=== PATIENT | female | born 1945 | race Caucasian/White ===

== ENCOUNTER 2023-10-02 22:43 | Inpatient (IN) | payer OTHER, SELFPAY ==
[2023-10-02] VITALS (9 sets, daily range): BP systolic 124–184; BP diastolic 43–75; BMI 44.4; BMI 45.3
[2023-10-02 20:17] LABS: % Basophils 0.2 % (0-2); % Eosinophils 1.7 % (0-6); % Lymphocytes 5.5 % (20.5-51.1); % Monocytes 7.3 % (1.7-9.3); % Neutrophils 83.3 % (42.2-75.2); Absolute Eosinophils 0.2 10^3/uL (0-0.7); Absolute Immature Granulocytes 0.3 10^3/uL (0-0.05); Absolute Lymphocytes 0.7 10^3/uL (1.2-3.4); Absolute Neutrophils 10.9 10^3/uL (1.4-6.5); Mean Corp Hgb Conc. 27.3 g/dL (33.0-37.0); Mean Corpuscular Hgb 17.5 pg (27.0-31.0); Mean Corpuscular Volume 64.2 fL (81.0-99.0); Mean Platelet Volume 8.9 fL (7.4-10.4); Nucleated Red Blood Cells % 0.4 %; Platelet Count 312 10^3/uL (130-400); Red Blood Cell Count 2.74 10^6/uL (4.20-5.40); Red Cell Dist. Width 19.7 % (11.5-14.5); White Blood Cell Count 13.1 10^3/uL (4.8-10.8)
[2023-10-02 20:23] LABS: Hematocrit 17.6 % (37.0-47.0); Hemoglobin 4.8 g/dL (12.0-16.0)
[2023-10-02 20:28] LABS: APTT 39.7 Sec (23.4-35.0)
[2023-10-02 20:33] LABS: ALT (SGPT) 12 U/L (0-35); AST (SGOT) 17 U/L (14-36); Albumin 3.6 g/dl (3.5-5.0); Alkaline Phosphatase 75 U/L (38-126); Blood Urea Nitrogen 41 mg/dl (7-17); Calcium 8.6 mg/dl (8.4-10.2); Carbon Dioxide 25 mmol/L (22-30); Chloride 97 mmol/L (98-107); Glucose 175 mg/dl (70-99); Potassium 3.9 mmol/L (3.5-5.1); Sodium 136 mmol/L (135-145); Total Bilirubin 0.6 mg/dl (0.2-1.3); Total Protein 6.4 g/dl (6.3-8.2); eGFR 35.23
[2023-10-02 20:45] LABS: NT-proBNP 3810 pg/ml; Troponin I < 0.012 ng/ml
[2023-10-02 20:50] LABS: Anisocytosis 2+; Microcytosis 2+; Normal RBC Morphology No
[2023-10-02 20:51] LABS: Hypochromasia 3+; Ovalocytes 1+; Stomatocytes 1+; Target Cells Occasional; Tear Drop Red Blood Cells 1+
--- NOTE | 2023-10-02 21:04 | ED.GENMED ---
History of Present Illness
General
Chief Complaint: Breathing Problem
Source: patient
Exam Limitations: none
Time Seen by Provider: 10/02/23 20:46
Travel History
Have you had any contact with someone who has COVID-19?: No
Do you have any symptoms of coronavirus? Fever > 100 degrees, chills, cough, shortness of breath, sore throat, loss of taste or smell, muscle aches, or headache?: No
History of Present Illness
History of Present Illness:
This is a 78 year old female that comes in with c/o SOB and dizziness. State that she is very dizzy and can't walk across the room. States that she is SOB and that she has to hold onto things. States that this started slowly and this is about the
second week. States that occasionally she has black stool, headache, dizziness. Denies any fever, chills, chest pain, abd pain, nausea, vomiting, diarrhea, urinary burning.
Past History
Past History
ED Past Medical History: Arrthythmia (Atrial fib), CHF, HTN, Hypercholesterolemia and NIDDM
ED Past Surgical History: Gynecological (Hysterectomy) and Other (Thyroid surgery)
Social History
Tobacco: Non-smoker
Alcohol: None
Personal:
Living: with family
Review of Systems
Review of Systems
All Other Systems: ROS reviewed and negative except as documented in HPI and ROS
Constitutional: Reports no symptoms; Denies fever or chills
EENT: Reports no symptoms
Respiratory: Reports trouble breathing; Denies cough
Cardiac: Reports no symptoms; Denies chest pain
ABD/GI: Reports black stools; Denies abdominal pain, nausea, vomiting or diarrhea
: Reports no symptoms; Denies dysuria, frequency or urgency
Musculoskeletal: Reports no symptoms
Skin: Reports no symptoms
Neurological: Reports dizzy and headache
Psychiatric: Reports no symptoms
Phy Exam
General Physical Exam
General Presentation: no apparent distress
General age: appears stated age
General Skin: warm, dry and pale
General Habitus: elderly
General Mental: alert
General Hydration: appears well hydrated
ENT Exam
ENT Exam: TM's normal, pharynx normal and neck supple
Eye Exam
Eye Exam: EOMI
Cardiovascular Exam
Cardiovascular Exam: regular rate/rhythm and normal peripheral pulses
Pulmonary Exam
Pulmonary Exam: lungs clear, no respiratory distress, no rales, chest non tender, no crackles, no rhonchi, no wheezing and no cough
Gastrointestinal Exam
Gastrointestinal Exam: normal bowel sounds, non tender, soft, no organomegaly, no pulsatile mass, non distended and other (Obese, Stool brown slightly hem positive)
Musculoskeletal Exam
Musculoskeletal Exam: edema (+2 pitting edema of the feet and lower legs to the knees)
Skin Exam
Skin Exam: warm/dry, pallor and other (Fungle rash in the bilateral groin area)
Psychiatric Exam
Psychiatric Exam: normal mood/affect
Scores
Heart Failure Risk
Heart Failure Risk Score: Yes
History of Stroke or TIA: No
History of intubation for respiratory distress: No
Heart rate on ED arrival >/= 110: No
SaO2 <90% on arrival on room air: No
HR >/=110 during 3min walk test (or too ill to perform test): No
ECG has acute ischemic changes: No
Urea >/=12mmol/L (BUN 33.6mg/dL): Yes
Serum CO2>/=35mmol/L: No
Troponin I or T elevated to IN Level (0.4mg/dL): No
NT-proBNP >/=5,000ng/L (5,000pg/ml): No
HF Risk Score: 1
Admission Status: MEDIUM RISK 5.1% Consider observation or discharge to home with homecare & f/u visit to PCP/Shredding Machine Operator, or SNF for treatment
Course
Orders/Labs/Results
Orders:
Orders
10/02/23 Dinner
Clear Liquid
At Your Request: Limited Participation
Does patient need a safe tray?: No
10/02/23 19:57
Electrocardiogram (*1) Urgent
Reason for Study: Shortness of Breath
CR Chest - 2 Views Urgent
Comment:
Reason For Exam: SOB
10/02/23 19:58
EKG- Treatment ONCE
10/02/23 20:05
Type+Screen Urgent
Complete Blood Count/With Diff Urgent
Comprehensive Metabolic Panel Urgent
Ferritin Urgent
Comment: ADD ON
Folate Urgent
Comment: ADD ON
Iron Urgent
NT-proBNP Urgent
PTT Urgent
Total Iron Binding Urgent
Troponin I Urgent
Vitamin B12 Urgent
Comment: ADD ON
10/02/23 21:03
* Blood Bank Products Urgent
Blood Bank Products: *Packed RBC Leuko(PRBC's)
Quantity: 2
Transfuse Today: Yes
Reason: Anemia
10/02/23 21:04
IV Insert/Care/Rem.- Treatment PRN
10/02/23 21:07
Pantoprazole [Protonix IV] 80 mg IV NOW STA
10/02/23 21:21
Add On- LAB Routine
Tests Added?: iron, ferritin, tibc, folate, vit b12
10/02/23 21:52
Admit/Transfer Patient As Directed
Co-Sign Provider:
Level of Care: Inpatient admission
Assign to:: Telemetry
Physician / Group: Alejandro
Diagnosis: Anemia, GI Bleed
Reason for Telemetry: Arrhythmia
Date to Stop Telemetry: 10/05/23
Time to Stop Telemetry: 11:00
Reason for Hospitalization: blood transfusion, IV lasix
Expected length of stay greater than two midnights?: Yes
ELOS- Estimated Length of Stay in days: 3
I certify the patient meets the requirements for IP care: Yes
10/02/23 21:54
Code Status As Directed
Resuscitation Status: Full Code
10/02/23 21:58
Furosemide [Lasix] 60 mg IV NOW STA
10/02/23 22:45
Dextrose 50%-Water [Dextrose 50% Syringe] 12.5 grams IV [id number] PRN
Glucagon [GlucaGen] 1 mg IM PRN PRN
10/02/23 22:45
Echo 2D MMode Color/Doppler Routine
Reason for Study: heart failure
CARDIOLOGY CONSULT Routine
Consulting Provider: Crystal Dueñas
Was physician already notified: No
Reason for consult: Heart Failure
Consult Notification Routine
Specialty to Notify: Cardiology
Consult Notification Routine
Specialty to Notify: Gastroenterology
GASTROINTESTINAL CONSULT Routine
Consulting Provider: Darling Davis
Was physician already notified: No
Reason for consult: Anemia, Heme-Positive Stool
HF DIETARY CONSULT Routine
HF EDUCATOR CONSULT Routine
Comment:
Activity As Directed
Activity Level: Out of Bed- Chair
With Assistance
Bedside Glucose Monitoring As Directed
Frequency: AC&HS
Comment: Change to q6h if pt on TPN, tube feeding or not eating
Intake/ Output As Directed
Frequency: Per unit guidelines
Patient Education As Directed
Type: CHF folder
Comment: give on admission. Document in Interdisciplinary Education record
Pneumatic Compression Sleeves As Directed
Type: Knee high
Sleep Apnea Assessment by RN As Directed
Comment:
Physician Instructions:
Vital Signs As Directed
Frequency: Other
Additional Instructions:: Q12 or per unit guidelines if more frequent.
Weight As Directed
Frequency: Daily
Type of Scale: Standing Scale
Comment: Daily morning weight. If unable to stand, use balanced bed scale.
Weight As Directed
Frequency: Once
Type of Scale: Standing Scale
Comment: Upon Admission. If unable to stand, use balanced bed scale.
O2 Therapy [RESP] Routine
Titrate/Wean O2 to maintain O2 sat greater than (%): 90
Pulse Ox/cont/shift [RESP] Routine
Quantity: 1
Special Instructions: Daily pulse oximetry at rest. If greater than 92% at rest also obtain pulse oximetry
while ambulating as tolerated.
Ot Eval And Treat Routine
Pt Eval And Treat Routine
Activity Level: Out of Bed-Early Mobility
DX Deep Vein Thrombosis Video Routine
10/03/23 Breakfast
NPO
Allow oral meds: Yes
Allow clear liquids: 4hrs prior to procedure
NPO with Ice Chips: Yes
Comment: may have unrestricted clear liquid up to 4 hrs prior to scheduled procedure
Basic Metabolic Panel IN AM
Cardiovascular Evaluation IN AM
Complete Blood Count/No Diff IN AM
Magnesium IN AM
TSH Reflex To Free T4 IN AM
10/03/23 07:30
Insulin Aspart Corrective Low [Novolog Flexpen-Low Resistance] See Protocol SC AC
10/03/23 08:00
Furosemide [Lasix] 60 mg IV BID AT 0800,1600
10/04/23 06:00
Basic Metabolic Panel IN AM
10/05/23 06:00
Basic Metabolic Panel IN AM
10/05/23 11:00
DC Protocol for Telemetry ONCE
Abnormal Lab Results
10/02/23
20:05
WBC 13.1 H 10^3/uL
(4.8-10.8)
RBC 2.74 L 10^6/uL
(4.20-5.40)
Hgb 4.8 L* g/dL
(12.0-16.0)
Hct 17.6 L* %
(37.0-47.0)
MCV 64.2 L fL
(81.0-99.0)
MCH 17.5 L pg
(27.0-31.0)
MCHC 27.3 L g/dL
(33.0-37.0)
RDW 19.7 H %
(11.5-14.5)
Abs Immat Gran (auto) 0.3 H 10^3/uL
(0-0.05)
Absolute Neuts (auto) 10.9 H 10^3/uL
(1.4-6.5)
Absolute Lymphs (auto) 0.7 L 10^3/uL
(1.2-3.4)
Absolute Monos (auto) 1.0 H 10^3/uL
(0.1-0.6)
Immature Gran % 2.0 H %
(0-0.5)
Neutrophils % 83.3 H %
(42.2-75.2)
Lymphocytes % 5.5 L %
(20.5-51.1)
APTT 39.7 H Sec
(23.4-35.0)
Chloride 97 L mmol/L
(98-107)
BUN 41 H mg/dl
(7-17)
Creatinine 1.5 H mg/dL
(0.6-1.0)
Glucose 175 H mg/dl
(70-99)
Iron 31 L ug/dl
(37-170)
% Saturation 7 L %
(20-50)
Vitamin B12 > 1000 H pg/ml
(239-931)
Crossmatch IS Only See Detail
10/02/23 20:05
10/02/23 20:05
Leukocytosis, H/H extremely low. Anemia, PTT 39.7, Troponin <0.012, Pro-BNP 3810, Chronic renal insuffifiency, Glucose nonfasting.
Vital Signs
Initial and Last Documented VS:
Initial Vital Signs
Temp Pulse Resp BP Pulse Ox
98.0 F 65 20 137/61 94
10/02/23 19:53 10/02/23 19:53 10/02/23 19:53 10/02/23 19:53 10/02/23 19:53
Last Documented Vital Signs
Temp Pulse Resp BP Pulse Ox
98.6 F 60 18 147/63 97
10/03/23 02:05 10/03/23 02:05 10/03/23 02:05 10/03/23 02:05 10/03/23 02:05
MDM/Problems Addressed
Differential Diagnosis Includes:
Anemia, GI bleeding,
MDM/Problems Addressed:
This is a 78 year old female that comes in with c/o SOB and dizziness. States that she can't even walk across the room. States that this has been coming on slowly for the past 2 weeks.
Will get labs
Explained to patient that she will be admitted as her Hgb is very low. Patient is in agreement for PRBC's and the blood consent is signed. Explained that there is a little blood in her stool but there is also anemia. Will admit. Hospitalist
notified.
Chronic conditions affecting care: Other (CHF)
Acute Exacerbation and/or Progression of Chronic Illness:
NA
*Radiology
Radiology exam reviewed: radiology read reviewed (Chest- Cardiomegaly. Vasculature appears cephalized, suggesting elevated pulmonary venous pressure Slight indistinctness of the central pulmonary vasculature, suggesting the possibility of mild
interstitial edema. NO significant pleural effusions. )
*Pulse Oximetry
Patient hypoxic: no
*EKG
Interpreted by ED Provider?: Yes
Heart Rate: 66
Rate: normal
Rhythm: sinus and PVC's
[place]: normal axis
Interval: normal interval
QRS Pattern: normal QRS
Ischemia: no ischemia
*Physical Security Specialist Interpretation
Rate: normal
Heart Rate: 64
Rhythm: sinus
*Critical Care Note
Total Time (30-74mins, 75-104mins- exclusive of procedures): Not Applicable
ED Attending Note
-
Portions of this chart may have been created with voice recognition software.� Occasional wrong word or��sound alike� substitutions may have occurred due to the inherent limitations of voice recognition software.
Discharge Plan
Departure
Patient Disposition: Admit
Admit to: Telemetry
Presentation/result/management discussed w/ accepting MD/DO: Hospitalist
Patient with high blood pressure during this ER visit?: Yes
Condition: Good
Covid-19: Not Applicable
Discharge Problem:
Severe anemia, GI bleeding
Interventions
Interventions:
*Risk Screen - Suicide Last Done: 10/02/23 19:53
*General Assessment Last Done: 10/02/23 19:53
*Neglect/Abuse Screening Last Done: 10/02/23 19:53
ED- Fall Risk Assessment Last Done: 10/02/23 20:35
*ED COVID-19 Vaccine History Last Done: 10/02/23 20:35
*Nursing Disposition Last Done: 10/02/23 22:53
ED- Cardiac Assessment Last Done: 10/02/23 20:35
ED- Pulmonary Assessment Last Done: 10/02/23 20:35
Discharge Date and Time
Discharge Date/Time: 10/02/23 22:54
[2023-10-02] MEDS: PROTONIX IV 80 MG IV (21:34)
--- NOTE | 2023-10-02 22:00 | HPS.HSE ---
Addendum entered and electronically signed by Yandel Allen MD 10/02/23 22:32:
Patient seen and examined independently with PA. 78-year-old female past medical history of diastolic heart failure, paroxysmal atrial fibrillation on Xarelto, hypertension, diabetes, hypothyroidism presenting with progressive dizziness and
shortness of breath and increased lower extreme edema. No changes in stool as per patient. Labs showed hemoglobin of 4.8, DELILAH with creatinine 1.5. Cardiac BNP 3800. Rectal exam showed brown stool slightly heme positive.
Patient likely has blood loss anemia secondary to chronic GI bleeding. DELILAH likely cardiorenal in etiology. Hold Xarelto. 2 units of blood, IV Protonix, n.p.o., GI consulted. Patient also appears to be in uncontrolled heart failure exacerbation.
60 IV Lasix twice daily. Check echocardiogram. Monitor renal function with diuresis.
Original Note:
Family Physician
-
Family Physician:
Chief Complaint
-
Dizziness
History of Present Illness
Pt is a 78yo F w/ a PMH of HTN, HLD, CHF, AFib, DM-II, and Hypothyroidism who is presenting to the ED c/o shortness of breath and dizziness x 2 weeks. She states she has been experiencing these symptoms for two weeks but they have become
progressively worse. She states she is not able to walk short distances without needing to sit down and catch her breath. She is currently on 2L O2 but states she does not use oxygen at home. Work-up in the ED revealed Hgb 4.8. She admits to dark
stools and occasional constipation but states this has been going on for several years. She states she has had a colonoscopy in the past which revealed 'a few benign polyps' but cannot recall when this was done. She reports decreased appetite, but
denies abdominal pain, nausea, vomiting or diarrhea. Patient denies any prior history of anemia.
Medical History
Past Medical History
Past Medical History: Reports Other
Additional Past Medical History:
HFpEF
Atrial fibrillation, paroxysmal
Essential Hypertension
Hyperlipidemia
Diabetes Mellitus, Type II
Diabetic Neuropathy
Hypothyroidism
Morbid Obesity due to Excess Calories
Past Surgical History: Reports Other
Additional Past Surgical History:
Hysterectomy
Thyroid Surgery
Social History
Tobacco: Former Smoker (Quit 30 years ago)
Alcohol: None
Family History
Family History: Not pertinent
Allergies / Home Medications
Allergies reflects when Allergies were last updated in [facility].
Home Medications with original date entered in [facility]
Allergy/Medication List:
Allergies
Allergy/AdvReac Type Severity Reaction Status Date / Time
No Known Allergies Allergy Verified 10/02/23 19:53
Home Medications
amiodarone 200 mg tablet (Pacerone) 200 mg PO DAILY Arrhythmia 08/23/21
atorvastatin 40 mg tablet 40 mg PO QPM High cholesterol 08/23/21
cholecalciferol (vitamin D3) 25 mcg (1,000 unit) tablet 1,000 units PO DAILY Supplement 08/23/21
gabapentin 300 mg capsule 300 mg PO HS Neurological Condition 08/23/21
levothyroxine 137 mcg capsule 137 mcg PO DAILY AT 0700 Thyroid 08/23/21
magnesium oxide 500 mg PO HS Electrolyte Repletion 08/23/21
metformin 500 mg tablet 500 mg PO BID@0800,1700 Diabetes 08/23/21
rivaroxaban 20 mg tablet (Xarelto) 20 mg PO QPM Blood clot prevention/tx 08/23/21
metoprolol succinate 50 mg tablet,extended release 24 hr 50 mg PO DAILY Heart disease/condition ##0 08/30/21
cyanocobalamin (vitamin B-12) 1,000 mcg tablet (Vitamin B-12) 1,000 mcg PO DAILY 10/02/23
empagliflozin 10 mg tablet (Jardiance) 10 mg PO DAILY 10/02/23
omega-3 fatty acids-fish oil 684 mg-1,200 mg capsule,delayed release 1 cap PO DAILY 10/02/23
sacubitril 49 mg-valsartan 51 mg tablet (Entresto) 1 tab PO BID 10/02/23
torsemide 20 mg tablet 20 mg PO BID 10/02/23
Review of Systems
-
A 12 point ROS was completed and negative except as noted: Yes
Constitutional: Denies Fever or Chills
Respiratory: Reports Trouble Breathing; Denies Cough
Cardiac: Denies Chest Pain or Palpitations
Abdomen/GI: Denies Abdominal Pain, Nausea, Vomiting or Diarrhea
Neurological: Reports Dizzy
Physical Exam
Vital Signs
Vital Signs
Temp Pulse Resp BP Pulse Ox
98.0 F 65 20 137/61 98
10/02/23 19:53 10/02/23 19:53 10/02/23 19:53 10/02/23 19:53 10/02/23 20:35
Physical Exam
General: Comfortable and Conversant
HEENT: Anicteric, Moist mucous membranes and Oxygen (Nasal Cannula)
Respiratory: Clear and Non Labored Respirations
Cardiac: S1/S2 and Regular Rhythm
GI: Soft and Non Tender
Rectal: Hem Positive (Per ED Provider)
Musculoskeletal: No Clubbing, No Cyanosis and Other (+4 pitting edema bilateral lower ext)
Skin: Warm and Dry
Neuro: Awake, Alert, Oriented and Nonfocal/grossly intact
Psych: Calm
Laboratory Results
-
10/02/23 20:05
10/02/23 20:05
Laboratory Results
APTT 39.7 Sec (23.4-35.0) H 10/02/23 20:05
Total Bilirubin 0.6 mg/dl (0.2-1.3) 10/02/23 20:05
AST 17 U/L (14-36) 10/02/23 20:05
ALT 12 U/L (0-35) 10/02/23 20:05
Alkaline Phosphatase 75 U/L (38-126) 10/02/23 20:05
Troponin I < 0.012 ng/ml 10/02/23 20:05
Data Reviewed
-
Lab Data: Labs Reviewed by me
Impression/Plan
-
Symptomatic Microcytic Anemia, suspect related to slow GI bleed
-Reviewed [facility] with daughter - Most recent Hgb 11.7 in summer
-Check iron studies
-Transfuse 2 units PRBCs
-Consult GI
-Continue Protonix IV BID
-NPO after midnight
Acute on Chronic Heart Failure, unknown type
-Consult Cardiology
-Start Lasix 60mg IV BID
-Monitor Is&Os and Daily Weights
-Check Echo
-Continue Entresto
Atrial Fibrillation, paroxysmal
-Hold Xarelto due to severe anemia and heme-positive stool
-Continue amiodarone and metoprolol
Essential Hypertension
-Continue metoprolol with hold parameters
Hyperlipidemia
-Continue atorvastatin
Diabetes Mellitus, Type II
-Hold Jardiance and Metformin while NPO
-Monitor sugars and continue coverage insulin
Diabetic Neuropathy
-Continue gabapentin
Hypothyroidism
-Continue levothyroxine
Morbid Obesity due to Excess Calories
-Affects all aspects of care
DVT proph: SCDs until able to resume Xarelto
Code Status: Full Code
[2023-10-02 22:10] LABS: Iron 31 ug/dl (37-170)
[2023-10-02 22:19] LABS: Percent Saturation 7 % (20-50); Total Iron Binding Capacity 431 ug/dl (265-497)
[2023-10-02] MEDS: LASIX 60 MG IV (22:20)
[2023-10-02 22:44] LABS: Ferritin 11.6 ng/ml (11.1-264.0)
[2023-10-02 23:02] LABS: Glucose - Point of Care 127 mg/dl (70-99)
[2023-10-02 23:16] LABS: Folate 9.7 ng/ml (2.76-20); Vitamin B12 > 1000 pg/ml (239-931)
[2023-10-03] VITALS (13 sets, daily range): BP systolic 128–148; BP diastolic 57–70; BMI 45.3
--- NOTE | 2023-10-03 00:52 | PTCARENOTE ---
Addendum entered by Celia Curtis RN 10/03/23 07:29:
Pt completed 2 units of blood with no complaints. AM labs ordered for pt.Pt asymptomatic otherwise.Call bo in reach.
Original Note:
Pt received from ER AAOX3 able to make her needs known, denies pain. Pt on oxygen at 2lit. Pt received with 1st unit of blood running from ER.Pt oriented to room & call bo in reach. Plan of care continued at this time.
[2023-10-03 06:57] LABS: Glucose - Point of Care 133 mg/dl (70-99)
[2023-10-03] MEDS: NOVOLOG FLEXPEN-LOW RESISTANCE SC ×3 (07:30→18:35)
--- NOTE | 2023-10-03 08:30 | W.PN.HOSP.TC ---
Today's Communication/Plan
-
see bold
Assessment / Plan
Assessment / Plan
Gen: NAD, AAOx3.
Eyes: EOMI, PERRLA, no scleral icterus.
Neck: supple.
CV: RRR, +S1/S2, no m/r/g.
Resp: Faint rales in the bases, no wheezes or rhonchi.
Abd: +BS, soft, NT, ND
Skin: No rashes. 2+ B/L LE edema
Neuro: CN 2-12 intact, non-focal.
Psych: Normal mood and affect.
CXR: Cardiomegaly. Vasculature appears cephalized, suggesting elevated pulmonary venous pressure. Slight indistinctness of the central pulmonary vasculature, suggesting the possibility of mild interstitial edema. No significant pleural effusions.
Anemia, likely due to chronic blood loss from chronic GIB:
-Xarelto contributed to GIB, currently on hold
-GI to see
-Hb 4.8 on admission
-s/p 2U pRBCs, trend Hb
-NPO
-cont PPI BID
Acute on chronic CHF:
-likely acute on chronic HFrEF as pt was on Entresto (currently on hold with DELILAH)
-CXR above
-proBNP 3810
-check echo
-with DELILAH due to CRS
-cont IV Lasix
-c/s cards
-holding BB with HR 50s-low 60s
Atrial Fibrillation, paroxysmal
-Hold Xarelto due to severe anemia and heme-positive stool
-Continue amiodarone
-holding BB with HR 50s-low 60s
Essential Hypertension
-holding BB with HR 50s-low 60s
Hyperlipidemia
-Continue atorvastatin
Diabetes Mellitus, Type II
-Hold Jardiance and Metformin while NPO
-SSI/accuchecks
Diabetic Neuropathy
-Continue gabapentin
Hypothyroidism
-Continue levothyroxine
Morbid Obesity due to Excess Calories
-Affects all aspects of care
-encourage wt loss
FULL/SCDs (while AC on hold for Hb 4.8)
Anticipated Discharge: > 48 hours
Subjective/Interval History
-
Date of Service: October 03, 2023
Denies shortness of breath. Reports inferior retrosternal chest pain that she noticed after she had her echocardiogram today.
Objective Data
-
Labs:
Laboratory Results
10/02/23 10/03/23
20:05 06:00
WBC Pending
Hgb Pending
Hct Pending
Plt Count Pending
APTT 39.7 H
Sodium 136 Pending
Potassium 3.9 Pending
Chloride 97 L Pending
Carbon Dioxide 25 Pending
BUN 41 H Pending
Creatinine 1.5 H Pending
Glucose 175 H Pending
Calcium 8.6 Pending
Total Bilirubin 0.6
AST 17
ALT 12
Alkaline Phosphatase 75
Vital Signs:
Vital Signs
Temp Pulse Resp BP Pulse Ox
98.6 F 61 18 141/65 96
10/03/23 05:16 10/03/23 05:16 10/03/23 05:16 10/03/23 05:16 10/03/23 05:16
I&O
10/02/23 10/03/23 10/04/23
06:59 06:59 06:59
Intake Total 920 / 920
Output Total 1900 / 1900
Balance -980 / -980
[2023-10-03] MEDS: VITAMIN D3 (cholecalciferol) 25 MCG PO (09:48)
[2023-10-03] MEDS: VITAMIN B-12 1000 MCG PO (09:48)
[2023-10-03] MEDS: SYNTHROID 137 MCG PO (09:48)
[2023-10-03] MEDS: NSS (PRESERVATIVE FREE) 10 ML IV ×2 (09:49→20:00)
[2023-10-03] MEDS: DESENEX/MITRAZOL/ZEASORB 1 APPLIC TOPICAL ×2 (09:49→20:08)
[2023-10-03] MEDS: PROTONIX IV 40 MG IV ×2 (09:49→20:00)
[2023-10-03 10:25] LABS: Mean Corp Hgb Conc. 29.8 g/dL (33.0-37.0); Mean Corpuscular Hgb 20.1 pg (27.0-31.0); Mean Corpuscular Volume 67.5 fL (81.0-99.0); Mean Platelet Volume 8.8 fL (7.4-10.4); Platelet Count 254 10^3/uL (130-400); Red Blood Cell Count 3.08 10^6/uL (4.20-5.40); Red Cell Dist. Width 20.9 % (11.5-14.5); White Blood Cell Count 12.2 10^3/uL (4.8-10.8)
[2023-10-03 10:28] LABS: Hematocrit 20.8 % (37.0-47.0); Hemoglobin 6.2 g/dL (12.0-16.0)
[2023-10-03] MEDS: LASIX 60 MG IV ×2 (10:53→17:24)
[2023-10-03 10:56] LABS: Blood Urea Nitrogen 33 mg/dl (7-17); Calcium 8.4 mg/dl (8.4-10.2); Carbon Dioxide 32 mmol/L (22-30); Chloride 97 mmol/L (98-107); Estimated Creatinine Clearance 43 ml/min; Glucose 135 mg/dl (70-99); HDL Cholesterol 47 mg/dl; LDL Cholesterol, Calculated 25 mg/dl; Magnesium 2.1 mg/dl (1.6-2.3); Potassium 3.1 mmol/L (3.5-5.1); Sodium 138 mmol/L (135-145); Total Cholesterol 83 mg/dl (50-199); Triglyceride 58 mg/dl (10-149); Very Low Density Lipoprotein 11 mg/dl (0-30); eGFR 38.27
--- NOTE | 2023-10-03 11:23 | CON.GI ---
Addendum entered and electronically signed by Darling Barnes Do, MD 10/03/23 15:18:
I saw and examined the patient.
The PARCEL POST WEIGHER's note was reviewed and I agree with the note.
Comment: Fernanda is a 78yo W with h/o obesity, CHF, and afib who was admitted for SOB and found to have significant anemia Hbg 4.8 with iron deficiency. She is on anticoagulant last use Xarelto 10/01. She denies abd pain, nausea/vomiting. Exam VSS
obese NTTP non distended. Labs reviewed Hbg 4.8 on admission with severe iron def. Normal vit B12 and folate. EGD/colon >10yrs ago
Impression
- Severe iron def anemia with brown heme + stool
ddx includes occult malignancy, PUD or ectasia
- CHF
- Afib
- Obesity BMI 45
- HL
- DM
- Hypothyroidism
Recommendation
- serial H/H
- transfuse to keep hbg >8
- continue to hold xarelto last 10/01
- Ok to c/w heparin gtt
- Appreciate cardiology recs
- PPI IV BID
- Monitor stool output
- FLD for now
- IV iron
Will follow with you
Original Note:
Consultation
-
Date/Time Consultation Requested: 10/02/23 2825
Date/Time Consultation Performed: 10/03/23 1110
Requesting Provider: MONTRELL Ledezma
Performing Provider: Dr. Davis/JONO Corea
Reason for Consultation: symptomatic anemia, OB positive stool on chronic AC
Medical History
Chief Complaint / HPI
Chief Complaint: SOB, dizziness
History of Present Illness:
78-year-old female with past medical history of CHF, atrial fibrillation on Xarelto last dose on 10/01/22, diabetes, hyperlipidemia, hypothyroidism and obesity presents to the emergency room with shortness of breath and dizziness. The patient was
found to have a hemoglobin of 4.8. Her stool was tested and she was also occult blood positive. We are asked to evaluate for the same. The patient also has microcytic indices as well. The patient states that she has had progressive shortness of
breath and dizziness at least over the past month. She has not noticed a change in her stool color but has had some lower abdominal cramping recently. She denies any fevers, chills, nausea, vomiting, melena, hematochezia, dysphagia or odynophagia.
She denies any early satiety or unintentional weight loss. She has a prior history of polyps removed at the [facility] approximately 10 to 15 years ago. She is unsure if she had an upper endoscopy at the same time. She denies any
NSAID usage. She states she has no upper GI complaints or reflux. She denies any history of gastrointestinal malignancy or inflammatory bowel disease. Her prior hemoglobin test in August 2021 was 8.4. Since patient's arrival she was given 2
units of packed red blood cells and repeat hemoglobin is currently 6.2. The patient did experience some chest discomfort after echo this am. Currently without any CP.
Past Medical History
Past Medical History: Arrhythmias (Afib), CHF, HTN, Hypercholesterolemia, Hypothyroidism and NIDDM
Past Surgical History: Gynecological (hysterectomy) and Other (thyroid surgery)
Social History
Tobacco: Former Smoker
Alcohol: None
Drug: None
Personal:
Living: Assisted Living
Family History
Family History: Other (No fam hx GI malignancy or IBD)
Allergies / Home Medications
Allergy/AdvReac Type Severity Reaction Status Date / Time
No Known Allergies Allergy Verified 10/02/23 19:53
Medication Instructions Recorded
amiodarone 200 mg tablet (Pacerone) 200 mg PO DAILY Arrhythmia 08/23/21
atorvastatin 40 mg tablet 40 mg PO QPM High cholesterol 08/23/21
cholecalciferol (vitamin D3) 25 1,000 units PO DAILY Supplement 08/23/21
mcg (1,000 unit) tablet
gabapentin 300 mg capsule 300 mg PO HS Neurological Condition 08/23/21
levothyroxine 137 mcg capsule 137 mcg PO DAILY AT 0700 Thyroid 08/23/21
magnesium oxide 500 mg PO HS Electrolyte Repletion 08/23/21
metformin 500 mg tablet 500 mg PO BID@0800,1700 Diabetes 08/23/21
rivaroxaban 20 mg tablet (Xarelto) 20 mg PO QPM Blood clot 08/23/21
prevention/tx
metoprolol succinate 50 mg 50 mg PO DAILY Heart 08/30/21
tablet,extended release 24 hr disease/condition ##0
cyanocobalamin (vitamin B-12) 1,000 mcg PO DAILY 10/02/23
1,000 mcg tablet (Vitamin B-12)
empagliflozin 10 mg tablet 10 mg PO DAILY 10/02/23
(Jardiance)
omega-3 fatty acids-fish oil 684 1 cap PO DAILY 10/02/23
mg-1,200 mg capsule,delayed release
sacubitril 49 mg-valsartan 51 mg 1 tab PO BID 10/02/23
tablet (Entresto)
torsemide 20 mg tablet 20 mg PO BID 10/02/23
Review of Systems
-
All other systems: A 12 pt ROS was Negative except as stated above in HPI
Vital Signs
Temp Pulse Resp BP Pulse Ox
99.1 F 60 20 139/58 94
10/03/23 09:45 10/03/23 09:45 10/03/23 09:45 10/03/23 09:45 10/03/23 09:45
Physical Exam
Exam
General: No Apparent Distress
HEENT: Anicteric
Respiratory: Rales (bases B/L )
Cardiac: Regular Rhythm
GI: Soft, Non Tender, Non Distended and Normal Bowel Sounds
Rectal: Hem Positive (brown OB + stool per ER)
Musculoskeletal: Edema (B/L +2)
Skin: Warm and Dry
Neuro: AO x 3
Psych: Calm
Results
WBC 12.2 10^3/uL (4.8-10.8) H 10/03/23 10:02
Hgb 6.2 g/dL (12.0-16.0) L* D 10/03/23 10:02
Hct 20.8 % (37.0-47.0) L* 10/03/23 10:02
MCV 67.5 fL (81.0-99.0) L 10/03/23 10:02
Plt Count 254 10^3/uL (130-400) 10/03/23 10:02
Absolute Neuts (auto) 10.9 10^3/uL (1.4-6.5) H 10/02/23 20:05
APTT 39.7 Sec (23.4-35.0) H 10/02/23 20:05
Sodium 138 mmol/L (135-145) 10/03/23 10:02
Potassium 3.1 mmol/L (3.5-5.1) L 10/03/23 10:02
Chloride 97 mmol/L (98-107) L 10/03/23 10:02
Carbon Dioxide 32 mmol/L (22-30) H 10/03/23 10:02
BUN 33 mg/dl (7-17) H 10/03/23 10:02
Creatinine 1.4 mg/dL (0.6-1.0) H 10/03/23 10:02
Calcium 8.4 mg/dl (8.4-10.2) 10/03/23 10:02
Total Bilirubin 0.6 mg/dl (0.2-1.3) 10/02/23 20:05
AST 17 U/L (14-36) 10/02/23 20:05
ALT 12 U/L (0-35) 10/02/23 20:05
Alkaline Phosphatase 75 U/L (38-126) 10/02/23 20:05
Diagnostic Image Results:
10/02/23 CXR:
IMPRESSION:
Cardiomegaly. Vasculature appears cephalized, suggesting elevated pulmonary venous pressure.
Slight indistinctness of the central pulmonary vasculature, suggesting the possibility of mild interstitial edema. No significant pleural effusions.
Electronically signed by Adelso Rincon MD 10/02/2023 11:19 PM
Prior GI Procedures:
EGD: Unsure if she had this? IF so maybe 15 years ago.
Colonoscopy: '[facility] at least 10-15 years ago, polyps'.
Assessment / Plan
-
78-year-old female with past medical history of CHF, atrial fibrillation on Xarelto last dose on 10/01/22, diabetes, hyperlipidemia, hypothyroidism and obesity presents to the emergency room with shortness of breath and dizziness. The patient was
found to have a hemoglobin of 4.8. Her stool was tested and she was also occult blood positive. Patient status post 2 units packed red blood cell with hemoglobin up to 6.2. She does have some fine crackles in the bases of her lungs bilaterally.
She also did have some mild chest discomfort after her echocardiogram this morning. She still needs to be transfused further at this point to get her Hgb at least greater than 7 if not closer to 8. She is not having active bleeding at this time.
She may also need some diuresis as well. Awaiting cardiology consultation and results of echo. Would prefer doing both EGD and colonoscopy together if able to sedate one time.
Impression:
Symptomatic anemia
GI Bleed
A Fib on Chronic AC
CHF
DM
Plan:
-Transfuse to Hgb at least over 7
-Continue Pantoprazole 40 mg IV BID
-Ok for clear liquid diet, would defer to IM/Cardiology if fluid restriction needed and ISS.
-Await Cardiology consultation and Echo
-Will need EGD/Colonoscopy this admission, timing to be determined.
-Trend labs
Data Reviewed
-
Radiology: Report Reviewed by me
-
-
Thank you for consultation and allowing me to participate in the patient's care. Please call the protective signal operations supervisor GI physician during the after hours with any questions or concerns.
--- NOTE | 2023-10-03 11:42 | CON.CAR ---
Addendum entered and electronically signed by Josefina Mario PA-C 10/04/23 11:09:
Primary ore mixer: Dr. Wojciech Jefferson of [place]. attempting to request records for review
Addendum entered and electronically signed by Artie Griffith DO 10/03/23 16:26:
I saw and examined the patient.
The Arborist Climber's note was reviewed and I agree with the note.
Comment:
Plan:
Cont IV diuresis
Check echo
Entresto and Toprol held with possible DELILAH and hypotension in setting of severe anemia. Resume when improved.
Obtain records from her prior ore mixer.
Cont work up and tx of GI bleed
Transfuse as needed for severe anemia
Anticoagulation is on hold
Original Note:
Consultation
Consultation Request
Date/Time Consultation Performed: 10/03/23
Requesting Provider: Dr. Allen
Performing Provider: Josefina Mario PA-C for Dr. Griffith
Reason for Consultation: gi bleeding, afib, CHF
Medical History
-
Chief Complaint: SOB
History of Present Illness:
Patient is a 78-year-old female with past medical history of paroxysmal atrial fibrillation on chronic amiodarone and Xarelto, diabetes, hypertension, hyperlipidemia. She is followed by an outside ore mixer, however cannot remember their name.
She believes she has history of ablation. She denies history of cardiomyopathy, however upon looking at her medication list, would suspect EF is not normal. She presented to [facility] emergency room due to significant shortness of breath
and dizziness. She states she has been on a water pill over the last several weeks due to lower extremity edema. She states she stopped taking her weight, however thinks it runs around 260 pounds. Upon arrival to the emergency room her hemoglobin
was 4.4. She was noted to be heme positive. Also noted to be in congestive heart failure, requiring supplemental oxygen with proBNP of 3810. Troponin negative. She denies history of bleeding events. Cardiology consulted for CHF, as well as GI
bleeding in the setting of chronic anticoagulation.
PMH:
Paroxysmal atrial fibrillation
Chronic amiodarone therapy
Chronic Xarelto therapy
Diabetes
Hypertension
Hyperlipidemia
Hypothyroidism
Past Medical History
Past Medical History: Other (in HPI)
Social History
Living: Alone
Employment: Retired
Family History
Family History: Cancer
Allergies / Home Medications
Allergy/AdvReac Type Severity Reaction Status Date / Time
No Known Allergies Allergy Verified 10/02/23 19:53
Medication Instructions Recorded Confirmed Type
amiodarone 200 mg tablet (Pacerone) 200 mg PO DAILY Arrhythmia 08/23/21 10/02/23 History
atorvastatin 40 mg tablet 40 mg PO QPM High cholesterol 08/23/21 10/02/23 History
cholecalciferol (vitamin D3) 25 1,000 units PO DAILY Supplement 08/23/21 10/02/23 History
mcg (1,000 unit) tablet
gabapentin 300 mg capsule 300 mg PO HS Neurological Condition 08/23/21 10/02/23 History
levothyroxine 137 mcg capsule 137 mcg PO DAILY AT 0700 Thyroid 08/23/21 10/02/23 History
magnesium oxide 500 mg PO HS Electrolyte Repletion 08/23/21 10/02/23 History
metformin 500 mg tablet 500 mg PO BID@0800,1700 Diabetes 08/23/21 10/02/23 History
rivaroxaban 20 mg tablet (Xarelto) 20 mg PO QPM Blood clot 08/23/21 10/02/23 History
prevention/tx
metoprolol succinate 50 mg 50 mg PO DAILY Heart 08/30/21 10/02/23 Rx
tablet,extended release 24 hr disease/condition ##0
cyanocobalamin (vitamin B-12) 1,000 mcg PO DAILY 10/02/23 10/02/23 History
1,000 mcg tablet (Vitamin B-12)
empagliflozin 10 mg tablet 10 mg PO DAILY 10/02/23 10/02/23 History
(Jardiance)
omega-3 fatty acids-fish oil 684 1 cap PO DAILY 10/02/23 10/02/23 History
mg-1,200 mg capsule,delayed release
sacubitril 49 mg-valsartan 51 mg 1 tab PO BID 10/02/23 10/02/23 History
tablet (Entresto)
torsemide 20 mg tablet 20 mg PO BID 10/02/23 10/02/23 History
Review of Systems
-
History Source: Patient
All other systems: Negative unless noted
Physical Exam
Vital Signs
Temp Pulse Resp BP Pulse Ox
98.4 F 64 20 129/66 96
10/03/23 11:29 10/03/23 11:29 10/03/23 11:29 10/03/23 11:29 10/03/23 11:29
Lab Results
10/03/23 10:02
10/03/23 10:02
Troponin I < 0.012 ng/ml 10/02/23 20:05
Psu-O-Xavhwieeagh Pept 3810 pg/ml 10/02/23 20:05
Physical Exam
General: Well Nourished, No Apparent Distress and Other (on supp o2)
HEENT: Normocephalic, Anicteric and Moist Mucous Membranes
Respiratory: Crackles and Non Labored Respirations
Cardiac: S1/S2 and Regular Rhythm
GI: Soft, Non Tender, Non Distended and Normal Bowel Sounds
Musculoskeletal: No Clubbing, No Cyanosis and Edema (1+ of b/L LE)
Skin: Warm and Dry
Neuro: AO x 3
Impression / Plan
-
Primary Consumer Analyst: unknown, patient to find out and provide name
Assessment:
Presentation with SOB, dizziness
Acute anemia
Suspected GI bleed
Acute hypoxic respiratory failure
Acute on chronic heart failure, presumed systolic
Paroxysmal atrial fibrillation
Chronic amiodarone therapy
Chronic Xarelto therapy
Diabetes
Hypertension
Hyperlipidemia
Hypothyroidism
ECHO 10/03/23: pending
Plan:
-Patient presented to ER with SOB and dizziness. found to have hgb of 4.4. concern for slow gi bleed. GI following. OP xarelto on hold. transfusions as per primary service. follow hgb
-in SR. continue amiodarone
-also appears to be in acute CHF. proBNP 3810. continue IV lasix 60mg BID. on torsemide 20mg BID as OP. Cr 1.4, follow with diuresis, unclear baseline
-CHF education
-wean supp O2 as able
-check echo
-patient to have daughter give her ore mixer name, and will then obtain records
-OP toprol and entresto on hold at present given possible DELILAH and hypotension in setting of marked anemia. resume as able
Data Reviewed
-
EKG: Tracing Personally Visualized and interpreted
Radiology: Report Reviewed by me
Labs: Labs Reviewed by me
Old Records: Reviewed
[2023-10-03 12:08] LABS: Glucose - Point of Care 137 mg/dl (70-99)
[2023-10-03] MEDS: KCL 40 MEQ PO (12:35)
--- NOTE | 2023-10-03 14:30 | PTCARENOTE ---
Pt c/o 02/18 chest pain, mid sternum, Pt unsure when pain started said maybe yesterday maybe today,Pt says pain increases when she palpates, and is also across her shoulder blades, EKG completed VSS, MD made aware, feels as though this is
musculoskeletal, pt was c/o discomfort after echo. Pt given tylenol with relief. Call bo within reach, plan of care ongoing
[2023-10-03] MEDS: TYLENOL 650 MG PO (15:06)
--- NOTE | 2023-10-03 15:28 | CM ---
Patient seen bedside, initial assessment completed. Patient reports she lives alone in a one story home. Patient reports she has family nearby who are always at her home. Patient reports she has a walker for when she goes out in the community,
otherwise denies DME. Patient currently on oxygen, does not use home O2. Patient denies VN, reports [facility] in past. Patient confirms PCP Vanesa Rosa, pharmacy [facility]. CM will continue to follow for discharge planning needs.
Plan; home no needs vs VN, watch O2.
--- NOTE | 2023-10-03 16:00 | PTCARENOTE ---
1 unit of PPRBCs infused, after 15 minutes no apparent sign of a transfusion reaction VSS, Plan of care ongoing, will continue to monitor.
[2023-10-03] MEDS: LIPITOR 40 MG PO (17:25)
[2023-10-03 18:19] LABS: Glucose - Point of Care 126 mg/dl (70-99)
[2023-10-03 21:07] LABS: Glucose - Point of Care 133 mg/dl (70-99)
[2023-10-03] MEDS: MAGNESIUM OXIDE 500 MG PO (21:12)
[2023-10-03] MEDS: NEURONTIN 300 MG PO (21:12)
[2023-10-04] VITALS (9 sets, daily range): BP systolic 117–163; BP diastolic 52–81; PULSE 62–64; O2SAT 96–97; BMI 44.1
[2023-10-04] MEDS: SYNTHROID 137 MCG PO (05:47)
[2023-10-04 07:23] LABS: Glucose - Point of Care 136 mg/dl (70-99)
[2023-10-04] MEDS: NOVOLOG FLEXPEN-LOW RESISTANCE SC ×2 (08:17→17:48)
[2023-10-04 08:54] LABS: Blood Urea Nitrogen 24 mg/dl (7-17); Calcium 8.2 mg/dl (8.4-10.2); Carbon Dioxide 31 mmol/L (22-30); Chloride 98 mmol/L (98-107); Estimated Creatinine Clearance 46 ml/min; Glucose 111 mg/dl (70-99); Potassium 3.2 mmol/L (3.5-5.1); Sodium 137 mmol/L (135-145); eGFR 41.83
[2023-10-04] MEDS: DESENEX/MITRAZOL/ZEASORB 1 APPLIC TOPICAL ×2 (09:26→20:27)
[2023-10-04] MEDS: LASIX 60 MG IV ×2 (09:27→15:44)
[2023-10-04] MEDS: PACERONE 200 MG PO (09:27)
[2023-10-04] MEDS: VITAMIN D3 (cholecalciferol) 25 MCG PO (09:28)
[2023-10-04] MEDS: NSS (PRESERVATIVE FREE) 10 ML IV ×2 (09:28→20:37)
[2023-10-04] MEDS: VITAMIN B-12 1000 MCG PO (09:28)
[2023-10-04] MEDS: PROTONIX IV 40 MG IV ×2 (09:28→20:37)
--- NOTE | 2023-10-04 10:24 | W.PN.HOSP.TC ---
Today's Communication/Plan
-
see bold
Assessment / Plan
Assessment / Plan
Gen: NAD, AAOx3.
Eyes: EOMI, PERRLA, no scleral icterus.
Neck: supple.
CV: RRR, +S1/S2, no m/r/g.
Resp: Faint rales in the bases, no wheezes or rhonchi.
Abd: +BS, soft, NT, ND
Skin: No rashes. 2+ B/L LE edema
Neuro: CN 2-12 intact, non-focal.
Psych: Normal mood and affect.
CXR: Cardiomegaly. Vasculature appears cephalized, suggesting elevated pulmonary venous pressure. Slight indistinctness of the central pulmonary vasculature, suggesting the possibility of mild interstitial edema. No significant pleural effusions.
Echo: Left ventricle is mildly dilated. Normal left ventricular wall thickness.
Normal left ventricular systolic function. Left ventricular ejection fraction
is 60-65%. Normal regional wall motion.
Biatrial enlargement
Normal right ventricular function. Mildly enlarged right ventricular size.
Mild aortic stenosis. Peak/mean gradients across the aortic valve are 27/13
mmHg.
Mild to moderate tricuspid regurgitation. Severe pulm hypertension estimated
pulmonary artery pressure of 63 mmHg.
No prior echo for comparison.
Anemia, likely due to chronic blood loss from chronic GIB:
-Xarelto contributed to GIB, currently on hold
-Hb 4.8 on admission
-s/p 2U pRBCs, trend Hb
-clears
-cont PPI BID
-GI Following
Acute on chronic HFpEF:
-Echo above and notable for EF 60-65%, mild , mid-mod TR, severe pulm HTN
-May have had reduced ejection fraction in the past as pt was on Entresto (currently on hold with DELILAH)
-CXR above
-proBNP 3810
-with DELILAH due to CRS, Cr improving
-cont IV Lasix
-c/s cards
-holding BB with HR 50s-low 60s
Hypokalemia:
-80meq PO K today
Atrial Fibrillation, paroxysmal
-Holding Xarelto due to severe anemia and heme-positive stool
-Continue amiodarone
-holding BB with HR 50s-low 60s
Essential Hypertension
-holding BB with HR 50s-low 60s
Hyperlipidemia
-Continue atorvastatin
Diabetes Mellitus, Type II
-Hold Jardiance and Metformin while NPO
-SSI/accuchecks
Diabetic Neuropathy
-Continue gabapentin
Hypothyroidism
-Continue levothyroxine
Morbid Obesity due to Excess Calories
-Affects all aspects of care
-encourage wt loss
FULL/SCDs (while AC on hold for Hb 4.8 on admission, ongoing GI work up)
Anticipated Discharge: > 48 hours
Subjective/Interval History
-
Date of Service: October 04, 2023
Patient denies chest pain, shortness of breath, abdominal pain.
Objective Data
-
Labs:
Laboratory Results
10/04/23
07:35
Sodium 137
Potassium 3.2 L
Chloride 98
Carbon Dioxide 31 H
BUN 24 H
Creatinine 1.3 H
Glucose 111 H
Calcium 8.2 L
Vital Signs:
Vital Signs
Temp Pulse Resp BP Pulse Ox
98.3 F 60 20 117/57 94
10/04/23 07:57 10/04/23 09:27 10/04/23 07:57 10/04/23 09:27 10/04/23 07:57
I&O
10/03/23 10/04/23 10/05/23
06:59 06:59 06:59
Intake Total 920 / 920 2700 / 2700
Output Total 1900 / 1900 800 / 800
Balance -980 / -980 1899
[2023-10-04 10:50] LABS: Hematocrit 25.2 % (37.0-47.0); Mean Corp Hgb Conc. 29.8 g/dL (33.0-37.0); Mean Corpuscular Hgb 20.4 pg (27.0-31.0); Mean Corpuscular Volume 68.7 fL (81.0-99.0); Mean Platelet Volume 8.6 fL (7.4-10.4); Platelet Count 273 10^3/uL (130-400); Red Blood Cell Count 3.67 10^6/uL (4.20-5.40); Red Cell Dist. Width 21.8 % (11.5-14.5); White Blood Cell Count 10.1 10^3/uL (4.8-10.8)
[2023-10-04 11:00] LABS: Hemoglobin 7.5 g/dL (12.0-16.0)
[2023-10-04] MEDS: KCL 40 MEQ PO ×2 (11:04→14:29)
--- NOTE | 2023-10-04 11:06 | W.PN.GI.CBS2 ---
Addendum entered and electronically signed by Etta Ugalde DO 10/04/23 17:08:
Patient seen and examined independently of JONO. I agree with her note with my additions below
Fernanda is a 78-year-old female with history of CHF, atrial fibrillation on Xarelto with last dose on 10/01/2022, diabetes and obesity and significant constipation who was admitted to the emergency room with symptomatic iron deficiency anemia with a
hemoglobin of 4.8 who is now 3 units packed red blood cells with appropriate response to 7.5 with brown heme positive stool. She has a microcytic indices. Her platelet count is normal at 273. her ferritin is 11.6 with a percent saturation of 7.
Overall, patient is being optimized from a cardiac standpoint prior to undergoing endoscopy and colonoscopy on Saturday. She will need some prep over the weekend because she moves her bowels generally once a week.
I started twice daily MiraLAX today, likely do magnesium citrate tomorrow followed by GoLytely 4 L on Saturday.
Patient's mother had colon cancer and her last colonoscopy was well over 10 years ago at [facility].
Original Note:
Today's Communication / Plan
-
Even EGD/[place]
Continue Clears (patient preference)
Add Miralax
Medically optimize for procedures
Would like Hgb at 8
Assessment / Plan
-
78-year-old female with past medical history of CHF, atrial fibrillation on Xarelto last dose on 10/01/22, diabetes, hyperlipidemia, hypothyroidism and obesity presents to the emergency room with shortness of breath and dizziness. The patient was
found to have a hemoglobin of 4.8. Her stool was tested and she was also occult blood positive. Patient status post 2 units packed red blood cell with hemoglobin up to 6.2. She does have some fine crackles in the bases of her lungs bilaterally.
She also did have some mild chest discomfort after her echocardiogram this morning. She still needs to be transfused further at this point to get her Hgb at least greater than 7 if not closer to 8. She is not having active bleeding at this time.
She may also need some diuresis as well. Awaiting cardiology consultation and results of echo. Would prefer doing both EGD and colonoscopy together if able to sedate one time.
Impression:
Symptomatic anemia
GI Bleed
A Fib on Chronic AC, last dose Xarelto 10/01/23
CHF
DM
Plan:
-Try to keep Hgb around 8 given Cardiac Hx. Currently 7.5
-Continue Pantoprazole 40 mg IV BID
-Continue clear liquid diet, would defer to IM/Cardiology if fluid restriction needed and ISS. Patient would prefer to stay on clears to ensure adequate prep.
-Cardiology following.
-EGD/Colonoscopy this admission likely Saturday if medically optimized. Patient in Acute on Chronic CHF with supplemental O2 requirements and IV diuresis.
-Ok for heparin gtt if needed
-Patient on IV iron for 5 days total
-Trend labs
-Add daily Miralax
Subjective
Subjective
Date of Service: October 04, 2023
Patient states her SOB and dizziness that brought her to the hospital has resolved. She is s/p transfusion 3 units RBC. Repeat Hgb is 7.5. The patient has not had a BM since arrival and is requesting Miralax. She is tolerating a clear liquid diet
and would actually prefer to stay on this to make sure she is completely clear for procedures planned. We again discussed family hx and she states that her Mother had colon cancer and at age 67. She states that she was sick for 1 year
prior as she forgot to tell us that yesterday. The patient still thinks that her last colonoscopy was about 10-15 years ago at [facility] where she had polyps.
Objective
Data Reviewed
Laboratory Data:
Laboratory Results
10/04/23 10:30
10/04/23 07:35
Laboratory Results
APTT 39.7 Sec (23.4-35.0) H 10/02/23 20:05
Magnesium 2.1 mg/dl (1.6-2.3) 10/03/23 10:02
Total Bilirubin 0.6 mg/dl (0.2-1.3) 10/02/23 20:05
AST 17 U/L (14-36) 10/02/23 20:05
ALT 12 U/L (0-35) 10/02/23 20:05
Alkaline Phosphatase 75 U/L (38-126) 10/02/23 20:05
Vital Signs and I&O:
Vital Signs
Temp Pulse Resp BP Pulse Ox
98.3 F 60 20 117/57 94
10/04/23 07:57 10/04/23 09:27 10/04/23 07:57 10/04/23 09:27 10/04/23 07:57
I&O
10/03/23 10/04/23 10/05/23
06:59 06:59 06:59
Intake Total 920 / 920 2700 / 2700
Output Total 1900 / 1900 800 / 800
Balance -980 / -980 1900 / 1900
Physical Exam
Physical Exam
HEENT: Anicteric
Cardiology: Normal Sinus Rhythm
Pulmonary: Other (+ crackles in right base)
GI: Soft, Non Distended, Non Tender and Normal Bowel Sounds
Extremities: Edema (+ 1) and Other (SCD's in place)
Neuro: Non Focal
--- NOTE | 2023-10-04 11:17 | CM ---
Patient seen bedside, reports no new concerns. Patient remains on O2. CM will watch for PT/OT evaluations and recommendations. CM will continue to follow for discharge planning needs.
Plan; home no needs vs VN, watch for PT/OT evals, watch for home O2 needs.
[2023-10-04 12:11] LABS: Glucose - Point of Care 202 mg/dl (70-99)
[2023-10-04] MEDS: MIRALAX 17 GRAMS PO ×2 (13:05→20:37)
[2023-10-04] MEDS: NOVOLOG FLEXPEN-LOW RESISTANCE 2 UNITS SC (13:09)
[2023-10-04] MEDS: FERRLECIT 110 MG IV (14:28)
--- NOTE | 2023-10-04 15:40 | W.PN.CARDCBS ---
Addendum entered and electronically signed by Rashid Alcala MD 10/04/23 18:15:
She feels better, has received3 units of packed cells, Xarelto is on hold, has received IV diuretics. 2 grandsons at bedside.
Allergies: None
Outpatient medications: Amiodarone 200 mg a day, atorvastatin 40 mg daily, dapagliflozin 10 mg a day, gabapentin, levothyroxine, metformin, metoprolol ER 50 mg daily, Entresto 1 twice daily, torsemide 20 twice daily, Xarelto
Current medications: Furosemide 60 mg IV twice daily, amiodarone 200 mg a day, atorvastatin 40 mg a day, gabapentin, Synthroid, metoprolol ER 25 mg a day, torsemide, Xarelto, Entresto on hold, metformin on hold, currently Jardiance on hold
PMH/PSH/FH/SH: Reviewed
Review of systems: Negative except as above
139/89, pulse 61, resp rate 18 Weight is 28.2 kg, down 3 points 2 kg
No acute distress, head neck exam unremarkable, lungs are clear, regular rate and rhythm without obvious murmur, JVD okay, abdomen obese, some lower extremity edema, neuro nonfocal, musculoskeletal intact
Hemoglobin 7.5, potassium 3.2, BUN/creatinine 24.3, ECG sinus rhythm none specific ST changes, proBNP was 3810, troponin undetectable
Assessment:
Subacute blood loss anemia with suspected GI bleed, initial hemoglobin 4.4
Acute on chronic heart failure, presumed systolic
Severe pulmonary hypertension on echo 10/03/2023
Paroxysmal atrial fibrillation
Chronic amiodarone therapy
Chronic Xarelto therapy
Diabetes
Hypertension
Hyperlipidemia
Hypothyroidism
ECHO 10/03/23:�EF 60-65%, mildly dilated LV. biatrial enlargement. Mild w/ peak/mean gradient 27/13 mmHg, severe pulm HTN PAP 63 mmHg
Plan:
Acute on chronic HFpEF: She is still volume overloaded but very comfortable and much improved compared to presentation. Continue IV furosemide, transition to torsemide in 24 to 48 hours, eventual resumption of Jardiance and Entresto.
Blood loss: Hemoglobin now 7.9. After GI evaluation, restart Xarelto eventually
Paroxysmal atrial fibrillation: Currently in normal sinus rhythm
CKD: Acceptable at present, follow creatinine
IV Lasix
Okay to proceed with colonoscopy and EGD from cardiac standpoint
Original Note:
Today's Communication / Plan
-
Improving, Continue IV diuresis
Replete K+
Restart Toprol 25 mg daily
Outpt records requested again
Anticipated colonoscopy and EGD on 10/07/23
Impression / Plan
-
Primary State Superintendent Of [employer]: Dr. Wojciech Jefferson of [place]
Assessment:
Presentation 10/02/2023 with SOB, dizziness
Acute anemia
Suspected GI bleed
Acute hypoxic respiratory failure
Acute on chronic heart failure, presumed systolic
Severe pulmonary hypertension on echo 10/03/2023
Paroxysmal atrial fibrillation
Chronic amiodarone therapy
Chronic Xarelto therapy
Diabetes
Hypertension
Hyperlipidemia
Hypothyroidism
ECHO 10/03/23: EF 60-65%, mildly dilated LV. biatrial enlargement. Mild w/ peak/mean gradient 27/13 mmHg, severe pulm HTN PAP 63 mmHg
Plan:
-Patient presented 10/04/2023 to ER with SOB and dizziness.
-Acute GIB w/ hgb of 4.4 on admission. Transfused 3 unit pRBC, Hgb 7.5 10/04/23
-Xarelto on hold
-GI following and plan is for eventual EGD and colonoscopy. Continue Pantoprazole 40 mg IV BID
-History of Paroxysmal atrial fibrillation currently in SR. Xarelto on hold but continues on amiodarone
-Appears to be in acute heart failure with preserved ejection fraction. proBNP 3810. Down 7 lbs overnight if scale correct. Continue IV lasix 60mg BID. {on torsemide 20mg BID as OP}.
-Cr 1.3, follow with diuresis, unclear baseline
-K+ 3.2, Replete, got 80 meq today
-CHF education
-wean supp O2 as able; currently on 2 lpm
-Echo as noted above preserved EF with mild and severe pulm HTN. Unclear if Pulm HTN is new. We have requested records but have not received yet
-Outpt cardiology records requested
-OP Jardiance, Toprol and Entresto on hold at present given possible DELILAH and hypotension in setting of marked anemia. Would resume Toprol 25 mg daily 10/04/2023
Discussed w/ pt and family at bedside
Progress Note - State [employer]
Subjective
Date of Service: October 04, 2023
Patient seen and examined. Patient's family at bedside. Patient reports she is feeling significantly better. More energy, less short of breath and improving lower extremity edema
Objective
Labs:
10/04/23 10:30
10/04/23 07:35
Labs
Hgb 7.5 g/dL (12.0-16.0) L D 10/04/23 10:30
Hct 25.2 % (37.0-47.0) L 10/04/23 10:30
Plt Count 273 10^3/uL (130-400) 10/04/23 10:30
APTT 39.7 Sec (23.4-35.0) H 10/02/23 20:05
Sodium 137 mmol/L (135-145) 10/04/23 07:35
Potassium 3.2 mmol/L (3.5-5.1) L 10/04/23 07:35
BUN 24 mg/dl (7-17) H 10/04/23 07:35
Creatinine 1.3 mg/dL (0.6-1.0) H 10/04/23 07:35
Glucose 111 mg/dl (70-99) H 10/04/23 07:35
Troponins
10/02/23
20:05
Troponin I < 0.012
Vital Signs and I&O:
Vital Signs
Temp Pulse Resp BP Pulse Ox
97.8 F 64 20 123/52 96
10/04/23 11:49 10/04/23 11:49 10/04/23 11:49 10/04/23 11:49 10/04/23 11:49
Vital Signs
Temp Pulse Resp BP Pulse Ox
97.8 F 64 20 123/52 96
10/04/23 11:49 10/04/23 11:49 10/04/23 11:49 10/04/23 11:49 10/04/23 11:49
Intake & Output
10/02/23 10/03/23 10/04/23 10/05/23
06:59 06:59 06:59 06:59
Intake Total 920 / 920 2700 / 2700
Output Total 1900 / 1900 800 / 800
Balance -980 / -980 1900 / 1900
Physical Exam
Physical Exam
GEN: No distress, awake, Ox3
HEENT: supple, anicteric, mmm
LUNGS: Few scattered crackles at bases otherwise CTA, no wheezes/rales
CV: Reg, S1/S2, 1/6 syst murmur, no rub or gallop
ABD: soft, BS+, NT/ND
EXT: +1 bilateral lower extremity edema, no clubbing or cyanosis
NEURO: Gross non-focal
SKIN: No rash, warm, dry, pink
[2023-10-04] MEDS: LIPITOR 40 MG PO (17:34)
[2023-10-04] MEDS: TOPROL XL 25 MG PO (17:34)
[2023-10-04 17:41] LABS: Glucose - Point of Care 91 mg/dl (70-99)
[2023-10-04] MEDS: NEURONTIN 300 MG PO (20:43)
[2023-10-04] MEDS: MAGNESIUM OXIDE 500 MG PO (20:43)
[2023-10-04 21:32] LABS: Glucose - Point of Care 125 mg/dl (70-99)
[2023-10-05 03:05] VITALS: BP 128/64
[2023-10-05] MEDS: SYNTHROID 137 MCG PO (05:24)
[2023-10-05 05:38] VITALS: BMI 44.5
[2023-10-05 07:15] VITALS: BP 130/76
[2023-10-05 07:27] LABS: Hematocrit 24.9 % (37.0-47.0); Hemoglobin 7.3 g/dL (12.0-16.0); Mean Corp Hgb Conc. 29.3 g/dL (33.0-37.0); Mean Corpuscular Hgb 20.8 pg (27.0-31.0); Mean Corpuscular Volume 70.9 fL (81.0-99.0); Mean Platelet Volume 8.7 fL (7.4-10.4); Platelet Count 271 10^3/uL (130-400); Red Blood Cell Count 3.51 10^6/uL (4.20-5.40); Red Cell Dist. Width 22.6 % (11.5-14.5); White Blood Cell Count 10.9 10^3/uL (4.8-10.8)
[2023-10-05 07:59] LABS: Blood Urea Nitrogen 23 mg/dl (7-17); Calcium 8.4 mg/dl (8.4-10.2); Carbon Dioxide 33 mmol/L (22-30); Chloride 96 mmol/L (98-107); Estimated Creatinine Clearance 43 ml/min; Glucose 109 mg/dl (70-99); Potassium 3.7 mmol/L (3.5-5.1); Sodium 138 mmol/L (135-145); eGFR 38.27
[2023-10-05 08:00] LABS: Glucose - Point of Care 122 mg/dl (70-99)
[2023-10-05] MEDS: NOVOLOG FLEXPEN-LOW RESISTANCE SC ×3 (08:53→17:41)
[2023-10-05] MEDS: DESENEX/MITRAZOL/ZEASORB 1 APPLIC TOPICAL ×2 (09:13→19:45)
[2023-10-05] MEDS: LASIX 60 MG IV ×2 (09:14→17:33)
[2023-10-05] MEDS: MIRALAX 17 GRAMS PO ×3 (09:14→20:58)
[2023-10-05] MEDS: VITAMIN B-12 1000 MCG PO (09:16)
[2023-10-05] MEDS: PROTONIX IV 40 MG IV ×2 (09:16→19:42)
[2023-10-05] MEDS: TOPROL XL 25 MG PO (09:16)
[2023-10-05] MEDS: VITAMIN D3 (cholecalciferol) 25 MCG PO (09:16)
[2023-10-05] MEDS: PACERONE 200 MG PO (09:16)
[2023-10-05] MEDS: NSS (PRESERVATIVE FREE) 10 ML IV ×2 (09:17→19:43)
--- NOTE | 2023-10-05 09:49 | W.PN.HOSP.TC ---
Today's Communication/Plan
-
see bold
Assessment / Plan
Assessment / Plan
Gen: NAD, AAOx3.
Eyes: EOMI, PERRLA, no scleral icterus.
Neck: supple.
CV: remains RRR, +S1/S2, no m/r/g.
Resp: CTAB anteriorly
Abd: +BS, soft, NT, ND
Skin: No rashes. race B/L LE edema
Neuro: CN 2-12 intact, non-focal.
Psych: Normal mood and affect.
CXR: Cardiomegaly. Vasculature appears cephalized, suggesting elevated pulmonary venous pressure. Slight indistinctness of the central pulmonary vasculature, suggesting the possibility of mild interstitial edema. No significant pleural effusions.
Echo: Left ventricle is mildly dilated. Normal left ventricular wall thickness.
Normal left ventricular systolic function. Left ventricular ejection fraction
is 60-65%. Normal regional wall motion.
Biatrial enlargement
Normal right ventricular function. Mildly enlarged right ventricular size.
Mild aortic stenosis. Peak/mean gradients across the aortic valve are 27/13
mmHg.
Mild to moderate tricuspid regurgitation. Severe pulm hypertension estimated
pulmonary artery pressure of 63 mmHg.
No prior echo for comparison.
Anemia, likely due to chronic blood loss from chronic GIB:
-Xarelto contributed to GIB, currently on hold
-Hb 4.8 on admission, now 7.3 after 2U pRBCs
-clears
-cont PPI BID
-GI following, for EGD/colon on 10/07/23
Acute on chronic HFpEF:
-Echo above and notable for EF 60-65%, mild , mid-mod TR, severe pulm HTN
-May have had reduced ejection fraction in the past as pt was on Entresto (currently on hold with DELILAH)
-CXR above
-proBNP 3810
-with DELILAH due to CRS, Cr stable, likely new baseline
-cont IV Lasix
-cards following
-HR improved, BB started
Hypokalemia, resolved
Atrial Fibrillation, paroxysmal
-Holding Xarelto due to severe anemia and heme-positive stool
-I would not start heparin gtt at this time (prior to scopes on 10/07/23) as risk outweighs benefit at this moment (discussed with Dr. Ugalde)
-Continue amiodarone/BB
Essential Hypertension
-cont BB
Hyperlipidemia
-Continue atorvastatin
Diabetes Mellitus, Type II
-Hold Jardiance and Metformin while NPO
-SSI/accuchecks
Diabetic Neuropathy
-Continue gabapentin
Hypothyroidism
-Continue levothyroxine
Morbid Obesity due to Excess Calories
-Affects all aspects of care
-encourage wt loss
FULL/SCDs (while AC on hold for Hb 4.8 on admission, ongoing GI work up)
Anticipated Discharge: > 48 hours
Subjective/Interval History
-
Date of Service: October 05, 2023
Denies CP/SOB/abd pain
Objective Data
-
Labs:
Laboratory Results
10/05/23
06:35
WBC 10.9 H
Hgb 7.3 L
Hct 24.9 L
Plt Count 271
Sodium 138
Potassium 3.7
Chloride 96 L
Carbon Dioxide 33 H
BUN 23 H
Creatinine 1.4 H
Glucose 109 H
Calcium 8.4
Vital Signs:
Vital Signs
Temp Pulse Resp BP Pulse Ox
98.2 F 75 18 130/76 95
10/05/23 07:15 10/05/23 09:14 10/05/23 07:15 10/05/23 09:14 10/05/23 07:15
I&O
10/04/23 10/05/23 10/06/23
06:59 06:59 06:59
Intake Total 2700 / 2700 1220 / 1220
Output Total 800 / 800 2450 / 2450
Balance 1900 / 1900 -1230 / -1230
--- NOTE | 2023-10-05 10:57 | W.PN.GI.CBS2 ---
Today's Communication / Plan
-
+amitiza, increase miralax
Assessment / Plan
-
78-year-old female with past medical history of CHF, atrial fibrillation on Xarelto last dose on 10/01/22, diabetes, hyperlipidemia, hypothyroidism and obesity presents to the emergency room with shortness of breath and dizziness. The patient was
found to have a hemoglobin of 4.8. Her stool was tested and she was also occult blood positive. Patient status post 2 units packed red blood cell with hemoglobin up to 6.2. She does have some fine crackles in the bases of her lungs bilaterally.
She also did have some mild chest discomfort after her echocardiogram this morning. She still needs to be transfused further at this point to get her Hgb at least greater than 7 if not closer to 8. She is not having active bleeding at this time.
She may also need some diuresis as well. Awaiting cardiology consultation and results of echo. Would prefer doing both EGD and colonoscopy together if able to sedate one time.
Impression:
Symptomatic anemia
GI Bleed
A Fib on Chronic AC, last dose Xarelto 10/01/23
CHF
DM
Plan:
-Try to keep Hgb around 8 given Cardiac Hx. Currently 7.5
-Continue Pantoprazole 40 mg IV BID
-Continue clear liquid diet, would defer to IM/Cardiology if fluid restriction needed and ISS. Patient would prefer to stay on clears to ensure adequate prep.
-Cardiology following.
-EGD/Colonoscopy this admission likely Saturday if medically optimized. Patient in Acute on Chronic CHF with supplemental O2 requirements and IV diuresis.
-Ok for heparin gtt if needed - not ordered.
-Patient on IV iron for 5 days total
-Trend labs
-increased to TID Miralax, added Amitiza and 4L prep start early tomorrow
Total Time Spent with Patient (in minutes): 20
Subjective
Subjective
Date of Service: October 05, 2023
no BM
Objective
Data Reviewed
Laboratory Data:
Laboratory Results
10/05/23 06:35
10/05/23 06:35
Laboratory Results
APTT 39.7 Sec (23.4-35.0) H 10/02/23 20:05
Magnesium 2.1 mg/dl (1.6-2.3) 10/03/23 10:02
Total Bilirubin 0.6 mg/dl (0.2-1.3) 10/02/23 20:05
AST 17 U/L (14-36) 10/02/23 20:05
ALT 12 U/L (0-35) 10/02/23 20:05
Alkaline Phosphatase 75 U/L (38-126) 10/02/23 20:05
Vital Signs and I&O:
Vital Signs
Temp Pulse Resp BP Pulse Ox
98.2 F 75 18 130/76 95
10/05/23 07:15 10/05/23 09:14 10/05/23 07:15 10/05/23 09:14 10/05/23 07:15
I&O
10/04/23 10/05/23 10/06/23
06:59 06:59 06:59
Intake Total 2700 / 2700 1220 / 1220
Output Total 800 / 800 2450 / 2450
Balance 1900 / 1900 -1230 / -1230
Physical Exam
Physical Exam
HEENT: Anicteric
GI: Soft
Neuro: Non Focal
--- NOTE | 2023-10-05 11:22 | W.PN.CARDCBS ---
Today's Communication / Plan
-
Continue to diurese with IV Lasix. Follow creatinine
Creatinine 1.4 today
Continue Toprol and amiodarone.
Continue to hold Xarelto and await EGD/colon on Saturday
Impression / Plan
-
Primary Launching Pad Mechanic: Dr. Wojciech Jefferson of [place]
Assessment:
Presentation 10/02/2023 with SOB, dizziness
Acute anemia
Suspected GI bleed
Acute hypoxic respiratory failure
Acute on chronic heart failure, presumed systolic
Severe pulmonary hypertension on echo 10/03/2023
Paroxysmal atrial fibrillation
Chronic amiodarone therapy
Chronic Xarelto therapy
Diabetes
Hypertension
Hyperlipidemia
Hypothyroidism
ECHO 10/03/23: EF 60-65%, mildly dilated LV. biatrial enlargement. Mild w/ peak/mean gradient 27/13 mmHg, severe pulm HTN PAP 63 mmHg
Plan:
-Patient presented 10/04/2023 to ER with SOB and dizziness.
-Acute GIB w/ hgb of 4.4 on admission. Transfused 3 unit pRBC, Hgb 7.5 10/04/23
-Xarelto on hold
-GI following and plan is for eventual EGD and colonoscopy on Saturday. Continue Pantoprazole 40 mg IV BID
-History of Paroxysmal atrial fibrillation currently in SR. Xarelto on hold but continues on amiodarone
-Appears to be in acute heart failure with preserved ejection fraction. proBNP 3810. Unclear if weight is accurate. Will continue with IV Lasix 60 mg IV twice daily
-Cr 1.4, follow with diuresis, unclear baseline
-K+ 3.2, Replete, got 80 meq today
-CHF education
-wean supp O2 as able; currently on 2 lpm
-Echo as noted above preserved EF with mild and severe pulm HTN. Unclear if Pulm HTN is new. We have requested records but have not received yet
-Outpt cardiology records requested
-OP Jardiance, Toprol and Entresto on hold at present given possible DELILAH and hypotension in setting of marked anemia. Cont Amio/Toprol
Discussed w/ pt and family at bedside
Progress Note - Launching Pad Mechanic
Subjective
Date of Service: October 05, 2023
Breathing is stable. She is unaware of any bleeding.
Objective
Labs:
10/05/23 06:35
10/05/23 06:35
Labs
Hgb 7.3 g/dL (12.0-16.0) L 10/05/23 06:35
Hct 24.9 % (37.0-47.0) L 10/05/23 06:35
Plt Count 271 10^3/uL (130-400) 10/05/23 06:35
APTT 39.7 Sec (23.4-35.0) H 10/02/23 20:05
Sodium 138 mmol/L (135-145) 10/05/23 06:35
Potassium 3.7 mmol/L (3.5-5.1) 10/05/23 06:35
BUN 23 mg/dl (7-17) H 10/05/23 06:35
Creatinine 1.4 mg/dL (0.6-1.0) H 10/05/23 06:35
Glucose 109 mg/dl (70-99) H 10/05/23 06:35
Troponins
10/02/23
20:05
Troponin I < 0.012
Vital Signs and I&O:
Vital Signs
Temp Pulse Resp BP Pulse Ox
98.2 F 75 18 130/76 95
10/05/23 07:15 10/05/23 09:14 10/05/23 07:15 10/05/23 09:14 10/05/23 09:30
Vital Signs
Temp Pulse Resp BP Pulse Ox
98.2 F 75 18 130/76 95
10/05/23 07:15 10/05/23 09:14 10/05/23 07:15 10/05/23 09:14 10/05/23 09:30
Intake & Output
10/03/23 10/04/23 10/05/23 10/06/23
06:59 06:59 06:59 06:59
Intake Total 920 / 920 2700 / 2700 1220 / 1220
Output Total 1900 / 1900 800 / 800 2450 / 2450
Balance -980 / -980 1900 / 1900 -1230 / -1230
Physical Exam
Physical Exam
GEN: No distress, awake, Ox3
HEENT: supple, anicteric, mmm
LUNGS: CTA, no wheezes/rales
CV: Reg, S1/S2, 1/6 syst LSB, no murmur
ABD: soft, BS+, NT/ND
EXT: No edema
NEURO: Gross non-focal
SKIN: No rash
[2023-10-05 11:25] VITALS: BP 141/71
[2023-10-05] MEDS: AMITIZA 24 MCG PO ×2 (11:46→21:39)
[2023-10-05 11:54] LABS: Glucose - Point of Care 112 mg/dl (70-99)
[2023-10-05] MEDS: FERRLECIT 110 MG IV (14:12)
[2023-10-05 15:32] VITALS: BP 122/55
[2023-10-05] MEDS: LIPITOR 40 MG PO (17:34)
[2023-10-05 17:41] LABS: Glucose - Point of Care 120 mg/dl (70-99)
[2023-10-05 19:39] VITALS: BP 136/64
[2023-10-05] MEDS: NEURONTIN 300 MG PO (20:57)
[2023-10-05] MEDS: MAGNESIUM OXIDE 500 MG PO (20:57)
[2023-10-05 21:32] LABS: Glucose - Point of Care 104 mg/dl (70-99)
[2023-10-05 23:54] VITALS: BP 133/66
[2023-10-06 03:30] VITALS: BP 130/62
[2023-10-06] MEDS: SYNTHROID 137 MCG PO (05:20)
[2023-10-06 05:22] VITALS: BMI 43.4
[2023-10-06 07:17] VITALS: BP 134/57
[2023-10-06 07:33] LABS: Hematocrit 27.3 % (37.0-47.0); Hemoglobin 7.9 g/dL (12.0-16.0); Mean Corp Hgb Conc. 28.9 g/dL (33.0-37.0); Mean Corpuscular Volume 72.4 fL (81.0-99.0); Mean Platelet Volume 8.8 fL (7.4-10.4); Platelet Count 305 10^3/uL (130-400); Red Blood Cell Count 3.77 10^6/uL (4.20-5.40); Red Cell Dist. Width 23.9 % (11.5-14.5); White Blood Cell Count 14.8 10^3/uL (4.8-10.8)
[2023-10-06 07:47] LABS: Glucose - Point of Care 127 mg/dl (70-99)
[2023-10-06] MEDS: TOPROL XL 25 MG PO (08:06)
[2023-10-06] MEDS: VITAMIN D3 (cholecalciferol) 25 MCG PO (08:06)
[2023-10-06] MEDS: AMITIZA 24 MCG PO ×2 (08:06→19:59)
[2023-10-06 08:07] LABS: Blood Urea Nitrogen 19 mg/dl (7-17); Calcium 8.6 mg/dl (8.4-10.2); Carbon Dioxide 34 mmol/L (22-30); Chloride 93 mmol/L (98-107); Estimated Creatinine Clearance 39 ml/min; Glucose 111 mg/dl (70-99); Sodium 134 mmol/L (135-145); eGFR 35.23
[2023-10-06] MEDS: PACERONE 200 MG PO (08:09)
[2023-10-06] MEDS: VITAMIN B-12 1000 MCG PO (08:09)
[2023-10-06] MEDS: PROTONIX IV 40 MG IV ×2 (08:10→19:59)
[2023-10-06] MEDS: NSS (PRESERVATIVE FREE) 10 ML IV ×2 (08:12→20:00)
[2023-10-06] MEDS: LASIX 60 MG IV ×2 (08:12→16:38)
[2023-10-06] MEDS: NOVOLOG FLEXPEN-LOW RESISTANCE SC (08:16)
[2023-10-06 08:29] LABS: Potassium 3.5 mmol/L (3.5-5.1)
[2023-10-06] MEDS: DESENEX/MITRAZOL/ZEASORB 1 APPLIC TOPICAL ×2 (08:54→20:00)
[2023-10-06] MEDS: MIRALAX 17 GRAMS PO ×2 (09:37→21:32)
--- NOTE | 2023-10-06 10:49 | W.PN.HOSP.TC ---
Today's Communication/Plan
-
See bold
Assessment / Plan
Assessment / Plan
Gen: NAD, AAOx3.
Eyes: EOMI, PERRLA, no scleral icterus.
Neck: supple.
CV: Continues to remain RRR, +S1/S2, no m/r/g.
Resp: Remains CTAB anteriorly
Abd: +BS, soft, NT, ND
Skin: No rashes. No LE edema
Neuro: CN 2-12 intact, non-focal.
Psych: Normal mood and affect.
CXR: Cardiomegaly. Vasculature appears cephalized, suggesting elevated pulmonary venous pressure. Slight indistinctness of the central pulmonary vasculature, suggesting the possibility of mild interstitial edema. No significant pleural effusions.
Echo: Left ventricle is mildly dilated. Normal left ventricular wall thickness.
Normal left ventricular systolic function. Left ventricular ejection fraction
is 60-65%. Normal regional wall motion.
Biatrial enlargement
Normal right ventricular function. Mildly enlarged right ventricular size.
Mild aortic stenosis. Peak/mean gradients across the aortic valve are 27/13
mmHg.
Mild to moderate tricuspid regurgitation. Severe pulm hypertension estimated
pulmonary artery pressure of 63 mmHg.
No prior echo for comparison.
Anemia, likely due to chronic blood loss from chronic GIB:
-Xarelto contributed to GIB, currently on hold
-Hb 4.8 on admission, now 7.9 after 2U pRBCs
-clears
-cont PPI BID
-cont IV Fe
-GI following, for EGD/colon on 10/07/23
Acute on chronic HFpEF:
-Echo above and notable for EF 60-65%, mild , mid-mod TR, severe pulm HTN
-May have had reduced ejection fraction in the past as pt was on Entresto (currently on hold with DELILAH)
-CXR above
-proBNP 3810
-with DELILAH due to CRS, Cr stable, likely new baseline
-cont IV Lasix
-cards following
-HR improved, BB started
Hypokalemia, resolved
Atrial Fibrillation, paroxysmal
-Holding Xarelto due to severe anemia and heme-positive stool
-I would not start heparin gtt at this time (prior to scopes on 10/07/23) as risk outweighs benefit at this moment (discussed with Dr. Ugalde)
-Continue amiodarone/BB
Essential Hypertension
-cont BB
Hyperlipidemia
-Continue atorvastatin
Diabetes Mellitus, Type II
-Hold Jardiance and Metformin while NPO
-SSI/accuchecks
Diabetic Neuropathy
-Continue gabapentin
Hypothyroidism
-Continue levothyroxine
Morbid Obesity due to Excess Calories
-Affects all aspects of care
-encourage wt loss
FULL/SCDs (while AC on hold for Hb 4.8 on admission, ongoing GI work up)
Anticipated Discharge: 24 - 48 hours
Subjective/Interval History
-
Date of Service: October 06, 2023
Denies chest pain or shortness of breath.
Objective Data
-
Labs:
Laboratory Results
10/06/23
07:07
WBC 14.8 H
Hgb 7.9 L
Hct 27.3 L
Plt Count 305
Sodium 134 L
Potassium 3.5
Chloride 93 L
Carbon Dioxide 34 H
BUN 19 H
Creatinine 1.5 H
Glucose 111 H
Calcium 8.6
Vital Signs:
Vital Signs
Temp Pulse Resp BP Pulse Ox
97.8 F 60 18 134/57 96
10/06/23 07:17 10/06/23 08:12 10/06/23 07:17 10/06/23 08:12 10/06/23 07:17
I&O
10/05/23 10/06/23 10/07/23
06:59 06:59 06:59
Intake Total 1220 / 1220 710 / 710
Output Total 2450 / 2450 2525 / 2525
Balance -1230 / -1230 -5 / -5
[2023-10-06 11:23] VITALS: BP 119/60
[2023-10-06 11:35] LABS: Glucose - Point of Care 154 mg/dl (70-99)
[2023-10-06] MEDS: NOVOLOG FLEXPEN-LOW RESISTANCE 1 UNITS SC ×2 (12:03→17:40)
[2023-10-06] MEDS: NULYTELY SOLUTION 4 LITERS PO (12:57)
[2023-10-06] MEDS: FERRLECIT 110 MG IV (13:09)
[2023-10-06 15:41] VITALS: BP 120/57
--- NOTE | 2023-10-06 16:16 | W.PN.GI.CBS2 ---
Today's Communication / Plan
-
Continue preparation for endoscopy and colonoscopy tomorrow
Added Citroma for more prep
Assessment / Plan
-
Fernanda is a 78-year-old female with history of CHF, atrial fibrillation on Xarelto with last dose on 10/01/2022, diabetes and obesity and significant constipation who was admitted to the emergency room with symptomatic iron deficiency anemia with a
hemoglobin of 4.8 who is now 3 units packed red blood cells with appropriate response to 7.5 with brown heme positive stool.� She has a microcytic indices.� Her platelet count is normal at 273.� her ferritin is 11.6 with a percent saturation of 7.
Patient's mother had colon cancer and her last colonoscopy was well over 10 years ago at [facility].
Impression:
Symptomatic anemia
GI Bleed
A Fib on Chronic AC, last dose Xarelto 10/01/23
CHF ECHO 10/03/23:�EF 60-65%, mildly dilated LV. biatrial enlargement. Mild w/ peak/mean gradient 27/13 mmHg, severe pulm HTN PAP 63 mmHg
DM
-Try to keep Hgb around 8 given Cardiac Hx.
-Continue Pantoprazole 40 mg IV BID
-Continue clear liquid diet
-Cardiology following.
-EGD/Colonoscopy this admission likely Saturday if medically optimized. Patient in Acute on Chronic CHF with supplemental O2 requirements and IV diuresis.
-Ok for heparin gtt if needed - not ordered.
-Patient on IV iron for 5 days total
-Trend labs
# Iron deficiency anemia -on for EGD/colon.
Last colonoscopy was over 10 years ago Tomorrow
--Mother had colon cancer
Stools are dark
Continue IV iron
#constipation -started Amitiza 24 mcg twice daily
Will likely need to go home on this prescription as she has chronic issues
We have been slow prepping throughout the weekend and will likely not be fully prepped. Added Rolandoma bassam, nurse aware
Continue IV iron
Subjective
Subjective
Date of Service: October 06, 2023
Patient finally started moving her bowels it is dark and formed
Objective
Data Reviewed
Laboratory Data:
Laboratory Results
10/06/23 07:07
10/06/23 07:07
Laboratory Results
APTT 39.7 Sec (23.4-35.0) H 10/02/23 20:05
Magnesium 2.1 mg/dl (1.6-2.3) 10/03/23 10:02
Total Bilirubin 0.6 mg/dl (0.2-1.3) 10/02/23 20:05
AST 17 U/L (14-36) 10/02/23 20:05
ALT 12 U/L (0-35) 10/02/23 20:05
Alkaline Phosphatase 75 U/L (38-126) 10/02/23 20:05
Vital Signs and I&O:
Vital Signs
Temp Pulse Resp BP Pulse Ox
97.6 F 55 18 120/57 99
10/06/23 15:41 10/06/23 15:41 10/06/23 15:41 10/06/23 15:41 10/06/23 15:41
I&O
10/05/23 10/06/23 10/07/23
06:59 06:59 06:59
Intake Total 1220 / 1220 710 / 710
Output Total 2450 / 2450 2525 / 2525
Balance -1230 / -1230 -1815 / -1815
Physical Exam
Physical Exam
HEENT: Anicteric
Pulmonary: Clear
GI: Soft, Non Distended and Non Tender
Neuro: Non Focal
[2023-10-06] MEDS: MIRALAX PO (16:34)
[2023-10-06] MEDS: CITROMA 300 ML PO (16:38)
[2023-10-06 17:40] LABS: Glucose - Point of Care 192 mg/dl (70-99)
[2023-10-06] MEDS: LIPITOR 40 MG PO (17:40)
[2023-10-06 19:22] VITALS: BP 114/53
[2023-10-06] MEDS: MAGNESIUM OXIDE 500 MG PO (19:58)
[2023-10-06] MEDS: NEURONTIN 300 MG PO (19:59)
[2023-10-06 21:13] LABS: Glucose - Point of Care 114 mg/dl (70-99)
--- NOTE | 2023-10-06 21:50 | PTCARENOTE ---
After drinking her miralax, patient vomited a moderate amount. Patient reports feeling better after, no additional complaints of nausea. Plan of care ongoing.
[2023-10-06 23:27] VITALS: BP 143/57
[2023-10-07 03:30] VITALS: BP 132/57
[2023-10-07] MEDS: SYNTHROID 137 MCG PO (05:35)
[2023-10-07 05:39] VITALS: BMI 42.8
[2023-10-07 07:32] LABS: Hematocrit 26.8 % (37.0-47.0); Hemoglobin 7.6 g/dL (12.0-16.0); Mean Corp Hgb Conc. 28.4 g/dL (33.0-37.0); Mean Corpuscular Hgb 20.9 pg (27.0-31.0); Mean Corpuscular Volume 73.6 fL (81.0-99.0); Mean Platelet Volume 9.1 fL (7.4-10.4); Platelet Count 262 10^3/uL (130-400); Red Blood Cell Count 3.64 10^6/uL (4.20-5.40); Red Cell Dist. Width 24.3 % (11.5-14.5); White Blood Cell Count 11.8 10^3/uL (4.8-10.8)
[2023-10-07 07:44] LABS: Glucose - Point of Care 124 mg/dl (70-99)
[2023-10-07 07:48] LABS: Blood Urea Nitrogen 16 mg/dl (7-17); Calcium 8.2 mg/dl (8.4-10.2); Carbon Dioxide 36 mmol/L (22-30); Chloride 95 mmol/L (98-107); Estimated Creatinine Clearance 42 ml/min; Glucose 106 mg/dl (70-99); Potassium 2.8 mmol/L (3.5-5.1); Sodium 136 mmol/L (135-145); eGFR 38.27
[2023-10-07] MEDS: NOVOLOG FLEXPEN-LOW RESISTANCE SC ×2 (07:48→17:37)
[2023-10-07 07:55] VITALS: BP 164/61
[2023-10-07] MEDS: KCL 40 MEQ PO (08:42)
[2023-10-07] MEDS: KCL 270 MEQ IV (08:42)
[2023-10-07] MEDS: VITAMIN B-12 1000 MCG PO (08:43)
[2023-10-07] MEDS: PACERONE 200 MG PO (08:44)
[2023-10-07] MEDS: AMITIZA 24 MCG PO ×2 (08:44→21:09)
[2023-10-07] MEDS: VITAMIN D3 (cholecalciferol) 25 MCG PO (08:44)
[2023-10-07] MEDS: LASIX 60 MG IV (08:45)
[2023-10-07] MEDS: PROTONIX IV 40 MG IV ×2 (08:45→21:09)
[2023-10-07] MEDS: NSS (PRESERVATIVE FREE) 10 ML IV ×2 (08:45→21:09)
[2023-10-07] MEDS: DESENEX/MITRAZOL/ZEASORB 1 APPLIC TOPICAL ×2 (08:45→21:08)
[2023-10-07] MEDS: TOPROL XL 25 MG PO (08:47)
--- NOTE | 2023-10-07 09:30 | W.PN.CARDCBS ---
Today's Communication / Plan
-
Stable cardiac status
Colonoscopy in a.m.
Switch furosemide IV to torsemide p.o.
Iron infusion?
Eventual restart of Jardiance, Entresto
When GI status stable, would restart Eliquis instead of Xarelto
Impression / Plan
-
Primary Spring Salvage Worker: Dr. Wojciech Jefferson of [place]
Assessment:
Profound subacute presumed GI bleed, hemoglobin 4.4 on presentation
Acute hypoxic respiratory failure
Acute on chronic HFpEF
Severe pulmonary hypertension on echo 10/03/2023
Paroxysmal atrial fibrillation
Chronic amiodarone therapy
Chronic Xarelto therapy
Diabetes
Hypertension
Hyperlipidemia
Hypothyroidism
ECHO 10/03/23: EF 60-65%, mildly dilated LV. biatrial enlargement. Mild w/ peak/mean gradient 27/13 mmHg, severe pulm HTN PAP 63 mmHg
Plan:
She appears stable from a cardiac standpoint.
Colonoscopy postponed until tomorrow.
Her heart failure seems compensated. Will switch to oral torsemide 20 mg twice daily. Will need to restart Entresto when stabilized. Would restart dapagliflozin as well once stable.
No atrial fibrillation at present. Continue metoprolol and amiodarone. Continue to hold Xarelto. Eliquis has a lower GI bleeding risk, would favor reinstitution of that over Xarelto when cleared by GI.
Suspect pulmonary hypertension was largely related to anemia and heart failure, would repeat echo suspect pulmonary pressure will improve.
Has she received iron? Does she need to? Defer to hospitalist.
Progress Note - Spring Salvage Worker
Subjective
Date of Service: October 07, 2023:
Allergies: None
Outpatient medications: Amiodarone 200 mg a day, atorvastatin 40 mg a day, vitamin D, vitamin B, Jardiance 10 mg a day, Neurontin 300 mg at bedtime, levothyroxine 137 mcg daily, mag oxide 500 daily, metformin 500 mg twice daily, metoprolol ER 50
daily, fish oil, Entresto twice daily, torsemide 20 twice daily, Xarelto 20 mg a day
Current meds: Furosemide 60 IV twice daily, pantoprazole, amiodarone 200 mg a day, atorvastatin 40 mg a day, Neurontin 300 mg at bedtime, magnesium 500 daily, Synthroid 137 mcg daily, B12, D3, metoprolol ER 25 mg a day, Amitiza, potassium. No
Jardiance, no torsemide, no metformin, no Xarelto
PMH/PSH/SH/FH: Reviewed
Review of systems negative except as above
Hemoglobin 7.6, BMP creatinine 1.4, potassium 2.8
Objective
Labs:
10/07/23 07:03
Labs
Hgb 7.6 g/dL (12.0-16.0) L 10/07/23 07:03
Hct 26.8 % (37.0-47.0) L 10/07/23 07:03
Plt Count 262 10^3/uL (130-400) 10/07/23 07:03
APTT 39.7 Sec (23.4-35.0) H 10/02/23 20:05
Sodium 136 mmol/L (135-145) 10/07/23 07:03
Potassium 2.8 mmol/L (3.5-5.1) L 10/07/23 07:03
BUN 16 mg/dl (7-17) 10/07/23 07:03
Creatinine 1.4 mg/dL (0.6-1.0) H 10/07/23 07:03
Glucose 106 mg/dl (70-99) H 10/07/23 07:03
Vital Signs and I&O:
Vital Signs
Temp Pulse Resp BP Pulse Ox
36.3 C 58 20 164/61 97
10/07/23 07:55 10/07/23 07:55 10/07/23 07:55 10/07/23 07:55 10/07/23 07:55
Vital Signs
Temp Pulse Resp BP Pulse Ox
36.3 C 58 20 164/61 97
10/07/23 07:55 10/07/23 07:55 10/07/23 07:55 10/07/23 07:55 10/07/23 07:55
Intake & Output
10/05/23 10/06/23 10/07/23 10/08/23
07:59 07:59 07:59 07:59
Intake Total 1220 / 1220 710 / 710 1080 / 1080
Output Total 2450 / 2450 2525 / 2525 1350 / 1350
Balance -1230 / -1230 -1815 / -1815 -270 / -270
Physical Exam
Physical Exam
164/61,132/57, 119/60, pulse 58, afebrile, weight is 116.6 kg, down 1.68 kg, admission weight was 123 kg
No distress, head neck exam unremarkable, lungs are clear, systolic murmur, JVD okay, trace to 1+ edema
[2023-10-07] MEDS: MIRALAX 17 GRAMS PO ×2 (10:20→23:08)
--- NOTE | 2023-10-07 10:28 | W.PN.GI.CBS2 ---
Addendum entered and electronically signed by Etta Ugalde DO 10/07/23 17:06:
Patient seen and examined independently of SEX CRIMES DETECTIVE. I agree with her note with my additions below
Unfortunately the patient was not well-prepped and we put her back on for tomorrow for endoscopy colonoscopy.
She was given another 4 L of prep. I have been prepping her all weekend. She has significant constipation. She would like to go home on the Amitiza 24 mcg twice daily
dx: Symptomatic iron deficiency anemia with loss of appetite and weight loss with hemoglobin of 4.8 with last colonoscopy over 10 years ago his mother had colon cancer
-- Continue the IV iron
Original Note:
Today's Communication / Plan
-
EGD/[place] tomorrow not prepped
CBC, BMP in am
Assessment / Plan
-
Fernanda is a 78-year-old female with history of CHF, atrial fibrillation on Xarelto with last dose on 10/01/2022, diabetes and obesity and significant constipation who was admitted to the emergency room with symptomatic iron deficiency anemia with a
hemoglobin of 4.8 who is now 3 units packed red blood cells with appropriate response to 7.5 with brown heme positive stool.� She has a microcytic indices.� Her platelet count is normal at 273.� her ferritin is 11.6 with a percent saturation of 7.
Patient's mother had colon cancer and her last colonoscopy was well over 10 years ago at [facility].
Impression:
Symptomatic anemia
GI Bleed
A Fib on Chronic AC, last dose Xarelto 10/01/23
CHF ECHO 10/03/23:�EF 60-65%, mildly dilated LV. biatrial enlargement. Mild w/ peak/mean gradient 27/13 mmHg, severe pulm HTN PAP 63 mmHg
DM
-Try to keep Hgb around 8 given Cardiac Hx.
-Continue Pantoprazole 40 mg IV BID
-Continue clear liquid diet
-Cardiology following.
-EGD/Colonoscopy 10/08/23 as patient still not clear and with hypokalemia. Patient in Acute on Chronic CHF with supplemental O2 requirements and IV diuresis.
-Ok for heparin gtt if needed - not ordered.
-Patient on IV iron for 5 days total (last day 10/08/23)
-Trend labs
# Iron deficiency anemia -on for EGD/colon.
Last colonoscopy was over 10 years ago Tomorrow
--Mother had colon cancer
Stools are dark
Continue IV iron
#constipation -started Amitiza 24 mcg twice daily
Will likely need to go home on this prescription as she has chronic issues
We have been slow prepping throughout the weekend, still not clear. Will give Colyte and will stop when clear this evening.
Continue IV iron
#Hypokalemia
--Per IM. They are replacing 40 meq po, and 40 meq IV. Repeat labs at noon. Discussed with RN.
Subjective
Subjective
Date of Service: October 07, 2023
Patient not clear for colonoscopy at this time. Also with significant hypokalemia. Will post pone EGD/COLO until tomorrow to ensure that patient is adequately prepped and electrolytes stable. Patient aware and agreeable. Also discussed with RN and
Medicine Attending.
Objective
Data Reviewed
Laboratory Data:
Laboratory Results
10/07/23 07:03
Laboratory Results
APTT 39.7 Sec (23.4-35.0) H 10/02/23 20:05
Magnesium 2.1 mg/dl (1.6-2.3) 10/03/23 10:02
Total Bilirubin 0.6 mg/dl (0.2-1.3) 10/02/23 20:05
AST 17 U/L (14-36) 10/02/23 20:05
ALT 12 U/L (0-35) 10/02/23 20:05
Alkaline Phosphatase 75 U/L (38-126) 10/02/23 20:05
Vital Signs and I&O:
Vital Signs
Temp Pulse Resp BP Pulse Ox
97.4 F 58 20 164/61 97
10/07/23 07:55 10/07/23 07:55 10/07/23 07:55 10/07/23 07:55 10/07/23 07:55
I&O
10/06/23 10/07/23 10/08/23
06:59 06:59 06:59
Intake Total 710 / 710 1080 / 1080
Output Total 2525 / 2525 1350 / 1350
Balance -1815 / -1815 -270 / -270
Physical Exam
Physical Exam
HEENT: Anicteric
Cardiology: Normal Sinus Rhythm
Pulmonary: Clear
GI: Soft, Non Distended, Non Tender and Normal Bowel Sounds
Neuro: Non Focal
--- NOTE | 2023-10-07 10:59 | CM ---
Patient seen bedside. CM discussed PT/OT recommendation of home health. Patient declining at this time. Per notes, patient for EGD/colonoscopy tomorrow. CM will continue to follow for discharge planning needs.
Plan; home no needs, declining home health, watch for home O2 needs.
[2023-10-07 11:30] VITALS: BP 128/54
[2023-10-07 11:43] LABS: Glucose - Point of Care 235 mg/dl (70-99)
[2023-10-07] MEDS: NOVOLOG FLEXPEN-LOW RESISTANCE 2 UNITS SC (11:53)
--- NOTE | 2023-10-07 11:59 | W.PN.HOSP.TC ---
Today's Communication/Plan
-
po diuretics
replete kcl
egd/colon in am
trend cbc
Assessment / Plan
Assessment / Plan
Gen: NAD, AAOx3.
Eyes: EOMI, PERRLA, no scleral icterus.
Neck: supple.
CV: Continues to remain RRR, +S1/S2, no m/r/g.
Resp: Remains CTAB anteriorly
Abd: +BS, soft, NT, ND
Skin: No rashes. No LE edema
Neuro: CN 2-12 intact, non-focal.
Psych: Normal mood and affect.
CXR: Cardiomegaly. Vasculature appears cephalized, suggesting elevated pulmonary venous pressure. Slight indistinctness of the central pulmonary vasculature, suggesting the possibility of mild interstitial edema. No significant pleural effusions.
Echo: Left ventricle is mildly dilated. Normal left ventricular wall thickness.
Normal left ventricular systolic function. Left ventricular ejection fraction
is 60-65%. Normal regional wall motion.
Biatrial enlargement
Normal right ventricular function. Mildly enlarged right ventricular size.
Mild aortic stenosis. Peak/mean gradients across the aortic valve are 27/13
mmHg.
Mild to moderate tricuspid regurgitation. Severe pulm hypertension estimated
pulmonary artery pressure of 63 mmHg.
No prior echo for comparison.
Anemia, likely due to chronic blood loss from chronic GIB:
-Xarelto contributed to GIB, currently on hold
-Hb 4.8 on admission, now 7.9 after 2U pRBCs
-clears
-cont PPI BID
-cont IV Fe
-GI following, for EGD/colon on 10/08/23
Acute on chronic HFpEF:
-Echo above and notable for EF 60-65%, mild , mid-mod TR, severe pulm HTN
-May have had reduced ejection fraction in the past as pt was on Entresto (currently on hold with DELILAH)
-CXR above
-proBNP 3810
-with DELILAH due to CRS, Cr stable, likely new baseline
-s/p IV Lasix and now started on Demadex 20mg BID
-cards following
-HR improved, BB started
Hypokalemia
-replete/monitor
-may need to start standing
-K 2.8. Recheck later
Atrial Fibrillation, paroxysmal
-Holding Xarelto due to severe anemia and heme-positive stool
-not start heparin gtt at this time (prior to scopes on 10/07/23) as risk outweighs benefit at this moment -was discussed with GI.
-Continue amiodarone/BB
Essential Hypertension
-cont BB
Hyperlipidemia
-Continue atorvastatin
Diabetes Mellitus, Type II
-Hold Jardiance and Metformin while NPO
-SSI/accuchecks
Diabetic Neuropathy
-Continue gabapentin
Hypothyroidism
-Continue levothyroxine
Morbid Obesity due to Excess Calories
-Affects all aspects of care
-encourage wt loss
FULL/SCDs (while AC on hold for Hb 4.8 on admission, ongoing GI work up)
Anticipated Discharge: > 48 hours
Subjective/Interval History
-
Date of Service: October 07, 2023
states of abd discomfort yesterday
no chest pain or sob today
Objective Data
-
Labs:
Laboratory Results
10/07/23 10/07/23
07:03 11:47
WBC 11.8 H
Hgb 7.6 L
Hct 26.8 L
Plt Count 262
Sodium 136 Pending
Potassium 2.8 L Pending
Chloride 95 L Pending
Carbon Dioxide 36 H Pending
BUN 16 Pending
Creatinine 1.4 H Pending
Glucose 106 H Pending
Calcium 8.2 L Pending
Vital Signs:
Vital Signs
Temp Pulse Resp BP Pulse Ox
98.3 F 63 20 128/54 98
10/07/23 11:30 10/07/23 11:30 10/07/23 11:30 10/07/23 11:30 10/07/23 11:30
I&O
10/06/23 10/07/23 10/08/23
06:59 06:59 06:59
Intake Total 710 / 710 1080 / 1080
Output Total 2525 / 2525 1350 / 1350
Balance -1815 / -1815 -270 / -270
Data Reviewed
-
Total Time Spent with Patient (in minutes): 54
[2023-10-07] MEDS: NULYTELY SOLUTION 4 LITERS PO (12:16)
[2023-10-07 13:55] LABS: Blood Urea Nitrogen 16 mg/dl (7-17); Calcium 8.1 mg/dl (8.4-10.2); Carbon Dioxide 30 mmol/L (22-30); Chloride 94 mmol/L (98-107); Estimated Creatinine Clearance 45 ml/min; Glucose 214 mg/dl (70-99); Potassium 3.2 mmol/L (3.5-5.1); Sodium 135 mmol/L (135-145); eGFR 41.83
[2023-10-07] MEDS: KCL 20 MEQ PO (14:45)
[2023-10-07] MEDS: FERRLECIT 110 MG IV (14:45)
[2023-10-07 15:50] VITALS: BP 143/56
[2023-10-07] MEDS: DEMADEX 20 MG PO (16:20)
[2023-10-07 17:21] LABS: Glucose - Point of Care 93 mg/dl (70-99)
[2023-10-07] MEDS: MIRALAX PO (17:37)
[2023-10-07] MEDS: LIPITOR 40 MG PO (18:13)
[2023-10-07 19:17] VITALS: BP 120/52
[2023-10-07] MEDS: NEURONTIN 300 MG PO (21:09)
[2023-10-07] MEDS: MAGNESIUM OXIDE 500 MG PO (21:09)
[2023-10-07 21:19] LABS: Glucose - Point of Care 98 mg/dl (70-99)
[2023-10-07 23:52] VITALS: BP 124/50
[2023-10-08] VITALS (9 sets, daily range): BP systolic 121–190; BP diastolic 57–81; PULSE 64; O2SAT 95; BMI 44.5
[2023-10-08] MEDS: SYNTHROID 137 MCG PO (05:13)
[2023-10-08 07:33] LABS: Glucose - Point of Care 124 mg/dl (70-99)
[2023-10-08 07:51] LABS: Hemoglobin 7.4 g/dL (12.0-16.0); Mean Corp Hgb Conc. 28.5 g/dL (33.0-37.0); Mean Corpuscular Hgb 20.9 pg (27.0-31.0); Mean Corpuscular Volume 73.4 fL (81.0-99.0); Mean Platelet Volume 8.6 fL (7.4-10.4); Platelet Count 248 10^3/uL (130-400); Red Blood Cell Count 3.54 10^6/uL (4.20-5.40); Red Cell Dist. Width 25.4 % (11.5-14.5); White Blood Cell Count 9.5 10^3/uL (4.8-10.8)
[2023-10-08 08:21] LABS: Blood Urea Nitrogen 17 mg/dl (7-17); Calcium 8.2 mg/dl (8.4-10.2); Chloride 96 mmol/L (98-107); Estimated Creatinine Clearance 46 ml/min; Glucose 110 mg/dl (70-99); Potassium 3.4 mmol/L (3.5-5.1); Sodium 137 mmol/L (135-145); eGFR 41.83
[2023-10-08 08:30] LABS: Carbon Dioxide 33 mmol/L (22-30)
[2023-10-08] MEDS: NOVOLOG FLEXPEN-LOW RESISTANCE SC ×2 (08:52→12:04)
[2023-10-08] MEDS: DEMADEX 20 MG PO ×2 (08:53→17:25)
[2023-10-08] MEDS: AMITIZA 24 MCG PO (08:53)
[2023-10-08] MEDS: KCL 270 MEQ IV (08:53)
[2023-10-08] MEDS: MIRALAX 17 GRAMS PO ×2 (08:53→17:24)
[2023-10-08] MEDS: VITAMIN B-12 1000 MCG PO (08:53)
[2023-10-08] MEDS: TOPROL XL 25 MG PO (08:53)
[2023-10-08] MEDS: NSS (PRESERVATIVE FREE) 10 ML IV ×2 (08:54→21:18)
[2023-10-08] MEDS: PACERONE 200 MG PO (08:54)
[2023-10-08] MEDS: PROTONIX IV 40 MG IV ×2 (08:54→21:18)
[2023-10-08] MEDS: VITAMIN D3 (cholecalciferol) 25 MCG PO (09:09)
[2023-10-08] MEDS: DESENEX/MITRAZOL/ZEASORB 1 APPLIC TOPICAL ×2 (09:09→21:06)
--- NOTE | 2023-10-08 11:30 | CM ---
Addendum entered by Marilin Darden 10/08/23 15:17:
CM received consult for cost of Eliquis, 5mg BID, 30 day supply is $146.31.
Original Note:
Patient seen, reports no new concerns at this time. Plan for colonoscopy/EGD today. CM will continue to follow for discharge planning needs.
Plan; home no needs, declining HH at this time, watch home O2 needs.
[2023-10-08 11:47] LABS: Glucose - Point of Care 136 mg/dl (70-99)
--- NOTE | 2023-10-08 11:47 | W.PN.HOSP.TC ---
Today's Communication/Plan
-
await EGD/Colon
po diuretic
replete kcl
Gi recs
holding DOAC
Wean o2
Assessment / Plan
Assessment / Plan
Gen: NAD, AAOx3.
Eyes: EOMI, PERRLA, no scleral icterus.
Neck: supple.
CV: Continues to remain RRR, +S1/S2, no m/r/g.
Resp: Remains CTAB anteriorly
Abd: +BS, soft, NT, ND
Skin: No rashes. No LE edema
Neuro: CN 2-12 intact, non-focal.
Psych: Normal mood and affect.
CXR: Cardiomegaly. Vasculature appears cephalized, suggesting elevated pulmonary venous pressure. Slight indistinctness of the central pulmonary vasculature, suggesting the possibility of mild interstitial edema. No significant pleural effusions.
Echo: Left ventricle is mildly dilated. Normal left ventricular wall thickness.
Normal left ventricular systolic function. Left ventricular ejection fraction
is 60-65%. Normal regional wall motion.
Biatrial enlargement
Normal right ventricular function. Mildly enlarged right ventricular size.
Mild aortic stenosis. Peak/mean gradients across the aortic valve are 27/13
mmHg.
Mild to moderate tricuspid regurgitation. Severe pulm hypertension estimated
pulmonary artery pressure of 63 mmHg.
No prior echo for comparison.
Anemia, likely due to chronic blood loss from chronic GIB:
-Xarelto contributed to GIB, currently on hold
-Hb 4.8 on admission, now 7.4 after 2U pRBCs
-cont PPI BID
-cont IV Fe
-GI following, for EGD/colon on today
Acute on chronic HFpEF:
Acute hypoxic resp insuffiency
-Echo above and notable for EF 60-65%, mild , mid-mod TR, severe pulm HTN
-May have had reduced ejection fraction in the past as pt was on Entresto (currently on hold with DELILAH)
-CXR above
-proBNP 3810
-with DELILAH due to CRS, Cr stable, likely new baseline
-s/p IV Lasix and now started on Demadex 20mg BID
-cards following
-HR improved, BB started
Hypokalemia
-replete/monitor
-may need to start standing
Atrial Fibrillation, paroxysmal
-Holding Xarelto due to severe anemia and heme-positive stool
-not start heparin gtt at this time (prior to scopes on 10/07/23) as risk outweighs benefit at this moment -was discussed with GI.
-Continue amiodarone/BB
Essential Hypertension
-cont BB
Hyperlipidemia
-Continue atorvastatin
Diabetes Mellitus, Type II
-Hold Jardiance and Metformin while NPO
-SSI/accuchecks
Diabetic Neuropathy
-Continue gabapentin
Hypothyroidism
-Continue levothyroxine
Morbid Obesity due to Excess Calories
-Affects all aspects of care
-encourage wt loss
FULL/SCDs (while AC on hold for Hb 4.8 on admission, ongoing GI work up)
Anticipated Discharge: Within 24 hours
Subjective/Interval History
-
Date of Service: October 08, 2023
states of mild abdomen cramps
on oxygen
denies chest pain or sob.
Objective Data
-
Labs:
Laboratory Results
10/08/23
07:25
WBC 9.5
Hgb 7.4 L
Hct 26.0 L
Plt Count 248
Sodium 137
Potassium 3.4 L
Chloride 96 L
Carbon Dioxide 33 H
BUN 17
Creatinine 1.3 H
Glucose 110 H
Calcium 8.2 L
Vital Signs:
Vital Signs
Temp Pulse Resp BP Pulse Ox
98.3 F 62 20 136/57 95
10/08/23 07:45 10/08/23 08:53 10/08/23 07:45 10/08/23 08:53 10/08/23 09:45
I&O
10/07/23 10/08/23 10/09/23
06:59 06:59 06:59
Intake Total 1080 / 1080 900 / 900
Output Total 1350 / 1350 875 / 875
Balance -270 / -270
Data Reviewed
-
Total Time Spent with Patient (in minutes): 54
[2023-10-08] MEDS: FERRLECIT 110 MG IV (14:30)
--- NOTE | 2023-10-08 15:08 | W.PN.CARDCBS ---
Addendum entered and electronically signed by Trevin Grullon MD 10/08/23 16:26:
I saw and examined the patient.
The Transportation Maintenance Operator's note was reviewed and I agree with the note.
Comment: Briefly, 78-year-old woman with past medical history of heart failure with preserved ejection fraction presenting with transfusion dependent anemia in the setting of GI bleed
GI workup ongoing, completed EGD/colon, tentative plan to resume anticoagulation tomorrow. Was previously on Xarelto, will ask case management to tellez Eliquis as an alternative given its marginally better bleeding profile.
Blood pressure has been elevated, plan to resume home Entresto
Continue home torsemide
Patient should follow-up with her primary computer programming supervisor at [facility] after discharge
Original Note:
Today's Communication / Plan
-
BP elevated. resume OP entresto
continue toprol, amio. in SR. CM to assess cost of eliquis
continue po torsemide
OP follow up with [place] computer programming supervisor arranged
Impression / Plan
-
Primary Fire Extinguisher Repairer: Dr. Jay Jay Cuello of [place]
Primary EP: Dr. Wojciech Jefferson of [place]
Assessment:
Profound subacute presumed GI bleed, hemoglobin 4.4 on presentation
Acute hypoxic respiratory failure
Acute on chronic HFpEF
Severe pulmonary hypertension on echo 10/03/2023
Paroxysmal atrial fibrillation
Chronic amiodarone therapy
Chronic Xarelto therapy
Diabetes
Hypertension
Hyperlipidemia
Hypothyroidism
ECHO 10/03/23: EF 60-65%, mildly dilated LV. biatrial enlargement. Mild w/ peak/mean gradient 27/13 mmHg, severe pulm HTN PAP 63 mmHg
Plan:
-s/p EGD/colonoscopy which appears to be without clear etiology for anemia. may need OP EUS and or capsule study per GI. ok to resume OAC in AM.
-hgb 7.4 on 10/08. defer need for iron to primary service
-consider transition from xarelto to eliquis due to GI bleeding. CM to assess cost to patient of eliquis
-remains in SR. continue amiodarone
-weights do not appear to be accurate. continue po torsemide 20mg BID. Cr stable at 1.3.
-EF preserved by echo 10/03. continue toprol, jardiance
-BPs elevated. OP entresto to be resumed 10/08.
-OP follow up arranged with Dr. Cuello of [place], told soonest appointment available was 10/29/23 @1:00PM
Progress Note - Fire Extinguisher Repairer
Subjective
Date of Service: October 08, 2023
s/p EGD/colon today
Objective
Labs:
10/08/23 07:25
10/08/23 07:25
Labs
Hgb 7.4 g/dL (12.0-16.0) L 10/08/23 07:25
Hct 26.0 % (37.0-47.0) L 10/08/23 07:25
Plt Count 248 10^3/uL (130-400) 10/08/23 07:25
APTT 39.7 Sec (23.4-35.0) H 10/02/23 20:05
Sodium 137 mmol/L (135-145) 10/08/23 07:25
Potassium 3.4 mmol/L (3.5-5.1) L 10/08/23 07:25
BUN 17 mg/dl (7-17) 10/08/23 07:25
Creatinine 1.3 mg/dL (0.6-1.0) H 10/08/23 07:25
Glucose 110 mg/dl (70-99) H 10/08/23 07:25
Vital Signs and I&O:
Vital Signs
Temp Pulse Resp BP Pulse Ox
98.4 F 56 20 190/81 99
10/08/23 14:15 10/08/23 14:15 10/08/23 14:15 10/08/23 14:15 10/08/23 14:15
Vital Signs
Temp Pulse Resp BP Pulse Ox
98.4 F 56 20 190/81 99
10/08/23 14:15 10/08/23 14:15 10/08/23 14:15 10/08/23 14:15 10/08/23 14:15
Intake & Output
10/06/23 10/07/23 10/08/23 10/09/23
07:59 07:59 07:59 07:59
Intake Total 710 / 710 1080 / 1080 900 / 900
Output Total 2525 / 2525 1350 / 1350 875 / 875
Balance -1815 / -1815 -270 / -270
[2023-10-08] MEDS: LIPITOR 40 MG PO (17:25)
[2023-10-08 17:35] LABS: Glucose - Point of Care 205 mg/dl (70-99)
[2023-10-08] MEDS: NOVOLOG FLEXPEN-LOW RESISTANCE 2 UNITS SC (17:50)
[2023-10-08] MEDS: AMITIZA PO (21:05)
[2023-10-08] MEDS: MIRALAX PO (21:06)
[2023-10-08 21:07] LABS: Glucose - Point of Care 128 mg/dl (70-99)
[2023-10-08] MEDS: NEURONTIN 300 MG PO (21:16)
[2023-10-08] MEDS: MAGNESIUM OXIDE 500 MG PO (21:21)
[2023-10-08] MEDS: ENTRESTO 49 MG/51 MG 1 TAB PO (22:02)
[2023-10-09 03:55] VITALS: BP 107/46
[2023-10-09] MEDS: SYNTHROID 137 MCG PO (05:33)
[2023-10-09 06:00] VITALS: BMI 43.8
[2023-10-09 07:00] VITALS: BP 141/50
[2023-10-09 07:29] LABS: Hematocrit 26.5 % (37.0-47.0); Hemoglobin 7.5 g/dL (12.0-16.0); Mean Corp Hgb Conc. 28.3 g/dL (33.0-37.0); Mean Corpuscular Hgb 21.1 pg (27.0-31.0); Mean Corpuscular Volume 74.4 fL (81.0-99.0); Platelet Count 250 10^3/uL (130-400); Red Blood Cell Count 3.56 10^6/uL (4.20-5.40); Red Cell Dist. Width 26.1 % (11.5-14.5); White Blood Cell Count 9.3 10^3/uL (4.8-10.8)
[2023-10-09 08:29] LABS: Blood Urea Nitrogen 20 mg/dl (7-17); Calcium 8.3 mg/dl (8.4-10.2); Carbon Dioxide 32 mmol/L (22-30); Chloride 101 mmol/L (98-107); Estimated Creatinine Clearance 35 ml/min; Glucose 124 mg/dl (70-99); Potassium 3.5 mmol/L (3.5-5.1); Sodium 137 mmol/L (135-145); eGFR 30.32
[2023-10-09] MEDS: MIRALAX 17 GRAMS PO ×2 (09:03→16:57)
[2023-10-09] MEDS: TOPROL XL 25 MG PO (09:04)
[2023-10-09] MEDS: VITAMIN B-12 1000 MCG PO (09:04)
[2023-10-09] MEDS: AMITIZA 24 MCG PO ×2 (09:04→20:04)
[2023-10-09] MEDS: VITAMIN D3 (cholecalciferol) 25 MCG PO (09:05)
[2023-10-09] MEDS: NOVOLOG FLEXPEN-LOW RESISTANCE 1 UNITS SC (09:05)
[2023-10-09] MEDS: JARDIANCE 10 MG PO (09:05)
[2023-10-09] MEDS: PACERONE 200 MG PO (09:05)
[2023-10-09] MEDS: DESENEX/MITRAZOL/ZEASORB 1 APPLIC TOPICAL ×2 (09:05→20:05)
[2023-10-09 09:06] LABS: Glucose - Point of Care 154 mg/dl (70-99)
[2023-10-09] MEDS: NSS (PRESERVATIVE FREE) 10 ML IV ×2 (09:07→20:05)
[2023-10-09] MEDS: PROTONIX IV 40 MG IV ×2 (09:07→20:04)
[2023-10-09] MEDS: DEMADEX PO (09:25)
[2023-10-09] MEDS: ENTRESTO 49 MG/51 MG PO (09:25)
[2023-10-09 11:00] VITALS: BP 132/70
--- NOTE | 2023-10-09 11:24 | W.PN.HOSP.TC ---
Today's Communication/Plan
-
Outpatient video capsule and EUS
Holding Entresto
Monitor creatinine
Trend CBC
Cardiology recommending Xarelto
Assessment / Plan
Assessment / Plan
Gen: NAD, AAOx3.
Eyes: EOMI, PERRLA, no scleral icterus.
Neck: supple.
CV: Continues to remain RRR, +S1/S2, no m/r/g.
Resp: Remains CTAB anteriorly
Abd: +BS, soft, NT, ND
Skin: No rashes. No LE edema
Neuro: CN 2-12 intact, non-focal.
Psych: Normal mood and affect.
Anemia, likely due to chronic blood loss from chronic GIB:
-Xarelto contributed to GIB, currently on hold
-Hb 4.8 on admission, now 7.5 after 2U pRBCs
-cont PPI BID
-cont IV Fe
-Status post colonoscopy with medium sized lipoma in the ascending colon. EGD with normal esophagus. Medium sized hiatal hernia. Single submucosal papule found in the stomach biopsied. GI recommending outpatient small bowel video capsule study.
Also recommending EUS for submucosal nodule as outpatient.
-Can be started on DOAC later today. Restarted on Xarelto per cardiology. Xarelto 15 mg daily
Acute on chronic HFpEF:
Acute hypoxic resp insufficiency
-Echo above and notable for EF 60-65%, mild , mid-mod TR, severe pulm HTN
-May have had reduced ejection fraction in the past as pt was on Entresto (currently on hold with DELILAH)
-CXR above
-proBNP 3810
-s/p IV Lasix and now started on Demadex 20mg BID and decreased to 20 mg daily now
-cards following
-HR improved, BB started
Hypokalemia
-replete/monitor
-may need to start standing
DELILAH on CKD stage IIIb
Will hold Entresto. Torsemide decreased to daily.
Trend creatinine
Atrial Fibrillation, paroxysmal
-Xarelto 15 mg per cardiology
-Continue amiodarone/BB
Essential Hypertension
-cont BB
Hyperlipidemia
-Continue atorvastatin
Diabetes Mellitus, Type II
-Hold Jardiance and Metformin while NPO
-SSI/accuchecks
Diabetic Neuropathy
-Continue gabapentin
Hypothyroidism
-Continue levothyroxine
Morbid Obesity due to Excess Calories
-Affects all aspects of care
-encourage wt loss
FULL/SCDs Eliquis
Anticipated Discharge: Within 24 hours
Subjective/Interval History
-
Date of Service: October 09, 2023
Tolerating diet
Denies abdominal pain nausea vomiting
Objective Data
-
Labs:
Laboratory Results
10/09/23
06:42
WBC 9.3
Hgb 7.5 L
Hct 26.5 L
Plt Count 250
Sodium 137
Potassium 3.5
Chloride 101
Carbon Dioxide 32 H
BUN 20 H
Creatinine 1.7 H
Glucose 124 H
Calcium 8.3 L
Vital Signs:
Vital Signs
Temp Pulse Resp BP Pulse Ox
98.1 F 58 20 141/50 96
10/09/23 07:00 10/09/23 09:04 10/09/23 07:00 10/09/23 09:04 10/09/23 07:00
I&O
10/08/23 10/09/23 10/10/23
06:59 06:59 06:59
Intake Total 900 / 900 960 / 960
Output Total 875 / 875
Balance 960 / 960
Data Reviewed
-
Total Time Spent with Patient (in minutes): 54
--- NOTE | 2023-10-09 11:26 | W.PN.CARDCBS ---
Today's Communication / Plan
-
Hemoglobin at 7.5. Will restart Xarelto at 15 mg daily.
Creatinine at 1.7. Continue to follow. Continue torsemide, amiodarone, and metoprolol.
Would repeat creatinine in a.m. and at that point likely restart Entresto.
Impression / Plan
-
Primary Starting Gate Driver: Dr. Jay Jay Cuello of [place]
Primary EP: Dr. Wojciech Jefferson of [place]
Assessment:
Profound subacute presumed GI bleed, hemoglobin 4.4 on presentation
Acute hypoxic respiratory failure
Acute on chronic HFpEF
Severe pulmonary hypertension on echo 10/03/2023
Paroxysmal atrial fibrillation
Chronic amiodarone therapy
Chronic Xarelto therapy
Diabetes
Hypertension
Hyperlipidemia
Hypothyroidism
ECHO 10/03/23: EF 60-65%, mildly dilated LV. biatrial enlargement. Mild w/ peak/mean gradient 27/13 mmHg, severe pulm HTN PAP 63 mmHg
Plan:
-s/p EGD/colonoscopy which appears to be without clear etiology for anemia. may need OP EUS and or capsule study per GI. ok to resume OAC in AM.
-Eliquis is cost prohibitive. We will continue Xarelto but based on her creatinine clearance will lower dose to 15 mg daily. I gave her samples for 1 month. Will resume today.
-remains in SR. continue amiodarone
-weights do not appear to be accurate. continue po torsemide 20mg BID. Cr stable up to 1.7
-EF preserved by echo 10/03. continue toprol, jardiance
-BPs elevated. Will resume Entresto in a.m. pending a.m. creatinine.
Progress Note - Starting Gate Driver
Subjective
Date of Service: October 09, 2023
GI scoping procedures noted. No clear etiology for bleeding. Hemoglobin stable at 7.5. No chest pains or palpitations.
Objective
Labs:
10/09/23 06:42
10/09/23 06:42
Labs
Hgb 7.5 g/dL (12.0-16.0) L 10/09/23 06:42
Hct 26.5 % (37.0-47.0) L 10/09/23 06:42
Plt Count 250 10^3/uL (130-400) 10/09/23 06:42
APTT 39.7 Sec (23.4-35.0) H 10/02/23 20:05
Sodium 137 mmol/L (135-145) 10/09/23 06:42
Potassium 3.5 mmol/L (3.5-5.1) 10/09/23 06:42
BUN 20 mg/dl (7-17) H 10/09/23 06:42
Creatinine 1.7 mg/dL (0.6-1.0) H 10/09/23 06:42
Glucose 124 mg/dl (70-99) H 10/09/23 06:42
Vital Signs and I&O:
Vital Signs
Temp Pulse Resp BP Pulse Ox
98.1 F 58 20 141/50 96
10/09/23 07:00 10/09/23 09:04 10/09/23 07:00 10/09/23 09:04 10/09/23 07:00
Vital Signs
Temp Pulse Resp BP Pulse Ox
98.1 F 58 20 141/50 96
10/09/23 07:00 10/09/23 09:04 10/09/23 07:00 10/09/23 09:04 10/09/23 07:00
Intake & Output
10/07/23 10/08/23 10/09/23 10/10/23
06:59 06:59 06:59 06:59
Intake Total 1080 / 1080 900 / 900 960 / 960
Output Total 1350 / 1350 875 / 875
Balance -270 / -270 960 / 960
Physical Exam
Physical Exam
GEN: No distress, awake, Ox3
HEENT: supple, anicteric, mmm
LUNGS: CTA, no wheezes/rales
CV: Reg, S1/S2, 1/6 syst LSB, no gallop
ABD: soft, BS+, NT/ND
EXT: No edema
NEURO: Gross non-focal
SKIN: No rash
--- NOTE | 2023-10-09 11:50 | CM ---
Patient seen, reports no new concerns at this time. IMM reviewed, signed, placed in patients chart. CM will continue to follow for discharge planning needs.
Plan; home no needs, watch for home O2 needs.
[2023-10-09] MEDS: DEMADEX 20 MG PO (12:14)
[2023-10-09] MEDS: NOVOLOG FLEXPEN-LOW RESISTANCE SC ×3 (12:21→17:06)
[2023-10-09 12:22] LABS: Glucose - Point of Care 99 mg/dl (70-99)
[2023-10-09 14:45] VITALS: O2SAT 96
[2023-10-09 15:22] VITALS: BP 110/49
[2023-10-09 16:59] LABS: Glucose - Point of Care 138 mg/dl (70-99)
[2023-10-09] MEDS: LIPITOR 40 MG PO (17:01)
[2023-10-09] MEDS: XARELTO 15 MG PO (17:01)
[2023-10-09] MEDS: MAGNESIUM OXIDE 500 MG PO (20:04)
[2023-10-09] MEDS: NEURONTIN 300 MG PO (20:04)
[2023-10-09] MEDS: MIRALAX PO (20:09)
[2023-10-09 21:29] LABS: Glucose - Point of Care 139 mg/dl (70-99)
[2023-10-09 23:55] VITALS: BP 113/45
[2023-10-10] MEDS: SYNTHROID 137 MCG PO (04:43)
[2023-10-10 06:00] VITALS: BMI 44.3
[2023-10-10 07:00] VITALS: BP 125/71
[2023-10-10 07:14] LABS: Hemoglobin 7.5 g/dL (12.0-16.0); Mean Corp Hgb Conc. 28.8 g/dL (33.0-37.0); Mean Corpuscular Hgb 21.3 pg (27.0-31.0); Mean Corpuscular Volume 73.9 fL (81.0-99.0); Mean Platelet Volume 8.4 fL (7.4-10.4); Platelet Count 197 10^3/uL (130-400); Red Blood Cell Count 3.52 10^6/uL (4.20-5.40); Red Cell Dist. Width 26.5 % (11.5-14.5); White Blood Cell Count 8.8 10^3/uL (4.8-10.8)
[2023-10-10 08:08] LABS: Glucose - Point of Care 142 mg/dl (70-99)
[2023-10-10 08:24] LABS: Blood Urea Nitrogen 19 mg/dl (7-17); Calcium 8.2 mg/dl (8.4-10.2); Carbon Dioxide 33 mmol/L (22-30); Chloride 100 mmol/L (98-107); Estimated Creatinine Clearance 35 ml/min; Glucose 123 mg/dl (70-99); Potassium 3.4 mmol/L (3.5-5.1); Sodium 137 mmol/L (135-145); eGFR 30.32
[2023-10-10] MEDS: NOVOLOG FLEXPEN-LOW RESISTANCE SC ×2 (08:38→17:00)
[2023-10-10] MEDS: JARDIANCE 10 MG PO (09:15)
[2023-10-10] MEDS: VITAMIN D3 (cholecalciferol) 25 MCG PO (09:15)
[2023-10-10] MEDS: MIRALAX 17 GRAMS PO ×2 (09:15→20:38)
[2023-10-10] MEDS: AMITIZA 24 MCG PO ×2 (09:15→20:39)
[2023-10-10] MEDS: TOPROL XL 25 MG PO (09:15)
[2023-10-10] MEDS: DEMADEX 20 MG PO (09:15)
[2023-10-10] MEDS: VITAMIN B-12 1000 MCG PO (09:16)
[2023-10-10] MEDS: NSS (PRESERVATIVE FREE) 10 ML IV (09:16)
[2023-10-10] MEDS: PROTONIX IV 40 MG IV (09:16)
[2023-10-10] MEDS: PACERONE 200 MG PO (09:16)
[2023-10-10] MEDS: DESENEX/MITRAZOL/ZEASORB 1 APPLIC TOPICAL ×2 (09:23→20:39)
--- NOTE | 2023-10-10 10:17 | CM ---
Patient seen bedside, patient no longer on O2. Patient inquiring about her discharge, CM will follow for discharge planning needs and provide update at appropriate.
Plan; home no needs, declining HH.
[2023-10-10 10:43] VITALS: O2SAT 94
--- NOTE | 2023-10-10 11:14 | W.PN.HOSP.TC ---
Today's Communication/Plan
-
cards recs
home o2 eval
trend cr
Assessment / Plan
Assessment / Plan
Gen: NAD, AAOx3. morbidly obese
Eyes: EOMI, no scleral icterus.
Neck: supple.
CV: RRR, +S1/S2, no m/r/g.
Resp: CTA b/l
Abd: +BS, soft, NT, ND
Skin: No rashes. No LE edema
Neuro: CN 2-12 intact, non-focal.
Psych: Normal mood and affect.
Anemia, likely due to chronic blood loss from chronic GIB:
-Xarelto contributed to GIB, currently on hold
-Hb 4.8 on admission, now 7.5 after 2U pRBCs
-cont PPI BID
-s/p IV iron
-Status post colonoscopy with medium sized lipoma in the ascending colon. EGD with normal esophagus. Medium sized hiatal hernia. Single submucosal papule found in the stomach biopsied. GI recommending outpatient small bowel video capsule study.
Also recommending EUS for submucosal nodule as outpatient.
- Restarted on Xarelto per cardiology. Xarelto 15 mg daily
Acute on chronic HFpEF:
Acute hypoxic resp insufficiency
-Echo above and notable for EF 60-65%, mild , mid-mod TR, severe pulm HTN
-May have had reduced ejection fraction in the past as pt was on Entresto (currently on hold with DELILAH)
-CXR above
-proBNP 3810
-s/p IV Lasix and now started on Demadex 20mg BID and decreased to 20 mg daily now
-cards following
-HR improved, BB started
Hypokalemia
-replete/monitor
DELILAH on CKD stage IIIb likely CRS
Will hold Entresto. Torsemide decreased to daily.
Trend creatinine
Atrial Fibrillation, paroxysmal
-Xarelto 15 mg per cardiology
-Continue amiodarone/BB
Essential Hypertension
-cont BB
Hyperlipidemia
-Continue atorvastatin
Diabetes Mellitus, Type II
-Hold Jardiance and Metformin while NPO
-SSI/accuchecks
Diabetic Neuropathy
-Continue gabapentin
Hypothyroidism
-Continue levothyroxine
Morbid Obesity due to Excess Calories
-Affects all aspects of care
-encourage wt loss
FULL/SCDs Eliquis
Anticipated Discharge: Within 24 hours
Subjective/Interval History
-
Date of Service: October 10, 2023
sitting in chair
no abd pain or discomfort
Objective Data
-
Labs:
Laboratory Results
10/10/23
07:03
WBC 8.8
Hgb 7.5 L
Hct 26.0 L
Plt Count 197 D
Sodium 137
Potassium 3.4 L
Chloride 100
Carbon Dioxide 33 H
BUN 19 H
Creatinine 1.7 H
Glucose 123 H
Calcium 8.2 L
Vital Signs:
Vital Signs
Temp Pulse Resp BP Pulse Ox
98 F 81 18 125/71 96
10/10/23 07:00 10/10/23 09:16 10/10/23 07:00 10/10/23 09:16 10/10/23 07:00
I&O
10/09/23 10/10/23 10/11/23
06:59 06:59 06:59
Intake Total 960 / 960 480 / 480
Balance 960 / 960 480 / 480
[2023-10-10 11:58] LABS: Glucose - Point of Care 172 mg/dl (70-99)
[2023-10-10] MEDS: KCL 40 MEQ PO (12:20)
[2023-10-10] MEDS: NOVOLOG FLEXPEN-LOW RESISTANCE 1 UNITS SC (12:23)
[2023-10-10 15:00] VITALS: BP 128/57
--- NOTE | 2023-10-10 16:00 | PTCARENOTE ---
Pt approved by to shower with her daughter chaperoning.
[2023-10-10 16:56] LABS: Glucose - Point of Care 118 mg/dl (70-99)
[2023-10-10] MEDS: LIPITOR 40 MG PO (17:06)
[2023-10-10] MEDS: XARELTO 15 MG PO (17:06)
[2023-10-10] MEDS: MIRALAX PO (17:06)
--- NOTE | 2023-10-10 18:36 | W.PN.CARDCBS ---
Today's Communication / Plan
-
Monitor hemoglobin on anticoagulation
Discharge planning
Outpatient cardiac follow-up; patient has indicated she would like to transfer to Dr. Saunders
Impression / Plan
-
Primary Med Asst: Dr. Jay Jay Cuello of [place]
Primary EP: Dr. Wojciech Jefferson of [place]
Assessment:
Profound subacute presumed GI bleed, hemoglobin 4.4 on presentation
Acute hypoxic respiratory failure
Acute on chronic HFpEF
Severe pulmonary hypertension on echo 10/03/2023
Paroxysmal atrial fibrillation
Chronic amiodarone therapy
Chronic Xarelto therapy
Diabetes
Hypertension
Hyperlipidemia
Hypothyroidism
ECHO 10/03/23: EF 60-65%, mildly dilated LV. biatrial enlargement. Mild w/ peak/mean gradient 27/13 mmHg, severe pulm HTN PAP 63 mmHg
Plan:
78-year-old woman with past medical history of heart failure with preserved ejection fraction presenting with transfusion dependent anemia in the setting of GI bleed
-Presenting hemoglobin 4.4 g/dL
-s/p EGD/colonoscopy which appears to be without clear etiology for anemia. may need OP EUS and or capsule study per GI.
-Status post IV iron
-PPI
-Anticoagulation resumed.
-Monitor hemoglobin closely
Paroxysmal atrial fibrillation
-remains in SR. continue amiodarone
-Xarelto resumed yesterday
-Could consider eventual outpatient evaluation for Watchman
Heart failure with preserved ejection fraction and severe pulmonary hypertension
-Volume status is improved status post IV Lasix
-Continue po torsemide 20mg daily
-Cr stable up to 1.7
-EF preserved by echo 10/03. continue toprol, jardiance
-Will continue to hold outpatient Entresto given renal insufficiency
Discharge planning per primary
Progress Note - Med Asst
Subjective
Date of Service: October 10, 2023
Seen and examined. Offers no new complaint
Objective
Labs:
10/10/23 07:03
10/10/23 07:03
Labs
Hgb 7.5 g/dL (12.0-16.0) L 10/10/23 07:03
Hct 26.0 % (37.0-47.0) L 10/10/23 07:03
Plt Count 197 10^3/uL (130-400) D 10/10/23 07:03
APTT 39.7 Sec (23.4-35.0) H 10/02/23 20:05
Sodium 137 mmol/L (135-145) 10/10/23 07:03
Potassium 3.4 mmol/L (3.5-5.1) L 10/10/23 07:03
BUN 19 mg/dl (7-17) H 10/10/23 07:03
Creatinine 1.7 mg/dL (0.6-1.0) H 10/10/23 07:03
Glucose 123 mg/dl (70-99) H 10/10/23 07:03
Vital Signs and I&O:
Vital Signs
Temp Pulse Resp BP Pulse Ox
98.5 F 65 18 128/57 93
10/10/23 15:00 10/10/23 15:00 10/10/23 15:00 10/10/23 15:00 10/10/23 15:00
Vital Signs
Temp Pulse Resp BP Pulse Ox
98.5 F 65 18 128/57 93
10/10/23 15:00 10/10/23 15:00 10/10/23 15:00 10/10/23 15:00 10/10/23 15:00
Intake & Output
10/08/23 10/09/23 10/10/23 10/11/23
06:59 06:59 06:59 06:59
Intake Total 900 / 900 960 / 960 480 / 480
Output Total 875 / 875
Balance 960 / 960 480 / 480
Physical Exam
Physical Exam
GEN: No distress, awake, Ox3
HEENT: supple, anicteric, mmm
LUNGS: CTA, no wheezes/rales
CV: Reg, S1/S2, 1/6 syst LSB
ABD: soft, BS+, NT/ND
EXT: Trace edema
[2023-10-10] MEDS: MAGNESIUM OXIDE 500 MG PO (20:39)
[2023-10-10] MEDS: NEURONTIN 300 MG PO (20:39)
[2023-10-10 21:34] LABS: Glucose - Point of Care 162 mg/dl (70-99)
[2023-10-10 23:50] VITALS: BP 129/48
[2023-10-11] MEDS: SYNTHROID 137 MCG PO (03:30)
[2023-10-11 04:24] VITALS: BMI 44.5
[2023-10-11 07:45] LABS: Hematocrit 26.2 % (37.0-47.0); Hemoglobin 7.5 g/dL (12.0-16.0); Mean Corp Hgb Conc. 28.6 g/dL (33.0-37.0); Mean Corpuscular Hgb 21.4 pg (27.0-31.0); Mean Corpuscular Volume 74.6 fL (81.0-99.0); Mean Platelet Volume 8.8 fL (7.4-10.4); Platelet Count 197 10^3/uL (130-400); Red Blood Cell Count 3.51 10^6/uL (4.20-5.40); Red Cell Dist. Width 27.1 % (11.5-14.5); White Blood Cell Count 10.2 10^3/uL (4.8-10.8)
[2023-10-11 07:51] LABS: Glucose - Point of Care 132 mg/dl (70-99)
[2023-10-11 08:00] VITALS: BP 130/55
[2023-10-11 08:24] LABS: Blood Urea Nitrogen 21 mg/dl (7-17); Calcium 8.3 mg/dl (8.4-10.2); Carbon Dioxide 33 mmol/L (22-30); Chloride 100 mmol/L (98-107); Estimated Creatinine Clearance 40 ml/min; Glucose 121 mg/dl (70-99); Potassium 3.7 mmol/L (3.5-5.1); Sodium 136 mmol/L (135-145); eGFR 35.23
[2023-10-11] MEDS: NOVOLOG FLEXPEN-LOW RESISTANCE SC ×2 (08:48→17:26)
[2023-10-11] MEDS: PACERONE 200 MG PO (08:49)
[2023-10-11] MEDS: TOPROL XL 25 MG PO (08:49)
[2023-10-11] MEDS: AMITIZA 24 MCG PO ×2 (08:49→20:26)
[2023-10-11] MEDS: MIRALAX 17 GRAMS PO ×3 (08:49→20:27)
[2023-10-11] MEDS: PROTONIX 40 MG PO (08:49)
[2023-10-11] MEDS: JARDIANCE 10 MG PO (08:50)
[2023-10-11] MEDS: DEMADEX 20 MG PO ×2 (08:50→17:19)
[2023-10-11] MEDS: VITAMIN B-12 1000 MCG PO (08:51)
[2023-10-11] MEDS: VITAMIN D3 (cholecalciferol) 25 MCG PO (08:51)
[2023-10-11] MEDS: DESENEX/MITRAZOL/ZEASORB 1 APPLIC TOPICAL (08:52)
--- NOTE | 2023-10-11 10:04 | W.PN.CARDCBS ---
Addendum entered and electronically signed by Crystal Dueñas DO 10/11/23 12:00:
Discussed with Hospitalist. Labs ordered for am.
Has home O2 arranged
Addendum entered and electronically signed by Crystal Dueñas DO 10/11/23 11:57:
I saw and examined the patient.
The Mails Supervisor's note was reviewed and I agree with the note.
Comment: Seen and examined. OOB to chair with nc O2. c/o leg edema but improved SOB at rest. No CP
GEN: No distress, awake, Ox3
HEENT: mmm
LUNGS: CTA, no wheezes/rales
CV: Reg, S1/S2, 1/6 syst LSB
ABD: soft, BS+, NT/ND
EXT: ++ edema R>L
Plan:
�78-year-old woman with past medical history of heart failure with preserved ejection fraction presenting with transfusion dependent anemia in the setting of GI bleed
-Presenting hemoglobin 4.4 g/dL
-s/p EGD/colonoscopy which appears to be without clear etiology for anemia. may need OP EUS and or capsule study per GI.
-Status post IV iron
-PPI
-Anticoagulation resumed.
-Monitor hemoglobin closely, today remains 7.5g/gL
Paroxysmal atrial fibrillation
-Continue amiodarone
-Xarelto resumed 10/10/23
-Could consider eventual outpatient evaluation for Watchman
Heart failure with preserved ejection fraction and severe pulmonary hypertension
-Volume status improved status post IV Lasix but appears worse today with increased weights and edema after transition to oral torsemide 20mg daily
-Will give IV lasix now
-Will uptitrate torsemide to 20mg BID
-Cr stable up to 1.5- monitor with increased diuretic
-EF preserved by echo 10/03. continue toprol, jardiance
-Will continue to hold outpatient Entresto given renal insufficiency
Would hold discharge today given increased fluid retention
Outpatient cardiac follow-up arranged; patient has indicated she would like to transfer to Dr. Saunders
Discharge planning per primary
Original Note:
Today's Communication / Plan
-
Replete K+
CBC and BMP 1 week after d/c
Discharge planning
Outpatient cardiac follow-up arranged; patient has indicated she would like to transfer to Dr. Saunders
Impression / Plan
-
Primary Foam Fabricator: Dr. Jay Jay Cuello of [place]
Primary EP: Dr. Wojciech Jefferson of [place]
Assessment:
Presented 10/02/2023 with profound subacute presumed GI bleed, hemoglobin 4.4 on presentation
Acute hypoxic respiratory failure
Acute on chronic HFpEF
Severe pulmonary hypertension on echo 10/03/2023
Paroxysmal atrial fibrillation
Chronic amiodarone therapy
Chronic Xarelto therapy
Diabetes
Hypertension
Hyperlipidemia
Hypothyroidism
ECHO 10/03/23: EF 60-65%, mildly dilated LV. biatrial enlargement. Mild w/ peak/mean gradient 27/13 mmHg, severe pulm HTN PAP 63 mmHg
Plan:
78-year-old woman with past medical history of heart failure with preserved ejection fraction presenting with transfusion dependent anemia in the setting of GI bleed
-Presenting hemoglobin 4.4 g/dL
-s/p EGD/colonoscopy 10/08/2023 which appears to be without clear etiology for anemia. may need OP EUS and or capsule study per GI.
-Status post IV iron and 3 U pRBCs, hgb stable at 7.5
-Continue PPI
-Anticoagulation with Xarelto 15 mg resumed 10/09/2023.
-Monitor hemoglobin closely with resumption of OAC
-Consider eventual watchman device as outpt
Paroxysmal atrial fibrillation
-remains in SR. continue amiodarone
-Xarelto resumed 10/09/23
-Could consider eventual outpatient evaluation for Watchman
Heart failure with preserved ejection fraction and severe pulmonary hypertension
-Volume status is improved status post IV Lasix
-Continue po torsemide 20mg daily
-Cr stable improved to 1.5
-K+ 3.7 would replete
-EF preserved by echo 10/03. continue Toprol, Jardiance
-Will continue to hold outpatient Entresto given renal insufficiency; consider resuming low dose Valsartan if creat remains stable
Discharge planning per primary, outpt cardiology follow up arranged
Progress Note - Foam Fabricator
Subjective
Date of Service: October 11, 2023
Objective
Labs:
10/11/23 07:21
10/11/23 07:21
Labs
Hgb 7.5 g/dL (12.0-16.0) L 10/11/23 07:21
Hct 26.2 % (37.0-47.0) L 10/11/23 07:21
Plt Count 197 10^3/uL (130-400) 10/11/23 07:21
APTT 39.7 Sec (23.4-35.0) H 10/02/23 20:05
Sodium 136 mmol/L (135-145) 10/11/23 07:21
Potassium 3.7 mmol/L (3.5-5.1) 10/11/23 07:21
BUN 21 mg/dl (7-17) H 10/11/23 07:21
Creatinine 1.5 mg/dL (0.6-1.0) H 10/11/23 07:21
Glucose 121 mg/dl (70-99) H 10/11/23 07:21
Vital Signs and I&O:
Vital Signs
Temp Pulse Resp BP Pulse Ox
98 F 67 18 130/55 95
10/11/23 08:00 10/11/23 08:49 10/11/23 08:00 10/11/23 08:49 10/11/23 08:35
Vital Signs
Temp Pulse Resp BP Pulse Ox
98 F 67 18 130/55 95
10/11/23 08:00 10/11/23 08:49 10/11/23 08:00 10/11/23 08:49 10/11/23 08:35
Intake & Output
10/09/23 10/10/23 10/11/23 10/12/23
06:59 06:59 06:59 06:59
Intake Total 960 / 960 480 / 480 1680 / 1680
Balance 960 / 960 480 / 480 1680 / 1680
--- NOTE | 2023-10-11 11:01 | W.PN.HOSP.TC ---
Today's Communication/Plan
-
home o2
reduce xarelto
diuretics daily
OP f/u
Assessment / Plan
Assessment / Plan
Gen: NAD, AAOx3. morbidly obese
Eyes: EOMI, no scleral icterus.
Neck: supple.
CV: RRR, +S1/S2, no m/r/g.
Resp: CTA b/l, on oxygen 2L
Abd: +BS, soft, NT, ND
Skin: No rashes. No LE edema
Neuro: CN 2-12 intact, non-focal.
Psych: Normal mood and affect.
Anemia, likely due to chronic blood loss from chronic GIB:
-Xarelto contributed to GIB, currently on hold
-Hb 4.8 on admission, now 7.5 after 2U pRBCs
-cont PPI BID
-s/p IV iron
-Status post colonoscopy with medium sized lipoma in the ascending colon. EGD with normal esophagus. Medium sized hiatal hernia. Single submucosal papule found in the stomach biopsied. GI recommending outpatient small bowel video capsule study.
Also recommending EUS for submucosal nodule as outpatient.
- Restarted on Xarelto per cardiology. Xarelto 15 mg daily
Acute on chronic HFpEF:
Acute hypoxic resp insufficiency
-Echo above and notable for EF 60-65%, mild , mid-mod TR, severe pulm HTN
-May have had reduced ejection fraction in the past as pt was on Entresto (currently on hold with DELILAH)
-CXR above
-proBNP 3810
-s/p IV Lasix and now started on Demadex 20mg BID and decreased to 20 mg daily now
-cards following
-HR improved, BB started
Patient is in need of oxygen on exertion due to pulse oximetry of 93% on room air at rest; 85% on room air with exertion.
Patient was placed on 2L O2 via nasal cannula with saturation of 92%. Oxygen will help to improve hypoxemia.
Patient is mobile within the home. IV lasix has been discussed and is ineffective in treating hypoxemia-related symptoms.
Oxygen will improve the patient's symptoms.
Hypokalemia
-replete/monitor
DELILAH on CKD stage IIIb likely CRS
Will hold Entresto. Torsemide decreased to daily 20mg.
Trend creatinine-improved.
Atrial Fibrillation, paroxysmal
-Xarelto 15 mg per cardiology
-Continue amiodarone/BB
Essential Hypertension
-cont BB dose reduced to 25mg daily.
Hyperlipidemia
-Continue atorvastatin
Diabetes Mellitus, Type II
-Hold Jardiance and Metformin while NPO
-SSI/accuchecks
Diabetic Neuropathy
-Continue gabapentin
Hypothyroidism
-Continue levothyroxine
Morbid Obesity due to Excess Calories
-Affects all aspects of care
-encourage wt loss
FULL/SCDs Eliquis
More than 30 minutes spent in discharge including
Final examination of the patient
Summarizing hospital stay
Instructions for continuing care to all relevant caregivers
Preparation of discharge records, prescriptions, and referral forms
Total time spent (in minutes): 40
Anticipated Discharge: Today
Subjective/Interval History
-
Date of Service: October 11, 2023
no blood in stools
feeling better
on 2L
Objective Data
-
Labs:
Laboratory Results
10/11/23
07:21
WBC 10.2
Hgb 7.5 L
Hct 26.2 L
Plt Count 197
Sodium 136
Potassium 3.7
Chloride 100
Carbon Dioxide 33 H
BUN 21 H
Creatinine 1.5 H
Glucose 121 H
Calcium 8.3 L
Vital Signs:
Vital Signs
Temp Pulse Resp BP Pulse Ox
98 F 67 18 130/55 95
10/11/23 08:00 10/11/23 08:49 10/11/23 08:00 10/11/23 08:49 10/11/23 08:35
I&O
10/10/23 10/11/23 10/12/23
06:59 06:59 06:59
Intake Total 480 / 480 1680 / 1680
Balance 480 / 480 1680 / 1680
--- NOTE | 2023-10-11 11:45 | CM ---
Addendum entered by Rosario Dickens 10/11/23 14:51:
Per Dr Cason - discharge held for today
Confirmed address with pt
Faxed clinicals, face sheet and Rx to Moshe at [address] [facility] [address] [phone]
Pt cont to decline HH
Plan - anticipate home with home O2
Original Note:
Chart reviewed. Spoke with pt
Informed by Dr Cason pt to be d/c'ed today and will need home O2
Pt has no preference to provider
LM with pts daughter to confirm living situation/address with call back #
Obtained clinicals
Discussed IMM with pt
[2023-10-11 11:50] LABS: Glucose - Point of Care 155 mg/dl (70-99)
[2023-10-11] MEDS: KCL 40 MEQ PO (11:50)
[2023-10-11] MEDS: NOVOLOG FLEXPEN-LOW RESISTANCE 1 UNITS SC (11:51)
[2023-10-11] MEDS: LASIX 40 MG IV (13:05)
[2023-10-11 15:13] VITALS: BP 138/63
[2023-10-11 17:17] LABS: Glucose - Point of Care 128 mg/dl (70-99)
[2023-10-11] MEDS: LIPITOR 40 MG PO (17:19)
[2023-10-11] MEDS: XARELTO 15 MG PO (17:19)
[2023-10-11] MEDS: NEURONTIN 300 MG PO (20:26)
[2023-10-11] MEDS: MAGNESIUM OXIDE 500 MG PO (20:26)
[2023-10-11] MEDS: DESENEX/MITRAZOL/ZEASORB TOPICAL (20:27)
[2023-10-11 21:54] LABS: Glucose - Point of Care 139 mg/dl (70-99)
[2023-10-11 23:55] VITALS: BP 128/61
[2023-10-12] MEDS: SYNTHROID 137 MCG PO (05:40)
[2023-10-12 06:00] VITALS: BMI 44.4
[2023-10-12 07:07] LABS: Glucose - Point of Care 144 mg/dl (70-99)
[2023-10-12 08:00] VITALS: BP 130/60
[2023-10-12] MEDS: NOVOLOG FLEXPEN-LOW RESISTANCE SC ×2 (08:44→17:25)
[2023-10-12] MEDS: PACERONE 200 MG PO (08:44)
[2023-10-12] MEDS: TOPROL XL 25 MG PO (08:45)
[2023-10-12] MEDS: VITAMIN B-12 1000 MCG PO (08:45)
[2023-10-12] MEDS: PROTONIX 40 MG PO (08:45)
[2023-10-12] MEDS: VITAMIN D3 (cholecalciferol) 25 MCG PO (08:45)
[2023-10-12] MEDS: JARDIANCE 10 MG PO (08:45)
[2023-10-12] MEDS: DESENEX/MITRAZOL/ZEASORB 1 APPLIC TOPICAL (08:46)
[2023-10-12] MEDS: DEMADEX 20 MG PO ×2 (08:46→16:16)
[2023-10-12] MEDS: MIRALAX 17 GRAMS PO ×2 (08:46→16:16)
[2023-10-12] MEDS: AMITIZA 24 MCG PO (08:46)
[2023-10-12 08:54] LABS: NT-proBNP 664 pg/ml
[2023-10-12 09:28] LABS: Blood Urea Nitrogen 26 mg/dl (7-17); Calcium 8.8 mg/dl (8.4-10.2); Carbon Dioxide 33 mmol/L (22-30); Chloride 96 mmol/L (98-107); Estimated Creatinine Clearance 42 ml/min; Glucose 121 mg/dl (70-99); Magnesium 2.5 mg/dl (1.6-2.3); Potassium 3.3 mmol/L (3.5-5.1); Sodium 140 mmol/L (135-145); eGFR 38.27
[2023-10-12] MEDS: KCL 40 MEQ PO (10:13)
[2023-10-12 11:37] LABS: Glucose - Point of Care 210 mg/dl (70-99)
--- NOTE | 2023-10-12 12:26 | W.PN.HOSP.TC ---
Addendum entered and electronically signed by Yoseph Cason MD 10/12/23 16:08:
Discussed with cardiology. Recommending patient to be restarted on home regimen of diuretics. Cardiology also recommended patient to be started on low-dose of Entresto 24 mg / 26 mg. Relayed to nurse to reprint med list. DC home.
More than 30 minutes spent in discharge including
Final examination of the patient
Summarizing hospital stay
Instructions for continuing care to all relevant caregivers
Preparation of discharge records, prescriptions, and referral forms
Total time spent (in minutes): 50
Original Note:
Today's Communication/Plan
-
Dispo-cards recs. cont demadex.
Assessment / Plan
Assessment / Plan
Gen: NAD, AAOx3. morbidly obese
Eyes: EOMI, no scleral icterus.
Neck: supple.
CV: RRR, +S1/S2, no m/r/g.
Resp: CTA b/l, on oxygen 2L
Abd: +BS, soft, NT, ND
Skin: No rashes. + chronic LE edema
Neuro: CN 2-12 intact, non-focal.
Psych: Normal mood and affect.
Anemia, likely due to chronic blood loss from chronic GIB:
-Xarelto contributed to GIB, currently on hold
-Hb 4.8 on admission, now 7.5 after 2U pRBCs
-cont PPI BID
-s/p IV iron
-Status post colonoscopy with medium sized lipoma in the ascending colon. EGD with normal esophagus. Medium sized hiatal hernia. Single submucosal papule found in the stomach biopsied. GI recommending outpatient small bowel video capsule study.
Also recommending EUS for submucosal nodule as outpatient.
- Restarted on Xarelto per cardiology. Xarelto 15 mg daily
Acute on chronic HFpEF:
Acute hypoxic resp insufficiency
-Echo above and notable for EF 60-65%, mild , mid-mod TR, severe pulm HTN
-May have had reduced ejection fraction in the past as pt was on Entresto (currently on hold with DELILAH)
-CXR above
-proBNP 3810
-s/p IV Lasix and now started on Demadex 20mg BID
-cards following
-HR improved, BB started
Patient is in need of oxygen on exertion due to pulse oximetry of 93% on room air at rest; 85% on room air with exertion.
Patient was placed on 2L O2 via nasal cannula with saturation of 92%. Oxygen will help to improve hypoxemia.
Patient is mobile within the home. IV lasix has been discussed and is ineffective in treating hypoxemia-related symptoms.
Oxygen will improve the patient's symptoms.
Hypokalemia
-replete/monitor
DELILAH on CKD stage IIIb likely CRS
Will hold Entresto.
Trend creatinine-improved.
Atrial Fibrillation, paroxysmal
-Xarelto 15 mg per cardiology
-Continue amiodarone/BB
Essential Hypertension
-cont BB dose reduced to 25mg daily.
Hyperlipidemia
-Continue atorvastatin
Diabetes Mellitus, Type II
-Hold Jardiance and Metformin while NPO
-SSI/accuchecks
Diabetic Neuropathy
-Continue gabapentin
Hypothyroidism
-Continue levothyroxine
Morbid Obesity due to Excess Calories
-Affects all aspects of care
-encourage wt loss
FULL/SCDs Eliquis
Dispo-cards recs. cont demadex.
Anticipated Discharge: Today
Subjective/Interval History
-
Date of Service: October 12, 2023
sitting in chair
tolerating diet
on 2LNC
agreed for garland wraps
Objective Data
-
Labs:
Laboratory Results
10/12/23
07:40
Sodium 140
Potassium 3.3 L
Chloride 96 L
Carbon Dioxide 33 H
BUN 26 H
Creatinine 1.4 H
Glucose 121 H
Calcium 8.8
Vital Signs:
Vital Signs
Temp Pulse Resp BP Pulse Ox
97.9 F 58 18 130/60 95
10/12/23 08:00 10/12/23 08:44 10/12/23 08:00 10/12/23 08:44 10/12/23 08:40
I&O
10/11/23 10/12/23 10/13/23
06:59 06:59 06:59
Intake Total 1680 / 1680 240 / 240
Output Total 200 / 200
Balance 1680 / 1680 40 / 40
[2023-10-12] MEDS: NOVOLOG FLEXPEN-LOW RESISTANCE 2 UNITS SC (12:49)
--- NOTE | 2023-10-12 14:56 | W.DCSUMMARY ---
Discharge Summary
Discharge Data
Date of Admission: 10/02/23
Date of Discharge: 10/12/23
-
Pending Results: No
Hospital Course
78-year-old female past medical history of CKD, A-fib, coagulopathy on Xarelto, hypertension, hyperlipidemia, diabetes mellitus, diabetic neuropathy, hypothyroidism, morbid obesity due to excess calories, was presented with shortness of breath and
dizziness. Patient was found to be anemic and received 2 units of PRBC. Gastroenterology was consulted and patient underwent endoscopy and colonoscopy. -Status post colonoscopy with medium sized lipoma in the ascending colon.� EGD with normal
esophagus.� Medium sized hiatal hernia.� Single submucosal papule found in the stomach biopsied.� GI recommending outpatient small bowel video capsule study.� Also recommending EUS for submucosal nodule as outpatient. Patient went to follow-up
outpatient with gastroenterology for video capsule endoscopy. Patient received IV iron during hospitalization. Patient was also found to be acute hypoxic respiratory insufficiency. Patient was found to be in acute on chronic heart failure
exacerbation was started on IV Lasix. Patient had bump in creatinine so Xarelto dose was adjusted per cardiology. Entresto dose was decreased. Metoprolol dose was decreased. Patient with improvement in lower extremity edema and shortness of
breath. Dizziness resolved. Patient also with constipation and was started on aggressive bowel regimen. Patient will be discharged home with recommendation for outpatient blood work. Patient has follow-up with cardiology. Patient qualified for
2 L of home oxygen 24 hours.
Discharge Plan
-
Patient Disposition: Home (Routine Discharge)
Discharge Diagnosis/Procedures: Anemia likely due chronic blood loss from chronic GIB
Acute on chronic HFpEF
Acute hypoxic respiratory insufficiency
Hypokalemia
DELILAH on CKD stage IIIb likely CRS
Condition: Fair
Diet: 2 Gram Sodium and Restrict fluids to 48 oz
Activity: With assistance and As tolerated
Blood Work: cbc and bmp in 1 week via primary doctor.
Specialty Instructions: Weigh Daily- Call MD for wt gain/loss 3 lbs overnight/5 lbs in 1 week
Activity Restrictions/Additional Instructions:
Toprol dose decreased to 25mg daily
Entresto dose was decreased too.
Referrals:
Vanesa Rosa MD [Family Provider] - in less than 1 week
Yamila Chong MD [Active] - (call to arrange small bowel capsule endoscopy then followup with Larry Varghese 12/08 as scheduled)
Jay Jay Cuello MD [Non-Admitting Privileges] - 10/29/23 1:00 pm (You have an appointment at the [facility] office with Dr. Dallas's ESCALATOR OPERATOR, Nunu. Please call with questions. Please call to cancel if you are instead planning to follow up
with cardiology here. )
Betzaida Gallardo PA-C [Specified Professional Personl] - 10/17/23 1:40 pm (You have a cardiology follow-up appointment at the [place] office. Please call with questions)
Prescriptions:
New
lubiprostone 24 mcg Capsule
24 mcg PO BID 30 Days Qty: 60 0RF
polyethylene glycol 3350 [HealthyLax] 17 gram Powder In Packet
17 g PO BID Qty: 60 0RF
pantoprazole 40 mg Tablet,Delayed Release (Dr/Ec)
40 mg PO DAILY 30 Days Qty: 30 0RF
metoprolol succinate 25 mg Tablet Extended Release 24 Hr
25 mg PO DAILY 30 Days Qty: 30 0RF
Xarelto 15 mg Tablet
15 mg PO QPM Qty: 30 0RF
potassium chloride 20 mEq Tablet,Er Particles/Crystals
20 meq PO DAILY 30 Days Qty: 30 0RF
Entresto 24-26 mg tablet
1 tab PO BID Qty: 60 0RF
Continued
atorvastatin 40 MG tablet
40 mg PO QPM
metformin 500 MG tablet
500 mg PO BID@0800,1700
amiodarone [Pacerone] 200 MG tablet
200 mg PO DAILY
magnesium oxide 500 MG tablet
500 mg PO HS
gabapentin 300 MG capsule
300 mg PO HS
cholecalciferol (vitamin D3) 1,000 UNITS tablet
1,000 units PO DAILY
levothyroxine 137 MCG capsule
137 mcg PO DAILY AT 0700
cyanocobalamin (vitamin B-12) [Vitamin B-12] 1,000 mcg Tablet
1,000 mcg PO DAILY
omega-3 fatty acids-fish oil 684-1,200 mg Capsule,Delayed Release(Dr/Ec)
1 cap PO DAILY
Jardiance 10 mg tablet
10 mg PO DAILY
Changed
torsemide 20 mg tablet
20 mg PO 0800,1600 30 Days Qty: 60 0RF
Discontinued
Xarelto 20 MG tablet
20 mg PO QPM
metoprolol succinate 50 MG tablet extended release 24 hr
50 mg PO DAILY Qty: 0 0RF
Rx Instructions:
HOLD FOR HR<60
Entresto 49-51 mg tablet
1 tab PO BID
Discharge Orders:
Discharge Patient (As Directed); Ordered 10/12/23
Ordered By: Yoseph Cason
--- NOTE | 2023-10-12 15:14 | CM ---
database marketing manager reviewed patient's chart and met with patient and patient is for discharge to home today, patient has been set up with home oxygen from [facility], concentrator to be delivered after patient leaves today. [place] has declined
visiting nurses at discharge, patient's daughter to pick patient up between 5-6pm.
Plan; Home today with new home oxygen, patient has declined visiting nurses.
[2023-10-12 15:35] VITALS: BP 120/63
[2023-10-12 16:53] LABS: Glucose - Point of Care 148 mg/dl (70-99)
--- NOTE | 2023-10-12 17:11 | W.PN.CARDCBS ---
Today's Communication / Plan
-
Reviewed discharge plan with hospitalist
Outpatient cardiac follow-up arranged
Impression / Plan
-
Primary Flow Nurse: Dr. Ja yJay Cuello of [place]
Primary EP: Dr. Wojciech Jefferson of [place]
Assessment:
Presented 10/02/2023 with profound subacute presumed GI bleed, hemoglobin 4.4 on presentation
Acute hypoxic respiratory failure
Acute on chronic HFpEF
Severe pulmonary hypertension on echo 10/03/2023
Paroxysmal atrial fibrillation
Chronic amiodarone therapy
Chronic Xarelto therapy
Diabetes
Hypertension
Hyperlipidemia
Hypothyroidism
ECHO 10/03/23: EF 60-65%, mildly dilated LV. biatrial enlargement. Mild w/ peak/mean gradient 27/13 mmHg, severe pulm HTN PAP 63 mmHg
Plan:
78-year-old woman with past medical history of heart failure with preserved ejection fraction presenting with transfusion dependent anemia in the setting of GI bleed
-Presenting hemoglobin 4.4 g/dL
-s/p EGD/colonoscopy 10/08/2023 which appears to be without clear etiology for anemia. may need OP EUS and or capsule study per GI.
-Status post IV iron and 3 U pRBCs, hgb stable at 7.5
-Continue PPI
-Anticoagulation with Xarelto 15 mg resumed 10/09/2023.
-Monitor hemoglobin closely with resumption of OAC
-Consider eventual watchman device as outpt
Paroxysmal atrial fibrillation
-remains in SR. continue amiodarone
-Xarelto resumed 10/09/23
-Could consider eventual outpatient evaluation for Watchman
Heart failure with preserved ejection fraction and severe pulmonary hypertension
-Volume status is improved status post IV Lasix
-Continue po torsemide 20mg twice daily
-Cr stable improved to 1.4
-Keep K greater than 4, mag greater than 2
-EF preserved by echo 2/22. continue Toprol, Jardiance
-Was previously on Entresto held this admission due to renal insufficiency. Will resume Entresto at lower dose 24-26 mg twice daily
-Repeat basic metabolic profile and CBC next week
Discharge planning per primary, outpt cardiology follow up arranged
Progress Note - Flow Nurse
Subjective
Date of Service: October 12, 2023
Seen and examined. Continues to have lower extremity edema and shortness of breath but improved
Objective
Labs:
10/11/23 07:21
10/12/23 07:40
Labs
Hgb 7.5 g/dL (12.0-16.0) L 10/11/23 07:21
Hct 26.2 % (37.0-47.0) L 10/11/23 07:21
Plt Count 197 10^3/uL (130-400) 10/11/23 07:21
APTT 39.7 Sec (23.4-35.0) H 10/02/23 20:05
Sodium 140 mmol/L (135-145) 10/12/23 07:40
Potassium 3.3 mmol/L (3.5-5.1) L 10/12/23 07:40
BUN 26 mg/dl (7-17) H 10/12/23 07:40
Creatinine 1.4 mg/dL (0.6-1.0) H 10/12/23 07:40
Glucose 121 mg/dl (70-99) H 10/12/23 07:40
Vital Signs and I&O:
Vital Signs
Temp Pulse Resp BP Pulse Ox
97.6 F 58 18 120/63 98
10/12/23 15:35 10/12/23 15:35 10/12/23 15:35 10/12/23 15:35 10/12/23 15:35
Vital Signs
Temp Pulse Resp BP Pulse Ox
97.6 F 58 18 120/63 98
10/12/23 15:35 10/12/23 15:35 10/12/23 15:35 10/12/23 15:35 10/12/23 15:35
Intake & Output
10/10/23 10/11/23 10/12/23 10/13/23
06:59 06:59 06:59 06:59
Intake Total 480 / 480 1680 / 1680 240 / 240
Output Total 200 / 200
Balance 480 / 480 1680 / 1680 40 / 40
Physical Exam
Physical Exam
GEN: No distress, awake, Ox3
HEENT: supple, anicteric, mmm
LUNGS: CTA, no wheezes/rales
CV: Reg, S1/S2, 1/6 syst LSB
ABD: soft, BS+, NT/ND
EXT: + edema
== END 2023-10-12 18:36 | disposition home health service (06) | DRG 813 ==
LOC: 4 EAST ACU 22:43
PROVIDERS: Emergency Medicine; Internal Medicine; Internal Medicine Cardiovascular Disease; Internal Medicine Gastroenterology; Physician Assistant Medical; ADMITTING PHYSICIAN Hospitalist; ATTENDING PHYSICIAN Hospitalist; CONSULT PHYSICIAN Internal Medicine Gastroenterology; EMERGENCY PHYSICIAN Emergency Medicine; FAMILY PHYSICIAN Internal Medicine; OTHER PHYSICIAN Nuclear Medicine Nuclear Cardiology
PROC: 0DJD8ZZ Inspection of Lower Intestinal Tract, Via Natural or Artificial Opening Endoscopic (ICD-10-PCS; 2023-10-08)
PROC: 0DB68ZX Excision of Stomach, Via Natural or Artificial Opening Endoscopic, Diagnostic (ICD-10-PCS; 2023-10-08)
DX: D68.32 Hemorrhagic disorder due to extrinsic circulating anticoagulants (principal); I50.33 Acute on chronic diastolic (congestive) heart failure; I13.0 Hypertensive heart and chronic kidney disease with heart failure and stage 1 through stage 4 chronic kidney disease, or unspecified chronic kidney disease; N17.9 Acute kidney failure, unspecified; Z68.41 Body mass index [BMI] 40.0-44.9, adult; K92.2 Gastrointestinal hemorrhage, unspecified; Z68.42 Body mass index [BMI] 45.0-49.9, adult; I48.0 Paroxysmal atrial fibrillation; Z79.01 Long term (current) use of anticoagulants; Z87.891 Personal history of nicotine dependence; D50.0 Iron deficiency anemia secondary to blood loss (chronic); N18.32 Chronic kidney disease, stage 3b; E11.40 Type 2 diabetes mellitus with diabetic neuropathy, unspecified; E03.9 Hypothyroidism, unspecified; E66.01 Morbid (severe) obesity due to excess calories; D17.5 Benign lipomatous neoplasm of intra-abdominal organs; K44.9 Diaphragmatic hernia without obstruction or gangrene; K31.89 Other diseases of stomach and duodenum; E87.6 Hypokalemia; R06.89 Other abnormalities of breathing; R09.02 Hypoxemia
CPT/HCPCS: 88305; 36430; 71046; 80048; 80053; 80061; 82607; 82728; 82746; 82962; 83540; 83550; 83735; 83880; 84443; 84484; 85025; 85027; 85730; 86850; 86900; 86901; 86920; 93005; 93306; 96374; 97116; 97163; 97166; 97530; 97535; 99285; J2916; P9016

== ENCOUNTER 2025-01-07 21:10 | Inpatient (IN) | payer OTHER, SELFPAY ==
[2025-01-07 19:40] VITALS: BP 119/52; BMI 52.2
[2025-01-07 19:41] VITALS: BP 119/52
--- NOTE | 2025-01-07 19:47 | ED.GENMED ---
History of Present Illness
General
Chief Complaint: Weakness
Source: patient and family (daughter)
Time Seen by Provider: 01/07/25 19:34
History of Present Illness
History of Present Illness:
79-year-old female presents to the emergency room with daughter for evaluation of generalized weakness, cough, shortness of breath as well as a wound on the right lower extremity which developed over the past 24 hours and now has significant
erythema around it. Patient has a history of heart failure which causes her to have peripheral edema. Her swelling has increased over time as well as her work of breathing. Patient does not use oxygen at home. Daughter has wanted to bring the
patient to the emergency room for the past several days however the patient has refused. Today she seemed confused. Patient denies any chest pain. She does not believe that she has had a fever. Patient states she does monitor her weight and it
has been relatively stable.
Past History
Past History
ED Past Medical History: Arrthythmia (Atrial fib), CHF, HTN, Hypercholesterolemia and NIDDM
ED Past Surgical History: Gynecological (Hysterectomy) and Other (Thyroid surgery)
Social History
Tobacco: Non-smoker
Alcohol: None
Personal:
Living: with family
Phy Exam
Physical Exam
Physical Exam:
General: Awake, Alert, Oriented X3. Increased work of breathing, cyanotic appearing, high BMI, appears acutely ill
Vitals: Hypoxic in the 50s on arrival
Head: Atraumatic
Eyes: Pupils equal, EOMI
Throat: Airway intact, no exudates, dry mucosa
Neck: Trachea midline
Lungs: Rales bilaterally, some rhonchi diffusely
Heart: Regular rate, no murmurs
Abd: Soft, Nontender, No pulsatile mass
Neuro: Cranial nerves intact, muscle strength equal bilaterally, cerebellar exam normal
Skin: Warm, dry, no rash
Extremities: pulses equal b/l, 4+ edema/nickel sized wound noted anterior right lower extremity with some serous to purulent type drainage.
Course
Orders/Labs/Results
Orders:
Orders
01/07/25 19:44
Electrocardiogram (*1) Stat
Reason for Study: Other
Other Reason for Exam: chest pain
CR Chest Portable - 1 View Urgent
Comment:
Reason For Exam: hypoxia
Reason Study Needs to be Portable: Patient Unstable
01/07/25 19:46
Furosemide [Lasix] 40 mg IV NOW STA
01/07/25 19:48
Type+Screen Urgent
COVID-19 Antigen Urgent
Source: Nasal Swab
Complete Blood Count/With Diff Urgent
Comprehensive Metabolic Panel Urgent
Magnesium Urgent
NT-proBNP Urgent
Troponin I Urgent
01/07/25 19:53
Venous Blood Gas Urgent
%Oxygen/Room Air: 6L
01/07/25 19:54
Wound Culture [Wound/Abscess/Other Culture] Urgent
VIJAYA Source: Leg
Specimen Description: Right
Date Specimen was Collected: 01/07/25
Time Specimen was Collected: 19:49
Comment: r lower leg wound
01/07/25 20:23
CeFAZolin 1 GRAM [Ancef] 1 gram in 5 ml IV NOW
01/07/25 20:44
Admit/Transfer Patient As Directed
Co-Sign Provider:
Level of Care: Inpatient admission
Assign to:: IMU- Intermediate Care
Physician / Group: bernardino
Diagnosis: chf exacerbation
Reason for Hospitalization: chf exacerbation
Expected length of stay greater than two midnights?: Yes
ELOS- Estimated Length of Stay in days: 2
I certify the patient meets the requirements for IP care: Yes
Code Status As Directed
Resuscitation Status: Full Code
PRN Pain Medication Management As Directed
May give lesser potent ordered pain med per pt: Yes
preference::
Protocol:: Medication orders for pain may be administered in a
manner that supports deferring to patient preference
when the pt is:
- Requesting an ordered lesser potent pain medication.
Least to most potent pain medications are defined
as: acetaminophen < NSAID < tramadol < opioids
(morphine, oxycodone, hydromorphone).
- Requesting a lesser dose of the same medication IF
ORDERED.
- Requesting a less intrusive route of administration
if both routes are prescribed by the provider (PO <
IV).
01/07/25 21:53
Dextrose 50%-Water [Dextrose 50% Syringe] 12.5 grams IV [id number] PRN
Glucagon [GlucaGen] 1 mg IM PRN PRN
01/07/25 21:53
VTE Contraindication Routine
VTE Mechanical Device Contraindication: Medical Contraindication
Pharmocologic Contraindication: Medical Contraindication
Activity As Directed
Activity Level: As Tolerated
Bedside Glucose Monitoring As Directed
Frequency: AC&HS
Additional Instructions:: Change to q6h if pt on TPN, tube feeding or not eating
I/O [Intake/ Output] As Directed
Frequency: q12h
Vital Signs As Directed
Frequency: Per unit guidelines
Weight As Directed
Frequency: Daily
01/08/25 04:00
CeFAZolin 1 GRAM [Ancef] 1 gram in 5 ml IV Q8H
01/08/25 06:00
Complete Blood Count/With Diff IN AM
Comprehensive Metabolic Panel IN AM
Glycohemoglobin (HgbA1c) IN AM
01/08/25 07:30
Insulin Aspart Corrective Low [Novolog Flexpen-Low Resistance] See Protocol SC AC
01/08/25 08:00
Furosemide [Lasix] 60 mg IV BID AT 0800,1600
Abnormal Lab Results
01/07/25 01/07/25
19:48 19:53
WBC 25.5 H 10^3/uL
(4.8-10.8)
RBC 4.12 L 10^6/uL
(4.20-5.40)
Hgb 8.5 L g/dL
(12.0-16.0)
Hct 29.3 L %
(37.0-47.0)
MCV 71.1 L fL
(81.0-99.0)
MCH 20.6 L pg
(27.0-31.0)
MCHC 29.0 L g/dL
(33.0-37.0)
RDW 20.1 H %
(11.5-14.5)
Abs Immat Gran (auto) 0.4 H 10^3/uL
(0-0.05)
Absolute Neuts (auto) 23.5 H 10^3/uL
(1.4-6.5)
Absolute Lymphs (auto) 0.4 L 10^3/uL
(1.2-3.4)
Absolute Monos (auto) 1.2 H 10^3/uL
(0.1-0.6)
Immature Gran % 1.6 H %
(0-0.5)
Neutrophils % 92.1 H %
(42.2-75.2)
Lymphocytes % 1.4 L %
(20.5-51.1)
VBG pO2 56 H mmHg
(30-50)
BUN 38 H mg/dl
(7-17)
Creatinine 1.5 H mg/dL
(0.6-1.0)
Glucose 214 H mg/dl
(70-99)
Calcium 8.2 L mg/dl
(8.4-10.2)
Alkaline Phosphatase 139 H U/L
(38-126)
01/07/25 19:48
01/07/25 19:48
Vital Signs
Initial and Last Documented VS:
Initial Vital Signs
Pulse Ox
54
01/07/25 19:30
Last Documented Vital Signs
Temp Pulse Resp BP Pulse Ox
99.2 F 78 26 113/52 95
01/07/25 22:08 01/08/25 01:00 01/08/25 01:00 01/08/25 00:00 01/08/25 01:20
MDM/Problems Addressed
Differential Diagnosis Includes:
Heart failure, symptomatic anemia, UTI, sepsis
MDM/Problems Addressed:
Patient presents profoundly weak and unable to even stand once they try to get out of the car. She found to be profoundly hypoxic with a oxygen saturation in the 50s. She quickly improved with nasal cannula oxygen. We titrated oxygen up to 12 L
via mid flow catheter. Her pulse ox remained 88-90 but she was quite comfortable. I suspect her pulse ox will rapidly improve as she diuresis. Patient given 40 mg of Lasix IV. Blood pressure is not particularly elevated and therefore nitro not
necessary. Patient also has a wound on her right lower extremity which is concerning for early cellulitis. Ancef given for this.
Acute Exacerbation and/or Progression of Chronic Illness: HTN and Other (Heart failure with preserved ejection fraction)
*Radiology
Radiology exam reviewed: preliminary read by ED provider (Significant pulmonary edema on my review)
*Pulse Oximetry
Patient hypoxic: yes
*Financial Service Representative Interpretation
Rate: normal
Interpretation: normal
Rhythm: sinus
*Critical Care Note
Total Time (30-74mins, 75-104mins- exclusive of procedures): 35 min
comment:
Critical care statement: A total of 35 minutes of critical care time was provided for this patient. This includes management of unstable vital signs, evaluation of the patient at bedside, reviewing the patient's pertinent medical records, discussion
with consultants, review of old EKGs and review of pertinent medical records. This time with separate from time utilized to perform the aforementioned documented procedures
Patient Management
Social determinants of health affecting care: Living situation
Discussion with other providers: Hospitalist
ED Attending Note
-
Portions of this chart may have been created with voice recognition software.� Occasional wrong word or��sound alike� substitutions may have occurred due to the inherent limitations of voice recognition software.
Discharge Plan
Departure
Patient Disposition: Admit
Date of Disposition: 01/07/25
Time of Disposition: 20:34
Admit to: IMU
Presentation/result/management discussed w/ accepting MD/DO: Hospitalist
Condition: Serious
Discharge Problem:
CHF (congestive heart failure), Respiratory failure with hypoxia, Cellulitis of right leg
Interventions
Interventions:
*Risk Screen - Suicide Last Done: 01/07/25 19:40
*General Assessment Last Done: 01/07/25 19:40
*Neglect/Abuse Screening Last Done: 01/07/25 19:40
*ED- Fall Risk Assessment Last Done: 01/07/25 19:40
*ED COVID-19 Vaccine History Last Done: 01/07/25 22:19
*Nursing Disposition Last Done: 01/07/25 22:08
ED- Cardiac Assessment Last Done: 01/07/25 20:36
ED- Neurological Assessment Last Done: 01/07/25 20:36
ED- Pulmonary Assessment Last Done: 01/07/25 20:36
Discharge Date and Time
Discharge Date/Time: 01/07/25 22:09
[2025-01-07 20:00] LABS: Venous Blood Gas B.E. -1.7 mmol/L (-4 to +4); Venous Blood Gas HCO3 23.7 mmol/L (22-27); Venous Blood Gas pCO2 42 mmHg (35-48); Venous Blood Gas pH 7.36 (7.32-7.43); Venous Blood Gas pO2 56 mmHg (30-50)
[2025-01-07 20:02] LABS: Hematocrit 29.3 % (37.0-47.0); Hemoglobin 8.5 g/dL (12.0-16.0); Mean Corpuscular Hgb 20.6 pg (27.0-31.0); Mean Corpuscular Volume 71.1 fL (81.0-99.0); Mean Platelet Volume 8.9 fL (7.4-10.4); Platelet Count 280 10^3/uL (130-400); Red Blood Cell Count 4.12 10^6/uL (4.20-5.40); Red Cell Dist. Width 20.1 % (11.5-14.5); White Blood Cell Count 25.5 10^3/uL (4.8-10.8)
[2025-01-07] MEDS: LASIX 40 MG IV (20:09)
[2025-01-07 20:14] LABS: AST (SGOT) 28 U/L (14-36); Alkaline Phosphatase 139 U/L (38-126); Blood Urea Nitrogen 38 mg/dl (7-17); COVID-19 Antigen Negative (Negative); Calcium 8.2 mg/dl (8.4-10.2); Carbon Dioxide 24 mmol/L (22-30); Chloride 103 mmol/L (98-107); Estimated Creatinine Clearance 36 ml/min; Glucose 214 mg/dl (70-99); Magnesium 1.9 mg/dl (1.6-2.3); Potassium 4.8 mmol/L (3.5-5.1); Sodium 140 mmol/L (135-145); Total Bilirubin 0.9 mg/dl (0.2-1.3); Total Protein 7.1 g/dl (6.3-8.2); eGFR 35.01
[2025-01-07 20:19] LABS: NT-proBNP 8020 pg/ml; Troponin I 0.025 ng/ml
[2025-01-07 20:28] LABS: % Basophils 0.2 % (0-2); % Eosinophils 0.2 % (0-6); % Immature Granulocytes 1.6 % (0-0.5); % Lymphocytes 1.4 % (20.5-51.1); % Monocytes 4.5 % (1.7-9.3); % Neutrophils 92.1 % (42.2-75.2); Absolute Basophils 0.1 10^3/uL (0-0.2); Absolute Eosinophils 0.1 10^3/uL (0-0.7); Absolute Immature Granulocytes 0.4 10^3/uL (0-0.05); Absolute Lymphocytes 0.4 10^3/uL (1.2-3.4); Absolute Monocytes 1.2 10^3/uL (0.1-0.6); Absolute Neutrophils 23.5 10^3/uL (1.4-6.5); Nucleated Red Blood Cells % 0.3 %
--- NOTE | 2025-01-07 20:48 | HPS.HSE ---
Family Physician
-
Family Physician: Vanesa Rosa MD
Chief Complaint
-
Allergies
Allergy/AdvReac Type Severity Reaction Status Date / Time
No Known Allergies Allergy Verified 10/02/23 19:53
Home Medications
amiodarone 200 mg tablet (Pacerone) 200 mg PO DAILY Arrhythmia 08/23/21
atorvastatin 40 mg tablet 40 mg PO QPM High cholesterol 08/23/21
cholecalciferol (vitamin D3) 25 mcg (1,000 unit) tablet 1,000 units PO DAILY Supplement 08/23/21
gabapentin 300 mg capsule 300 mg PO HS Neurological Condition 08/23/21
levothyroxine 137 mcg capsule 137 mcg PO DAILY AT 0700 Thyroid 08/23/21
magnesium oxide 500 mg PO HS Electrolyte Repletion 08/23/21
metformin 500 mg tablet 500 mg PO BID@0800,1700 Diabetes 08/23/21
cyanocobalamin (vitamin B-12) 1,000 mcg tablet (Vitamin B-12) 1,000 mcg PO DAILY Supplement 10/02/23
empagliflozin 10 mg tablet (Jardiance) 10 mg PO DAILY Heart Failure/Diabetes 10/02/23
omega-3 fatty acids-fish oil 684 mg-1,200 mg capsule,delayed release 1 cap PO DAILY Supplement 10/02/23
lubiprostone 24 mcg capsule 24 mcg PO BID 30 days #60 caps 10/11/23
metoprolol succinate 25 mg tablet,extended release 24 hr 25 mg PO DAILY 30 days #30 tabs 10/11/23
pantoprazole 40 mg tablet,delayed release 40 mg PO DAILY 30 days #30 tabs 10/11/23
polyethylene glycol 3350 17 gram oral powder packet (HealthyLax) 17 g PO BID #60 ea 10/11/23
rivaroxaban 15 mg tablet (Xarelto) 15 mg PO QPM #30 tabs 10/11/23
potassium chloride 20 mEq tablet,extended release(part/cryst) 20 meq PO DAILY Electrolyte Repletion 30 days #30 tabs 10/12/23
sacubitril 24 mg-valsartan 26 mg tablet (Entresto) 1 tab PO BID #60 tabs 10/12/23
torsemide 20 mg tablet 20 mg PO 0800,1600 Fluid Retention/Swelling 30 days #60 tabs 10/12/23
History of Present Illness
79-year-old female past medical history of chronic GI bleeding, anemia, chronic HFpEF, CKD 3B, paroxysmal atrial fibrillation, hypertension, hyperlipidemia, type 2 diabetes, diabetic neuropathy, hypothyroidism, obesity, presenting with generalized
weakness, cough, shortness of breath and wound in the right lower extremity which developed over the past day with surrounding erythema.
Patient has a history of heart failure resulting in peripheral edema. She has had increased lower extremity swelling and increased work of breathing ongoing for several weeks. Patient does not use oxygen at home. Patient refused to come to the
emergency room over the past few days. Today she seemed confused. No fever. Weight has been stable. She occasionally has chest pressure but denies any pressure currently.
She normally takes torsemide 20 mg twice a day but this was increased to 3 times a day over the past week.
She does not smoke or drink alcohol.
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
Medical History
Past Medical History
Past Medical History: Reports Other (chronic GI bleeding, anemia, chronic HFpEF, CKD 3B, paroxysmal atrial fibrillation, hypertension, hyperlipidemia, type 2 diabetes, diabetic neuropathy, hypothyroidism, obesity,)
Past Surgical History: Reports Other (Gynecological (Hysterectomy) and Other (Thyroid surgery))
Social History
Tobacco: Non-smoker
Alcohol: None
Drug: None
Family History
Family History: Not pertinent
Allergies / Home Medications
Allergies reflects when Allergies were last updated in [facility].
Home Medications with original date entered in [facility]
Allergy/Medication List:
Allergies
Allergy/AdvReac Type Severity Reaction Status Date / Time
No Known Allergies Allergy Verified 10/02/23 19:53
Home Medications
amiodarone 200 mg tablet (Pacerone) 200 mg PO DAILY Arrhythmia 08/23/21
atorvastatin 40 mg tablet 40 mg PO QPM High cholesterol 08/23/21
cholecalciferol (vitamin D3) 25 mcg (1,000 unit) tablet 1,000 units PO DAILY Supplement 08/23/21
gabapentin 300 mg capsule 300 mg PO HS Neurological Condition 08/23/21
levothyroxine 137 mcg capsule 137 mcg PO DAILY AT 0700 Thyroid 08/23/21
magnesium oxide 500 mg PO HS Electrolyte Repletion 08/23/21
metformin 500 mg tablet 500 mg PO BID@0800,1700 Diabetes 08/23/21
cyanocobalamin (vitamin B-12) 1,000 mcg tablet (Vitamin B-12) 1,000 mcg PO DAILY Supplement 10/02/23
empagliflozin 10 mg tablet (Jardiance) 10 mg PO DAILY Heart Failure/Diabetes 10/02/23
omega-3 fatty acids-fish oil 684 mg-1,200 mg capsule,delayed release 1 cap PO DAILY Supplement 10/02/23
lubiprostone 24 mcg capsule 24 mcg PO BID 30 days #60 caps 10/11/23
metoprolol succinate 25 mg tablet,extended release 24 hr 25 mg PO DAILY 30 days #30 tabs 10/11/23
pantoprazole 40 mg tablet,delayed release 40 mg PO DAILY 30 days #30 tabs 10/11/23
polyethylene glycol 3350 17 gram oral powder packet (HealthyLax) 17 g PO BID #60 ea 10/11/23
rivaroxaban 15 mg tablet (Xarelto) 15 mg PO QPM #30 tabs 10/11/23
potassium chloride 20 mEq tablet,extended release(part/cryst) 20 meq PO DAILY Electrolyte Repletion 30 days #30 tabs 10/12/23
sacubitril 24 mg-valsartan 26 mg tablet (Entresto) 1 tab PO BID #60 tabs 10/12/23
torsemide 20 mg tablet 20 mg PO 0800,1600 Fluid Retention/Swelling 30 days #60 tabs 10/12/23
Review of Systems
-
History Source: Patient
A 12 point ROS was completed and negative except as noted: Yes
Constitutional: Reports No Symptoms
EENT: Reports No Symptoms
Respiratory: Reports See HPI
Cardiac: Reports See HPI
Abdomen/GI: Reports No Symptoms
: Reports No Symptoms
Musculoskeletal: Reports No Symptoms
Skin: Reports No Symptoms
Neurological: Reports No Symptoms
Endocrine: Reports No Symptoms
Hematologic/Lymphatic: Reports No Symptoms
Psych: Reports No Symptoms
Physical Exam
Vital Signs
Vital Signs
Temp Pulse Resp BP Pulse Ox
98.2 F 92 22 119/52 90
01/07/25 19:40 01/07/25 19:40 01/07/25 19:40 01/07/25 19:40 01/07/25 20:36
Physical Exam
General: Well Developed, Well Nourished and No Apparent Distress
HEENT: NormoCephalic, Moist mucous membranes and Atraumatic
Respiratory: Clear
Cardiac: S1/S2 and Regular Rhythm; No Murmur or Rub
GI: Soft, Non Tender, Non Distended and Normal Bowel Sounds; No Organomegaly
Rectal: Deferred by Provider
Musculoskeletal: No Clubbing, No Cyanosis and No Edema
Skin: Other (right leg erythema ); No Rash
Neuro: Nonfocal/grossly intact
Laboratory Results
-
01/07/25 19:48
01/07/25 19:48
Laboratory Results
Total Bilirubin 0.9 mg/dl (0.2-1.3) 01/07/25 19:48
AST 28 U/L (14-36) 01/07/25 19:48
Alkaline Phosphatase 139 U/L (38-126) H 01/07/25 19:48
Troponin I 0.025 ng/ml 01/07/25 19:48
Data Reviewed
-
Lab Data: Labs Reviewed by me
Old Records: Reviewed
Impression/Plan
-
IMPRESSION:
PLAN:
# Acute hypoxemic respiratory failure secondary to acute on chronic HFpEF exacerbation
- Patient on 12 L oxygen
- Cardiac BNP of 8000
- ABG shows PO2 of 56, normal pH
- Chest x-ray shows pulmonary edema
- Check I's and O's, daily weights
- 60 IV Lasix twice daily
- Check echocardiogram
-Continue Entresto
-Continue Jardiance
- Cardiology consulted
# Right lower extremity wound with surrounding cellulitis
-Leukocytosis 25
- Continue Ancef
Paroxysmal atrial fibrillation
- Continue Xarelto
- Continue metoprolol
- Continue amiodarone
CKD 3B
- Renal function at baseline
Chronic anemia
- Hemoglobin stable at 8.5
Essential hypertension
Hyperlipidemia
- Continue statin
Type 2 diabetes
- Hold metformin
- Insulin sliding scale
Diabetic neuropathy
- Continue gabapentin
Hypothyroidism
- Continue levothyroxine
Obesity
GERD
- Continue Protonix
Full code
DVT prophylaxis Xarelto
Cardiac diet
[2025-01-07 21:00] VITALS: BP 138/59
[2025-01-07 21:00] LABS: ALT (SGPT) < 30 U/L (0-35)
--- NOTE | 2025-01-07 22:00 | PTCARENOTE ---
Pt arrived to floor on stretcher from ED. Pt slid over to bed with assistance. Pt on 15L O2 via MFNC with SpO2 ~ 96%; Tachypneic; NSR on monitor; +3 b/l LE and pedal edema; R ant ankle wound with erythema - area cleaned and dressing applied. Pt
reports pain to R leg; Fungal rash noted to lower left abdominal folds. Pt AAO x 2; Pt had trouble following simple instructions. Confused at times; Oriented to room, call bo within reach. Will continue to monitor and assess.
[2025-01-07 22:06] VITALS: BMI 44.4
[2025-01-07 22:26] LABS: Glucose - Point of Care 174 mg/dl (70-99)
[2025-01-07] MEDS: TYLENOL 650 MG PO (23:14)
[2025-01-07] MEDS: ANCEF 5 IV (23:15)
[2025-01-08] VITALS (12 sets, daily range): BP systolic 97–133; BP diastolic 46–98; BMI 44.4
[2025-01-08] MEDS: ANCEF 5 IV ×3 (03:23→20:42)
[2025-01-08 03:51] LABS: Hematocrit 26.1 % (37.0-47.0); Hemoglobin 7.6 g/dL (12.0-16.0); Mean Corp Hgb Conc. 29.1 g/dL (33.0-37.0); Mean Corpuscular Hgb 20.6 pg (27.0-31.0); Mean Corpuscular Volume 70.7 fL (81.0-99.0); Mean Platelet Volume 8.8 fL (7.4-10.4); Platelet Count 205 10^3/uL (130-400); Red Blood Cell Count 3.69 10^6/uL (4.20-5.40); Red Cell Dist. Width 19.6 % (11.5-14.5); White Blood Cell Count 23.5 10^3/uL (4.8-10.8)
[2025-01-08 04:05] LABS: ALT (SGPT) 10 U/L (0-35); AST (SGOT) 15 U/L (14-36); Albumin 3.4 g/dl (3.5-5.0); Alkaline Phosphatase 142 U/L (38-126); Blood Urea Nitrogen 37 mg/dl (7-17); Carbon Dioxide 27 mmol/L (22-30); Chloride 105 mmol/L (98-107); Estimated Creatinine Clearance 37 ml/min; Glucose 147 mg/dl (70-99); Potassium 3.7 mmol/L (3.5-5.1); Sodium 140 mmol/L (135-145); Total Bilirubin 0.6 mg/dl (0.2-1.3); Total Protein 6.1 g/dl (6.3-8.2)
[2025-01-08 05:33] LABS: Anisocytosis 2+; Band Neutrophils 1 % (0-3); Lymphocytes 4 % (20-51); Microcytosis 3+; Monocytes 1 % (2-9); Myelocytes 1 % (-); Normal RBC Morphology No; Ovalocytes 2+; Platelets Checked Yes; Segmented Neutrophils 93 % (42-75)
[2025-01-08 05:34] LABS: Total Cells Counted 100
[2025-01-08] MEDS: SYNTHROID 137 MCG PO (06:16)
[2025-01-08] MEDS: LINZESS 145 MCG PO (06:16)
[2025-01-08] MEDS: TOPROL XL 50 MG PO (08:27)
[2025-01-08] MEDS: PROTONIX 40 MG PO (08:27)
[2025-01-08] MEDS: FARXIGA 10 MG PO (08:27)
[2025-01-08] MEDS: PACERONE 200 MG PO (08:28)
[2025-01-08] MEDS: LASIX 60 MG IV (08:28)
[2025-01-08] MEDS: FEOSOL 325 MG PO (08:28)
[2025-01-08] MEDS: VITAMIN D3 (cholecalciferol) 25 MCG PO (08:28)
[2025-01-08] MEDS: FLUSH (NSS) 1 FLUSH IV ×3 (08:29→16:25)
[2025-01-08] MEDS: VITAMIN B-12 1000 MCG PO (08:29)
--- NOTE | 2025-01-08 08:33 | PTCARENOTE ---
Assumed care of patient this AM. Patient awake, AAOX3. Currently weaned to 10L midflow oxygen. Spo2 95% while eating breakfast in bed. Lungs with bilateral crackles at bases. Occasional wet cough noted. Denies SOB at rest. SR on monitor with
HR 80's. Call bo in reach. Bed alarm on. Will monitor.
[2025-01-08 08:38] LABS: Glucose - Point of Care 150 mg/dl (70-99)
--- NOTE | 2025-01-08 08:48 | W.PN.HOSP.TC ---
Today's Communication/Plan
-
see a/p
Assessment / Plan
Assessment / Plan
Physical Exam
General: Well Developed, Well Nourished and No Apparent Distress
HEENT: NormoCephalic, Moist mucous membranes and Atraumatic
Respiratory: Clear
Cardiac: S1/S2 and Regular Rhythm; No Murmur or Rub
GI: Soft, Non Tender, Non Distended and Normal Bowel Sounds; No Organomegaly
Musculoskeletal: No Clubbing, No Cyanosis and No Edema
Skin: right leg erythema tenderness charles area
Neuro: AOx3 conversant coherent
79F Chronic GIB Aneamia HFpEF CKD3 pAfib HTN HLD DM neuropathy Hypothyroid Obesity here for acute on chronic HFpEF with associate respiratory failure and RLE cellulitis.
# Acute hypoxemic respiratory failure secondary to acute on chronic HFpEF exacerbation
- midflow, wean as tolerated
- Cardiac BNP of 8000
- Chest x-ray noted pulmonary edema
- I/O's daily weights
- 80 mg IV Lasix twice daily as per Cardio
- ECHO appreciated EF 60-65%
- Cardiology consult appreciated
# Right lower extremity wound with surrounding cellulitis
- Continue Ancef
-wound care
-venous duplex appreciated no dvt
#b/l Knee pain, reported fall prior to admission
pain control
b/l knee X-rays appreciated severe arthritis
PT/OT
Paroxysmal atrial fibrillation
- Continue Xarelto renal dosing
- Continue metoprolol
- Continue amiodarone
CKD 3B
- Renal function at baseline
Chronic anemia
Severe Iron deficiency Anemia
- Monitor H&H, appears stable at baseline
-IV iron infusion
-transfer if Hgb<7, consider additional Lasix when transfusing
Essential hypertension
Hyperlipidemia
- Continue statin
Type 2 diabetes
- Hold metformin
- Insulin sliding scale
Diabetic neuropathy
- Continue gabapentin
Hypothyroidism
- Continue levothyroxine
Obesity
GERD
- Continue Protonix
Full code
DVT prophylaxis Xarelto
Cardiac diet
Discussed with patient and patient's daughter Ana
I spent a total of 50 minutes with the patient or on the floor. More than 50% of this time involved counseling and coordination of care.
Anticipated Discharge: > 48 hours
Subjective/Interval History
-
Date of Service: January 08, 2025
No acute distress, resting comfortable in bed, on oxygen supplementation mid flow. Reports general malaise. Denies Chest pain palpitations. Right lower ext erythema tender to touch.
Objective Data
-
Labs:
Laboratory Results
01/07/25 01/08/25
19:48 03:32
WBC 23.5 H
Hgb 7.6 L
Hct 26.1 L
Plt Count 205 D
Sodium 140
Potassium 3.7
Chloride 105
Carbon Dioxide 27
BUN 37 H
Creatinine 1.6 H
Glucose 147 H
Calcium 8.0 L
Total Bilirubin 0.6
AST 15
ALT < 30 10
Alkaline Phosphatase 142 H
Vital Signs:
Vital Signs
Temp Pulse Resp BP Pulse Ox
100.2 F 72 21 133/98 95
01/08/25 08:14 01/08/25 08:00 01/08/25 08:00 01/08/25 08:00 01/08/25 08:47
I&O
01/07/25 01/08/25 01/09/25
06:59 06:59 06:59
Intake Total 480 / 480
Output Total 200 / 200
Balance -200 / -200 480 / 480
--- NOTE | 2025-01-08 09:33 | CON.CAR ---
Addendum entered and electronically signed by Kami Foote MD 01/08/25 11:23:
I saw and examined the patient.
The Translator/Interpreter's note was reviewed and I agree with the note.
Comment: Saw patient with nursing and also the patient's daughter at the bedside. She denies chest pain and palpitations but feels short of breath and volume overloaded with increased lower extremity edema. She is also noted to have temperature of
100.2 currently. She presented with heart failure with previously preserved ejection fraction. Volume overload of significance noted. Cellulitis also noted with wound being treated by primary service. White blood count elevation noted. She has
paroxysmal atrial fibrillation for which she is on chronic amiodarone and Xarelto therapy. She has prior history of GI bleed. No obvious active bleeding but currently anemic.
I have reviewed EKGs, telemetry, labs and x-rays. I have discussed with daughter at the bedside. We have requested records from usual log chain feeder Dr. Cuello [facility].
Plan at this time:
- Increase Lasix to 80 mg IV twice daily. Continue SGLT2 inhibitor.
-Follow input/output/daily weights. Heart failure team consult.
- Iron studies and replete as needed for anemia. Defer workup of anemia with prior history of GI bleeding on Xarelto to primary service.
- Creatinine clearance was 36. Reduce Xarelto to 15 mg daily.
- Echocardiogram ordered
- Treatment of cellulitis per primary service.
Patient is in a high risk situation given advanced age, recurrent heart failure, current febrile illness with cellulitis.
Original Note:
Consultation
Consultation Request
Date/Time Consultation Performed: 01/08/25
Requesting Provider: Dr. Allen
Performing Provider: Josefina Mario PA-C for Dr. Kami Foote
Reason for Consultation: CHF
Medical History
-
Chief Complaint: SOB, cough
History of Present Illness:
Patient is an 79 yo F with PMH of paroxysmal atrial fibrillation on chronic amiodarone and xarelto therapy, chronic HFpEF, HTN, HLD, hypothyroidism, history of GI bleed with negative EGD/colon in 2023, CKD who presents to with complaints of SOB
and cough over the last several weeks. She also reports associated LE edema and RLE wound. Reports occasional feelings of palpitations, however nothing sustained. Denies fevers or chills. She reports has been compliant with her torsemide 20 mg
twice daily. Is not on supplemental O2 at baseline. She is followed by Dr. Cuello at [facility]. proBNP 8020 and chest x-ray with pulmonary edema.
PMH:
Chronic heart failure with preserved EF
Paroxysmal atrial fibrillation
Chronic amiodarone therapy
Chronic Xarelto therapy
CKD3B
HTN
HLD
DM2 with neuropathy
Hypothyroidism
History of GI bleed with negative EGD/colon 09/2023
Past Medical History
Past Medical History: Other (in HPI)
Social History
Tobacco: Former Smoker
Alcohol: None
Living: Alone
Employment: Retired
Family History
Family History: Reviewed & Not Pertinent
Allergies / Home Medications
Allergy/AdvReac Type Severity Reaction Status Date / Time
No Known Allergies Allergy Verified 10/02/23 19:53
�Medication �Instructions �Recorded �Confirmed �Type
amiodarone 200 mg tablet (Pacerone) 200 mg PO DAILY Arrhythmia 08/23/21 01/07/25 History
atorvastatin 40 mg tablet 40 mg PO QPM High cholesterol 08/23/21 01/07/25 History
cholecalciferol (vitamin D3) 25 1,000 units PO DAILY Supplement 08/23/21 01/07/25 History
mcg (1,000 unit) tablet
gabapentin 300 mg capsule 300 mg PO HS Neurological Condition 08/23/21 01/07/25 History
magnesium oxide 500 mg PO HS Electrolyte Repletion 08/23/21 01/07/25 History
metformin 500 mg tablet 500 mg PO BID@0800,1700 Diabetes 08/23/21 01/07/25 History
cyanocobalamin (vitamin B-12) 1,000 mcg PO DAILY Supplement 10/02/23 01/07/25 History
1,000 mcg tablet (Vitamin B-12)
empagliflozin 10 mg tablet 10 mg PO DAILY Heart 10/02/23 01/07/25 History
(Jardiance) Failure/Diabetes
omega-3 fatty acids-fish oil 684 1 cap PO DAILY Supplement 10/02/23 01/07/25 History
mg-1,200 mg capsule,delayed release
pantoprazole 40 mg tablet,delayed 40 mg PO DAILY 30 days #30 tabs 10/11/23 01/07/25 Rx
release
sacubitril 24 mg-valsartan 26 mg 1 tab PO BID #60 tabs 10/12/23 Rx
tablet (Entresto)
ferrous sulfate 325 mg (65 mg 325 mg PO DAILY Supplement 01/07/25 01/07/25 History
iron) tablet
levothyroxine 137 mcg tablet 137 mcg PO DAILY Thyroid 01/07/25 01/07/25 History
(Synthroid)
linaclotide 145 mcg capsule 145 mcg PO DAILY 01/07/25 01/07/25 History
(Linzess)
losartan 25 mg tablet 25 mg PO DAILY 01/07/25 History
metoprolol succinate 25 mg 50 mg PO DAILY Heart 01/07/25 01/07/25 History
tablet,extended release 24 hr Disease/Condition
polyethylene glycol 3350 17 gram 17 g PO DAILYPRN PRN constipation 01/07/25 01/07/25 History
oral powder packet (HealthyLax)
rivaroxaban 20 mg tablet (Xarelto) 20 mg PO QPM Blood Clot 01/07/25 01/07/25 History
Prevention/Tx
torsemide 20 mg tablet 20 mg PO BID Fluid 01/07/25 01/07/25 History
Retention/Swelling
Review of Systems
-
History Source: Patient
All other systems: Negative unless noted
Physical Exam
Vital Signs
Temp Pulse Resp BP Pulse Ox
100.2 F 72 21 133/98 95
01/08/25 08:14 01/08/25 08:00 01/08/25 08:00 01/08/25 08:00 01/08/25 08:47
Lab Results
01/08/25 03:32
Troponin I 0.025 ng/ml 01/07/25 19:48
Ozq-S-Hsrveervlmm Pept 8020 pg/ml 01/07/25 19:48
Physical Exam
General: No Apparent Distress and Other (obese. on supp O2)
HEENT: Normocephalic, Anicteric and Moist Mucous Membranes
Respiratory: Crackles and Non Labored Respirations
Cardiac: S1/S2, Regular Rhythm and Murmur
GI: Soft, Non Tender, Non Distended and Normal Bowel Sounds
Musculoskeletal: No Clubbing, No Cyanosis and Edema (3+ of B/L LE)
Skin: Warm, Dry and Other (dressing of RLE with surrounding erythema)
Neuro: AO x 3
Impression / Plan
-
Primary Psychotherapist Counselor: Dr. Cuello of [facility]
Assessment:
Presentation with SOB, cough, LE edema
Acute hypoxemic respiratory failure
Acute on chronic HFpEF
Leukocytosis
RLE cellulitis
Acute on chronic anemia
Paroxysmal atrial fibrillation
Chronic amiodarone therapy
Chronic Xarelto therapy
Severe pulm HTN by echo 2023
CKD3B
HTN
HLD
DM2 with neuropathy
Hypothyroidism
History of GI bleed with negative EGD/colon 09/2023
ECHO 09/2023: EF 60 to 65%, biatrial enlargement, mildly enlarged RV size, mild with peak/mean gradients 27/13 mmHg, mild to moderate TR, severe pulmonary hypertension with PAP 63 mmHg
ECHO 01/08/25: pending
Plan:
- Patient presents with several weeks of worsening shortness of breath, cough, lower extremity edema
- Found to be hypoxic on arrival, improved on supplemental oxygen. Wean as able
- proBNP 8020 and chest x-ray with pulmonary edema. Continue diuresis with IV Lasix, dose increased to 80 mg BID as patient on torsemide 20 mg p.o. twice daily as outpatient
- Creatinine stable at 1.6
- Currently in sinus rhythm on review of telemetry. No EKG on admission, ordered by me 01/08. Follow while admitted. Continue outpatient amiodarone, toprol.
- Also with acute on chronic anemia, hemoglobin of 7.6 on 01/08. She does have history of GI bleeding. Heme test stools. Check iron studies on supplemental iron as outpatient. May need, IV infusion here
- Given baseline renal insufficiency, decrease Xarelto dosing to 15 mg every afternoon. If with recurrent GI bleeding, could consider transitioning to Eliquis 2.5 mg twice daily. Would also consider for outpatient watchman evaluation
- Last echo from 09/2023 reviewed, as above. Will repeat this admission
- CHF education
- Continue outpatient Jardiance, Entresto
- Treatment of right lower extremity wound/cellulitis per primary service
- Will attempt to obtain records from primary log chain feeder for review
Data Reviewed
-
Radiology: Report Reviewed by me
Medical Tests (Nuc Med, Echo etc): Report Reviewed by me
Labs: Labs Reviewed by me
Old Records: Reviewed
[2025-01-08 10:06] LABS: Glycohemoglobin (HgbA1c) 6.6 % (4.0-5.6)
[2025-01-08] MEDS: ULTRAM 25 MG PO ×2 (11:07→17:38)
[2025-01-08] MEDS: NOVOLOG FLEXPEN-LOW RESISTANCE SC ×3 (11:09→17:37)
[2025-01-08 11:51] LABS: Glucose - Point of Care 121 mg/dl (70-99)
[2025-01-08 11:55] LABS: Iron < 20 ug/dl (37-170)
[2025-01-08 12:59] LABS: Hemoglobin 7.4 g/dL (12.0-16.0)
[2025-01-08] MEDS: TYLENOL 650 MG PO (13:15)
--- NOTE | 2025-01-08 13:18 | PTCARENOTE ---
Patient has bilateral LE'S and pedal edema. + 3-4 pitting edema. Right leg cellulitis with erna ulcer wound. Right leg warm and red. Patient fell out of her daughters car when arriving to the ED. Unfortunately she fell on her knees. Both of
her knees with significant swelling, no bruising noted yet. Applied ice packs to both knees and medicated with pain medicine as ordered. VS stable. Patient's daughter in room at bedside. SR, HR in the 60's. Will monitor.
[2025-01-08 13:36] LABS: Ferritin 32.4 ng/ml (11.1-264.0)
[2025-01-08 13:50] LABS: Percent Saturation 5.64971 % (20-50); Total Iron Binding Capacity 354 ug/dl (265-497)
--- NOTE | 2025-01-08 14:09 | W.PN.UPDATE ---
Update Note
Progress Note Update
By review of last cardiology note dated 12/01/2024, patient was previously on Entresto and Jardiance, however could not afford both medications, and therefore they had transitioned Entresto to losartan and continue Jardiance. Weight in office on
12/01 was 278 pounds
--- NOTE | 2025-01-08 15:10 | CM ---
Patient with Dx HF, fall yesterday. O2 13L. Knee xrays today. Receiving IV Lasix, IV Abx. Per nurse; drowsy, forgetful.
Spoke with patient's daughter Tod;
patient resides alone in a 1 story house with 4 outside steps.
The patient was independent in ADLs and ambulation using her RW inside/when out.
Patient has only had the one fall yesterday.
DME - RW
No prior VN
Prior [facility]
PCP - Vanesa Rosa
Pharmacy - [facility] [place]
Patient will benefit from PT Eval when medically olimpia.
Plan follow patient's O2 needs and mobility.
[2025-01-08] MEDS: LASIX 80 MG IV (16:24)
[2025-01-08] MEDS: LIPITOR 40 MG PO (17:37)
[2025-01-08] MEDS: MIRALAX 17 GRAMS PO (17:37)
[2025-01-08] MEDS: XARELTO 15 MG PO (17:37)
[2025-01-08 17:44] LABS: Glucose - Point of Care 130 mg/dl (70-99)
[2025-01-08 19:57] LABS: Folate 13.5 ng/ml (2.76-20); Vitamin B12 838 pg/ml (239-931)
[2025-01-08] MEDS: MAGNESIUM OXIDE 500 MG PO (20:42)
[2025-01-08] MEDS: NEURONTIN 300 MG PO (20:42)
[2025-01-08 21:36] LABS: Glucose - Point of Care 127 mg/dl (70-99)
[2025-01-09] VITALS (14 sets, daily range): BP systolic 102–131; BP diastolic 33–99; PULSE 70; O2SAT 97; BMI 44.5; BMI 44.6
--- NOTE | 2025-01-09 00:36 | PTCARENOTE ---
Patient aao x3 at start of shift. Denies pain. Edema remains to b/l LE, R>L. Weak pedal pulse to right foot, normal pulses to left foot. Patient 97% on 8L o2 n/c. Purewick remains in place. Wound dressings remain c/d/i. Desenex powder applied to b/l
groin and abd folds. Call bo within reach, will continue to monitor.
[2025-01-09] MEDS: ANCEF 5 IV ×3 (03:13→20:48)
[2025-01-09] MEDS: DESENEX/MITRAZOL/ZEASORB 1 APPLIC TOPICAL (03:14)
[2025-01-09 04:00] LABS: Hematocrit 25.2 % (37.0-47.0); Hemoglobin 7.2 g/dL (12.0-16.0); Mean Corp Hgb Conc. 28.6 g/dL (33.0-37.0); Mean Corpuscular Hgb 20.6 pg (27.0-31.0); Mean Corpuscular Volume 72.2 fL (81.0-99.0); Mean Platelet Volume 8.9 fL (7.4-10.4); Platelet Count 184 10^3/uL (130-400); Red Blood Cell Count 3.49 10^6/uL (4.20-5.40); Red Cell Dist. Width 19.5 % (11.5-14.5); White Blood Cell Count 15.7 10^3/uL (4.8-10.8)
[2025-01-09 04:12] LABS: Blood Urea Nitrogen 38 mg/dl (7-17); Calcium 7.5 mg/dl (8.4-10.2); Carbon Dioxide 33 mmol/L (22-30); Chloride 100 mmol/L (98-107); Estimated Creatinine Clearance 39 ml/min; Glucose 116 mg/dl (70-99); Phosphorus 3.9 mg/dl (2.5-4.5); Potassium 3.2 mmol/L (3.5-5.1); Sodium 140 mmol/L (135-145); eGFR 35.01
[2025-01-09] MEDS: LINZESS 145 MCG PO (05:19)
[2025-01-09] MEDS: SYNTHROID 137 MCG PO (05:19)
[2025-01-09] MEDS: KCL 40 MEQ PO (05:19)
--- NOTE | 2025-01-09 07:16 | W.PN.HOSP.TC ---
Today's Communication/Plan
-
wean O2 supplementation as tolerated
IV iron infusion
monitor H&H, transfuse prn Hgb<7
cont abx
pain control
GRAHAM wraps lower ext's b/l
Assessment / Plan
Assessment / Plan
Physical Exam
General: Well Developed, Well Nourished and No Apparent Distress
HEENT: NormoCephalic, Moist mucous membranes and Atraumatic
Respiratory: Clear
Cardiac: S1/S2 and Regular Rhythm; No Murmur or Rub
GI: Soft, Non Tender, Non Distended and Normal Bowel Sounds; No Organomegaly
Musculoskeletal: No Clubbing, No Cyanosis and No Edema
Skin: right leg erythema tenderness charles area
Neuro: AOx3 conversant coherent
79F Chronic GIB Aneamia HFpEF CKD3 pAfib HTN HLD DM neuropathy Hypothyroid Obesity here for acute on chronic HFpEF with associate respiratory failure and RLE cellulitis.
# Acute hypoxemic respiratory failure secondary to acute on chronic HFpEF exacerbation
- midflow, wean as tolerated
- Cardiac BNP of 8000
- Chest x-ray noted pulmonary edema
- I/O's daily weights
- 80 mg IV Lasix twice daily as per Cardio
- ECHO appreciated EF 60-65%
- Cardiology consult appreciated
#Hypokalemia
monitor and replete as necessary
especially while on aggressive IV diuresis
scheduled 20 mEQ K BID w/ holding parameters K>5
# Right lower extremity wound with surrounding cellulitis
- Continue Ancef
-follow wound culture
-wound care
-venous duplex appreciated no dvt
#b/l Knee pain, reported fall prior to admission
pain control
b/l knee X-rays appreciated severe arthritis, no acute fx
likely sprained knees, possible ligament injury
Ice prn, knee braces
PT/OT appreciated SNF rehab.
Paroxysmal atrial fibrillation
- Continue Xarelto renal dosing
- Continue metoprolol
- Continue amiodarone
CKD 3B
- Renal function at baseline
Chronic anemia
Severe Iron deficiency Anemia
- Monitor H&H, appears stable at baseline
-IV iron infusion
-transfer if Hgb<7, consider additional Lasix when transfusing
Essential hypertension
Hyperlipidemia
- Continue statin
Type 2 diabetes
- Hold metformin
- cont Farxiga
- Insulin sliding scale
Diabetic neuropathy
- Continue gabapentin
Hypothyroidism
- Continue levothyroxine
Obesity
GERD
- Continue Protonix
Full code
DVT prophylaxis Xarelto
Cardiac diet
Discussed with patient and patient's daughter Ana
I spent a total of 45 minutes with the patient or on the floor. More than 50% of this time involved counseling and coordination of care.
Anticipated Discharge: 24 - 48 hours
Subjective/Interval History
-
Date of Service: January 09, 2025
General malaise persist. Weight appears unchanged. Patient nonetheless notes some improvement in symptoms including breathing. Weaning down on oxygen supplementation though oxygen requirement remains elevated 8L
Objective Data
-
Labs:
Laboratory Results
01/09/25
03:27
WBC 15.7 H
Hgb 7.2 L
Hct 25.2 L
Plt Count 184
Sodium 140
Potassium 3.2 L
Chloride 100
Carbon Dioxide 33 H
BUN 38 H
Creatinine 1.5 H
Glucose 116 H
Calcium 7.5 L
Vital Signs:
Vital Signs
Temp Pulse Resp BP Pulse Ox
98.2 F 63 15 105/51 96
01/09/25 07:05 01/09/25 05:00 01/09/25 05:00 01/09/25 04:00 01/09/25 05:00
I&O
01/08/25 01/09/25 01/10/25
06:59 06:59 06:59
Intake Total 1440 / 1440
Output Total 200 / 200 2640 / 2640
Balance -200 / -200 -1200 / -1200
[2025-01-09 07:48] LABS: Glucose - Point of Care 128 mg/dl (70-99)
[2025-01-09] MEDS: ULTRAM 25 MG PO ×2 (10:11→17:54)
[2025-01-09] MEDS: NOVOLOG FLEXPEN-LOW RESISTANCE SC ×2 (10:11→17:53)
[2025-01-09] MEDS: PROTONIX 40 MG PO (10:18)
[2025-01-09] MEDS: VITAMIN B-12 1000 MCG PO (10:18)
[2025-01-09] MEDS: TOPROL XL 50 MG PO (10:18)
[2025-01-09] MEDS: LASIX 80 MG IV ×2 (10:18→16:33)
[2025-01-09] MEDS: FEOSOL 325 MG PO (10:18)
[2025-01-09] MEDS: FARXIGA 10 MG PO (10:19)
[2025-01-09] MEDS: VITAMIN D3 (cholecalciferol) 25 MCG PO (10:19)
[2025-01-09] MEDS: PACERONE 200 MG PO (10:19)
[2025-01-09] MEDS: FLUSH (NSS) 1 FLUSH IV ×3 (10:20→16:36)
[2025-01-09 10:24] LABS: Glucose - Point of Care 145 mg/dl (70-99)
--- NOTE | 2025-01-09 12:03 | W.PN.CARDCBS ---
Today's Communication / Plan
-
Continue diuresis
Replete electrolytes and continue to follow chemistry
Check EKG
Follow telemetry
Treatment of cellulitis per primary service
Anticoagulation for paroxysmal A-fib currently in sinus rhythm
Evaluation of anemia per primary service
Impression / Plan
-
Primary Industrial Relations Officer: Dr. Cuello of [facility]
Assessment:
Presentation with SOB, cough, LE edema
Acute hypoxemic respiratory failure
Acute on chronic HFpEF
Leukocytosis
RLE cellulitis
Acute on chronic anemia
Paroxysmal atrial fibrillation
Chronic amiodarone therapy
Chronic Xarelto therapy
Pulm HTN by echo
CKD3B
HTN
HLD
DM2 with neuropathy
Hypothyroidism
History of GI bleed with negative EGD/colon 09/2023
ECHO 09/2023: EF 60 to 65%, biatrial enlargement, mildly enlarged RV size, mild with peak/mean gradients 27/13 mmHg, mild to moderate TR, severe pulmonary hypertension with PAP 63 mmHg
ECHO 01/08/25: Left ventricle is mildly dilated. Normal left ventricular wall thickness. LVEF 60-65%. Normal regional wall motion. Normal right ventricular function. Mildly enlarged right ventricular size.
Mild aortic stenosis. Peak/mean gradients across the aortic valve are 27/13 mmHg. Mild to moderate tricuspid regurgitation. Estimated pulmonary artery pressure of 63 mmHg.
Plan:
Patient presents with several weeks of worsening shortness of breath, cough, lower extremity edema. She has heart failure with preserved ejection fraction. proBNP was 8020 and chest x-ray with pulmonary edema. In addition she is being treated for
cellulitis. Initially she was found to be hypoxic on arrival, improved on supplemental oxygen. In addition she does have anemia with history of GI bleed and anemia is more pronounced this hospital stay.
Given heart failure with preserved ejection fraction and echocardiogram as noted above is stable.
-Continue diuresis
-Replete electrolytes as needed
-Follow creatinine in the setting of renal insufficiency which remains stable, 1.5 on 01/09/2025.
-Appears there was no EKG on admission. Not performed yesterday either. I have ordered for today.
-Telemetry monitoring independently reviewed by me is stable.
-Continue outpatient Jardiance, (Entresto was not affordable)
-Heart failure educator and heart failure dietary consult
- Unfortunately cannot stand for weights and bed scale may not be very accurate.
- Secondary pulmonary hypertension noted likely secondary to volume and multifactorial
Paroxysmal atrial fibrillation
-Continue Xarelto which is now dosed appropriately
-Telemetry with sinus rhythm check EKG
-Continue amiodarone
- Check thyroid function testing
Anemia with history of GI bleed in the past
- Defer anemia evaluation to primary service.
Renal insufficiency
- Stable
Hypokalemia
- Being repleted
Cellulitis
- Treatment of right lower extremity wound/cellulitis per primary service
Will attempt to obtain records from primary gas reverser for review
Progress Note - Industrial Relations Officer
Subjective
Date of Service: January 09, 2025
She is slowly feeling better overall. She denies chest pain and palpitations.
Objective
Labs:
01/09/25 03:27
01/09/25 03:27
Labs
Hgb 7.2 g/dL (12.0-16.0) L 01/09/25 03:27
Hct 25.2 % (37.0-47.0) L 01/09/25 03:27
Plt Count 184 10^3/uL (130-400) 01/09/25 03:27
Sodium 140 mmol/L (135-145) 01/09/25 03:27
Potassium 3.2 mmol/L (3.5-5.1) L 01/09/25 03:27
BUN 38 mg/dl (7-17) H 01/09/25 03:27
Creatinine 1.5 mg/dL (0.6-1.0) H 01/09/25 03:27
Glucose 116 mg/dl (70-99) H 01/09/25 03:27
Troponins
01/07/25
19:48
Troponin I 0.025
Vital Signs and I&O:
Vital Signs
Temp Pulse Resp BP Pulse Ox
98.0 F 71 18 114/99 93
01/09/25 11:23 01/09/25 10:00 01/09/25 10:00 01/09/25 10:00 01/09/25 10:26
Vital Signs
Temp Pulse Resp BP Pulse Ox
98.0 F 71 18 114/99 93
01/09/25 11:23 01/09/25 10:00 01/09/25 10:00 01/09/25 10:00 01/09/25 10:26
Intake & Output
01/07/25 01/08/25 01/09/25 01/10/25
06:59 06:59 06:59 06:59
Intake Total 1440 / 1440 580 / 580
Output Total 200 / 200 2640 / 2640
Balance -200 / -200 -1200 / -1200 580 / 580
Physical Exam
Physical Exam
General: Well developed, well nourished in NAD.
Neck: JVD 8 cm positive HJR
Heart: regular rate and rhythm distant heart sounds
Lungs: Decreased breath sounds with crackles at bases
Extremities: No clubbing, cyanosis at least +1 edema bilaterally. Legs with erythema
Neuro: Grossly nonfocal, awake, alert
[2025-01-09 12:08] LABS: Glucose - Point of Care 200 mg/dl (70-99)
[2025-01-09] MEDS: NOVOLOG FLEXPEN-LOW RESISTANCE 2 UNITS SC (13:44)
[2025-01-09] MEDS: FERRLECIT 110 MG IV (15:35)
[2025-01-09 16:31] LABS: TSH Reflex To Free T4 1.75 uIU/ml (0.47-4.68)
--- NOTE | 2025-01-09 17:37 | PTCARENOTE ---
Patient worked with PT today. Out of bed to chair with assistance x2. Patient reports pain at bilateral knees 6-02/18. Medicating with pain medications as ordered. Oxygen at 8L midflow. Patient feels like her breathing is a little better.
Received IV lasix x2 today as ordered. VS stable. SR on monitor. Call bo in reach. Will monitor.
[2025-01-09 17:38] LABS: Glucose - Point of Care 119 mg/dl (70-99)
[2025-01-09] MEDS: XARELTO 15 MG PO (17:53)
[2025-01-09] MEDS: LIDOCAINE 4% PATCH 2 PATCH TOPICAL (17:53)
[2025-01-09] MEDS: LIPITOR 40 MG PO (17:54)
[2025-01-09] MEDS: NEURONTIN 300 MG PO (20:47)
[2025-01-09] MEDS: KCL 20 MEQ PO (20:48)
[2025-01-09] MEDS: MAGNESIUM OXIDE 500 MG PO (20:48)
[2025-01-09 21:31] LABS: Glucose - Point of Care 149 mg/dl (70-99)
[2025-01-10] VITALS (23 sets, daily range): BP systolic 94–139; BP diastolic 50–92; BMI 44.4
[2025-01-10] MEDS: ANCEF 5 IV (04:12)
[2025-01-10 04:41] LABS: Hematocrit 25.4 % (37.0-47.0); Hemoglobin 7.1 g/dL (12.0-16.0); Mean Corpuscular Hgb 20.1 pg (27.0-31.0); Mean Corpuscular Volume 71.8 fL (81.0-99.0); Platelet Count 194 10^3/uL (130-400); Red Blood Cell Count 3.54 10^6/uL (4.20-5.40); Red Cell Dist. Width 19.4 % (11.5-14.5)
[2025-01-10 04:51] LABS: Blood Urea Nitrogen 38 mg/dl (7-17); Calcium 7.5 mg/dl (8.4-10.2); Carbon Dioxide 35 mmol/L (22-30); Chloride 101 mmol/L (98-107); Estimated Creatinine Clearance 39 ml/min; Glucose 120 mg/dl (70-99); Magnesium 2.2 mg/dl (1.6-2.3); Phosphorus 3.3 mg/dl (2.5-4.5); Potassium 3.8 mmol/L (3.5-5.1); Sodium 139 mmol/L (135-145); eGFR 35.01
[2025-01-10 05:22] LABS: TSH Reflex To Free T4 2.04 uIU/ml (0.47-4.68)
[2025-01-10] MEDS: SYNTHROID 137 MCG PO (05:56)
[2025-01-10] MEDS: LINZESS 145 MCG PO (05:56)
--- NOTE | 2025-01-10 06:04 | PTCARENOTE ---
No acute events overnight. Remains on 8 liters NC. EKG completed this am as ordered. Unable to obtain standing scale daily weight- patient is a heavy 2 person assist with PT and asleep.
--- NOTE | 2025-01-10 07:01 | W.PN.HOSP.TC ---
Today's Communication/Plan
-
wean O2 supplementation as tolerated
cont abx as per ID
follow up post-transfusion CBC with AM labs
Diuresis as per Cardio
PT/OT
Assessment / Plan
Assessment / Plan
Physical Exam
General: Well Developed, Well Nourished and No Apparent Distress
HEENT: NormoCephalic, Moist mucous membranes and Atraumatic
Respiratory: Clear
Cardiac: S1/S2 and Regular Rhythm; No Murmur or Rub
GI: Soft, Non Tender, Non Distended and Normal Bowel Sounds; No Organomegaly
Musculoskeletal: No Clubbing, No Cyanosis and No Edema
Skin: right leg erythema tenderness charles area
Neuro: AOx3 conversant coherent
79F Chronic GIB Aneamia HFpEF CKD3 pAfib HTN HLD DM neuropathy Hypothyroid Obesity here for acute on chronic HFpEF with associate respiratory failure and RLE cellulitis.
# Acute hypoxemic respiratory failure secondary to acute on chronic HFpEF exacerbation
- initally requiring 14L since improved
-wean O2 supplementation as tolerated
- Cardiac BNP of 8000
- Chest x-ray noted pulmonary edema
- I/O's daily weights
- 80 mg IV Lasix twice daily as per Cardio
- ECHO appreciated EF 60-65%
- Cardiology consult appreciated
#Hypokalemia
monitor and replete as necessary
especially while on aggressive IV diuresis
scheduled 20 mEQ K BID w/ holding parameters K>5
# Right lower extremity wound with surrounding cellulitis
-follow wound culture
-wound care
-venous duplex appreciated no dvt
-initially treated with ancef, briefly escalated to zosyn d/t concern worsening erythema RLE though white count remains significantly improved
-ID eval appreciated zosyn de-escalated to ceftriaxone
-cont abx as per ID
#b/l Knee pain, reported fall prior to admission
pain control
b/l knee X-rays appreciated severe arthritis, no acute fx
likely sprained knees, possible ligament injury
Ice prn, knee braces
PT/OT appreciated SNF rehab.
Paroxysmal atrial fibrillation
- Continue Xarelto renal dosing
- Continue metoprolol
- Continue amiodarone
CKD 3B
- Renal function at baseline
Chronic anemia
Severe Iron deficiency Anemia
- Monitor H&H, appears stable at baseline
-IV iron infusion
-Hgb trickled down to 7.1 one PRBC transfusion 01/10 follow up post-transfusion response with AM labs
Essential hypertension
Hyperlipidemia
- Continue statin
Type 2 diabetes
- Hold metformin
- cont Farxiga
- Insulin sliding scale
Diabetic neuropathy
- Continue gabapentin
Hypothyroidism
- Continue levothyroxine
Obesity
GERD
- Continue Protonix
Full code
DVT prophylaxis Xarelto
Cardiac diet
Discussed with patient and patient's daughter Ana
I spent a total of 45 minutes with the patient or on the floor. More than 50% of this time involved counseling and coordination of care.
Anticipated Discharge: > 48 hours
Subjective/Interval History
-
Date of Service: January 10, 2025
No acute distress, resting comfortably in bed. Overall reports feeling well. Oxygen requirement cont to improve. Not much improvement noted in weight despite diuresis.
Objective Data
-
Labs:
Laboratory Results
01/10/25
04:06
WBC 13.0 H
Hgb 7.1 L
Hct 25.4 L
Plt Count 194
Sodium 139
Potassium 3.8
Chloride 101
Carbon Dioxide 35 H
BUN 38 H
Creatinine 1.5 H
Glucose 120 H
Calcium 7.5 L
Vital Signs:
Vital Signs
Temp Pulse Resp BP Pulse Ox
97.9 F 64 19 126/62 92
01/10/25 06:26 01/10/25 06:00 01/10/25 06:00 01/10/25 06:00 01/10/25 06:00
I&O
01/09/25 01/10/25 01/11/25
06:59 06:59 06:59
Intake Total 1440 / 1440 1390 / 1390
Output Total 2640 / 2640 1500 / 1500
Balance -1200 / -1200 -110 / -110
[2025-01-10] MEDS: KCL 20 MEQ PO ×2 (09:03→21:06)
[2025-01-10] MEDS: TOPROL XL 50 MG PO (09:03)
[2025-01-10] MEDS: VITAMIN B-12 1000 MCG PO (09:04)
[2025-01-10] MEDS: PACERONE 200 MG PO (09:04)
[2025-01-10] MEDS: VITAMIN D3 (cholecalciferol) 25 MCG PO (09:04)
[2025-01-10] MEDS: FARXIGA 10 MG PO (09:04)
[2025-01-10] MEDS: LIDOCAINE 4% PATCH 2 PATCH TOPICAL (09:04)
[2025-01-10] MEDS: FEOSOL 325 MG PO (09:04)
[2025-01-10] MEDS: PROTONIX 40 MG PO (09:04)
[2025-01-10] MEDS: LASIX 80 MG IV ×2 (09:05→15:19)
[2025-01-10] MEDS: NOVOLOG FLEXPEN-LOW RESISTANCE SC ×2 (09:06→17:19)
[2025-01-10 09:11] LABS: Glucose - Point of Care 144 mg/dl (70-99)
[2025-01-10] MEDS: LASIX 40 MG IV (09:12)
[2025-01-10 11:38] LABS: Troponin I 0.034 ng/ml
[2025-01-10 12:43] LABS: Glucose - Point of Care 180 mg/dl (70-99)
--- NOTE | 2025-01-10 13:01 | W.PN.CARDCBS ---
Today's Communication / Plan
-
Continue diuresis. Have given 1 extra dose of 40 mg of Lasix
If no improvement consider chest x-ray in a.m.
Follow labs
Anemia per primary service
Cellulitis per primary service
Impression / Plan
-
Primary Director Of Neurology: Dr. Cuello of [facility]
Assessment:
Presentation with SOB, cough, LE edema
Acute hypoxemic respiratory failure
Acute on chronic HFpEF
Abnormal EKG
Leukocytosis
RLE cellulitis
Acute on chronic anemia
Paroxysmal atrial fibrillation
Chronic amiodarone therapy
Chronic Xarelto therapy
Pulm HTN by echo
CKD3B
HTN
HLD
DM2 with neuropathy
Hypothyroidism
History of GI bleed with negative EGD/colon 09/2023
ECHO 09/2023: EF 60 to 65%, biatrial enlargement, mildly enlarged RV size, mild with peak/mean gradients 27/13 mmHg, mild to moderate TR, severe pulmonary hypertension with PAP 63 mmHg
ECHO 01/08/25: Left ventricle is mildly dilated. Normal left ventricular wall thickness. LVEF 60-65%. Normal regional wall motion. Normal right ventricular function. Mildly enlarged right ventricular size.
Mild aortic stenosis. Peak/mean gradients across the aortic valve are 27/13 mmHg. Mild to moderate tricuspid regurgitation. Estimated pulmonary artery pressure of 63 mmHg.
Plan:
Patient presented with several weeks of worsening shortness of breath, cough, lower extremity edema with cellulitis. She has heart failure with preserved ejection fraction. proBNP was 8020 and chest x-ray with pulmonary edema. In addition she is
being treated for cellulitis. Initially she was found to be hypoxic on arrival, improved on supplemental oxygen. In addition she does have anemia with history of GI bleed and anemia is more pronounced this hospital stay.
Given heart failure with preserved ejection fraction and echocardiogram as noted above is stable.
-Continue diuresis IV Lasix 80 mg twice daily (on torsemide as an outpatient). I have given extra 40 mg of IV Lasix today. She still appears somewhat volume overloaded. Consider if no improvement reassessment of chest x-ray in a.m.
-Replete electrolytes as needed
-Follow creatinine in the setting of renal insufficiency which remains stable, 1.5. Stable
-Appears there was no EKG on admission. EKGs with T wave inversion and abnormal but no chest pain clinically. Troponins x 2 are negative. Consider outpatient ischemic assessment unless new symptoms develop.
-Telemetry monitoring independently reviewed by me is stable.
-Continue outpatient Jardiance, (Entresto was not affordable)
-Heart failure educator and heart failure dietary consult
- Unfortunately cannot stand for weights and bed scale may not be very accurate.
- Secondary pulmonary hypertension noted likely secondary to volume and multifactorial
Paroxysmal atrial fibrillation
-Continue Xarelto which is now dosed appropriately
-Telemetry with sinus rhythm
-Continue amiodarone
- TSH normal
Anemia with history of GI bleed in the past
- Defer anemia evaluation to primary service.
- No active obvious bleeding
Renal insufficiency
- Stable
Hypokalemia
- Being repleted
Cellulitis
- Treatment of right lower extremity wound/cellulitis per primary service
Will attempt to obtain records from primary special services coordinator for review
Progress Note - Director Of Neurology
Subjective
Date of Service: January 10, 2025
She feels her breathing is slowly getting better. She denies chest pain. She was out to the chair yesterday.
Objective
Labs:
01/10/25 10:06
01/10/25 04:06
Labs
Hgb Cancelled 01/10/25 10:06
Hct Cancelled 01/10/25 10:06
Plt Count 194 10^3/uL (130-400) 01/10/25 04:06
Sodium 139 mmol/L (135-145) 01/10/25 04:06
Potassium 3.8 mmol/L (3.5-5.1) 01/10/25 04:06
BUN 38 mg/dl (7-17) H 01/10/25 04:06
Creatinine 1.5 mg/dL (0.6-1.0) H 01/10/25 04:06
Glucose 120 mg/dl (70-99) H 01/10/25 04:06
Troponins
01/07/25 01/10/25
19:48 11:07
Troponin I 0.025 0.034
Vital Signs and I&O:
Vital Signs
Temp Pulse Resp BP Pulse Ox
98.1 F 63 16 94/81 97
01/10/25 11:24 01/10/25 12:00 01/10/25 12:00 01/10/25 10:00 01/10/25 12:00
Vital Signs
Temp Pulse Resp BP Pulse Ox
98.1 F 63 16 94/81 97
01/10/25 11:24 01/10/25 12:00 01/10/25 12:00 01/10/25 10:00 01/10/25 12:00
Intake & Output
01/08/25 01/09/25 01/10/25 01/11/25
06:59 06:59 06:59 06:59
Intake Total 1440 / 1440 1390 / 1390
Output Total 200 / 200 2640 / 2640 1500 / 1500
Balance -200 / -200 -1200 / -1200 -110 / -110
Physical Exam
Physical Exam
General: Elderly woman with oxygen in place
Heart: Distant heart sounds no murmurs, No S3, S4, no rubs.
Lungs: Coarse breath sounds with crackles at the bases
Extremities: No clubbing, cyanosis +1 edema bilaterally. Erythema right leg. Wound covered
Neuro: Grossly nonfocal, awake, alert
[2025-01-10] MEDS: ZOSYN 50 IV (13:09)
[2025-01-10] MEDS: NOVOLOG FLEXPEN-LOW RESISTANCE 1 UNITS SC (13:15)
--- NOTE | 2025-01-10 13:50 | CON.ID ---
Consultation
-
Date/Time Consultation Requested: January 10, 2025 1025
Date/Time Consultation Performed: January 10, 2025 1350
Requesting Provider: Dr. Ольга Adorno
Performing Provider: Dr. Toshia Barreto
Reason for Consultation: Right lower extremity wound cellulitis
Chief Complaint / Past History
Chief Complaint
Both leg swelling and right leg wound
History of Present Illness
79-year-old female with history of diabetes mellitus, neuropathy, heart failure with preserved EF who presented to the hospital on January 07 due to lower extremity edema and right leg redness. She reports that her legs were progressively getting more
swollen. About a week and a half ago she developed a blister on her distal right leg which opened leaving the wound. On , she noted redness around the wound. She also were getting short of breath and therefore came to the ER. White
count 25. Chest x-ray showed pulmonary edema. Patient noted to have cellulitis of the right leg. She was started on IV cefazolin. In the meantime she is being diuresed. She reports the redness is somewhat better. She continues to have pain
right leg. Imaging without DVT.
Past History
Additional Past Medical History:
Diabetes mellitus
Neuropathy
Hypertension
Hypothyroidism
HLD
Paroxysmal atrial fibrillation
HFpEF
CKD 3B
Class III obesity BMI 44
GI bleed
Allergy History:
No Known Allergies Allergy (Verified 10/02/23 19:53)
Medications Reviewed: Yes
Current Antibiotics:
Cefazolin x 3 days
Zosyn day 1
Social History
Tobacco: Former Smoker
Alcohol: None
Drug: None
Family History
Family History: Not Pertinent
Review of Systems
Review of Systems
General: Negative Fever, Chills or Change in Appetite
HEENT: Negative Sinus Problems or Headache
Cardiovascular: Dyspnea and Edema
Gasteroenterology: Negative Nausea, Vomiting or Diarrhea
Genital / Urological: Negative Dysuria or Flank Pain
Endocrine: Weakness
Neurological: Negative Dizziness
All systems: All other systems were reviewed and were negative
Vital Signs
Temp Pulse Resp BP Pulse Ox
98.2 F 66 22 104/58 97
01/10/25 13:38 01/10/25 13:38 01/10/25 13:38 01/10/25 13:38 01/10/25 12:00
Physical Exam
Physical Exam
Constitutional: No Acute Distress and Obese
Eyes: No Conjunctival Hemorrhage and Sclera Anicteric
Cardiovascular: Regular Rate and S1/S2
Pulmonary: Rales (Basis)
Gastrointestinal: Soft, Non Tender, Non Distended and Normal Bowel Sounds
Extremities: Edema (RLE>LLE), Erythema (Distal RLE large area of erythema surrounding a superficial 1.5 cm wound.) and Venous Insufficiency
Neurological: AO x 3
Lab / Diagnostic Study Results
01/10/25 10:06
01/10/25 04:06
Abs Immat Gran (auto) 0.4 10^3/uL (0-0.05) H 01/07/25 19:48
Absolute Neuts (auto) 23.5 10^3/uL (1.4-6.5) H 01/07/25 19:48
Absolute Lymphs (auto) 0.4 10^3/uL (1.2-3.4) L 01/07/25 19:48
Absolute Monos (auto) 1.2 10^3/uL (0.1-0.6) H 01/07/25 19:48
Absolute Basos (auto) 0.1 10^3/uL (0-0.2) 01/07/25 19:48
Total Counted 100 01/08/25 03:32
Immature Gran % 1.6 % (0-0.5) H 01/07/25 19:48
Neutrophils % 92.1 % (42.2-75.2) H 01/07/25 19:48
Lymphocytes % 1.4 % (20.5-51.1) L 01/07/25 19:48
Monocytes % 4.5 % (1.7-9.3) 01/07/25 19:48
Eosinophils % 0.2 % (0-6) 01/07/25 19:48
Basophils % 0.2 % (0-2) 01/07/25 19:48
Abs Neuts (Manual) 22.0 10^3/uL (1.4-6.5) H 01/08/25 03:32
Segmented Neutrophils 93 % (42-75) H 01/08/25 03:32
Band Neutrophils 1 % (0-3) 01/08/25 03:32
Lymphocytes (Manual) 4 % (20-51) L 01/08/25 03:32
Microbiology Results
Micro:
01/07/25 19:54 Wound Culture - Preliminary
Leg - Right Proteus mirabilis
Group G Streptococcus
Gram Stain - Preliminary
01/07/25 CXR: Pulmonary edema.
01/08/25 Left Knee XRAY: 1. SEVERE TRICOMPARTMENTAL OSTEOARTHRITIS in the LEFT KNEE. 1.2 cm lateral subluxation of the tibial plateau. Moderate-sized suprapatellar joint effusion. Severe diffuse soft tissue swelling and subcutaneous edema.
01/08/25 Right knee XRAY: VERY SEVERE ARTHRITIS in the PATELLOFEMORAL COMPARTMENT. Moderate to severe arthritis in the medial and lateral compartments of the right knee. 2.0 cm ossific body posterior to the femoral condyles. Small joint effusion.
Severe diffuse subcutaneous edema.
Assessment / Plan
# Acute RLE cellulitis
# RLE wound from blister due to leg edema
# Acute CHF exacerbation
# Leukocytosis - trending down
- Wound swab Group G Strep, Proteus.
Proteus most likely colonization/contaminant
- Deescalate Zosyn to ceftriaxone.
- When pain tolerable, apply GRAHAM-Wrap compression.
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
Diabetes mellitus
Neuropathy
Hypertension
Hypothyroidism
HLD
Paroxysmal atrial fibrillation
HFpEF
CKD 3B
Class III obesity BMI 44
GI bleed
[2025-01-10] MEDS: FERRLECIT 110 MG IV (15:12)
[2025-01-10] MEDS: MIRALAX 17 GRAMS PO (15:19)
[2025-01-10] MEDS: MUCINEX 600 MG PO ×2 (15:30→21:06)
[2025-01-10 16:37] LABS: Glucose - Point of Care 150 mg/dl (70-99)
[2025-01-10] MEDS: XARELTO 15 MG PO (17:48)
[2025-01-10] MEDS: LIPITOR 40 MG PO (17:48)
--- NOTE | 2025-01-10 18:00 | PTCARENOTE ---
Patient weaned to 4L NC, sats 94%. Had 1 small bloody nose, humidification added to oxygen. Patient c/o dry cough, cough meds ordered and given. Patient c/o constipation, PRN miralax given. NSR on monitor. VSS. Patient received and tolerated 1u
PRBCs today. Will continue to closely monitor.
[2025-01-10] MEDS: NEURONTIN 300 MG PO (21:06)
[2025-01-10] MEDS: MAGNESIUM OXIDE 500 MG PO (21:06)
[2025-01-10] MEDS: STERILE WATER FOR INJECTION 20 ML IV (21:07)
[2025-01-10] MEDS: ROCEPHIN 2000 MG IV (21:07)
[2025-01-10 22:06] LABS: Glucose - Point of Care 164 mg/dl (70-99)
[2025-01-11] VITALS (24 sets, daily range): BP systolic 90–147; BP diastolic 53–97; PULSE 62; O2SAT 91–92; BMI 43.9
[2025-01-11 04:39] LABS: Hematocrit 28.7 % (37.0-47.0); Hemoglobin 8.2 g/dL (12.0-16.0); Mean Corp Hgb Conc. 28.6 g/dL (33.0-37.0); Mean Corpuscular Hgb 20.6 pg (27.0-31.0); Mean Corpuscular Volume 72.1 fL (81.0-99.0); Mean Platelet Volume 8.7 fL (7.4-10.4); Platelet Count 219 10^3/uL (130-400); Red Blood Cell Count 3.98 10^6/uL (4.20-5.40); Red Cell Dist. Width 19.2 % (11.5-14.5); White Blood Cell Count 14.3 10^3/uL (4.8-10.8)
[2025-01-11 04:46] LABS: Blood Urea Nitrogen 35 mg/dl (7-17); Calcium 7.3 mg/dl (8.4-10.2); Carbon Dioxide 34 mmol/L (22-30); Chloride 101 mmol/L (98-107); Estimated Creatinine Clearance 49 ml/min; Glucose 121 mg/dl (70-99); Magnesium 2.2 mg/dl (1.6-2.3); Phosphorus 2.7 mg/dl (2.5-4.5); Potassium 3.5 mmol/L (3.5-5.1); Sodium 140 mmol/L (135-145); eGFR 45.76
[2025-01-11] MEDS: LINZESS 145 MCG PO (05:05)
[2025-01-11] MEDS: SYNTHROID 137 MCG PO (05:05)
--- NOTE | 2025-01-11 06:48 | PTCARENOTE ---
Patient with episode of confusion overnight. Satting well on 4 liters.
[2025-01-11 07:55] LABS: Glucose - Point of Care 157 mg/dl (70-99)
[2025-01-11] MEDS: LASIX 80 MG IV ×2 (08:31→17:46)
[2025-01-11] MEDS: NOVOLOG FLEXPEN-LOW RESISTANCE 1 UNITS SC (08:31)
[2025-01-11] MEDS: LIDOCAINE 4% PATCH 2 PATCH TOPICAL (08:32)
[2025-01-11] MEDS: PACERONE 200 MG PO (08:33)
[2025-01-11] MEDS: VITAMIN D3 (cholecalciferol) 25 MCG PO (08:33)
[2025-01-11] MEDS: MUCINEX 600 MG PO ×2 (08:33→19:46)
[2025-01-11] MEDS: TOPROL XL 50 MG PO (08:33)
[2025-01-11] MEDS: PROTONIX 40 MG PO (08:34)
[2025-01-11] MEDS: VITAMIN B-12 1000 MCG PO (08:34)
[2025-01-11] MEDS: FARXIGA 10 MG PO (08:34)
[2025-01-11] MEDS: KCL 20 MEQ PO ×3 (08:34→19:46)
--- NOTE | 2025-01-11 08:53 | W.PN.CARDCBS ---
Addendum entered and electronically signed by Kami Foote MD 01/11/25 11:06:
I saw and examined the patient.
The Simplex Printer Installer's note was reviewed and I agree with the note.
Comment: Daughter at the bedside. Patient still volume overloaded but continues to improve continues to diurese. Exam with lower extremity edema right greater than left cellulitis. Regular rate and rhythm. Crackles at the bases bilateral.
Oxygenation slowly improving currently on 4 L (was on 8L) of oxygen.
- Continue diuresis with IV Lasix and we will give another extra dose of 40 mg today
- Renal insufficiency. Creatinine improving with diuresis.
- Follow labs and replete as needed
- Anemia noted status post transfusion. On amiodarone and anticoagulation for paroxysmal atrial fibrillation for which she remains in sinus rhythm. I did bring up watchman for future reference however sounds like cardiology in [place] also
brought this up and they declined at the time but would continue to reconsider.
- No chest pain of the cardiac nature. However T wave inversions noted on EKGs during this hospital stay which is new. Discussed with patient and her daughter at the bedside. Does need an ischemic assessment but oxygenation status and volume
overload noted. Could consider as an outpatient but she does not live in the area. Pending how patient continues to do Could consider inpatient pharmacologic nuclear stress test if not would need to preformed outpatient.
- Continue treatment of cellulitis per hospitalist service
Original Note:
Today's Communication / Plan
-
Cont Lasix 80 mg IV BID
Weight is down and oxygenation improving
Impression / Plan
-
PCP: Vansea Rosa
Primary Casing In Line Feeder: Dr. Cuello of [facility]
Assessment:
Presentation with SOB, cough, LE edema 01/07/25
Acute hypoxemic respiratory failure
Acute on chronic HFpEF
Abnormal EKG
Leukocytosis
RLE cellulitis
Acute on chronic anemia
Paroxysmal atrial fibrillation
Chronic amiodarone therapy
Chronic Xarelto therapy
Pulm HTN by echo
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
HTN
HLD
DM2 with neuropathy
Hypothyroidism
History of GI bleed with negative EGD/colon 09/2023
ECHO 09/2023: EF 60 to 65%, biatrial enlargement, mildly enlarged RV size, mild with peak/mean gradients 27/13 mmHg, mild to moderate TR, severe pulmonary hypertension with PAP 63 mmHg
ECHO 01/08/25: Left ventricle is mildly dilated. Normal left ventricular wall thickness. LVEF 60-65%. Normal regional wall motion. Normal right ventricular function. Mildly enlarged right ventricular size.
Mild aortic stenosis. Peak/mean gradients across the aortic valve are 27/13 mmHg. Mild to moderate tricuspid regurgitation. Estimated pulmonary artery pressure of 63 mmHg.
Plan:
-Weight is down 3 lbs overnight and as much as 5 lbs overall this admission with Lasix 80 mg IV BID this admission. Patient was taking torsemide 20 mg BID prior to admission.
-Cre is 1.2 on labs reviewed by me 01/11/25, renal function improving with diuresis
-Low normal potassium of 3.5 on 01/11/2025, will give additional KCl 20 mEq now, ordered by me
-Oxygen requirements improving with diuresis, down to 4 L 01/11/25. Patient was not using supplemental oxygen prior to admission
-EF 60-65% by echo this admission, she has mild .
-Outpatient dose of Toprol XL 50 mg daily has been continued
-Previously attempted to place on Entresto, but this is not affordable
-Outpatient dose of Jardiance 10 mg daily was changed to Farxiga 10 mg daily for formulary reasons, but should go back to Jardiance at time of D/C
-Secondary pulmonary hypertension noted likely secondary to volume and multifactorial
-Patient with abnormal ECG including anterolateral T wave inversion. Troponin undetectable x 2. Echo report noted above showed overall improved EF and no WMA. Will consider outpatient stress test if she remains asymptomatic, but if at any point
she develops symptoms we will proceed to cardiac cath. ECG abnormality reviewed with the patient along with plan for eventual ischemic evaluation, reviewed by me 01/11/25
-Telemetry reviewed by me 01/11/25 and no evidence of arrhythmia
-Patient has known paroxysmal atrial fibrillation, but remains in SR
-Outpatient dose of Xarelto decreased to 15 mg daily this admission for CrCl of 48 adjusted for BMI as calculated by me 01/11/25
-Outpatient dose of amiodarone 200 mg daily continued this admission. QTc 476 ms on ECG. From 01/10/2025 as reviewed by me 01/11/25
HPI: Patient presented with several weeks of worsening shortness of breath, cough, lower extremity edema with cellulitis. She has heart failure with preserved ejection fraction. proBNP was 8020 and chest x-ray with pulmonary edema. In addition
she is being treated for cellulitis. Initially she was found to be hypoxic on arrival, improved on supplemental oxygen. In addition she does have anemia with history of GI bleed and anemia is more pronounced this hospital stay.
Progress Note - Casing In Line Feeder
Subjective
Date of Service: January 11, 2025
She feels like she is doing better, no chest pain
Objective
Labs:
01/11/25 03:53
01/11/25 03:53
Labs
Hgb 8.2 g/dL (12.0-16.0) L 01/11/25 03:53
Hct 28.7 % (37.0-47.0) L 01/11/25 03:53
Plt Count 219 10^3/uL (130-400) 01/11/25 03:53
Sodium 140 mmol/L (135-145) 01/11/25 03:53
Potassium 3.5 mmol/L (3.5-5.1) 01/11/25 03:53
BUN 35 mg/dl (7-17) H 01/11/25 03:53
Creatinine 1.2 mg/dL (0.6-1.0) H 01/11/25 03:53
Glucose 121 mg/dl (70-99) H 01/11/25 03:53
Troponins
01/10/25
11:07
Troponin I 0.034
Vital Signs and I&O:
Vital Signs
Temp Pulse Resp BP Pulse Ox
98.2 F 61 18 124/56 93
01/11/25 03:53 01/11/25 04:00 01/11/25 04:00 01/11/25 04:00 01/11/25 04:00
Vital Signs
Temp Pulse Resp BP Pulse Ox
98.2 F 61 18 124/56 93
01/11/25 03:53 01/11/25 04:00 01/11/25 04:00 01/11/25 04:00 01/11/25 04:00
Intake & Output
01/09/25 01/10/25 01/11/25 01/12/25
06:59 06:59 06:59 06:59
Intake Total 1440 / 1440 1390 / 1390 730 / 730
Output Total 2640 / 2640 1500 / 1500 2100 / 2100
Balance -1200 / -1200 -110 / -110 -1370 / -1370
Physical Exam
Physical Exam
GEN: NAD. AAOx3
HEENT: EOMI
LUNGS: 4 L NC. Poor inspiratory effort. No wheeze or rales B/L
CV: SR on tele. Reg, no murmur
ABD: ND
EXT: +2 B/L LE edema right worse than left. B/L LE erythema right worse than left.
NEURO: Gross non-focal
SKIN: No rash
--- NOTE | 2025-01-11 09:45 | W.PN.HOSP.TC ---
Today's Communication/Plan
-
see bold
Assessment / Plan
Assessment / Plan
79F Chronic GIB Aneamia HFpEF CKD3 pAfib HTN HLD DM neuropathy Hypothyroid Obesity here for acute on chronic HFpEF with associate respiratory failure and RLE cellulitis.
# Acute hypoxemic respiratory failure secondary to acute on chronic HFpEF exacerbation
Echocardiogram with ejection fraction of 60-65%
Improved, initially required 14 L of oxygen, now requiring 4 L
Wean as tolerated, she does not wear oxygen at home
Cardiology following, continue IV Lasix as per cardiology
Trend creatinine, trend daily weights
#Hypokalemia
Magnesium normal
Continue scheduled 20 mEQ K BID w/ holding parameters K>5
# Right lower extremity wound with surrounding cellulitis
Ultrasound negative for DVT
Initially treated with Ancef, then transition to Zosyn
Appreciate ID input, Zosyn changed to Rocephin
Continue high-dose Rocephin as per ID, continue wound care
#Bilateral knee pain, reported fall prior to admission
Bilateral x-rays show severe arthritis, no fracture or dislocation
Suspect sprain, with possible ligament injury
Continue supportive care, pain control, PT/OT recommend short-term rehab
Paroxysmal atrial fibrillation
- Continue Xarelto renal dosing
- Continue metoprolol
- Continue amiodarone
CKD 3B
- Renal function at baseline, monitor creatinine with diuresis
Chronic anemia
Severe Iron deficiency Anemia
-Hemoglobin dipped to 7.1, she received 1 unit packed red blood cells on 01/10/2025
-Hemoglobin improved to 8.2, continue to trend, transfuse as needed
-Status post IV iron this hospital admission
Essential hypertension
Hyperlipidemia
- Continue statin
Type 2 diabetes
- Hold metformin
- cont Farxiga
- Insulin sliding scale
Diabetic neuropathy
- Continue gabapentin
Hypothyroidism
- Continue levothyroxine
Obesity
GERD
- Continue Protonix
DVT prophylaxis�Xarelto
Full code
Updated daughter at bedside 01/11/2025
Total time spent to see the patient on the floor, examine the patient, review data and lab results, discuss treatment plan with patient, nursing staff around 51 minutes.
Physical Exam
General: Morbidly obese, no acute distress
HEENT: Normocephalic, Atraumatic, EOMI, MMM
Respiratory: Bibasilar crackles
Cardiac: Normal S1/S2, Regular Rate and Rhythm
GI: Soft, Nontender, Nondistended, Normal Bowel Sounds
Extremities: No Clubbing, Cyanosis
Severe right lower extremity edema, erythema, and tenderness
Left lower extremity edema improving
Anticipated Discharge: > 48 hours
Subjective/Interval History
-
Date of Service: January 11, 2025
Patient complains of right lower extremity erythema, pain, and edema. She denies shortness of breath. No fever, no chest pain. No vomiting.
Objective Data
-
Labs:
Laboratory Results
01/11/25
03:53
WBC 14.3 H
Hgb 8.2 L
Hct 28.7 L
Plt Count 219
Sodium 140
Potassium 3.5
Chloride 101
Carbon Dioxide 34 H
BUN 35 H
Creatinine 1.2 H
Glucose 121 H
Calcium 7.3 L
Vital Signs:
Vital Signs
Temp Pulse Resp BP Pulse Ox
98.2 F 66 19 144/97 92
01/11/25 03:53 01/11/25 09:00 01/11/25 09:00 01/11/25 08:00 01/11/25 08:37
I&O
01/10/25 01/11/25 01/12/25
06:59 06:59 06:59
Intake Total 1390 / 1390 730 / 730
Output Total 1500 / 1500 2099 / 2099
Balance -110 / -110 -1370 / -1370
--- NOTE | 2025-01-11 11:05 | W.PN.ID1 ---
Date of Service
Date of Service: January 11, 2025
Today's Communication
Continue ceftriaxone.
Assessment / Plan
# Acute RLE cellulitis
# RLE wound from blister due to leg edema
# Acute CHF exacerbation
# Leukocytosis -
- Wound swab Group G Strep, Proteus.
-Continue ceftriaxone.
- GRAHAM-Wrap compression - knee high
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
Diabetes mellitus
Neuropathy
Hypertension
Hypothyroidism
HLD
Paroxysmal atrial fibrillation
HFpEF
CKD 3B
Class III obesity BMI 44
GI bleed
Chief Complaint
-: Cellulitis
Subjective / Review of Systems
No new complaints.
Vital Signs / Physical Exam
Vital Signs
Vital Signs
Temp Pulse Resp BP Pulse Ox
97.9 F 66 19 144/97 92
01/11/25 07:59 01/11/25 09:00 01/11/25 09:00 01/11/25 08:00 01/11/25 08:37
Physical Exam
Cardiovascular: Regular Rate and S1/S2
Pulmonary: Rales
Gastrointestinal: Soft, Non Tender and Non Distended
Extremities: Edema (RLE edema) and Erythema (distal RLE)
Wound: Other (RLE superficial wound stable)
Neurological: AO x 3
Objective Data
Lab Data
Lab Results
01/11/25 03:53
01/11/25 03:53
Estimated Creat Clear 49 ml/min 01/11/25 03:53
Total Bilirubin 0.6 mg/dl (0.2-1.3) 01/08/25 03:32
AST 15 U/L (14-36) 01/08/25 03:32
ALT 10 U/L (0-35) 01/08/25 03:32
Alkaline Phosphatase 142 U/L (38-126) H 01/08/25 03:32
Most recent labs reviewed.
Micro Results:
01/07/25 19:54 Wound Culture - Preliminary
Leg - Right Proteus mirabilis
Group G Streptococcus
Gram Stain - Preliminary
01/07/25 CXR: Pulmonary edema.
01/08/25 Left Knee XRAY: 1. SEVERE TRICOMPARTMENTAL OSTEOARTHRITIS in the LEFT KNEE. 1.2 cm lateral subluxation of the tibial plateau. Moderate-sized suprapatellar joint effusion. Severe diffuse soft tissue swelling and subcutaneous edema.
01/08/25 Right knee XRAY: VERY SEVERE ARTHRITIS in the PATELLOFEMORAL COMPARTMENT. Moderate to severe arthritis in the medial and lateral compartments of the right knee. 2.0 cm ossific body posterior to the femoral condyles. Small joint effusion.
Severe diffuse subcutaneous edema.
[2025-01-11] MEDS: LASIX 40 MG IV (11:24)
[2025-01-11 12:05] LABS: Glucose - Point of Care 128 mg/dl (70-99)
[2025-01-11] MEDS: NOVOLOG FLEXPEN-LOW RESISTANCE SC ×2 (12:49→17:32)
--- NOTE | 2025-01-11 15:38 | PTCARENOTE ---
Pt's assessment as documented. Aox3; forgetful. Sating low 90's on 4L NC. Medications administered as ordered, see MAR. OOB to chair with OT. Bed/chair alarms in place for safety.
[2025-01-11 17:40] LABS: Glucose - Point of Care 147 mg/dl (70-99)
[2025-01-11] MEDS: XARELTO 15 MG PO (17:45)
[2025-01-11] MEDS: LIPITOR 40 MG PO (17:45)
[2025-01-11] MEDS: MAGNESIUM OXIDE 500 MG PO (19:46)
[2025-01-11] MEDS: ROBITUSSIN 200 MG PO (19:46)
[2025-01-11] MEDS: ROCEPHIN 2000 MG IV (19:46)
[2025-01-11] MEDS: STERILE WATER FOR INJECTION 20 ML IV (19:46)
[2025-01-11] MEDS: NEURONTIN 300 MG PO (19:46)
[2025-01-11 21:43] LABS: Glucose - Point of Care 146 mg/dl (70-99)
[2025-01-12] VITALS (18 sets, daily range): BP systolic 115–163; BP diastolic 55–132; BMI 43.5
[2025-01-12 03:43] LABS: Hematocrit 27.8 % (37.0-47.0); Hemoglobin 8.2 g/dL (12.0-16.0); Mean Corp Hgb Conc. 29.5 g/dL (33.0-37.0); Mean Corpuscular Hgb 21.5 pg (27.0-31.0); Mean Platelet Volume 8.8 fL (7.4-10.4); Platelet Count 219 10^3/uL (130-400); Red Blood Cell Count 3.81 10^6/uL (4.20-5.40); White Blood Cell Count 12.8 10^3/uL (4.8-10.8)
[2025-01-12 04:03] LABS: Blood Urea Nitrogen 32 mg/dl (7-17); Calcium 7.5 mg/dl (8.4-10.2); Carbon Dioxide 34 mmol/L (22-30); Chloride 100 mmol/L (98-107); Estimated Creatinine Clearance 45 ml/min; Glucose 127 mg/dl (70-99); Magnesium 2.2 mg/dl (1.6-2.3); Phosphorus 2.5 mg/dl (2.5-4.5); Potassium 3.8 mmol/L (3.5-5.1); Sodium 138 mmol/L (135-145); eGFR 41.57
[2025-01-12] MEDS: LINZESS 145 MCG PO (05:44)
[2025-01-12] MEDS: SYNTHROID 137 MCG PO (05:44)
--- NOTE | 2025-01-12 06:42 | PTCARENOTE ---
No acute events overnight. No episodes of confusion. Remains on 6 liters NC.
[2025-01-12 08:09] LABS: Glucose - Point of Care 160 mg/dl (70-99)
[2025-01-12] MEDS: FARXIGA 10 MG PO (08:19)
[2025-01-12] MEDS: LIDOCAINE 4% PATCH 2 PATCH TOPICAL (08:19)
[2025-01-12] MEDS: PROTONIX 40 MG PO (08:19)
[2025-01-12] MEDS: KCL 20 MEQ PO ×2 (08:19→20:55)
[2025-01-12] MEDS: MUCINEX 600 MG PO ×2 (08:19→20:55)
[2025-01-12] MEDS: VITAMIN D3 (cholecalciferol) 25 MCG PO (08:20)
[2025-01-12] MEDS: VITAMIN B-12 1000 MCG PO (08:20)
[2025-01-12] MEDS: PACERONE 200 MG PO (08:20)
[2025-01-12] MEDS: NOVOLOG FLEXPEN-LOW RESISTANCE 1 UNITS SC ×2 (08:20→13:05)
[2025-01-12] MEDS: TOPROL XL 50 MG PO (08:20)
[2025-01-12] MEDS: LASIX 80 MG IV ×2 (08:20→17:54)
--- NOTE | 2025-01-12 08:50 | W.PN.CARDCBS ---
Today's Communication / Plan
-
Weight is improving. Continue Lasix 80 mg IV twice daily. Creatinine overall stable at 1.3. Would likely transition back to torsemide over next 24 hours.
Continue to wean oxygen.
Continue Toprol. Blood pressure has been labile.
Continue amiodarone and Xarelto. She remains in sinus rhythm.
EKG does have T wave abnormalities. She has no chest pains at this time. If continues to improve would recommend outpatient ischemic evaluation.
Impression / Plan
-
PCP: Vanesa Rosa
Primary Facility Manager: Dr. Cuello of [facility]
Assessment:
Presentation with SOB, cough, LE edema 01/07/25
Acute hypoxemic respiratory failure
Acute on chronic HFpEF
Abnormal EKG
Leukocytosis
RLE cellulitis
Acute on chronic anemia
Paroxysmal atrial fibrillation
Chronic amiodarone therapy
Chronic Xarelto therapy
Pulm HTN by echo
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
HTN
HLD
DM2 with neuropathy
Hypothyroidism
History of GI bleed with negative EGD/colon 09/2023
ECHO 09/2023: EF 60 to 65%, biatrial enlargement, mildly enlarged RV size, mild with peak/mean gradients 27/13 mmHg, mild to moderate TR, severe pulmonary hypertension with PAP 63 mmHg
ECHO 01/08/25: Left ventricle is mildly dilated. Normal left ventricular wall thickness. LVEF 60-65%. Normal regional wall motion. Normal right ventricular function. Mildly enlarged right ventricular size.
Mild aortic stenosis. Peak/mean gradients across the aortic valve are 27/13 mmHg. Mild to moderate tricuspid regurgitation. Estimated pulmonary artery pressure of 63 mmHg.
Plan:
-Weight continues to improve. Continue Lasix 80 mg IV twice daily. Creatinine overall stable at 1.3.
-Oxygen requirements improving with diuresis, down to 4 L 01/11/25. Patient was not using supplemental oxygen prior to admission
-EF 60-65% by echo this admission, she has mild .
-Continue antibiotics of ceftriaxone for cellulitis.
-Outpatient dose of Toprol XL 50 mg daily has been continued
-Previously attempted to place on Entresto, but this is not affordable
-Outpatient dose of Jardiance 10 mg daily was changed to Farxiga 10 mg daily for formulary reasons, but should go back to Jardiance at time of D/C
-Secondary pulmonary hypertension noted likely secondary to volume and multifactorial
-Patient with abnormal ECG including anterolateral T wave inversion. Troponin undetectable x 2. Echo report noted above showed overall improved EF and no WMA. Will consider outpatient stress test if she remains asymptomatic.
-Telemetry reviewed by me 01/11/25 and no evidence of arrhythmia
-Patient has known paroxysmal atrial fibrillation, but remains in SR
-Outpatient dose of Xarelto decreased to 15 mg daily this admission for CrCl of 48 adjusted for BMI as calculated by me 01/11/25
-Outpatient dose of amiodarone 200 mg daily continued this admission. QTc 476 ms on ECG. From 01/10/2025 as reviewed by me 01/11/25
HPI: Patient presented with several weeks of worsening shortness of breath, cough, lower extremity edema with cellulitis. She has heart failure with preserved ejection fraction. proBNP was 8020 and chest x-ray with pulmonary edema. In addition
she is being treated for cellulitis. Initially she was found to be hypoxic on arrival, improved on supplemental oxygen. In addition she does have anemia with history of GI bleed and anemia is more pronounced this hospital stay.
Progress Note - Facility Manager
Subjective
Date of Service: January 12, 2025
Breathing is slowly improving. Edema in the legs getting better. No chest pains.
Objective
Labs:
01/12/25 03:31
01/12/25 03:31
Labs
Hgb 8.2 g/dL (12.0-16.0) L 01/12/25 03:31
Hct 27.8 % (37.0-47.0) L 01/12/25 03:31
Plt Count 219 10^3/uL (130-400) 01/12/25 03:31
Sodium 138 mmol/L (135-145) 01/12/25 03:31
Potassium 3.8 mmol/L (3.5-5.1) 01/12/25 03:31
BUN 32 mg/dl (7-17) H 01/12/25 03:31
Creatinine 1.3 mg/dL (0.6-1.0) H 01/12/25 03:31
Glucose 127 mg/dl (70-99) H 01/12/25 03:31
Troponins
01/10/25
11:07
Troponin I 0.034
Vital Signs and I&O:
Vital Signs
Temp Pulse Resp BP Pulse Ox
98.3 F 65 23 150/71 94
01/12/25 03:00 01/12/25 08:19 01/12/25 08:19 01/12/25 08:19 01/12/25 08:33
Vital Signs
Temp Pulse Resp BP Pulse Ox
98.3 F 65 23 150/71 94
01/12/25 03:00 01/12/25 08:19 01/12/25 08:19 01/12/25 08:19 01/12/25 08:33
Intake & Output
01/10/25 01/11/25 01/12/25 01/13/25
06:59 06:59 06:59 06:59
Intake Total 1390 / 1390 730 / 730 720 / 720 480 / 480
Output Total 1500 / 1500 2100 / 2100 3100 / 3100
Balance -110 / -110 -1370 / -1370 -2380 / -2380 480 / 480
Physical Exam
Physical Exam
GEN: No distress, awake, Ox3
HEENT: supple, anicteric, mmm
LUNGS: scatt rhonchi
CV: Reg, S1/S2, 1/6 syst LSB, S3+
ABD: soft, BS+, NT/ND
EXT: +2 edema
NEURO: Gross non-focal
SKIN: erythema
--- NOTE | 2025-01-12 10:07 | W.PN.HOSP.TC ---
Today's Communication/Plan
-
see bold
Assessment / Plan
Assessment / Plan
79F Chronic GIB Aneamia HFpEF CKD3 pAfib HTN HLD DM neuropathy Hypothyroid Obesity here for acute on chronic HFpEF with associate respiratory failure and RLE cellulitis.
# Acute hypoxemic respiratory failure secondary to acute on chronic HFpEF exacerbation
Echocardiogram with ejection fraction of 60-65%
Improved, initially required 14 L of oxygen, now requiring 5 L
Wean as tolerated, she does not wear oxygen at home
Cardiology following, continue IV Lasix as per cardiology
Trend creatinine, trend daily weights
#Hypokalemia
Magnesium normal
Continue scheduled 20 mEQ K BID w/ holding parameters K>5
# Right lower extremity wound with surrounding cellulitis
Ultrasound negative for DVT
Initially treated with Ancef, then transition to Zosyn
Appreciate ID input, Zosyn changed to Rocephin
Change Rocephin to Ancef as per ID, continue wound care
#Bilateral knee pain, reported fall prior to admission
Bilateral x-rays show severe arthritis, no fracture or dislocation
Suspect sprain, with possible ligament injury
Continue supportive care, pain control, PT/OT recommend short-term rehab
Paroxysmal atrial fibrillation
- Continue Xarelto renal dosing
- Continue metoprolol
- Continue amiodarone
CKD 3B
- Renal function at baseline, monitor creatinine with diuresis
Chronic anemia
Severe Iron deficiency Anemia
-Hemoglobin dipped to 7.1, she received 1 unit packed red blood cells on 01/10/2025
-Hemoglobin improved to 8.2, continue to trend, transfuse as needed
-Status post IV iron this hospital admission
Essential hypertension
Hyperlipidemia
- Continue statin
Type 2 diabetes
- Hold metformin
- cont Farxiga
- Insulin sliding scale
Diabetic neuropathy
- Continue gabapentin
Hypothyroidism
- Continue levothyroxine
Obesity
GERD
- Continue Protonix
DVT prophylaxis�Xarelto
Full code
Updated daughter at bedside 01/11/2025
Total time spent to see the patient on the floor, examine the patient, review data and lab results, discuss treatment plan with patient, nursing staff around 41 minutes.
Physical Exam
General: Morbidly obese, no acute distress
HEENT: Normocephalic, Atraumatic, EOMI, MMM
Respiratory: Bibasilar crackles
Cardiac: Normal S1/S2, Regular Rate and Rhythm
GI: Soft, Nontender, Nondistended, Normal Bowel Sounds
Extremities: No Clubbing, Cyanosis
Severe right lower extremity edema, erythema, and tenderness
Left lower extremity edema improving
Anticipated Discharge: > 48 hours
Subjective/Interval History
-
Date of Service: January 12, 2025
Patient reports her shortness of breath is the same, her right lower extremity pain/swelling/redness is the same. No fever, no vomiting.
Objective Data
-
Labs:
Laboratory Results
01/12/25
03:31
WBC 12.8 H
Hgb 8.2 L
Hct 27.8 L
Plt Count 219
Sodium 138
Potassium 3.8
Chloride 100
Carbon Dioxide 34 H
BUN 32 H
Creatinine 1.3 H
Glucose 127 H
Calcium 7.5 L
Vital Signs:
Vital Signs
Temp Pulse Resp BP Pulse Ox
98.0 F 65 23 150/71 94
01/12/25 07:45 01/12/25 08:19 01/12/25 08:19 01/12/25 08:19 01/12/25 08:33
I&O
01/11/25 01/12/25 01/13/25
06:59 06:59 06:59
Intake Total 730 / 730 720 / 720 720 / 720
Output Total 2099 / 2099 3100 / 3100 800 / 800
Balance -1370 / -1370 -2380 / -2380 -80 / -80
[2025-01-12 12:54] LABS: Glucose - Point of Care 176 mg/dl (70-99)
--- NOTE | 2025-01-12 13:34 | W.PN.ID1 ---
Date of Service
Date of Service: January 12, 2025
Today's Communication
Replace ceftriaxone with cefazolin.
Assessment / Plan
# Acute RLE cellulitis, slowly improving
# RLE wound from blister due to leg edema
# Acute CHF exacerbation
# Leukocytosis -
- Wound swab Group G Strep, Proteus, MSSA
- Replace ceftriaxone with cefazolin.
- GRAHAM-Wrap compression - knee high
-Elevate RLE
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
Diabetes mellitus
Neuropathy
Hypertension
Hypothyroidism
HLD
Paroxysmal atrial fibrillation
HFpEF
CKD 3B
Class III obesity BMI 44
GI bleed
Chief Complaint
-: Cellulitis
Subjective / Review of Systems
Right leg still sore.
Vital Signs / Physical Exam
Vital Signs
Vital Signs
Temp Pulse Resp BP Pulse Ox
98.0 F 65 19 135/71 96
01/12/25 07:45 01/12/25 12:00 01/12/25 12:00 01/12/25 12:00 01/12/25 12:00
Physical Exam
Constitutional: No Acute Distress and Comfortable
Cardiovascular: Regular Rate and S1/S2
Pulmonary: Rales
Gastrointestinal: Soft, Non Tender and Non Distended
Extremities: Edema (RLE>>LLE edema) and Erythema (RLE ankle to up charles erythema. Distal RLE wound stable. )
Neurological: AO x 3
Objective Data
Lab Data
Lab Results
01/12/25 03:31
01/12/25 03:31
Estimated Creat Clear 45 ml/min 01/12/25 03:31
Total Bilirubin 0.6 mg/dl (0.2-1.3) 01/08/25 03:32
AST 15 U/L (14-36) 01/08/25 03:32
ALT 10 U/L (0-35) 01/08/25 03:32
Alkaline Phosphatase 142 U/L (38-126) H 01/08/25 03:32
Most recent labs reviewed.
Micro Results:
01/07/25 19:54 Wound Culture - Final
Leg - Right Proteus mirabilis
S aureus-Methicillin Sensitive
Group G Streptococcus
Gram Stain - Final
01/07/25 CXR: Pulmonary edema.
01/08/25 Left Knee XRAY: 1. SEVERE TRICOMPARTMENTAL OSTEOARTHRITIS in the LEFT KNEE. 1.2 cm lateral subluxation of the tibial plateau. Moderate-sized suprapatellar joint effusion. Severe diffuse soft tissue swelling and subcutaneous edema.
01/08/25 Right knee XRAY: VERY SEVERE ARTHRITIS in the PATELLOFEMORAL COMPARTMENT. Moderate to severe arthritis in the medial and lateral compartments of the right knee. 2.0 cm ossific body posterior to the femoral condyles. Small joint effusion.
Severe diffuse subcutaneous edema.
--- NOTE | 2025-01-12 14:23 | CM ---
IV/AB, IV/Lasix. Therapy recommending SNF. Spoke with patient who prefers not to go to rehab. She gave permission for CM to call daughter. Daughter wants patient to go to rehab and prefers [facility]. Daughter said if patient adamantly refuses she
wants therapy to be aware that family spends the summer at [place] and family will be with her continuously. Will send referral to [facility]. Daughter will speak with patient.
[2025-01-12] MEDS: ANCEF 10 IV ×2 (14:51→20:55)
--- NOTE | 2025-01-12 15:42 | PTCARENOTE ---
Pt's assessment as documented. Aox3; forgetful. Sating low to mid 90's on 6L NC. Pt desats with minimal exertion but recovers shortly after. Medications administered as ordered, see MAR. Needs reminding regarding fluid restriction. Bed alarm in
place for safety.
[2025-01-12] MEDS: XARELTO 15 MG PO (17:55)
[2025-01-12] MEDS: LIPITOR 40 MG PO (17:55)
[2025-01-12] MEDS: NOVOLOG FLEXPEN-LOW RESISTANCE SC (17:58)
[2025-01-12 18:08] LABS: Glucose - Point of Care 125 mg/dl (70-99)
[2025-01-12] MEDS: MAGNESIUM OXIDE 500 MG PO (20:55)
[2025-01-12] MEDS: NEURONTIN 300 MG PO (20:55)
[2025-01-12 22:39] LABS: Glucose - Point of Care 139 mg/dl (70-99)
[2025-01-13] VITALS (26 sets, daily range): BP systolic 92–161; BP diastolic 56–134; PULSE 64–102; O2SAT 95; BMI 44.0
--- NOTE | 2025-01-13 02:16 | PTCARENOTE ---
Received pt from giulia RN. Pt aaox3, able to make needs known. SaO2 93% on 7LMF. Lower extremity wounds cleaned and redressed. RLE +4 edema, LLE +3. VSS. Call bo and belongings within reach. Care ongoing.
[2025-01-13] MEDS: LINZESS 145 MCG PO (05:47)
[2025-01-13] MEDS: ANCEF 10 IV ×3 (05:47→20:27)
[2025-01-13] MEDS: SYNTHROID 137 MCG PO (05:47)
[2025-01-13 06:33] LABS: Hematocrit 28.8 % (37.0-47.0); Hemoglobin 8.7 g/dL (12.0-16.0); Mean Corp Hgb Conc. 30.2 g/dL (33.0-37.0); Mean Corpuscular Hgb 21.5 pg (27.0-31.0); Mean Corpuscular Volume 71.1 fL (81.0-99.0); Mean Platelet Volume 8.9 fL (7.4-10.4); Platelet Count 226 10^3/uL (130-400); Red Blood Cell Count 4.05 10^6/uL (4.20-5.40); Red Cell Dist. Width 21.2 % (11.5-14.5); White Blood Cell Count 12.6 10^3/uL (4.8-10.8)
[2025-01-13 06:43] LABS: Blood Urea Nitrogen 31 mg/dl (7-17); Calcium 7.8 mg/dl (8.4-10.2); Carbon Dioxide 35 mmol/L (22-30); Chloride 97 mmol/L (98-107); Estimated Creatinine Clearance 48 ml/min; Glucose 135 mg/dl (70-99); Potassium 4.1 mmol/L (3.5-5.1); Sodium 138 mmol/L (135-145); eGFR 45.76
--- NOTE | 2025-01-13 09:16 | W.PN.CARDCBS ---
Today's Communication / Plan
-
Continue IV lasix
Wean O2
Standing weights
Check echo
Impression / Plan
-
PCP: Vanesa Rosa
Primary Grading Supervisor: Dr. Cuello of [facility]
Assessment:
Presentation with SOB, cough, LE edema 01/07/25
Acute hypoxemic respiratory failure
Acute on chronic HFpEF
Abnormal EKG
Leukocytosis
RLE cellulitis
Acute on chronic anemia
Paroxysmal atrial fibrillation
Chronic amiodarone therapy
Chronic Xarelto therapy
Pulm HTN by echo
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
HTN
HLD
DM2 with neuropathy
Hypothyroidism
History of GI bleed with negative EGD/colon 09/2023
ECHO 09/2023: EF 60 to 65%, biatrial enlargement, mildly enlarged RV size, mild with peak/mean gradients 27/13 mmHg, mild to moderate TR, severe pulmonary hypertension with PAP 63 mmHg
Plan:
-Difficult volume exam, but suspect she is still volume overloaded and would benefit from further diuresis
-Cr remains stable
-Weight is fluctuating, would ideally have daily standing weights
-Continue Lasix 80 mg IV twice daily. May need to give 1 time dose of metolazone to augment diuresis.
-Wean O2 as able. Patient was not using supplemental oxygen prior to admission.
-Check echo
-Outpatient dose of Toprol XL 50 mg daily has been continued
-Previously attempted to place on Entresto, but this is not affordable
-Outpatient dose of Jardiance 10 mg daily was changed to Farxiga 10 mg daily for formulary reasons, but should go back to Jardiance at time of D/C
-Patient with abnormal ECG including anterolateral T wave inversion. Troponin undetectable x 2. Check echo. Will consider outpatient stress test if she remains asymptomatic.
-Patient has known paroxysmal atrial fibrillation, but remains in SR
-Outpatient dose of Xarelto decreased to 15 mg daily this admission for CrCl of 48
-Outpatient dose of amiodarone 200 mg daily continued this admission.
HPI: Patient presented with several weeks of worsening shortness of breath, cough, lower extremity edema with cellulitis. She has heart failure with preserved ejection fraction. proBNP was 8020 and chest x-ray with pulmonary edema. In addition
she is being treated for cellulitis. Initially she was found to be hypoxic on arrival, improved on supplemental oxygen. In addition she does have anemia with history of GI bleed and anemia is more pronounced this hospital stay.
Progress Note - Grading Supervisor
Subjective
Date of Service: January 13, 2025
NAOE. Resting comfortably in IMU on mid flow O2. Drowsy this AM. No cardiac complaints.
Objective
Labs:
01/13/25 06:01
01/13/25 06:01
Labs
Hgb 8.7 g/dL (12.0-16.0) L 01/13/25 06:01
Hct 28.8 % (37.0-47.0) L 01/13/25 06:01
Plt Count 226 10^3/uL (130-400) 01/13/25 06:01
Sodium 138 mmol/L (135-145) 01/13/25 06:01
Potassium 4.1 mmol/L (3.5-5.1) 01/13/25 06:01
BUN 31 mg/dl (7-17) H 01/13/25 06:01
Creatinine 1.2 mg/dL (0.6-1.0) H 01/13/25 06:01
Glucose 135 mg/dl (70-99) H 01/13/25 06:01
Troponins
01/10/25
11:07
Troponin I 0.034
Vital Signs and I&O:
Vital Signs
Temp Pulse Resp BP Pulse Ox
99.1 F 67 20 119/57 94
01/13/25 02:57 01/13/25 07:00 01/13/25 07:00 01/13/25 07:00 01/13/25 07:00
Vital Signs
Temp Pulse Resp BP Pulse Ox
99.1 F 67 20 119/57 94
01/13/25 02:57 01/13/25 07:00 01/13/25 07:00 01/13/25 07:00 01/13/25 07:00
Intake & Output
01/11/25 01/12/25 01/13/25 01/14/25
06:59 06:59 06:59 06:59
Intake Total 730 / 730 720 / 720 1440 / 1440
Output Total 2100 / 2100 3100 / 3100 1950 / 1950
Balance -1370 / -1370 -2380 / -2380 -510 / -510
Physical Exam
Physical Exam
Gen: NAD, drowsy
HEENT: NC/AT, sclera anicteric
Neck: No JVD
CV: RRR, NL s1/s2
Lungs: CTAB on mid flow O2
Abd: S/ND
Ext: Nonpitting LE edema with overlying venous stasis skin changes
Skin: Warm, dry
Neuro: Non-focal
[2025-01-13 09:49] LABS: Glucose - Point of Care 147 mg/dl (70-99)
--- NOTE | 2025-01-13 09:57 | W.PN.HOSP.TC ---
Today's Communication/Plan
-
see bold
Assessment / Plan
Assessment / Plan
79F Chronic GIB Aneamia HFpEF CKD3 pAfib HTN HLD DM neuropathy Hypothyroid Obesity here for acute on chronic HFpEF with associate respiratory failure and RLE cellulitis.
# Acute hypoxemic respiratory failure secondary to acute on chronic HFpEF exacerbation
Echocardiogram with ejection fraction of 60-65%
Improved, initially required 14 L of oxygen, now requiring 5-6 L
Wean as tolerated, she does not wear oxygen at home
Cardiology following, continue IV Lasix as per cardiology, echocardiogram requested
Trend creatinine, trend daily weights
#Worsening nocturnal hypoxia
Suspicious for obstructive sleep apnea and possible obesity hypoventilation syndrome
Patient may benefit from CPAP or BiPAP, consult pulmonology
#Hypokalemia
Magnesium normal
Continue scheduled 20 mEQ K BID w/ holding parameters K>5
# Right lower extremity wound with surrounding cellulitis
Ultrasound negative for DVT
Initially treated with Ancef, then transition to Zosyn
Appreciate ID input, Zosyn changed to Rocephin, Rocephin now changed to Ancef
Continue Ancef as per ID, continue wound care
#Bilateral knee pain, reported fall prior to admission
Bilateral x-rays show severe arthritis, no fracture or dislocation
Suspect sprain, with possible ligament injury
Continue supportive care, pain control, PT/OT recommend short-term rehab
Paroxysmal atrial fibrillation
- Continue Xarelto renal dosing
- Continue metoprolol
- Continue amiodarone
CKD 3B
- Renal function at baseline, monitor creatinine with diuresis
Chronic anemia
Severe Iron deficiency Anemia
-Hemoglobin dipped to 7.1, she received 1 unit packed red blood cells on 01/10/2025
-Hemoglobin improved to >8, continue to trend, transfuse as needed
-Status post IV iron this hospital admission
Essential hypertension
Hyperlipidemia
- Continue statin
Type 2 diabetes
- Hold metformin
- cont Farxiga
- Insulin sliding scale
Diabetic neuropathy
- Continue gabapentin
Hypothyroidism
- Continue levothyroxine
Obesity
GERD
- Continue Protonix
DVT prophylaxis�Xarelto
Full code
Updated daughter at bedside 01/11/2025
Total time spent to see the patient on the floor, examine the patient, review data and lab results, discuss treatment plan with patient, nursing staff around 50 minutes.
Physical Exam
General: Morbidly obese, no acute distress
HEENT: Normocephalic, Atraumatic, EOMI, MMM
Respiratory: Bibasilar crackles
Cardiac: Normal S1/S2, Regular Rate and Rhythm
GI: Soft, Nontender, Nondistended, Normal Bowel Sounds
Extremities: No Clubbing, Cyanosis
Severe right lower extremity edema, erythema, and tenderness
Left lower extremity edema improving
Anticipated Discharge: > 48 hours
Subjective/Interval History
-
Date of Service: January 13, 2025
Objective Data
-
Labs:
Laboratory Results
01/13/25
06:01
WBC 12.6 H
Hgb 8.7 L
Hct 28.8 L
Plt Count 226
Sodium 138
Potassium 4.1
Chloride 97 L
Carbon Dioxide 35 H
BUN 31 H
Creatinine 1.2 H
Glucose 135 H
Calcium 7.8 L
Vital Signs:
Vital Signs
Temp Pulse Resp BP Pulse Ox
98.7 F 67 20 119/57 94
01/13/25 07:25 01/13/25 07:00 01/13/25 07:00 01/13/25 07:00 01/13/25 07:00
I&O
01/12/25 01/13/25 01/14/25
06:59 06:59 06:59
Intake Total 720 / 720 1440 / 1440
Output Total 3100 / 3100 1950 / 1950 400 / 400
Balance -2380 / -2380 -510 / -510 -400 / -400
[2025-01-13] MEDS: NOVOLOG FLEXPEN-LOW RESISTANCE SC (11:12)
[2025-01-13] MEDS: ULTRAM 25 MG PO ×2 (11:13→20:26)
[2025-01-13] MEDS: PACERONE 200 MG PO (11:15)
[2025-01-13] MEDS: VITAMIN D3 (cholecalciferol) 25 MCG PO (11:15)
[2025-01-13] MEDS: PROTONIX 40 MG PO (11:15)
[2025-01-13] MEDS: VITAMIN B-12 1000 MCG PO (11:15)
[2025-01-13] MEDS: MUCINEX 600 MG PO ×2 (11:15→20:26)
[2025-01-13] MEDS: KCL 20 MEQ PO ×2 (11:15→20:25)
[2025-01-13] MEDS: LIDOCAINE 4% PATCH 2 PATCH TOPICAL (11:16)
[2025-01-13] MEDS: TOPROL XL 50 MG PO (11:16)
[2025-01-13] MEDS: FARXIGA 10 MG PO (11:16)
[2025-01-13] MEDS: LASIX 80 MG IV ×2 (11:17→15:32)
[2025-01-13] MEDS: FLUSH (NSS) 1 FLUSH IV (11:18)
--- NOTE | 2025-01-13 12:02 | W.PN.ID1 ---
Date of Service
Date of Service: January 13, 2025
Today's Communication
Continue cefazolin.
Assessment / Plan
# Acute RLE cellulitis, improving
# RLE wound from blister due to leg edema
# Acute CHF exacerbation
# Leukocytosis -
- Wound swab Group G Strep, Proteus, MSSA
- Continue cefazolin.
- GRAHAM-Wrap compression - knee high
-Elevate RLE
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
Diabetes mellitus
Neuropathy
Hypertension
Hypothyroidism
HLD
Paroxysmal atrial fibrillation
HFpEF
CKD 3B
Class III obesity BMI 44
GI bleed
Chief Complaint
-: Cellulitis
Subjective / Review of Systems
c/o RLE wound pain
Vital Signs / Physical Exam
Vital Signs
Vital Signs
Temp Pulse Resp BP Pulse Ox
98.7 F 66 18 120/76 95
01/13/25 07:25 01/13/25 11:00 01/13/25 11:00 01/13/25 11:00 01/13/25 11:00
Physical Exam
Constitutional: No Acute Distress and Comfortable
Cardiovascular: Regular Rate and S1/S2
Pulmonary: Rales
Gastrointestinal: Soft, Non Tender and Non Distended
Extremities: Edema (RLE edema decreasing) and Erythema (RLE erythema darker)
Neurological: AO x 3
Objective Data
Lab Data
Lab Results
01/13/25 06:01
01/13/25 06:01
Estimated Creat Clear 48 ml/min 01/13/25 06:01
Total Bilirubin 0.6 mg/dl (0.2-1.3) 01/08/25 03:32
AST 15 U/L (14-36) 01/08/25 03:32
ALT 10 U/L (0-35) 01/08/25 03:32
Alkaline Phosphatase 142 U/L (38-126) H 01/08/25 03:32
Most recent labs reviewed.
Micro Results:
01/07/25 19:54 Wound Culture - Final
Leg - Right Proteus mirabilis
S aureus-Methicillin Sensitive
Group G Streptococcus
Gram Stain - Final
01/07/25 CXR: Pulmonary edema.
01/08/25 Left Knee XRAY: 1. SEVERE TRICOMPARTMENTAL OSTEOARTHRITIS in the LEFT KNEE. 1.2 cm lateral subluxation of the tibial plateau. Moderate-sized suprapatellar joint effusion. Severe diffuse soft tissue swelling and subcutaneous edema.
01/08/25 Right knee XRAY: VERY SEVERE ARTHRITIS in the PATELLOFEMORAL COMPARTMENT. Moderate to severe arthritis in the medial and lateral compartments of the right knee. 2.0 cm ossific body posterior to the femoral condyles. Small joint effusion.
Severe diffuse subcutaneous edema.
[2025-01-13 13:02] LABS: Glucose - Point of Care 264 mg/dl (70-99)
[2025-01-13] MEDS: NOVOLOG FLEXPEN-LOW RESISTANCE 3 UNITS SC (13:51)
[2025-01-13] MEDS: FLUSH (NSS) 2 FLUSH IV (15:32)
--- NOTE | 2025-01-13 16:55 | CON.PUL ---
Consultation
Consultation Request
Date/Time Consultation Requested: 01/13/2025
Date/Time Consultation Performed: 01/13/2025
Requesting Provider: Dr. Davis
Performing Provider: Dr. Brent Deltaorre
Reason for Consultation: N hypoxemic respiratory insufficiency octurnal
Medical History
-
History of Present Illness:
79-year-old woman with history of GI bleed, anemia, heart failure with preserved ejection fraction, chronic kidney disease stage III, paroxysmal atrial fibrillation, hypertension, hyperlipidemia, diabetes with neuropathy, hypothyroidism, obesity
admitted with acute on chronic heart failure, hypoxemia and right lower extremity cellulitis. Initially admitted 01/07/2025.
Initially required up to 14 L supplemental oxygen now down to 5 to 6 L.
There is noted that the patient does not wear oxygen supplementation at home.
Patient also develops nocturnal hypoxemia suggestive of obstructive sleep apnea. We were consulted for evaluation of this On 01/13/2025.
Past Medical History
Past Medical History: Other (See assessment and plan)
Past Surgical History: Other (See assessment and plan section)
Social History
Tobacco: Non-smoker
Alcohol: None
Drug: None
Family History
Family History: Reviewed & Not Pertinent
Allergies / Home Medications
Allergies
Allergy/AdvReac Type Severity Reaction Status Date / Time
No Known Allergies Allergy Verified 10/02/23 19:53
Home Medications
�Medication �Instructions �Recorded �Confirmed �Last Taken �Type
amiodarone 200 mg tablet (Pacerone) 200 mg PO DAILY Arrhythmia 08/23/21 01/07/25 01/07/25 History
atorvastatin 40 mg tablet 40 mg PO QPM High cholesterol 08/23/21 01/07/25 01/06/25 History
cholecalciferol (vitamin D3) 25 1,000 units PO DAILY Supplement 08/23/21 01/07/25 01/07/25 History
mcg (1,000 unit) tablet
gabapentin 300 mg capsule 300 mg PO HS Neurological Condition 08/23/21 01/07/25 01/06/25 History
magnesium oxide 500 mg PO HS Electrolyte Repletion 08/23/21 01/07/25 10/01/23 History
metformin 500 mg tablet 500 mg PO BID@0800,1700 Diabetes 08/23/21 01/07/25 10/02/23 History
cyanocobalamin (vitamin B-12) 1,000 mcg PO DAILY Supplement 10/02/23 01/07/25 01/07/25 History
1,000 mcg tablet (Vitamin B-12)
empagliflozin 10 mg tablet 10 mg PO DAILY Heart 10/02/23 01/07/25 01/07/25 History
(Jardiance) Failure/Diabetes
omega-3 fatty acids-fish oil 684 1 cap PO DAILY Supplement 10/02/23 01/07/25 10/02/23 History
mg-1,200 mg capsule,delayed release
pantoprazole 40 mg tablet,delayed 40 mg PO DAILY 30 days #30 tabs 10/11/23 01/07/25 Unknown Rx
release
sacubitril 24 mg-valsartan 26 mg 1 tab PO BID #60 tabs 10/12/23 Unknown Rx
tablet (Entresto)
ferrous sulfate 325 mg (65 mg 325 mg PO DAILY Supplement 01/07/25 01/07/25 01/07/25 History
iron) tablet
levothyroxine 137 mcg tablet 137 mcg PO DAILY Thyroid 01/07/25 01/07/25 01/07/25 History
(Synthroid)
linaclotide 145 mcg capsule 145 mcg PO DAILY Gastrointestinal 01/07/25 01/07/25 01/07/25 History
(Linzess) Issue
losartan 25 mg tablet 25 mg PO DAILY Blood Pressure 01/07/25 Unknown History
metoprolol succinate 25 mg 50 mg PO DAILY Heart 01/07/25 01/07/25 01/07/25 History
tablet,extended release 24 hr Disease/Condition
polyethylene glycol 3350 17 gram 17 g PO DAILYPRN PRN constipation 01/07/25 01/07/25 Unknown History
oral powder packet (HealthyLax)
rivaroxaban 20 mg tablet (Xarelto) 20 mg PO QPM Blood Clot 01/07/25 01/07/25 01/06/25 History
Prevention/Tx
torsemide 20 mg tablet 20 mg PO BID Fluid 01/07/25 01/07/25 01/07/25 History
Retention/Swelling
Review of Systems
-
History Source: Patient
All other systems: Negative unless noted
Vitals / Labs / Diagnostic Testing
Vital Signs
Temp Pulse Resp BP Pulse Ox
98.5 F 65 21 138/68 95
01/13/25 11:13 01/13/25 13:00 01/13/25 13:00 01/13/25 13:00 01/13/25 11:00
Lab Data
01/13/25 06:01
01/13/25 06:01
Microbiology
01/07/25 19:54 Leg - Right Wound Culture - Final
Proteus mirabilis
S aureus-Methicillin Sensitive
Group G Streptococcus
01/07/25 19:54 Leg - Right Gram Stain - Final
Diagnostic Testing:
Physical Exam
-
HEENT: Normocephalic
Cardiovascular: S1/S2
Respiratory: Rales
GI: Distended (Obese)
Neurology: Awake, Alert and No Motor Deficits
Skin: Warm and Other (Right lower extremity cellulitis)
General: Comfortable
Assessment
-
79-year-old woman with past medical history noted, admitted to the hospital on 01/07/2025 with hypoxemia, shortness of breath. Chest x-ray showed pulmonary edema. We were consulted for nocturnal hypoxemia
Acute hypoxemic respiratory failure due to pulmonary edema currently on 5 to 6 L
Chest x-ray consistent with pulmonary edema
proBNP 8000
Acute on chronic heart failure with preserved ejection fraction
Nocturnal hypoxemia-suggest obstructive sleep apnea.
VBG without evidence of hypercapnia this admission.
Right lower extremity cellulitis: On antibiotics
Conditions present prior admission
Atrial fibrillation on anticoagulation/amiodarone
Chronic kidney disease stage IIIb
Chronic anemia
Hypertension
Hyperlipidemia
Type 2 diabetes
Diabetic neuropathy
Hypothyroidism
Obesity
GERD
Assessment and plan:
-
Hypoxemic respiratory failure due to heart failure acute on chronic.
Continue cardiac management
Diuresis
Overall oxygenation improving down to 5 to 6 L
-
Nocturnal hypoxemia: Suspect patient has obstructive sleep apnea--patient reports snoring and symptoms suggestive of obstructive sleep apnea.
Worsening nocturnal hypoxemia is compounded by acute heart failure.
Not unreasonable to start empirical CPAP therapy in the hospital 10 cm of water while she recovers offered to patient and she declined, she states that she has tried-CPAP in the past at home from a family member and she could not tolerate. I will
reevaluate tomorrow as she may reconsider.
Eventually can do sleep study in the outpatient setting once patient is euvolemic.
Will test for nocturnal hypoxemia closer to discharge and once patient is euvolemic, would recommend discharge on nocturnal oxygen.
-
Weight loss recommended
VBG does not suggest hypercapnia- no obesity hypoventilation syndrome.
-
Atrial fibrillation: On chronic anticoagulation
Amiodarone
Will need to document complete resolution of bilateral infiltrates after diuresis.
Recommend outpatient pulmonary follow-up.
-
Will follow-up
[2025-01-13] MEDS: NOVOLOG FLEXPEN-LOW RESISTANCE 1 UNITS SC (18:14)
[2025-01-13] MEDS: LIPITOR 40 MG PO (18:14)
[2025-01-13] MEDS: XARELTO 15 MG PO (18:14)
[2025-01-13 18:28] LABS: Glucose - Point of Care 161 mg/dl (70-99)
[2025-01-13] MEDS: NEURONTIN 300 MG PO (20:26)
[2025-01-13] MEDS: MAGNESIUM OXIDE 500 MG PO (20:26)
[2025-01-13 21:42] LABS: Glucose - Point of Care 131 mg/dl (70-99)
[2025-01-14] VITALS (28 sets, daily range): BP systolic 90–142; BP diastolic 43–81; PULSE 59–68; O2SAT 97; BMI 44.2
[2025-01-14 04:45] LABS: Hematocrit 29.6 % (37.0-47.0); Hemoglobin 8.4 g/dL (12.0-16.0); Mean Corp Hgb Conc. 28.4 g/dL (33.0-37.0); Mean Corpuscular Hgb 20.9 pg (27.0-31.0); Mean Corpuscular Volume 73.6 fL (81.0-99.0); Mean Platelet Volume 8.6 fL (7.4-10.4); Platelet Count 252 10^3/uL (130-400); Red Blood Cell Count 4.02 10^6/uL (4.20-5.40); Red Cell Dist. Width 21.8 % (11.5-14.5)
[2025-01-14 05:06] LABS: Blood Urea Nitrogen 31 mg/dl (7-17); Calcium 8.1 mg/dl (8.4-10.2); Carbon Dioxide 38 mmol/L (22-30); Chloride 95 mmol/L (98-107); Estimated Creatinine Clearance 45 ml/min; Glucose 117 mg/dl (70-99); Potassium 4.4 mmol/L (3.5-5.1); Sodium 138 mmol/L (135-145); eGFR 41.57
[2025-01-14] MEDS: SYNTHROID 137 MCG PO (06:21)
[2025-01-14] MEDS: LINZESS 145 MCG PO (06:21)
[2025-01-14] MEDS: ANCEF 10 IV (06:21)
--- NOTE | 2025-01-14 06:33 | PTCARENOTE ---
Pt aaox3. NSR on monitor. Pt satting 93% on 6L NC. RAGINI medications administered. Assessment and vitals as documented. Pt resting in bed with call bo in reach.
[2025-01-14 08:16] LABS: Glucose - Point of Care 147 mg/dl (70-99)
--- NOTE | 2025-01-14 08:48 | W.PN.CARDCBS ---
Today's Communication / Plan
-
Exam difficult but she remains markedly hypoxic. Will add Zaroxolyn today and continue Lasix 80 mg IV twice daily. Check proBNP.
Creatinine overall stable at 1.3. Continue to follow.
She continues to struggle with severe cellulitis of her right lower extremity. Continue antibiotics.
Continue conservative therapy for abnormal EKG.
Echo was reviewed with severe pulm hypertension. This is likely multifactorial. Appreciate pulmonary input
She remains in sinus rhythm. Continue amiodarone and Xarelto.
Impression / Plan
-
PCP: Vanesa Rosa
Primary Production Welder: Dr. Cuello of [facility]
Assessment:
Presentation with SOB, cough, LE edema 01/07/25
Acute hypoxemic respiratory failure
Acute on chronic HFpEF
Abnormal EKG
Leukocytosis
RLE cellulitis
Acute on chronic anemia
Paroxysmal atrial fibrillation
Chronic amiodarone therapy
Chronic Xarelto therapy
Pulm HTN by echo
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
HTN
HLD
DM2 with neuropathy
Hypothyroidism
History of GI bleed with negative EGD/colon 09/2023
ECHO 09/2023: EF 60 to 65%, biatrial enlargement, mildly enlarged RV size, mild with peak/mean gradients 27/13 mmHg, mild to moderate TR, severe pulmonary hypertension with PAP 63 mmHg
Echo January 13, 2025, EF 66%, mild MR, mild to moderate TR, PA pressure 59.
Plan:
-Difficult volume exam, but suspect she is still volume overloaded and would benefit from further diuresis. Check proBNP today.
-Cr remains stable
-Weight is fluctuating and very variable.
-Continue Lasix 80 mg IV twice daily. Will give dose of Zaroxolyn today.
-Wean O2 as able. Patient was not using supplemental oxygen prior to admission.
- Echo with preserved ejection fraction with mild valve disease. Pulmonary pressures were elevated around 60. I suspect this likely multifactorial with sleep apnea, and chronic heart failure with preserved ejection fraction.
-Outpatient dose of Toprol XL 50 mg daily has been continued
-Previously attempted to place on Entresto, but this is not affordable
-Outpatient dose of Jardiance 10 mg daily was changed to Farxiga 10 mg daily for formulary reasons, but should go back to Jardiance at time of D/C
-Patient with abnormal ECG including anterolateral T wave inversion. Troponin undetectable x 2. Will consider outpatient stress test if she remains asymptomatic.
-Patient has known paroxysmal atrial fibrillation, but remains in SR
-Outpatient dose of Xarelto decreased to 15 mg daily this admission for CrCl of 48
-Outpatient dose of amiodarone 200 mg daily continued this admission.
HPI: Patient presented with several weeks of worsening shortness of breath, cough, lower extremity edema with cellulitis. She has heart failure with preserved ejection fraction. proBNP was 8020 and chest x-ray with pulmonary edema. In addition
she is being treated for cellulitis. Initially she was found to be hypoxic on arrival, improved on supplemental oxygen. In addition she does have anemia with history of GI bleed and anemia is more pronounced this hospital stay.
Progress Note - Production Welder
Subjective
Date of Service: January 14, 2025
Still having pain in her right lower extremity with erythema. She denies subjective dyspnea but remains on 8 L of oxygen.
Objective
Labs:
01/14/25 04:00
01/14/25 04:00
Labs
Hgb 8.4 g/dL (12.0-16.0) L 01/14/25 04:00
Hct 29.6 % (37.0-47.0) L 01/14/25 04:00
Plt Count 252 10^3/uL (130-400) 01/14/25 04:00
Sodium 138 mmol/L (135-145) 01/14/25 04:00
Potassium 4.4 mmol/L (3.5-5.1) 01/14/25 04:00
BUN 31 mg/dl (7-17) H 01/14/25 04:00
Creatinine 1.3 mg/dL (0.6-1.0) H 01/14/25 04:00
Glucose 117 mg/dl (70-99) H 01/14/25 04:00
Vital Signs and I&O:
Vital Signs
Temp Pulse Resp BP Pulse Ox
98.1 F 58 19 121/64 93
01/14/25 07:10 01/14/25 06:00 01/14/25 06:00 01/14/25 06:00 01/14/25 06:13
Vital Signs
Temp Pulse Resp BP Pulse Ox
98.1 F 58 19 121/64 93
01/14/25 07:10 01/14/25 06:00 01/14/25 06:00 01/14/25 06:00 01/14/25 06:13
Intake & Output
01/12/25 01/13/25 01/14/25 01/15/25
06:59 06:59 06:59 06:59
Intake Total 720 / 720 1440 / 1440 1575 / 1575
Output Total 3100 / 3100 1950 / 1950 2840 / 2840
Balance -2380 / -2380 -510 / -510 -1265 / -1265
Physical Exam
Physical Exam
GEN: No distress, awake, Ox3
HEENT: supple, anicteric, mmm
LUNGS: Decreased breath sounds at bases
CV: Reg, S1/S2, 1/6 syst LSB, no murmur
ABD: soft, BS+, NT/ND
EXT: Severe right lower extremity erythema
NEURO: Gross non-focal
SKIN: No rash
--- NOTE | 2025-01-14 10:03 | W.PN.PUL3 ---
Today's Communication / Plan
-
Continue diuresis
Continue oxygen supplementation
Incentive spirometry
Eventual radiographic follow-up
Once close to euvolemic then we will perform nocturnal pulse oximetry. Patient refused CPAP therapy
Assessment
-
79-year-old woman with past medical history noted, admitted to the hospital on 01/07/2025 with hypoxemia, shortness of breath. Chest x-ray showed pulmonary edema. We were consulted for nocturnal hypoxemia
Acute hypoxemic respiratory failure due to pulmonary edema currently on 5 to 6 L
Chest x-ray consistent with pulmonary edema
proBNP 8000
Acute on chronic heart failure with preserved ejection fraction
Nocturnal hypoxemia-suggest obstructive sleep apnea.
VBG without evidence of hypercapnia this admission.
Right lower extremity cellulitis: On antibiotics
Conditions present prior admission
Atrial fibrillation on anticoagulation/amiodarone
Chronic kidney disease stage IIIb
Chronic anemia
Hypertension
Hyperlipidemia
Type 2 diabetes
Diabetic neuropathy
Hypothyroidism
Obesity
GERD
Assessment and plan:
-
Hypoxemic respiratory failure due to heart failure acute on chronic.
Continue cardiac management
Diuresis
Overall oxygenation improving down to 4-6 L via nasal cannula
-
Nocturnal hypoxemia: Suspect patient has obstructive sleep apnea--patient reports snoring and symptoms suggestive of obstructive sleep apnea.
Worsening nocturnal hypoxemia is compounded by acute heart failure.
Recommended empirical CPAP. She states that she would not want to use this machine here or in the outpatient setting. She has tried 1 in the past without success.
She understands ramifications of untreated obstructive sleep apnea including cardiovascular risk, stroke etc.
Eventually can do sleep study in the outpatient setting once patient is euvolemic.
While in the hospital: Will test for nocturnal hypoxemia closer to discharge and once patient is euvolemic, would recommend discharge on nocturnal oxygen.
-
Weight loss recommended
VBG does not suggest hypercapnia- no obesity hypoventilation syndrome.
Incentive spirometry encouraged
Avoid sedatives.
-
Atrial fibrillation: On chronic anticoagulation
Amiodarone
Will need to document complete resolution of bilateral infiltrates after diuresis.
Recommend outpatient pulmonary follow-up.
-
Will continue to follow
Subjective Data
-
Date of Service:
Date of Service: January 14, 2025
Chief Complaint: Pulmonary Follow Up (Hypoxemic respiratory failure/nocturnal hypoxia)
Subjective:
Patient offers no new complaints
Remains on supplemental oxygen via nasal cannula
Overall improved since admission
Objective Data
Data Reviewed
Vital Signs / I&O / Oxygen:
Vital Signs
Temp Pulse Resp BP Pulse Ox
98.1 F 58 19 121/64 93
01/14/25 07:10 01/14/25 06:00 01/14/25 06:00 01/14/25 06:00 01/14/25 08:57
Intake and Output
01/13/25 01/14/25 01/15/25
06:59 06:59 06:59
Intake Total 1440 / 1440 1575 / 1575
Output Total 1950 / 1950 2840 / 2840
Balance -510 / -510 -1265 / -1265
SaO2 93
Nasal Cannula flow liters per 6
minute
Physical Exam
General: Comfortable (At rest)
HEENT: Normocephalic
Cardiovascular: S1-S2
Respiratory: Crackles
GI: Distended (Obese) and Non Tender
Neurology: Awake and Alert
Skin: Warm
Labs/Micro/Reports
Lab Data
01/14/25 04:00
01/14/25 04:00
Microbiology
01/07/25 19:54 Leg - Right Wound Culture - Final
Proteus mirabilis
S aureus-Methicillin Sensitive
Group G Streptococcus
01/07/25 19:54 Leg - Right Gram Stain - Final
--- NOTE | 2025-01-14 10:05 | W.PN.HOSP.TC ---
Today's Communication/Plan
-
see bold
Assessment / Plan
Assessment / Plan
79F Chronic GIB Aneamia HFpEF CKD3 pAfib HTN HLD DM neuropathy Hypothyroid Obesity here for acute on chronic HFpEF with associate respiratory failure and RLE cellulitis.
# Acute hypoxemic respiratory failure secondary to acute on chronic HFpEF exacerbation
Echocardiogram with ejection fraction of 60-65%
Improved, initially required 14 L of oxygen, now requiring 5-6 L
Wean as tolerated, she does not wear oxygen at home
Cardiology following, continue IV Lasix, cardiology added Zaroxolyn today
Trend creatinine, trend daily weights
#Worsening nocturnal hypoxia
#Probable obstructive sleep apnea
Suspicious for obstructive sleep apnea
Appreciate pulmonology input, recommend trial of CPAP
Patient agreeable for CPAP, it has been ordered for tonight
#Hypokalemia
Magnesium normal
Continue scheduled 20 mEQ K BID w/ holding parameters K>5
# Right lower extremity wound with surrounding cellulitis
Ultrasound negative for DVT
Initially treated with Ancef, then transition to Zosyn
Appreciate ID input, Zosyn changed to Rocephin, Rocephin now changed to Ancef
Ancef changed to cephalexin 1 g p.o. every 8 hours through 01/20/2025
ID signed off
#Severe constipation
Start aggressive bowel regiment, give Dulcolax suppository x 1
Continue Linzess
#Bilateral knee pain, reported fall prior to admission
Bilateral x-rays show severe arthritis, no fracture or dislocation
Suspect sprain, with possible ligament injury
Continue supportive care, pain control, PT/OT recommend short-term rehab
Paroxysmal atrial fibrillation
- Continue Xarelto renal dosing
- Continue metoprolol
- Continue amiodarone
CKD 3B
- Renal function at baseline, monitor creatinine with diuresis
Chronic anemia
Severe Iron deficiency Anemia
-Hemoglobin dipped to 7.1, she received 1 unit packed red blood cells on 01/10/2025
-Hemoglobin improved to >8, continue to trend, transfuse as needed
-Status post IV iron this hospital admission
Essential hypertension
Hyperlipidemia
- Continue statin
Type 2 diabetes
- Hold metformin
- cont Farxiga
- Insulin sliding scale
Diabetic neuropathy
- Continue gabapentin
Hypothyroidism
- Continue levothyroxine
Obesity
GERD
- Continue Protonix
DVT prophylaxis�Xarelto
Full code
Updated daughter at bedside 01/14/2025
Total time spent to see the patient on the floor, examine the patient, review data and lab results, discuss treatment plan with patient, nursing staff around 51 minutes.
Physical Exam
General: Morbidly obese, no acute distress
HEENT: Normocephalic, Atraumatic, EOMI, MMM
Respiratory: Bibasilar crackles
Cardiac: Normal S1/S2, Regular Rate and Rhythm
GI: Soft, Nontender, Nondistended, Normal Bowel Sounds
Extremities: No Clubbing, Cyanosis
Severe right lower extremity edema, erythema, and tenderness
Left lower extremity edema improving
Anticipated Discharge: 24 - 48 hours
Subjective/Interval History
-
Date of Service: January 14, 2025
Patient reports breathing is improved. She denies shortness of breath at rest. Continues to complain of right leg pain, and swelling. No fever, no vomiting.
She complains of severe constipation, no bowel movement for 1 week.
Objective Data
-
Labs:
Laboratory Results
01/14/25
04:00
WBC 13.0 H
Hgb 8.4 L
Hct 29.6 L
Plt Count 252
Sodium 138
Potassium 4.4
Chloride 95 L
Carbon Dioxide 38 H
BUN 31 H
Creatinine 1.3 H
Glucose 117 H
Calcium 8.1 L
Vital Signs:
Vital Signs
Temp Pulse Resp BP Pulse Ox
98.1 F 58 19 121/64 93
01/14/25 07:10 01/14/25 06:00 01/14/25 06:00 01/14/25 06:00 01/14/25 08:57
I&O
01/13/25 01/14/25 01/15/25
06:59 06:59 06:59
Intake Total 1440 / 1440 1575 / 1575
Output Total 1950 / 1950 2840 / 2840
Balance -510 / -510 -1265 / -1265
[2025-01-14] MEDS: LASIX 80 MG IV ×2 (10:35→17:10)
[2025-01-14] MEDS: NOVOLOG FLEXPEN-LOW RESISTANCE SC (10:35)
[2025-01-14] MEDS: FARXIGA 10 MG PO (10:52)
[2025-01-14] MEDS: MUCINEX 600 MG PO ×2 (10:53→20:18)
[2025-01-14] MEDS: PACERONE 200 MG PO (10:53)
[2025-01-14] MEDS: MIRALAX 17 GRAMS PO (10:53)
[2025-01-14] MEDS: KCL 20 MEQ PO ×2 (10:53→20:18)
[2025-01-14] MEDS: PROTONIX 40 MG PO (10:53)
[2025-01-14] MEDS: TOPROL XL 50 MG PO (10:53)
[2025-01-14] MEDS: LIDOCAINE 4% PATCH 2 PATCH TOPICAL (10:54)
[2025-01-14] MEDS: VITAMIN D3 (cholecalciferol) 25 MCG PO (10:56)
[2025-01-14] MEDS: VITAMIN B-12 1000 MCG PO (10:56)
[2025-01-14 11:39] LABS: NT-proBNP 2540 pg/ml
--- NOTE | 2025-01-14 12:05 | W.PN.ID1 ---
Date of Service
Date of Service: January 14, 2025
Today's Communication
- Transition cefazolin to cephalexin 1000mg po q8h through 01/20/25
-ID will sign off. Call prn.
Assessment / Plan
# Acute RLE cellulitis, improving
# RLE wounds from blister due to leg edema
# Acute CHF exacerbation
# Leukocytosis stable
#Class III obesity BMI 44
- Wound swab Group G Strep, Proteus, MSSA
-Continue wound care
- GRAHAM-Wrap compression - knee high
-Elevate RLE
- Transition cefazolin to cephalexin 1000mg po q8h through 01/20/25
-ID will sign off.
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
Diabetes mellitus
Neuropathy
Hypertension
Hypothyroidism
HLD
Paroxysmal atrial fibrillation
HFpEF
CKD 3B
Class III obesity BMI 44
GI bleed
Chief Complaint
-: Cellulitis
Subjective / Review of Systems
No new complaints.
Vital Signs / Physical Exam
Vital Signs
Vital Signs
Temp Pulse Resp BP Pulse Ox
98.1 F 62 19 112/58 93
01/14/25 07:10 01/14/25 10:35 01/14/25 06:00 01/14/25 10:35 01/14/25 08:57
Physical Exam
Constitutional: No Acute Distress and Comfortable
Pulmonary: Rales
Gastrointestinal: Soft, Non Tender and Non Distended
Extremities: Edema (RLE edema decreasing) and Erythema (RLE erythema decreasing, darker)
Wound: Other (Blister distal RLE draining serous fluid. RLE charles wound serous drainage. )
Objective Data
Lab Data
Lab Results
01/14/25 04:00
01/14/25 04:00
Estimated Creat Clear 45 ml/min 01/14/25 04:00
Total Bilirubin 0.6 mg/dl (0.2-1.3) 01/08/25 03:32
AST 15 U/L (14-36) 01/08/25 03:32
ALT 10 U/L (0-35) 01/08/25 03:32
Alkaline Phosphatase 142 U/L (38-126) H 01/08/25 03:32
Most recent labs reviewed.
Micro Results:
01/07/25 19:54 Wound Culture - Final
Leg - Right Proteus mirabilis
S aureus-Methicillin Sensitive
Group G Streptococcus
Gram Stain - Final
01/07/25 CXR: Pulmonary edema.
01/08/25 Left Knee XRAY: 1. SEVERE TRICOMPARTMENTAL OSTEOARTHRITIS in the LEFT KNEE. 1.2 cm lateral subluxation of the tibial plateau. Moderate-sized suprapatellar joint effusion. Severe diffuse soft tissue swelling and subcutaneous edema.
01/08/25 Right knee XRAY: VERY SEVERE ARTHRITIS in the PATELLOFEMORAL COMPARTMENT. Moderate to severe arthritis in the medial and lateral compartments of the right knee. 2.0 cm ossific body posterior to the femoral condyles. Small joint effusion.
Severe diffuse subcutaneous edema.
[2025-01-14] MEDS: SENOKOT-S 2 TABLET PO ×2 (12:29→20:18)
[2025-01-14] MEDS: DULCOLAX 10 MG RECTAL (12:30)
[2025-01-14 14:47] LABS: Glucose - Point of Care 153 mg/dl (70-99)
[2025-01-14] MEDS: NOVOLOG FLEXPEN-LOW RESISTANCE 1 UNITS SC ×2 (14:54→17:42)
[2025-01-14] MEDS: ULTRAM 25 MG PO (14:55)
[2025-01-14] MEDS: KEFLEX 1000 MG PO ×2 (14:55→20:18)
--- NOTE | 2025-01-14 17:00 | PTCARENOTE ---
Patient out of bed to chair today. Heavy assist x2 with rolling walker. Patient had very large soft BM on commode today. Patient right leg with cellulitis red and warm. Leg appears more swollen today. Patient complaining of increased pain in
right leg today. Medicated patient with pain medication as ordered. Right erna leg wound dressing done today. Moderate amount of drainage noted. Wrapped leg in garland wrap for compression.
[2025-01-14] MEDS: ZAROXOLYN 2.5 MG PO (17:09)
[2025-01-14] MEDS: TYLENOL 650 MG PO (17:11)
[2025-01-14] MEDS: XARELTO 15 MG PO (17:12)
[2025-01-14] MEDS: LIPITOR 40 MG PO (17:12)
[2025-01-14 17:45] LABS: Glucose - Point of Care 187 mg/dl (70-99)
[2025-01-14] MEDS: MAGNESIUM OXIDE 500 MG PO (20:18)
[2025-01-14] MEDS: NEURONTIN 300 MG PO (20:18)
[2025-01-14 21:58] LABS: Glucose - Point of Care 154 mg/dl (70-99)
[2025-01-15] VITALS (19 sets, daily range): BP systolic 90–131; BP diastolic 39–104; PULSE 58–59; O2SAT 96–97; BMI 44.0
[2025-01-15 04:55] LABS: Hematocrit 28.1 % (37.0-47.0); Hemoglobin 8.2 g/dL (12.0-16.0); Mean Corp Hgb Conc. 29.2 g/dL (33.0-37.0); Mean Corpuscular Hgb 21.2 pg (27.0-31.0); Mean Corpuscular Volume 72.6 fL (81.0-99.0); Mean Platelet Volume 8.5 fL (7.4-10.4); Platelet Count 251 10^3/uL (130-400); Red Blood Cell Count 3.87 10^6/uL (4.20-5.40); Red Cell Dist. Width 21.8 % (11.5-14.5); White Blood Cell Count 12.8 10^3/uL (4.8-10.8)
[2025-01-15 05:25] LABS: Blood Urea Nitrogen 36 mg/dl (7-17); Calcium 8.1 mg/dl (8.4-10.2); Carbon Dioxide 37 mmol/L (22-30); Chloride 93 mmol/L (98-107); Estimated Creatinine Clearance 45 ml/min; Glucose 115 mg/dl (70-99); Potassium 4.2 mmol/L (3.5-5.1); Sodium 133 mmol/L (135-145); eGFR 41.57
[2025-01-15] MEDS: SYNTHROID 137 MCG PO (05:41)
[2025-01-15] MEDS: LINZESS 145 MCG PO (05:41)
[2025-01-15] MEDS: KEFLEX 1000 MG PO ×3 (05:41→20:20)
[2025-01-15] MEDS: TYLENOL 650 MG PO (05:41)
--- NOTE | 2025-01-15 06:15 | PTCARENOTE ---
No acute events overnight. Remains on 6 liters.
--- NOTE | 2025-01-15 07:57 | PTCARENOTE ---
on rounds pt sleeping. Purewick in place. Pt has RLE cellulitis , wound care consulted. Pt SB to a NSR. ACCU check AC and Hs
[2025-01-15 08:07] LABS: Glucose - Point of Care 144 mg/dl (70-99)
[2025-01-15] MEDS: KCL 20 MEQ PO ×2 (08:34→20:20)
[2025-01-15] MEDS: PROTONIX 40 MG PO (08:34)
[2025-01-15] MEDS: SENOKOT-S 2 TABLET PO ×2 (08:35→20:20)
[2025-01-15] MEDS: TOPROL XL PO (08:35)
[2025-01-15] MEDS: PACERONE 200 MG PO (08:35)
[2025-01-15] MEDS: ZAROXOLYN 2.5 MG PO (08:36)
[2025-01-15] MEDS: VITAMIN D3 (cholecalciferol) 25 MCG PO (08:36)
[2025-01-15] MEDS: MUCINEX 600 MG PO ×2 (08:36→20:20)
[2025-01-15] MEDS: MIRALAX 17 GRAMS PO (08:37)
[2025-01-15] MEDS: LIDOCAINE 4% PATCH 2 PATCH TOPICAL (08:37)
--- NOTE | 2025-01-15 08:52 | W.PN.HOSP.TC ---
Today's Communication/Plan
-
see bold
Assessment / Plan
Assessment / Plan
79F Chronic GIB Aneamia HFpEF CKD3 pAfib HTN HLD DM neuropathy Hypothyroid Obesity here for acute on chronic HFpEF with associate respiratory failure and RLE cellulitis.
# Acute hypoxemic respiratory failure secondary to acute on chronic HFpEF exacerbation
Echocardiogram with ejection fraction of 60-65%
Improved, initially required 14 L of oxygen, now requiring 4L
Wean as tolerated, she does not wear oxygen at home
Cardiology following, continue IV Lasix, cardiology added Zaroxolyn 2.5 mg daily on 01/14
Trend creatinine, trend daily weights
#Worsening nocturnal hypoxia
#Probable obstructive sleep apnea
Suspicious for obstructive sleep apnea
Appreciate pulmonology input, recommend trial of CPAP
Patient tried CPAP on the evening of 01/14, but did not tolerate
Needs a nocturnal oximetry testing when volume status has been optimized
Follow-up with pulmonology in the office for sleep study
#Hypokalemia
Magnesium normal
Continue scheduled 20 mEQ K BID w/ holding parameters K>5
# Right lower extremity wound with surrounding cellulitis
Wound swab Group G Strep, Proteus, MSSA
Ultrasound negative for DVT
Initially treated with Ancef, then transition to Zosyn
Appreciate ID input, Zosyn changed to Rocephin, Rocephin now changed to Ancef
Ancef changed to cephalexin 1 g p.o. every 8 hours through 01/20/2025
ID signed off
#Severe constipation
Resolved, continue aggressive bowel regimen
Continue Linzess
#Bilateral knee pain, reported fall prior to admission
Bilateral x-rays show severe arthritis, no fracture or dislocation
Suspect sprain, with possible ligament injury
Continue supportive care, pain control, PT/OT recommend short-term rehab, [facility]
Paroxysmal atrial fibrillation
- Continue Xarelto renal dosing
- Continue metoprolol
- Continue amiodarone
CKD 3B
- Renal function at baseline, monitor creatinine with diuresis
Chronic anemia
Severe Iron deficiency Anemia
-Hemoglobin dipped to 7.1, she received 1 unit packed red blood cells on 01/10/2025
-Hemoglobin improved to >8, continue to trend, transfuse as needed
-Status post IV iron this hospital admission
Essential hypertension
Hyperlipidemia
- Continue statin
Type 2 diabetes
- Hold metformin
- cont Farxiga
- Insulin sliding scale
Diabetic neuropathy
- Continue gabapentin
Hypothyroidism
- Continue levothyroxine
Obesity
GERD
- Continue Protonix
DVT prophylaxis�Xarelto
Full code
Updated daughter at bedside 01/14/2025
Total time spent to see the patient on the floor, examine the patient, review data and lab results, discuss treatment plan with patient, nursing staff around 50 minutes.
Physical Exam
General: Morbidly obese, no acute distress
HEENT: Normocephalic, Atraumatic, EOMI, MMM
Respiratory: Bibasilar crackles
Cardiac: Normal S1/S2, Regular Rate and Rhythm
GI: Soft, Nontender, Nondistended, Normal Bowel Sounds
Extremities: No Clubbing, Cyanosis
Severe right lower extremity edema, erythema, and tenderness
Left lower extremity edema improving
Anticipated Discharge: > 48 hours
Subjective/Interval History
-
Date of Service: January 15, 2025
Patient reports her breathing has improved. Also reports her right lower extremity pain has improved. She states she was not able to tolerate CPAP. She wore it for 2 hours, and could not sleep. No fever, no vomiting.
Objective Data
-
Labs:
Laboratory Results
01/15/25
04:48
WBC 12.8 H
Hgb 8.2 L
Hct 28.1 L
Plt Count 251
Sodium 133 L
Potassium 4.2
Chloride 93 L
Carbon Dioxide 37 H
BUN 36 H
Creatinine 1.3 H
Glucose 115 H
Calcium 8.1 L
Vital Signs:
Vital Signs
Temp Pulse Resp BP Pulse Ox
97.8 F 54 17 111/44 95
01/15/25 07:30 01/15/25 08:36 01/15/25 06:00 01/15/25 08:36 01/15/25 06:00
I&O
01/14/25 01/15/25 01/16/25
06:59 06:59 06:59
Intake Total 1575 / 1575 1385 / 1385
Output Total 2840 / 2840 1720 / 1720
Balance -1265 / -1265 -335 / -335
[2025-01-15] MEDS: LASIX 80 MG IV ×2 (09:21→17:20)
[2025-01-15] MEDS: NOVOLOG FLEXPEN-LOW RESISTANCE SC ×2 (09:25→17:12)
--- NOTE | 2025-01-15 09:28 | W.PN.CARDCBS ---
Today's Communication / Plan
-
Continue antibiotics and wound care for cellulitis
Remains volume overloaded we will continue IV Lasix plus Zaroxolyn. Creatinine stable at 1.3
proBNP is improved and down to 2500
I suspect her hypoxemia is multifactorial. Hopefully try to wean oxygen.
Having some bradycardia. Decrease Toprol to 25 mg daily. Continue amiodarone and Xarelto
Impression / Plan
-
PCP: Vanesa Rosa
Primary Director Prison: Dr. Cuello of [facility]
Assessment:
Presentation with SOB, cough, LE edema 01/07/25
Acute hypoxemic respiratory failure
Acute on chronic HFpEF
Abnormal EKG
Leukocytosis
RLE cellulitis
Acute on chronic anemia
Paroxysmal atrial fibrillation
Chronic amiodarone therapy
Chronic Xarelto therapy
Pulm HTN by echo
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
HTN
HLD
DM2 with neuropathy
Hypothyroidism
History of GI bleed with negative EGD/colon 09/2023
ECHO 09/2023: EF 60 to 65%, biatrial enlargement, mildly enlarged RV size, mild with peak/mean gradients 27/13 mmHg, mild to moderate TR, severe pulmonary hypertension with PAP 63 mmHg
Echo January 13, 2025, EF 66%, mild MR, mild to moderate TR, PA pressure 59.
Plan:
-proBNP is improved she has diuresed. Weight continues to slowly improve.
-Continue Lasix 80 mg IV twice daily and Xarelto for another 24 hours. Creatinine overall stable at 1.3.
-Wean O2 as able. Patient was not using supplemental oxygen prior to admission. She remains on significant doses of oxygen.
- Echo with preserved ejection fraction with mild valve disease. Pulmonary pressures were elevated around 60. I suspect this likely multifactorial with sleep apnea, and chronic heart failure with preserved ejection fraction.
-Remains in sinus rhythm but having some bradycardia. Will decrease Toprol to 25 mg daily. Hold Toprol for today. Continue amiodarone
-Continue antibiotics and wound care for cellulitis
-Previously attempted to place on Entresto, but this is not affordable
-Outpatient dose of Jardiance 10 mg daily was changed to Farxiga 10 mg daily for formulary reasons, but should go back to Jardiance at time of D/C
-Patient with abnormal ECG including anterolateral T wave inversion. Troponin undetectable x 2. Will consider outpatient stress test if she remains asymptomatic.
-Outpatient dose of Xarelto decreased to 15 mg daily this admission for CrCl of 48
-Outpatient dose of amiodarone 200 mg daily continued this admission.
HPI: Patient presented with several weeks of worsening shortness of breath, cough, lower extremity edema with cellulitis. She has heart failure with preserved ejection fraction. proBNP was 8020 and chest x-ray with pulmonary edema. In addition
she is being treated for cellulitis. Initially she was found to be hypoxic on arrival, improved on supplemental oxygen. In addition she does have anemia with history of GI bleed and anemia is more pronounced this hospital stay.
Progress Note - Director Prison
Subjective
Date of Service: January 15, 2025
Overall feeling better. Denies significant shortness of breath. Remains in sinus with some bradycardia.
Objective
Labs:
01/15/25 04:48
01/15/25 04:48
Labs
Hgb 8.2 g/dL (12.0-16.0) L 01/15/25 04:48
Hct 28.1 % (37.0-47.0) L 01/15/25 04:48
Plt Count 251 10^3/uL (130-400) 01/15/25 04:48
Sodium 133 mmol/L (135-145) L 01/15/25 04:48
Potassium 4.2 mmol/L (3.5-5.1) 01/15/25 04:48
BUN 36 mg/dl (7-17) H 01/15/25 04:48
Creatinine 1.3 mg/dL (0.6-1.0) H 01/15/25 04:48
Glucose 115 mg/dl (70-99) H 01/15/25 04:48
Vital Signs and I&O:
Vital Signs
Temp Pulse Resp BP Pulse Ox
97.8 F 60 17 119/54 95
01/15/25 07:30 01/15/25 09:21 01/15/25 06:00 01/15/25 09:21 01/15/25 06:00
Vital Signs
Temp Pulse Resp BP Pulse Ox
97.8 F 60 17 119/54 95
01/15/25 07:30 01/15/25 09:21 01/15/25 06:00 01/15/25 09:21 01/15/25 06:00
Intake & Output
01/13/25 01/14/25 01/15/25 01/16/25
06:59 06:59 06:59 06:59
Intake Total 1440 / 1440 1575 / 1575 1385 / 1385
Output Total 1950 / 1950 2840 / 2840 1720 / 1720
Balance -510 / -510 -1265 / -1265 -335 / -335
Physical Exam
Physical Exam
GEN: No distress, awake, Ox3
HEENT: supple, anicteric, mmm
LUNGS: CTA, no wheezes/rales
CV: Reg, S1/S2, 1/6 syst LSB, no gallop
ABD: soft, BS+, NT/ND
EXT: Right lower extremity erythema
NEURO: Gross non-focal
SKIN: No rash
--- NOTE | 2025-01-15 10:45 | WOUNDNOTE ---
RIGHT POSTERIOR LEG WOUND
--- NOTE | 2025-01-15 10:46 | WOUNDNOTE ---
RIGHT POSTERIOR LEG WOUND
--- NOTE | 2025-01-15 10:46 | WOUNDNOTE ---
RIGHT POSTERIOR LEG WOUND
--- NOTE | 2025-01-15 10:47 | WOUNDNOTE ---
RIGHT ANTERIOR LEG WOUND
--- NOTE | 2025-01-15 10:47 | WOUNDNOTE ---
LEFT LATERAL LEG WOUNDS
--- NOTE | 2025-01-15 10:58 | WOUNDNOTE ---
[facility] RN note: Patient admitted with weakness, right LE cellulitis
See H&P for complete history.
PMH: Per Physician note, chronic GI bleeding, anemia, chronic HFpEF, CKD 3B, paroxysmal atrial fibrillation, hypertension, hyperlipidemia, type 2 diabetes, diabetic neuropathy, hypothyroidism, obesity.
Wound Location and type/assessment: Patient with right LE cellulitis. Right lower leg with erythema and anterior and posterior wounds. The posterior wound was a blister that opened recently. There is some adherent slough covered by blistered skin
to the posterior leg. See worklist for description and measurements for more details. No odor noted. Wound care and and compression orders were previously ordered by Dr. Barreto. Heels and sacrum intact. Patient states she ambulates with a walker at
home and lives alone.
Appetite: Good
Pressure redistribution devices in place: Centrella Max Air, heels off-loaded with pillows under calves.
Plan: Local wound care provided as ordered. TT and sent pictures of wounds to Dr. Davis and Dr. Barreto. Both made aware of adherent slough and necrotic appearing tissue under right posterior leg blister. Compression applied as ordered. Will confirm
orders with hospitalist and update nurse. Updated care plan and will follow as needed.
Note to case management of equipment requested for discharge:
Recommend follow up at wound care center upon discharge.
[2025-01-15 11:47] LABS: Glucose - Point of Care 171 mg/dl (70-99)
[2025-01-15] MEDS: NOVOLOG FLEXPEN-LOW RESISTANCE 1 UNITS SC (12:13)
--- NOTE | 2025-01-15 12:18 | W.PN.PUL3 ---
Today's Communication / Plan
-
Eventual nocturnal hypoxemia once acute hypoxemia from heart failure improved.
Outpatient pulmonary follow-up for sleep study
If patient is here on Saturday we will see again to coordinate.
Assessment
-
79-year-old woman with past medical history noted, admitted to the hospital on 01/07/2025 with hypoxemia, shortness of breath. Chest x-ray showed pulmonary edema. We were consulted for nocturnal hypoxemia
Acute hypoxemic respiratory failure due to pulmonary edema currently on 5 to 6 L
Chest x-ray consistent with pulmonary edema
proBNP 8000
Acute on chronic heart failure with preserved ejection fraction
Nocturnal hypoxemia-suggest obstructive sleep apnea.
VBG without evidence of hypercapnia this admission.
Right lower extremity cellulitis: On antibiotics
Conditions present prior admission
Atrial fibrillation on anticoagulation/amiodarone
Chronic kidney disease stage IIIb
Chronic anemia
Hypertension
Hyperlipidemia
Type 2 diabetes
Diabetic neuropathy
Hypothyroidism
Obesity
GERD
Assessment and plan:
-
Hypoxemic respiratory failure due to heart failure acute on chronic.
Continue cardiac management
Diuresis per primary team and cardiology
Overall oxygenation improving down to 4-6 L via nasal cannula-is slowly improving.
-
Nocturnal hypoxemia: Suspect patient has obstructive sleep apnea--patient reports snoring and symptoms suggestive of obstructive sleep apnea.
Worsening nocturnal hypoxemia is compounded by acute heart failure.
Initially patient refusing empirical CPAP as she reported being claustrophobic.
She understands ramifications of untreated obstructive sleep apnea including cardiovascular risk, stroke etc.
Eventually can do sleep study in the outpatient setting once patient is euvolemic.
Patient try CPAP during this hospital stay did not tolerate due to claustrophobia.
While in the hospital: Will test for nocturnal hypoxemia closer to discharge and once patient is euvolemic, would recommend discharge on nocturnal oxygen.
-
Weight loss recommended
VBG does not suggest hypercapnia- no obesity hypoventilation syndrome.
Incentive spirometry encouraged
Avoid sedatives.
-
Atrial fibrillation: On chronic anticoagulation
Amiodarone
Will need to document complete resolution of bilateral infiltrates after diuresis.
Recommend outpatient pulmonary follow-up.
-
Will see again on Saturday-information will be left in the chart to follow-up.
Subjective Data
-
Date of Service:
Date of Service: January 15, 2025
Chief Complaint: Pulmonary Follow Up (Hypoxemic respiratory failure/nocturnal hypoxia)
Subjective:
Claustrophobic with CPAP
Remains on oxygen supplementation
Review of Systems
Cardiopulmonary: Dyspnea (Improving)
Objective Data
Data Reviewed
Vital Signs / I&O / Oxygen:
Vital Signs
Temp Pulse Resp BP Pulse Ox
98.4 F 60 17 119/54 95
01/15/25 11:11 01/15/25 09:21 01/15/25 06:00 01/15/25 09:21 01/15/25 06:00
Intake and Output
01/14/25 01/15/25 01/16/25
06:59 06:59 06:59
Intake Total 1575 / 1575 1385 / 1385
Output Total 2840 / 2840 1720 / 1720
Balance -1265 / -1265 -335 / -335
SaO2 95
Nasal Cannula flow liters per 6
minute
Physical Exam
General: Comfortable (At rest)
HEENT: Normocephalic
Cardiovascular: S1-S2
Respiratory: Crackles
GI: Distended (Obese) and Non Tender
Neurology: Awake and Alert
Skin: Warm
Labs/Micro/Reports
Lab Data
01/15/25 04:48
01/15/25 04:48
Microbiology
01/07/25 19:54 Leg - Right Wound Culture - Final
Proteus mirabilis
S aureus-Methicillin Sensitive
Group G Streptococcus
01/07/25 19:54 Leg - Right Gram Stain - Final
[2025-01-15] MEDS: FARXIGA 10 MG PO (13:11)
[2025-01-15] MEDS: VITAMIN B-12 1000 MCG PO (13:11)
--- NOTE | 2025-01-15 13:15 | PTCARENOTE ---
Cards aware that Metoprol was held this am due to low HR of 54. 2AM mes late due to not available waited for pharmacy
--- NOTE | 2025-01-15 14:33 | CM ---
Patient with Dx Acute hypoxemic respiratory failure secondary to acute on chronic HF, Worsening nocturnal hypoxia, RLE wound with surrounding cellulitis.
Messages from Dr Davis; patient may be ready for d/c on Mon 01/18.
Met with patient and daughter Tod; patient and daughter agree to short term SNF for rehab at [facility] when medically ready for d/c.
Spoke with Shaye Chanel;
she is interested in accepting the patient however concerned due to potential cost of some of patient's meds.
[place] checks done via Amb Orders for meds Moira Diggs wanted checked, Entresto, Xarelto, Jardiance and Farxiga; all are covered with no out of pocket cost.
She will review and decide if can accept.
Plan follow up with Moira Diggs for acceptance.
--- NOTE | 2025-01-15 14:41 | W.PN.ID1 ---
Date of Service
Date of Service: January 15, 2025
Today's Communication
Continue antibiotics. Continue Hector wrap's.
Assessment / Plan
# Acute RLE cellulitis
# RLE wounds from blister due to leg edema
# Acute CHF exacerbation
# Leukocytosis stable
#Class III obesity BMI 44
- Wound swab Group G Strep, Proteus, MSSA
- Continue wound care
- Continue HECTOR-Wrap compression - knee high
- Elevate RLE as possible
- Continue cephalexin 1000mg po q8h through 01/20/25
- Will continue to monitor wound. Local care to the area.
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
Diabetes mellitus
Neuropathy
Hypertension
Hypothyroidism
HLD
Paroxysmal atrial fibrillation
HFpEF
CKD 3B
Class III obesity BMI 44
GI bleed
Chief Complaint
-: Cellulitis
Subjective / Review of Systems
Patient seen and examined. Notified by staff earlier today that a right lower extremity bullae spontaneously broke, revealing the presence of 'purulent' fluid.
Review of Systems: No Fever
Vital Signs / Physical Exam
Vital Signs
Vital Signs
Temp Pulse Resp BP Pulse Ox
98.4 F 61 20 121/61 96
01/15/25 11:11 01/15/25 14:00 01/15/25 14:00 01/15/25 12:00 01/15/25 14:00
Physical Exam
Constitutional: No Acute Distress and Comfortable
Pulmonary: Rales
Gastrointestinal: Soft, Non Tender and Non Distended
Extremities: Edema (RLE edema noted) and Erythema (RLE erythema noted)
Wound: Other (Blister distal RLE no longer present. No appreciable purulence. Serous drainage only. RLE charles wound serous drainage. )
Neurological: Awake and Alert
Psychological: Calm
Objective Data
Lab Data
Lab Results
01/15/25 04:48
01/15/25 04:48
Estimated Creat Clear 45 ml/min 01/15/25 04:48
Total Bilirubin 0.6 mg/dl (0.2-1.3) 01/08/25 03:32
AST 15 U/L (14-36) 01/08/25 03:32
ALT 10 U/L (0-35) 01/08/25 03:32
Alkaline Phosphatase 142 U/L (38-126) H 01/08/25 03:32
Most recent labs reviewed.
Micro Results:
01/07/25 19:54 Wound Culture - Final
Leg - Right Proteus mirabilis
S aureus-Methicillin Sensitive
Group G Streptococcus
Gram Stain - Final
01/07/25 CXR: Pulmonary edema.
01/08/25 Left Knee XRAY: 1. SEVERE TRICOMPARTMENTAL OSTEOARTHRITIS in the LEFT KNEE. 1.2 cm lateral subluxation of the tibial plateau. Moderate-sized suprapatellar joint effusion. Severe diffuse soft tissue swelling and subcutaneous edema.
01/08/25 Right knee XRAY: VERY SEVERE ARTHRITIS in the PATELLOFEMORAL COMPARTMENT. Moderate to severe arthritis in the medial and lateral compartments of the right knee. 2.0 cm ossific body posterior to the femoral condyles. Small joint effusion.
Severe diffuse subcutaneous edema.
Care Review
Plan reviewed with: Nurse
[2025-01-15 16:58] LABS: Glucose - Point of Care 148 mg/dl (70-99)
[2025-01-15] MEDS: LIPITOR 40 MG PO (17:20)
[2025-01-15] MEDS: XARELTO 15 MG PO (17:28)
[2025-01-15] MEDS: ULTRAM 25 MG PO (20:19)
[2025-01-15] MEDS: MAGNESIUM OXIDE 500 MG PO (20:20)
[2025-01-15] MEDS: NEURONTIN 300 MG PO (20:20)
[2025-01-15 21:42] LABS: Glucose - Point of Care 170 mg/dl (70-99)
[2025-01-15] MEDS: ROBITUSSIN 200 MG PO (22:49)
[2025-01-16] VITALS (23 sets, daily range): BP systolic 100–148; BP diastolic 51–137; BMI 43.5
--- NOTE | 2025-01-16 00:43 | PTCARENOTE ---
Patient aaox3 but can be forgetful. NSR on monitor. Patient on 4L NC. Patient complaining of cough, PRN Robitussin given. purewick in place draining yellow urine. assessment and vital signs as documented. call b bo in reach.
[2025-01-16 04:44] LABS: Hematocrit 28.8 % (37.0-47.0); Hemoglobin 8.4 g/dL (12.0-16.0); Mean Corp Hgb Conc. 29.2 g/dL (33.0-37.0); Mean Corpuscular Hgb 21.1 pg (27.0-31.0); Mean Corpuscular Volume 72.2 fL (81.0-99.0); Mean Platelet Volume 8.4 fL (7.4-10.4); Platelet Count 260 10^3/uL (130-400); Red Blood Cell Count 3.99 10^6/uL (4.20-5.40); Red Cell Dist. Width 22.1 % (11.5-14.5); White Blood Cell Count 9.9 10^3/uL (4.8-10.8)
[2025-01-16 04:59] LABS: Blood Urea Nitrogen 42 mg/dl (7-17); Calcium 8.2 mg/dl (8.4-10.2); Carbon Dioxide 38 mmol/L (22-30); Chloride 88 mmol/L (98-107); Estimated Creatinine Clearance 41 ml/min; Glucose 135 mg/dl (70-99); Magnesium 2.6 mg/dl (1.6-2.3); Potassium 3.5 mmol/L (3.5-5.1); Sodium 133 mmol/L (135-145); eGFR 38.03
[2025-01-16] MEDS: SYNTHROID 137 MCG PO (05:29)
[2025-01-16] MEDS: LINZESS 145 MCG PO (05:29)
[2025-01-16] MEDS: KEFLEX 1000 MG PO ×3 (05:29→20:14)
--- NOTE | 2025-01-16 08:03 | W.PN.HOSP.TC ---
Today's Communication/Plan
-
see bold
Assessment / Plan
Assessment / Plan
79F Chronic GIB Aneamia HFpEF CKD3 pAfib HTN HLD DM neuropathy Hypothyroid Obesity here for acute on chronic HFpEF with associate respiratory failure and RLE cellulitis.
# Acute hypoxemic respiratory failure secondary to acute on chronic HFpEF exacerbation
Echocardiogram with ejection fraction of 60-65%
Improved, initially required 14 L of oxygen, now requiring 4L -wean as tolerated
Wean as tolerated, she does not wear oxygen at home
Cardiology following, cardiology converted IV Lasix to torsemide milligram p.o. twice a day, continue Zaroxolyn 2.5 mg daily that was started on on 01/14
Trend creatinine, trend daily weights
#Worsening nocturnal hypoxia
#Probable obstructive sleep apnea
Suspicious for obstructive sleep apnea
Appreciate pulmonology input, recommend trial of CPAP
Patient tried CPAP on the evening of 01/14, but did not tolerate
Needs a nocturnal oximetry testing when volume status has been optimized
Follow-up with pulmonology in the office for sleep study
#Hypokalemia
Magnesium normal
Continue scheduled 20 mEQ K BID w/ holding parameters K>5
# Right lower extremity wound with surrounding cellulitis
Wound swab Group G Strep, Proteus, MSSA
Ultrasound negative for DVT
Initially treated with Ancef, then transition to Zosyn
Appreciate ID input, Zosyn changed to Rocephin, Rocephin now changed to Ancef
Ancef changed to cephalexin 1 g p.o. every 8 hours through 01/20/2025
ID signed off
#Severe constipation
Continue aggressive bowel regimen
Continue Linzess
#Bilateral knee pain, reported fall prior to admission
Bilateral x-rays show severe arthritis, no fracture or dislocation
Suspect sprain, with possible ligament injury
Continue supportive care, pain control, PT/OT recommend short-term rehab, [facility]
Paroxysmal atrial fibrillation
- Continue Xarelto renal dosing
- Continue metoprolol
- Continue amiodarone
CKD 3B
- Renal function at baseline, monitor creatinine with diuresis
Chronic anemia
Severe Iron deficiency Anemia
-Hemoglobin dipped to 7.1, she received 1 unit packed red blood cells on 01/10/2025
-Hemoglobin improved to >8, continue to trend, transfuse as needed
-Status post IV iron this hospital admission
Essential hypertension
Hyperlipidemia
- Continue statin
Type 2 diabetes
- Hold metformin
- cont Farxiga
- Insulin sliding scale
Diabetic neuropathy
- Continue gabapentin
Hypothyroidism
- Continue levothyroxine
Obesity
GERD
- Continue Protonix
DVT prophylaxis�Xarelto
Full code
Updated daughter at bedside 01/14/2025
Total time spent to see the patient on the floor, examine the patient, review data and lab results, discuss treatment plan with patient, nursing staff around 40 minutes.
Physical Exam
General: Morbidly obese, no acute distress
HEENT: Normocephalic, Atraumatic, EOMI, MMM
Respiratory: Bibasilar crackles
Cardiac: Normal S1/S2, Regular Rate and Rhythm
GI: Soft, Nontender, Nondistended, Normal Bowel Sounds
Extremities: No Clubbing, Cyanosis
Severe right lower extremity edema, erythema, and tenderness
Left lower extremity edema improving
Anticipated Discharge: > 48 hours
Subjective/Interval History
-
Date of Service: January 16, 2025
Patient reports her shortness of breath is 50% improved. Her right lower extremity pain continues to be severe. No fever, no vomiting.
Objective Data
-
Labs:
Laboratory Results
01/16/25
04:17
WBC 9.9
Hgb 8.4 L
Hct 28.8 L
Plt Count 260
Sodium 133 L
Potassium 3.5
Chloride 88 L
Carbon Dioxide 38 H
BUN 42 H
Creatinine 1.4 H
Glucose 135 H
Calcium 8.2 L
Vital Signs:
Vital Signs
Temp Pulse Resp BP Pulse Ox
97.8 F 64 17 125/55 93
01/16/25 07:46 01/16/25 06:00 01/16/25 06:00 01/16/25 06:00 01/16/25 06:00
I&O
01/15/25 01/16/25 01/17/25
06:59 06:59 06:59
Intake Total 1385 / 1385
Output Total 1720 / 1720 2300 / 2300
Balance -335 / -335 -2300 / -2300
[2025-01-16] MEDS: LIDOCAINE 4% PATCH 2 PATCH TOPICAL (08:10)
[2025-01-16] MEDS: LASIX 80 MG IV (08:11)
[2025-01-16] MEDS: SENOKOT-S 2 TABLET PO ×2 (08:12→20:14)
[2025-01-16] MEDS: VITAMIN D3 (cholecalciferol) 25 MCG PO (08:13)
[2025-01-16] MEDS: TOPROL XL 25 MG PO (08:14)
[2025-01-16] MEDS: PACERONE 200 MG PO (08:14)
[2025-01-16] MEDS: ZAROXOLYN 2.5 MG PO (08:14)
[2025-01-16] MEDS: FARXIGA 10 MG PO (08:17)
[2025-01-16] MEDS: KCL 20 MEQ PO ×3 (08:18→20:14)
[2025-01-16] MEDS: MUCINEX 600 MG PO ×2 (08:18→20:14)
[2025-01-16] MEDS: VITAMIN B-12 1000 MCG PO (08:18)
[2025-01-16] MEDS: PROTONIX 40 MG PO (08:19)
[2025-01-16] MEDS: MIRALAX PO (08:19)
--- NOTE | 2025-01-16 08:20 | W.PN.CARDCBS ---
Today's Communication / Plan
-
Weight is overall down and improved. Creatinine up to 1.4. Will convert to oral diuretics this afternoon.
Start torsemide 30 mg p.o. twice daily. Would continue metolazone for now and follow creatinine
Continue antibiotics for cellulitis.
Remains in sinus rhythm. Continue amiodarone lower dose of Toprol 25 mg daily.
Continue Xarelto 15 mg daily
Wean oxygen as tolerated
May need rehab.
Impression / Plan
-
PCP: Vanesa Rosa
Primary Abstract Maker: Dr. Cuello of [facility]
Assessment:
Presentation with SOB, cough, LE edema 01/07/25
Acute hypoxemic respiratory failure
Acute on chronic HFpEF
Abnormal EKG
Leukocytosis
RLE cellulitis
Acute on chronic anemia
Paroxysmal atrial fibrillation
Chronic amiodarone therapy
Chronic Xarelto therapy
Pulm HTN by echo
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
HTN
HLD
DM2 with neuropathy
Hypothyroidism
History of GI bleed with negative EGD/colon 09/2023
ECHO 09/2023: EF 60 to 65%, biatrial enlargement, mildly enlarged RV size, mild with peak/mean gradients 27/13 mmHg, mild to moderate TR, severe pulmonary hypertension with PAP 63 mmHg
Echo January 13, 2025, EF 66%, mild MR, mild to moderate TR, PA pressure 59.
Plan:
-proBNP is improved she has diuresed. Weight continues to slowly improve.
-Will switch to oral diuretics today. Would start torsemide 30 mg p.o. daily. Creatinine up to 1.4 and overall stable.
-Wean O2 as able. Patient was not using supplemental oxygen prior to admission. She remains on significant doses of oxygen.
- Echo with preserved ejection fraction with mild valve disease. Pulmonary pressures were elevated around 60. I suspect this likely multifactorial with sleep apnea, and chronic heart failure with preserved ejection fraction.
-Remains in sinus rhythm but having some bradycardia. Will decrease Toprol to 25 mg daily. Continue amiodarone
-Continue antibiotics and wound care for cellulitis
-Previously attempted to place on Entresto, but this is not affordable
-Outpatient dose of Jardiance 10 mg daily was changed to Farxiga 10 mg daily for formulary reasons, but should go back to Jardiance at time of D/C
-Patient with abnormal ECG including anterolateral T wave inversion. Troponin undetectable x 2. Will consider outpatient stress test if she remains asymptomatic.
-Outpatient dose of Xarelto decreased to 15 mg daily this admission for CrCl of 48
-Outpatient dose of amiodarone 200 mg daily continued this admission.
HPI: Patient presented with several weeks of worsening shortness of breath, cough, lower extremity edema with cellulitis. She has heart failure with preserved ejection fraction. proBNP was 8020 and chest x-ray with pulmonary edema. In addition
she is being treated for cellulitis. Initially she was found to be hypoxic on arrival, improved on supplemental oxygen. In addition she does have anemia with history of GI bleed and anemia is more pronounced this hospital stay.
Progress Note - Abstract Maker
Subjective
Date of Service: January 16, 2025
She is slowly improving. Leg edema seems better. Denies chest pains.
Objective
Labs:
01/16/25 04:17
01/16/25 04:17
Labs
Hgb 8.4 g/dL (12.0-16.0) L 01/16/25 04:17
Hct 28.8 % (37.0-47.0) L 01/16/25 04:17
Plt Count 260 10^3/uL (130-400) 01/16/25 04:17
Sodium 133 mmol/L (135-145) L 01/16/25 04:17
Potassium 3.5 mmol/L (3.5-5.1) 01/16/25 04:17
BUN 42 mg/dl (7-17) H 01/16/25 04:17
Creatinine 1.4 mg/dL (0.6-1.0) H 01/16/25 04:17
Glucose 135 mg/dl (70-99) H 01/16/25 04:17
Vital Signs and I&O:
Vital Signs
Temp Pulse Resp BP Pulse Ox
97.8 F 64 17 125/55 93
01/16/25 07:46 01/16/25 06:00 01/16/25 06:00 01/16/25 06:00 01/16/25 06:00
Vital Signs
Temp Pulse Resp BP Pulse Ox
97.8 F 64 17 125/55 93
01/16/25 07:46 01/16/25 06:00 01/16/25 06:00 01/16/25 06:00 01/16/25 06:00
Intake & Output
01/14/25 01/15/25 01/16/25 01/17/25
06:59 06:59 06:59 06:59
Intake Total 1575 / 1575 1385 / 1385
Output Total 2840 / 2840 1720 / 1720 2300 / 2300
Balance -1265 / -1265 -335 / -335 -2300 / -2300
Physical Exam
Physical Exam
GEN: No distress, awake, Ox3
HEENT: supple, anicteric, mmm
LUNGS: CTA, no wheezes/rales
CV: Reg, S1/S2, 1/6 syst LSB, no gallop
ABD: soft, BS+, NT/ND
EXT: +1 edema
NEURO: Gross non-focal
SKIN: R leg erythema
[2025-01-16] MEDS: NOVOLOG FLEXPEN-LOW RESISTANCE 1 UNITS SC ×3 (08:25→18:20)
[2025-01-16 08:26] LABS: Glucose - Point of Care 162 mg/dl (70-99)
--- NOTE | 2025-01-16 10:57 | W.PN.ID1 ---
Date of Service
Date of Service: January 16, 2025
Today's Communication
Continue antibiotics.
Assessment / Plan
# Acute RLE cellulitis
# RLE wounds from blister due to leg edema
# Acute CHF exacerbation
# Leukocytosis stable
#Class III obesity BMI 44
- Wound swab Group G Strep, Proteus, MSSA
- Continue wound care
- Continue GRAHAM-Wrap compression - knee high. Will keep on 24 hours a day
- Elevate RLE as possible
- Continue cephalexin 1000mg po q8h through 01/20/25
- Will continue to monitor wound. Local care to the area.
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
Diabetes mellitus
Neuropathy
Hypertension
Hypothyroidism
HLD
Paroxysmal atrial fibrillation
HFpEF
CKD 3B
Class III obesity BMI 44
GI bleed
Chief Complaint
-: Cellulitis
Subjective / Review of Systems
Review of Systems: No Fever and No Chills
Vital Signs / Physical Exam
Vital Signs
Vital Signs
Temp Pulse Resp BP Pulse Ox
97.8 F 54 17 128/68 95
01/16/25 07:46 01/16/25 10:00 01/16/25 10:00 01/16/25 10:00 01/16/25 10:00
Physical Exam
Constitutional: No Acute Distress and Comfortable
Pulmonary: Rales
Gastrointestinal: Soft, Non Tender and Non Distended
Extremities: Edema (RLE edema noted) and Erythema (RLE erythema noted)
Wound: Other (Blister distal RLE no longer present. No appreciable purulence. Serous drainage only. RLE charles wound serous drainage. )
Neurological: Awake and Alert
Psychological: Calm
Objective Data
Lab Data
Lab Results
01/16/25 04:17
01/16/25 04:17
Estimated Creat Clear 41 ml/min 01/16/25 04:17
Total Bilirubin 0.6 mg/dl (0.2-1.3) 01/08/25 03:32
AST 15 U/L (14-36) 01/08/25 03:32
ALT 10 U/L (0-35) 01/08/25 03:32
Alkaline Phosphatase 142 U/L (38-126) H 01/08/25 03:32
Most recent labs reviewed.
Micro Results:
01/07/25 19:54 Wound Culture - Final
Leg - Right Proteus mirabilis
S aureus-Methicillin Sensitive
Group G Streptococcus
Gram Stain - Final
01/07/25 CXR: Pulmonary edema.
01/08/25 Left Knee XRAY: 1. SEVERE TRICOMPARTMENTAL OSTEOARTHRITIS in the LEFT KNEE. 1.2 cm lateral subluxation of the tibial plateau. Moderate-sized suprapatellar joint effusion. Severe diffuse soft tissue swelling and subcutaneous edema.
01/08/25 Right knee XRAY: VERY SEVERE ARTHRITIS in the PATELLOFEMORAL COMPARTMENT. Moderate to severe arthritis in the medial and lateral compartments of the right knee. 2.0 cm ossific body posterior to the femoral condyles. Small joint effusion.
Severe diffuse subcutaneous edema.
Care Review
Plan reviewed with: Nurse
[2025-01-16 13:13] LABS: Glucose - Point of Care 153 mg/dl (70-99)
[2025-01-16] MEDS: TYLENOL 650 MG PO (17:11)
[2025-01-16] MEDS: DEMADEX 30 MG PO (17:12)
[2025-01-16] MEDS: XARELTO 15 MG PO (17:13)
[2025-01-16] MEDS: LIPITOR 40 MG PO (17:13)
[2025-01-16 18:30] LABS: Glucose - Point of Care 163 mg/dl (70-99)
[2025-01-16] MEDS: ULTRAM 25 MG PO (20:13)
[2025-01-16] MEDS: MAGNESIUM OXIDE 500 MG PO (20:13)
[2025-01-16] MEDS: NEURONTIN 300 MG PO (20:13)
--- NOTE | 2025-01-16 22:47 | RESPNOTE ---
Pt refused CPAP at this time. Pt resting comfortably HR- 55 RR-26 sat-93% on 4L MF. No respiratory distress noted.
[2025-01-16] MEDS: OCEAN, SALINE MIST 50 SPRAYS NASAL (23:19)
[2025-01-17] VITALS (24 sets, daily range): BP systolic 106–147; BP diastolic 47–131; PULSE 56; O2SAT 93; BMI 43.1
--- NOTE | 2025-01-17 04:02 | PTCARENOTE ---
patient was taking off oxygen because nose was dry and started to bleed. PRN nasal spray given and humidification in place with oxygen. Patient felt better after nasal spray. Continuing to monitor. call bo in reach.
[2025-01-17] MEDS: ULTRAM 25 MG PO (04:35)
[2025-01-17] MEDS: KEFLEX 1000 MG PO ×3 (04:36→20:36)
[2025-01-17] MEDS: SYNTHROID 137 MCG PO (04:36)
[2025-01-17] MEDS: LINZESS 145 MCG PO (05:01)
--- NOTE | 2025-01-17 08:10 | W.PN.HOSP.TC ---
Addendum entered and electronically signed by Ye Davis MD 01/17/25 10:07:
Discussed with cardiology, creatinine uptrending. Recommend stopping Zaroxolyn today, 01/17.
Original Note:
Today's Communication/Plan
-
see bold
Assessment / Plan
Assessment / Plan
79F Chronic GIB Aneamia HFpEF CKD3 pAfib HTN HLD DM neuropathy Hypothyroid Obesity here for acute on chronic HFpEF with associate respiratory failure and RLE cellulitis.
# Acute hypoxemic respiratory failure secondary to acute on chronic HFpEF exacerbation
Echocardiogram with ejection fraction of 60-65%
Improved, initially required 14 L of oxygen, now requiring 4L -wean as tolerated
Wean as tolerated, she does not wear oxygen at home
Cardiology following, cardiology converted IV Lasix to torsemide milligram p.o. twice a day, continue Zaroxolyn 2.5 mg daily that was started on on 01/14
Trend creatinine, trend daily weights
#Worsening nocturnal hypoxia
#Probable obstructive sleep apnea
Suspicious for obstructive sleep apnea
Appreciate pulmonology input, recommend trial of CPAP
Patient tried CPAP on the evening of 01/14, but did not tolerate
Needs a nocturnal oximetry testing when volume status has been optimized - pulm informed pt is now on po diuretics 01/17
Needs to follow-up with pulmonology in the office for sleep study
#Hypokalemia
Magnesium normal
Continue scheduled 20 mEQ K BID w/ holding parameters K>5
# Right lower extremity wound with surrounding cellulitis
Wound swab Group G Strep, Proteus, MSSA
Ultrasound negative for DVT
Initially treated with Ancef, then transition to Zosyn
Appreciate ID input, Zosyn changed to Rocephin, Rocephin now changed to Ancef
Ancef changed to cephalexin 1 g p.o. every 8 hours through 01/20/2025
ID signed off
#Severe constipation
Continue aggressive bowel regimen
Continue Linzess
#Bilateral knee pain, reported fall prior to admission
Bilateral x-rays show severe arthritis, no fracture or dislocation
Suspect sprain, with possible ligament injury
Continue supportive care, pain control, PT/OT recommend short-term rehab, [facility] - poss dc Mon
Paroxysmal atrial fibrillation
- Continue Xarelto renal dosing
- Continue metoprolol
- Continue amiodarone
CKD 3B
- Renal function at baseline, monitor creatinine with diuresis
Chronic anemia
Severe Iron deficiency Anemia
-Hemoglobin dipped to 7.1, she received 1 unit packed red blood cells on 01/10/2025
-Hemoglobin improved to >8, continue to trend, transfuse as needed
-Status post IV iron this hospital admission
Essential hypertension
Hyperlipidemia
- Continue statin
Type 2 diabetes
- Hold metformin
- cont Farxiga
- Insulin sliding scale
Diabetic neuropathy
- Continue gabapentin
Hypothyroidism
- Continue levothyroxine
Obesity
GERD
- Continue Protonix
DVT prophylaxis�Xarelto
Full code
Updated daughter at bedside 01/14/2025
Total time spent to see the patient on the floor, examine the patient, review data and lab results, discuss treatment plan with patient, nursing staff around 50 minutes.
Physical Exam
General: Morbidly obese, no acute distress
HEENT: Normocephalic, Atraumatic, EOMI, MMM
Respiratory: Bibasilar crackles
Cardiac: Normal S1/S2, Regular Rate and Rhythm
GI: Soft, Nontender, Nondistended, Normal Bowel Sounds
Extremities: No Clubbing, Cyanosis
Severe right lower extremity edema, erythema, and tenderness
Left lower extremity edema improving
Anticipated Discharge: Within 24 hours
Subjective/Interval History
-
Date of Service: January 17, 2025
Reports shortness of breath resolved. Complains of constipation. Still has right lower extremity pain. No fever, no vomiting.
Objective Data
-
Labs:
Laboratory Results
01/17/25
05:00
WBC Pending
Hgb Pending
Hct Pending
Plt Count Pending
Sodium Pending
Potassium Pending
Chloride Pending
Carbon Dioxide Pending
BUN Pending
Creatinine Pending
Glucose Pending
Calcium Pending
Vital Signs:
Vital Signs
Temp Pulse Resp BP Pulse Ox
97.4 F 55 17 127/58 92
01/17/25 07:37 01/17/25 05:00 01/17/25 05:00 01/17/25 04:00 01/17/25 07:37
I&O
01/16/25 01/17/25 01/18/25
06:59 06:59 06:59
Output Total 2300 / 2300 900 / 900
Balance -2300 / -2300 -900 / -900
--- NOTE | 2025-01-17 08:18 | W.PN.CARDCBS ---
Today's Communication / Plan
-
Has diuresed 8 to 10 pounds. Continue torsemide/metolazone
Follow creatinine.
Does have some bradycardia but remains in sinus rhythm. Continue Toprol 25 daily and amiodarone 200 mg daily.
Continue Xarelto 15 mg daily
Wean oxygen
Continue antibiotics for cellulitis
Okay for transfer to rehab from cardiology standpoint
Will arrange follow-up
Impression / Plan
-
PCP: Vanesa Rosa
Primary Public Relations Sales Marketing: Dr. Cuello of [facility]
Assessment:
Presentation with SOB, cough, LE edema 01/07/25
Acute hypoxemic respiratory failure
Acute on chronic HFpEF
Abnormal EKG
Leukocytosis
RLE cellulitis
Acute on chronic anemia
Paroxysmal atrial fibrillation
Chronic amiodarone therapy
Chronic Xarelto therapy
Pulm HTN by echo
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
HTN
HLD
DM2 with neuropathy
Hypothyroidism
History of GI bleed with negative EGD/colon 09/2023
ECHO 09/2023: EF 60 to 65%, biatrial enlargement, mildly enlarged RV size, mild with peak/mean gradients 27/13 mmHg, mild to moderate TR, severe pulmonary hypertension with PAP 63 mmHg
Echo January 13, 2025, EF 66%, mild MR, mild to moderate TR, PA pressure 59.
Plan:
-proBNP is improved she has diuresed. Weight continues to slowly improve.
-Continue torsemide 30 mg p.o. twice daily. Continue metolazone 2.5 mg daily. Continue to follow creatinine.
-Wean O2 as able. Patient was not using supplemental oxygen prior to admission. She remains on significant doses of oxygen.
- Echo with preserved ejection fraction with mild valve disease. Pulmonary pressures were elevated around 60. I suspect this likely multifactorial with sleep apnea, and chronic heart failure with preserved ejection fraction.
-Remains in sinus rhythm but having some bradycardia. Toprol decreased to 25 mg daily. Continue amiodarone
-Continue antibiotics and wound care for cellulitis
-Previously attempted to place on Entresto, but this is not affordable
-Outpatient dose of Jardiance 10 mg daily was changed to Farxiga 10 mg daily for formulary reasons, but should go back to Jardiance at time of D/C
-Patient with abnormal ECG including anterolateral T wave inversion. Troponin undetectable x 2. Will consider outpatient stress test if she remains asymptomatic.
-Outpatient dose of Xarelto decreased to 15 mg daily this admission for CrCl of 48
-Outpatient dose of amiodarone 200 mg daily continued this admission.
HPI: Patient presented with several weeks of worsening shortness of breath, cough, lower extremity edema with cellulitis. She has heart failure with preserved ejection fraction. proBNP was 8020 and chest x-ray with pulmonary edema. In addition
she is being treated for cellulitis. Initially she was found to be hypoxic on arrival, improved on supplemental oxygen. In addition she does have anemia with history of GI bleed and anemia is more pronounced this hospital stay.
Progress Note - Public Relations Sales Marketing
Subjective
Date of Service: January 17, 2025
Overall doing much better. Still having some leg edema and remains on oxygen. Breathing is improved.
Objective
Labs:
Labs
Hgb 8.4 g/dL (12.0-16.0) L 01/16/25 04:17
Hct 28.8 % (37.0-47.0) L 01/16/25 04:17
Plt Count 260 10^3/uL (130-400) 01/16/25 04:17
Sodium 133 mmol/L (135-145) L 01/16/25 04:17
Potassium 3.5 mmol/L (3.5-5.1) 01/16/25 04:17
BUN 42 mg/dl (7-17) H 01/16/25 04:17
Creatinine 1.4 mg/dL (0.6-1.0) H 01/16/25 04:17
Glucose 135 mg/dl (70-99) H 01/16/25 04:17
Vital Signs and I&O:
Vital Signs
Temp Pulse Resp BP Pulse Ox
97.4 F 55 17 127/58 92
01/17/25 07:37 01/17/25 05:00 01/17/25 05:00 01/17/25 04:00 01/17/25 07:37
Vital Signs
Temp Pulse Resp BP Pulse Ox
97.4 F 55 17 127/58 92
01/17/25 07:37 01/17/25 05:00 01/17/25 05:00 01/17/25 04:00 01/17/25 07:37
Intake & Output
01/15/25 01/16/25 01/17/25 01/18/25
06:59 06:59 06:59 06:59
Intake Total 1385 / 1385
Output Total 1720 / 1720 2300 / 2300 900 / 900
Balance -335 / -335 -2300 / -2300 -900 / -900
Physical Exam
Physical Exam
GEN: No distress, awake, Ox3
HEENT: supple, anicteric, mmm
LUNGS: CTA, no wheezes/rales
CV: Reg, S1/S2, 1/6 syst LSB, no gallop
ABD: soft, BS+, NT/ND
EXT: +1 edema/erythema R leg
NEURO: Gross non-focal
SKIN: No rash
[2025-01-17 08:49] LABS: Hematocrit 30.7 % (37.0-47.0); Mean Corp Hgb Conc. 29.3 g/dL (33.0-37.0); Mean Corpuscular Hgb 21.6 pg (27.0-31.0); Mean Corpuscular Volume 73.8 fL (81.0-99.0); Mean Platelet Volume 8.9 fL (7.4-10.4); Platelet Count 321 10^3/uL (130-400); Red Blood Cell Count 4.16 10^6/uL (4.20-5.40); Red Cell Dist. Width 22.4 % (11.5-14.5); White Blood Cell Count 9.7 10^3/uL (4.8-10.8)
[2025-01-17 08:52] LABS: Glucose - Point of Care 151 mg/dl (70-99)
[2025-01-17] MEDS: NOVOLOG FLEXPEN-LOW RESISTANCE 1 UNITS SC ×2 (08:59→17:49)
[2025-01-17 09:02] LABS: Blood Urea Nitrogen 45 mg/dl (7-17); Calcium 8.2 mg/dl (8.4-10.2); Chloride 86 mmol/L (98-107); Estimated Creatinine Clearance 36 ml/min; Glucose 111 mg/dl (70-99); Potassium 3.6 mmol/L (3.5-5.1); Sodium 137 mmol/L (135-145)
[2025-01-17] MEDS: LIDOCAINE 4% PATCH 2 PATCH TOPICAL (09:02)
[2025-01-17] MEDS: MIRALAX 17 GRAMS PO (09:02)
[2025-01-17] MEDS: FARXIGA 10 MG PO (09:03)
[2025-01-17] MEDS: MUCINEX 600 MG PO ×2 (09:03→20:37)
[2025-01-17] MEDS: DEMADEX 30 MG PO ×2 (09:03→17:47)
[2025-01-17] MEDS: VITAMIN B-12 1000 MCG PO (09:04)
[2025-01-17] MEDS: PROTONIX 40 MG PO (09:04)
[2025-01-17] MEDS: ZAROXOLYN 2.5 MG PO (09:04)
[2025-01-17] MEDS: SENOKOT-S 2 TABLET PO ×2 (09:06→20:36)
[2025-01-17] MEDS: TOPROL XL 25 MG PO (09:07)
[2025-01-17] MEDS: KCL 20 MEQ PO ×2 (09:08→20:36)
[2025-01-17] MEDS: VITAMIN D3 (cholecalciferol) 25 MCG PO (09:09)
[2025-01-17] MEDS: PACERONE 200 MG PO (09:09)
[2025-01-17 09:13] LABS: Carbon Dioxide 37 mmol/L (22-30)
--- NOTE | 2025-01-17 09:23 | W.PN.ID1 ---
Date of Service
Date of Service: January 17, 2025
Today's Communication
Continue antibiotics. Maintain lower extremity compressive modalities along with elevation.
Assessment / Plan
# Acute RLE cellulitis
# RLE wounds from blister due to leg edema
# Acute CHF exacerbation
# Leukocytosis stable
#Class III obesity BMI 44
#Lymphedema
- Wound swab Group G Strep, Proteus, MSSA
- Continue wound care
- Continue GRAHAM-Wrap compression -transition to thigh-high. Will keep on 24 hours a day
- Elevate RLE as possible
- Continue cephalexin 1000mg po q8h through 01/20/25
- Will continue to monitor wound. Local care to the area.
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
Diabetes mellitus
Neuropathy
Hypertension
Hypothyroidism
HLD
Paroxysmal atrial fibrillation
HFpEF
CKD 3B
Class III obesity BMI 44
Hx GI bleed
Chief Complaint
-: Cellulitis
Subjective / Review of Systems
Patient seen and examined. Reports some ongoing discomfort in the right lower extremity
Review of Systems: No Fever and No Chills
Vital Signs / Physical Exam
Vital Signs
Vital Signs
Temp Pulse Resp BP Pulse Ox
97.4 F 55 17 127/58 92
01/17/25 07:37 01/17/25 05:00 01/17/25 05:00 01/17/25 04:00 01/17/25 07:37
Physical Exam
Constitutional: No Acute Distress and Comfortable
Pulmonary: Rales
Gastrointestinal: Soft, Non Tender and Non Distended
Extremities: Edema (RLE edema noted) and Erythema (RLE erythema noted)
Wound: Other (Blister distal RLE no longer present. No appreciable purulence. Serous drainage has abated. RLE charles wound without drainage. )
Neurological: Awake and Alert
Psychological: Calm
Objective Data
Lab Data
Lab Results
01/17/25 05:00
01/17/25 05:00
Estimated Creat Clear 36 ml/min 01/17/25 05:00
Total Bilirubin 0.6 mg/dl (0.2-1.3) 01/08/25 03:32
AST 15 U/L (14-36) 01/08/25 03:32
ALT 10 U/L (0-35) 01/08/25 03:32
Alkaline Phosphatase 142 U/L (38-126) H 01/08/25 03:32
Most recent labs reviewed.
Micro Results:
01/07/25 19:54 Wound Culture - Final
Leg - Right Proteus mirabilis
S aureus-Methicillin Sensitive
Group G Streptococcus
Gram Stain - Final
01/07/25 CXR: Pulmonary edema.
01/08/25 Left Knee XRAY: 1. SEVERE TRICOMPARTMENTAL OSTEOARTHRITIS in the LEFT KNEE. 1.2 cm lateral subluxation of the tibial plateau. Moderate-sized suprapatellar joint effusion. Severe diffuse soft tissue swelling and subcutaneous edema.
01/08/25 Right knee XRAY: VERY SEVERE ARTHRITIS in the PATELLOFEMORAL COMPARTMENT. Moderate to severe arthritis in the medial and lateral compartments of the right knee. 2.0 cm ossific body posterior to the femoral condyles. Small joint effusion.
Severe diffuse subcutaneous edema.
[2025-01-17] MEDS: CITROMA 300 ML PO (10:19)
--- NOTE | 2025-01-17 10:35 | W.PN.PUL3 ---
Today's Communication / Plan
-
- Diuretic management per cardiology service
- From pulmonary standpoint, patient should be discharged on supplemental oxygen. Even when weaned off during daytime, she should stay on nocturnal oxygen at 2 L minimum
- Will arrange outpatient follow-up with pulmonary clinic for further evaluation of suspected sleep apnea and follow-up pulmonary imaging
- Pulmonary team will sign off, please call as needed
Assessment
-
79-year-old woman with past medical history noted, admitted to the hospital on 01/07/2025 with hypoxemia, shortness of breath. Chest x-ray showed pulmonary edema. We were consulted for nocturnal hypoxemia
Acute hypoxemic respiratory failure due to pulmonary edema currently on 5 to 6 L
Chest x-ray consistent with pulmonary edema
proBNP 8000
Acute on chronic heart failure with preserved ejection fraction
Nocturnal hypoxemia-suggest obstructive sleep apnea.
VBG without evidence of hypercapnia this admission.
Right lower extremity cellulitis: On antibiotics
Conditions present prior admission
Atrial fibrillation on anticoagulation/amiodarone
Chronic kidney disease stage IIIb
Chronic anemia
Hypertension
Hyperlipidemia
Type 2 diabetes
Diabetic neuropathy
Hypothyroidism
Obesity
GERD
Assessment and plan:
-
Hypoxemic respiratory failure due to heart failure acute on chronic.
Continue cardiac management
Diuresis per primary team and cardiology
Overall oxygenation improving down to 4-6 L via nasal cannula-is slowly improving.
-
Nocturnal hypoxemia: Suspect patient has obstructive sleep apnea--patient reports snoring and symptoms suggestive of obstructive sleep apnea.
Worsening nocturnal hypoxemia is compounded by acute heart failure.
Initially patient refusing empirical CPAP as she reported being claustrophobic.
She understands ramifications of untreated obstructive sleep apnea including cardiovascular risk, stroke etc.
Eventually can do sleep study in the outpatient setting once patient is euvolemic.
Patient try CPAP during this hospital stay did not tolerate due to claustrophobia.
Considering patient still needing 4 to 5 L of supplemental oxygen, hold off on nocturnal oximetry testing
Will arrange outpatient follow-up with pulmonary clinic
-
Weight loss recommended
VBG does not suggest hypercapnia- no obesity hypoventilation syndrome.
Incentive spirometry encouraged
Avoid sedatives.
-
Atrial fibrillation: On chronic anticoagulation
Amiodarone
Will need to document complete resolution of bilateral infiltrates after diuresis.
Recommend outpatient pulmonary follow-up.
-
Subjective Data
-
Date of Service:
Date of Service: January 17, 2025
Chief Complaint: Pulmonary Follow Up (Hypoxemic respiratory failure/nocturnal hypoxia)
Subjective:
Patient comfortably lying in bed, no acute distress. Reports feeling overall much better.
Review of Systems
Genitourinary: Other (No new symptoms reported.)
Objective Data
Data Reviewed
Vital Signs / I&O / Oxygen:
Vital Signs
Temp Pulse Resp BP Pulse Ox
97.4 F 55 17 127/58 92
01/17/25 07:37 01/17/25 05:00 01/17/25 05:00 01/17/25 04:00 01/17/25 07:37
Intake and Output
01/16/25 01/17/25 01/18/25
06:59 06:59 06:59
Output Total 2300 / 2300 900 / 900
Balance -2300 / -2300 -900 / -900
SaO2 92
Nasal Cannula flow liters per 5
minute
Physical Exam
General: Comfortable (At rest)
HEENT: Normocephalic
Cardiovascular: S1-S2
Respiratory: Crackles (Few inspiratory crackles overall fairly benign pulmonary exam)
GI: Distended (Obese) and Non Tender
Neurology: Awake and Alert
Skin: Warm
Labs/Micro/Reports
Lab Data
01/17/25 05:00
01/17/25 05:00
[2025-01-17] MEDS: NOVOLOG FLEXPEN-LOW RESISTANCE SC (16:06)
[2025-01-17 17:24] LABS: Glucose - Point of Care 188 mg/dl (70-99)
[2025-01-17] MEDS: LIPITOR 40 MG PO (17:47)
[2025-01-17] MEDS: XARELTO 15 MG PO (17:48)
[2025-01-17] MEDS: NEURONTIN 300 MG PO (20:37)
[2025-01-17] MEDS: MAGNESIUM OXIDE 500 MG PO (20:37)
[2025-01-17] MEDS: OCEAN, SALINE MIST 2 SPRAYS NASAL (20:39)
[2025-01-17] MEDS: ROBITUSSIN 200 MG PO (21:06)
[2025-01-17] MEDS: DESENEX/MITRAZOL/ZEASORB 1 APPLIC TOPICAL (21:09)
--- NOTE | 2025-01-17 21:18 | PTCARENOTE ---
Saved vital signs from previous shift. Cannot verify accuracy of vital signs from 1400 to 1800 as RN was not present.
[2025-01-17 23:13] LABS: Glucose - Point of Care 125 mg/dl (70-99)
[2025-01-18] VITALS (15 sets, daily range): BP systolic 112–141; BP diastolic 39–73; PULSE 57; O2SAT 97; BMI 42.9
--- NOTE | 2025-01-18 04:01 | PTCARENOTE ---
No acute changes overnight. PRN Robitussin provided for cough. Leg dressings intact. Heels floated on pillows. Encouraged pt to reposition self while in bed. Verbalized understanding to prevent pressure injuries. Desenex powder to groin/abd folds.
Voiding via purewick. No BM, +BS. 4L NC in place. Pt desat once to 80% Sp02 when NC came out of nose. Sp02 increased to 91% upon placing in nostrils. PIV saline locked. call bo and tray table within reach. bed alarm set for safety. pt thankful for
care.
[2025-01-18] MEDS: SYNTHROID 137 MCG PO (05:19)
[2025-01-18] MEDS: KEFLEX 1000 MG PO ×3 (05:19→20:51)
[2025-01-18] MEDS: LINZESS 145 MCG PO (05:19)
[2025-01-18 05:28] LABS: Hematocrit 29.6 % (37.0-47.0); Hemoglobin 8.7 g/dL (12.0-16.0); Mean Corp Hgb Conc. 29.4 g/dL (33.0-37.0); Mean Corpuscular Hgb 21.5 pg (27.0-31.0); Mean Corpuscular Volume 73.3 fL (81.0-99.0); Mean Platelet Volume 8.3 fL (7.4-10.4); Platelet Count 314 10^3/uL (130-400); Red Blood Cell Count 4.04 10^6/uL (4.20-5.40); Red Cell Dist. Width 22.5 % (11.5-14.5); White Blood Cell Count 10.9 10^3/uL (4.8-10.8)
[2025-01-18 05:45] LABS: Blood Urea Nitrogen 51 mg/dl (7-17); Chloride 87 mmol/L (98-107); Estimated Creatinine Clearance 38 ml/min; Glucose 114 mg/dl (70-99); Potassium 3.9 mmol/L (3.5-5.1); Sodium 136 mmol/L (135-145); eGFR 35.01
[2025-01-18 06:05] LABS: Carbon Dioxide 41 mmol/L (22-30)
[2025-01-18 08:14] LABS: Glucose - Point of Care 147 mg/dl (70-99)
[2025-01-18] MEDS: NOVOLOG FLEXPEN-LOW RESISTANCE SC (08:37)
--- NOTE | 2025-01-18 08:40 | W.PN.CARDCBS ---
Today's Communication / Plan
-
Stop metoprolol given bradycardia
Repeat EKG given deep T wave inversions
Okay to proceed with discharge planning
Would likely need an outpatient ischemic evaluation given EKG changes
Impression / Plan
-
PCP: Vanesa Rosa
Primary Claims Account Manager: Dr. Cuello of [facility]
Assessment:
Presentation with SOB, cough, LE edema 01/07/25
Acute hypoxemic respiratory failure
Acute on chronic HFpEF
Abnormal EKG
Leukocytosis
RLE cellulitis
Acute on chronic anemia
Paroxysmal atrial fibrillation
Chronic amiodarone therapy
Chronic Xarelto therapy
Pulm HTN by echo
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
HTN
HLD
DM2 with neuropathy
Hypothyroidism
History of GI bleed with negative EGD/colon 09/2023
ECHO 09/2023: EF 60 to 65%, biatrial enlargement, mildly enlarged RV size, mild with peak/mean gradients 27/13 mmHg, mild to moderate TR, severe pulmonary hypertension with PAP 63 mmHg
Echo January 13, 2025, EF 66%, mild MR, mild to moderate TR, PA pressure 59.
Plan:
From a volume standpoint, she is still somewhat volume overloaded but overall improving. Weight on admission was 121.3 kg, she is down about 9 pounds. She remains on high-dose torsemide.
She is very bradycardic, on amiodarone. Will stop metoprolol. Continue amiodarone. She has a tremor at times, we may need to reduce amiodarone to 100 mg/day.
She is already on Farxiga (Jardiance as outpatient). Given mild CKD, will not start spironolactone at present but can consider.
She had deep T wave inversions on her electrocardiogram during this admission. Will repeat EKG today. She may need an ischemic evaluation though this could be done as an outpatient.
Okay to proceed with discharge planning
HPI: Patient presented with several weeks of worsening shortness of breath, cough, lower extremity edema with cellulitis. She has heart failure with preserved ejection fraction. proBNP was 8020 and chest x-ray with pulmonary edema. In addition
she is being treated for cellulitis. Initially she was found to be hypoxic on arrival, improved on supplemental oxygen. In addition she does have anemia with history of GI bleed and anemia is more pronounced this hospital stay.
Progress Note - Claims Account Manager
Subjective
Date of Service: January 18, 2025:
79-year-old woman with history of HFpEF, admitted with dyspnea, cough, cellulitis, edema
PMH/PSH: History of GI bleed, colonoscopy EGD 2023 anemia, paroxysmal atrial fibrillation, on amiodarone, CKD 3B, hypertension, hyperlipidemia, diabetes with neuropathy, hypothyroidism
Current medications: Insulin, levothyroxine, Linzess, rivaroxaban 15 mg a day, amiodarone 200 mg a day, atorvastatin 40 mg a day, colecalciferol, vitamin B12, Farxiga 10 mg a day, gabapentin, magnesium, pantoprazole, potassium 20 meq twice daily,
lidocaine patch, Keflex, metoprolol ER 25 mg a day, torsemide 30 mg twice kassie
She offers no complaints at present.
127/70, pulse 51, respiratory rate 16, afebrile, sats 94%, intake and output incomplete, pleasant, obese, head neck exam unremarkable, lungs are fairly clear, abdomen benign, right lower extremity edematous and wrapped, left leg with dressings
intact, less edema
Echo 01/13/2025: Mild LVH, EF 66%, normal RV, mild MR, mild to moderate TR
White count is 10.9, hemoglobin is 8.7, BUN and creatinine are 51 and 1.5, proBNP was 2540 on January 15, 8020 on January 07, troponin was 0.034 on admission
Objective
Labs:
01/18/25 05:13
01/18/25 05:13
Labs
Hgb 8.7 g/dL (12.0-16.0) L 01/18/25 05:13
Hct 29.6 % (37.0-47.0) L 01/18/25 05:13
Plt Count 314 10^3/uL (130-400) 01/18/25 05:13
Sodium 136 mmol/L (135-145) 01/18/25 05:13
Potassium 3.9 mmol/L (3.5-5.1) 01/18/25 05:13
BUN 51 mg/dl (7-17) H 01/18/25 05:13
Creatinine 1.5 mg/dL (0.6-1.0) H 01/18/25 05:13
Glucose 114 mg/dl (70-99) H 01/18/25 05:13
Vital Signs and I&O:
Vital Signs
Temp Pulse Resp BP Pulse Ox
36.7 C 51 16 127/70 94
01/18/25 07:56 01/18/25 06:00 01/18/25 06:00 01/18/25 06:00 01/18/25 06:00
Vital Signs
Temp Pulse Resp BP Pulse Ox
36.7 C 51 16 127/70 94
01/18/25 07:56 01/18/25 06:00 01/18/25 06:00 01/18/25 06:00 01/18/25 06:00
Intake & Output
01/16/25 01/17/25 01/18/25 01/19/25
07:59 07:59 07:59 07:59
Output Total 2300 / 2300 900 / 900 2850 / 2850
Balance -2300 / -2300 -900 / -900 -2850 / -2850
Physical Exam
Physical Exam
See above
[2025-01-18] MEDS: FARXIGA 10 MG PO (09:25)
[2025-01-18] MEDS: VITAMIN D3 (cholecalciferol) 25 MCG PO (09:25)
[2025-01-18] MEDS: DEMADEX 30 MG PO ×2 (09:25→17:14)
[2025-01-18] MEDS: PROTONIX 40 MG PO (09:25)
[2025-01-18] MEDS: MUCINEX 600 MG PO ×2 (09:25→20:51)
[2025-01-18] MEDS: SENOKOT-S 2 TABLET PO ×2 (09:27→20:51)
[2025-01-18] MEDS: KCL 20 MEQ PO ×2 (09:27→20:51)
[2025-01-18] MEDS: PACERONE 200 MG PO (09:28)
[2025-01-18] MEDS: LIDOCAINE 4% PATCH 2 PATCH TOPICAL (09:28)
[2025-01-18] MEDS: MIRALAX 17 GRAMS PO (09:28)
[2025-01-18] MEDS: VITAMIN B-12 1000 MCG PO (09:28)
[2025-01-18] MEDS: TOPROL XL PO (09:33)
--- NOTE | 2025-01-18 10:09 | W.PN.ID1 ---
Date of Service
Date of Service: January 18, 2025
Today's Communication
- Continue cephalexin 1000mg po q8h through 01/20/25
Assessment / Plan
# Acute RLE cellulitis
# RLE wounds from blister due to leg edema
# Acute CHF exacerbation
# Leukocytosis stable
#Class III obesity BMI 44
#Lymphedema
- Wound swab Group G Strep, Proteus, MSSA
- Continue GRAHAM-Wrap compression -transition to thigh-high. Will keep on 24 hours a day
- Elevate RLE as possible
- Continue cephalexin 1000mg po q8h through 01/20/25
-Local care to the area.
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
Diabetes mellitus
Neuropathy
Hypertension
Hypothyroidism
HLD
Paroxysmal atrial fibrillation
HFpEF
CKD 3B
Class III obesity BMI 44
Hx GI bleed
Chief Complaint
-: Cellulitis
Subjective / Review of Systems
Feeling better.
Vital Signs / Physical Exam
Vital Signs
Vital Signs
Temp Pulse Resp BP Pulse Ox
98.0 F 52 16 121/48 94
01/18/25 07:56 01/18/25 09:33 01/18/25 06:00 01/18/25 09:25 01/18/25 06:00
Physical Exam
Constitutional: No Acute Distress and Comfortable
Pulmonary: Rales
Gastrointestinal: Soft, Non Tender and Non Distended
Extremities: Edema (RLE edema noted) and Erythema (RLE erythema noted)
Wound: Other (Blister distal RLE no longer present. No appreciable purulence. Serous drainage has abated. RLE charles wound without drainage. )
Neurological: AO x 3
Objective Data
Lab Data
Lab Results
01/18/25 05:13
01/18/25 05:13
Estimated Creat Clear 38 ml/min 01/18/25 05:13
Total Bilirubin 0.6 mg/dl (0.2-1.3) 01/08/25 03:32
AST 15 U/L (14-36) 01/08/25 03:32
ALT 10 U/L (0-35) 01/08/25 03:32
Alkaline Phosphatase 142 U/L (38-126) H 01/08/25 03:32
Most recent labs reviewed.
Micro Results:
01/07/25 19:54 Wound Culture - Final
Leg - Right Proteus mirabilis
S aureus-Methicillin Sensitive
Group G Streptococcus
Gram Stain - Final
01/07/25 CXR: Pulmonary edema.
01/08/25 Left Knee XRAY: 1. SEVERE TRICOMPARTMENTAL OSTEOARTHRITIS in the LEFT KNEE. 1.2 cm lateral subluxation of the tibial plateau. Moderate-sized suprapatellar joint effusion. Severe diffuse soft tissue swelling and subcutaneous edema.
01/08/25 Right knee XRAY: VERY SEVERE ARTHRITIS in the PATELLOFEMORAL COMPARTMENT. Moderate to severe arthritis in the medial and lateral compartments of the right knee. 2.0 cm ossific body posterior to the femoral condyles. Small joint effusion.
Severe diffuse subcutaneous edema.
--- NOTE | 2025-01-18 10:20 | W.PN.HOSP.TC ---
Today's Communication/Plan
-
Discharge to short-term rehab when bed available
Assessment / Plan
Assessment / Plan
79F Chronic GIB Aneamia HFpEF CKD3 pAfib HTN HLD DM neuropathy Hypothyroid Obesity here for acute on chronic HFpEF with associate respiratory failure and RLE cellulitis.
# Acute hypoxemic respiratory failure secondary to acute on chronic HFpEF exacerbation
Echocardiogram with ejection fraction of 60-65%
Improved, initially required 14 L of oxygen, now requiring 4L -wean as tolerated
Wean as tolerated, she does not wear oxygen at home
Cardiology following, status post IV Lasix, status post Zaroxolyn
Cardiology recommends discharge on torsemide 30 mg twice a day
Trend creatinine, trend daily weights
#Worsening nocturnal hypoxia
#Probable obstructive sleep apnea
Suspicious for obstructive sleep apnea
Appreciate pulmonology input, recommend trial of CPAP
Patient tried CPAP on the evening of 01/14, but did not tolerate
Needs a nocturnal oximetry testing when volume status has been optimized - pulm informed pt is now on po diuretics 01/17
Needs to follow-up with pulmonology in the office for sleep study
#Hypokalemia
Magnesium normal
Continue scheduled 20 mEQ K BID w/ holding parameters K>5
# Right lower extremity wound with surrounding cellulitis
Wound swab Group G Strep, Proteus, MSSA
Ultrasound negative for DVT
Initially treated with Ancef, then transition to Zosyn
Appreciate ID input, Zosyn changed to Rocephin, Rocephin now changed to Ancef
Ancef changed to cephalexin 1 g p.o. every 8 hours through 01/20/2025
ID signed off
#Severe constipation
Continue aggressive bowel regimen
Continue Linzess
#Bilateral knee pain, reported fall prior to admission
Bilateral x-rays show severe arthritis, no fracture or dislocation
Suspect sprain, with possible ligament injury
Continue supportive care, pain control, PT/OT recommend short-term rehab, [place] - poss dc Mon
Paroxysmal atrial fibrillation
- Continue Xarelto renal dosing
- Cardiology recommends discontinue metoprolol secondary to bradycardia
- Continue amiodarone
CKD 3B
- Renal function at baseline, monitor creatinine with diuresis
Chronic anemia
Severe Iron deficiency Anemia
-Hemoglobin dipped to 7.1, she received 1 unit packed red blood cells on 01/10/2025
-Hemoglobin improved to >8, continue to trend, transfuse as needed
-Status post IV iron this hospital admission
Essential hypertension
Hyperlipidemia
- Continue statin
Type 2 diabetes
- Hold metformin
- cont Farxiga
- Insulin sliding scale
Diabetic neuropathy
- Continue gabapentin
Hypothyroidism
- Continue levothyroxine
Obesity
GERD
- Continue Protonix
DVT prophylaxis�Xarelto
Full code
Updated daughter on phone 01/18/2025
Total time spent to see the patient on the floor, examine the patient, review data and lab results, discuss treatment plan with patient, nursing staff around 40 minutes.
Physical Exam
General: Morbidly obese, no acute distress
HEENT: Normocephalic, Atraumatic, EOMI, MMM
Respiratory: Bibasilar crackles
Cardiac: Normal S1/S2, Regular Rate and Rhythm
GI: Soft, Nontender, Nondistended, Normal Bowel Sounds
Extremities: No Clubbing, Cyanosis
Severe right lower extremity edema, erythema, and tenderness
Left lower extremity edema improving
Anticipated Discharge: Within 24 hours
Subjective/Interval History
-
Date of Service: January 18, 2025
Patient resting comfortably. Denies shortness of breath. Continues to have right leg pain. No fever, no vomiting.
Objective Data
-
Labs:
Laboratory Results
01/18/25
05:13
WBC 10.9 H
Hgb 8.7 L
Hct 29.6 L
Plt Count 314
Sodium 136
Potassium 3.9
Chloride 87 L
Carbon Dioxide 41 H
BUN 51 H
Creatinine 1.5 H
Glucose 114 H
Calcium 8.0 L
Vital Signs:
Vital Signs
Temp Pulse Resp BP Pulse Ox
98.0 F 52 16 121/48 94
01/18/25 07:56 01/18/25 09:33 01/18/25 06:00 01/18/25 09:25 01/18/25 06:00
I&O
01/17/25 01/18/25 01/19/25
06:59 06:59 06:59
Output Total 900 / 900 2850 / 2850
Balance -900 / -900 -2850 / -2850
[2025-01-18 13:26] LABS: Glucose - Point of Care 189 mg/dl (70-99)
[2025-01-18] MEDS: NOVOLOG FLEXPEN-LOW RESISTANCE 1 UNITS SC ×2 (13:38→17:15)
--- NOTE | 2025-01-18 14:03 | RESPNOTE ---
cpap order fell off. per pulmonary notes from 01/17, VBG did not show evidence for hypercapnia. pt also unable to tolerate due to claustrophobia last 3 evenings. discussed with pulmonary this morning, ok by PULM for pt to remain on nocturnal O2, okay
with discontinue cpap.
--- NOTE | 2025-01-18 15:49 | W.PN.UPDATE ---
Update Note
Progress Note Update
Discharge diagnosis:
Acute hypoxic respiratory failure
Acute heart failure with a preserved ejection fraction
Nocturnal hypoxia suspicious for obstructive sleep apnea
Hypokalemia
Right lower extremity wound and cellulitis
Severe constipation
Bilateral knee pain
Paroxysmal atrial fibrillation with bradycardia
Stage III chronic kidney disease
Chronic anemia
Essential hypertension
Hyperlipidemia
Morbid obesity due to excess calories
Type 2 diabetes
Diabetic neuropathy
Hypothyroidism
Gastroesophageal reflux disease
Consults: Cardiology, pulmonology, ID
Hospital course:
79-year-old female with a past medical history of morbid obesity, diabetes, hypothyroidism, GERD, hypertension, hyperlipidemia, CKD, atrial fibrillation, and CHF was admitted for acute hypoxic respiratory failure secondary to acute heart failure
with a preserved ejection fraction. Patient initially required 14 L of oxygen. She was seen in conjunction with cardiology, and diuresed with IV Lasix and metolazone. After a prolonged hospital course, she was weaned to 4 L of oxygen. Cardiology
transitioned her to torsemide 30 mg twice a day, which is increased from her home dose of 20 mg twice a day.
Patient also had right lower extremity cellulitis. She was seen in conjunction with ID, and treated with IV antibiotics. ID recommends that she be discharged on cephalexin through 01/20/2025. She also has wounds on her lower extremities. She
received wound care.
Patient was noted to have nocturnal hypoxemia. Her BMI is 42.9. She likely has obstructive sleep apnea. She was trialed on a CPAP in the hospital, but did not tolerate. She was seen in conjunction with pulmonology, who recommended outpatient
follow-up.
Patient has paroxysmal atrial fibrillation, her Xarelto was decreased for renal dosing. Cardiology recommended discontinuing metoprolol secondary to bradycardia.
Patient also has chronic anemia. Her hemoglobin dipped to 7.1. She was transfused 1 unit of packed red blood cells. Her hemoglobin responded appropriately, and continued to trend up during her hospitalization.
Patient's multiple medical conditions have been optimized. She is discharged to short-term rehab. She needs to follow-up with her primary care doctor 1 week after she leaves rehab, and pulmonology in the office as directed.
Disposition: Short-term rehab
Discharge planning: Required 41 minutes
--- NOTE | 2025-01-18 15:52 | CM ---
Addendum entered by Danisha Majano RN 01/18/25 16:15:
Spoke with daughter Tod with update that [facility] accepted her mother for tomorrow once insurance approves.
Plan [facility] once insurance approves.
Original Note:
Patient with Dx Acute hypoxemic respiratory failure, HF, Worsening nocturnal hypoxia, RLE wound with surrounding cellulitis. O2 4L. PT/OT; requires assist of 2, recommend skilled rehab.
Spoke with Yanique, [facility]; they are able to accept the patient tomorrow once insurance auth is obtained.
Spoke with G[place], [facility]; request initiated for [facility] for tomorrow, reference # [id number]. Clinical info can be sent to fax [phone]---> sent via Active Fax.
Plan [facility] tomorrow once insurance approves.
[2025-01-18 17:02] LABS: Glucose - Point of Care 180 mg/dl (70-99)
[2025-01-18] MEDS: LIPITOR 40 MG PO (17:14)
[2025-01-18] MEDS: XARELTO 15 MG PO (17:14)
[2025-01-18] MEDS: MAGNESIUM OXIDE 500 MG PO (20:51)
[2025-01-18] MEDS: NEURONTIN 300 MG PO (20:51)
[2025-01-18] MEDS: ROBITUSSIN 200 MG PO (20:54)
[2025-01-18] MEDS: OCEAN, SALINE MIST 2 SPRAYS NASAL (20:54)
[2025-01-18 22:55] LABS: Glucose - Point of Care 175 mg/dl (70-99)
[2025-01-19] VITALS (8 sets, daily range): BP systolic 113–125; BP diastolic 44–94; BMI 42.9
[2025-01-19] MEDS: SYNTHROID 137 MCG PO (05:10)
[2025-01-19] MEDS: KEFLEX 1000 MG PO ×2 (05:10→13:31)
[2025-01-19] MEDS: LINZESS 145 MCG PO (05:10)
[2025-01-19] MEDS: ROBITUSSIN 200 MG PO (05:13)
[2025-01-19 05:22] LABS: Blood Urea Nitrogen 48 mg/dl (7-17); Chloride 83 mmol/L (98-107); Estimated Creatinine Clearance 36 ml/min; Glucose 128 mg/dl (70-99); Potassium 3.4 mmol/L (3.5-5.1); Sodium 134 mmol/L (135-145)
[2025-01-19 06:00] LABS: Carbon Dioxide 49 mmol/L (22-30)
--- NOTE | 2025-01-19 06:32 | PTCARENOTE ---
No acute changes overnight. PRN Robitussin provided. Desenex powder to groin/ sacrum. Pt turning self in bed. Voiding via purewick. No BM. 4L NC in place. SB/SR on tele. LE leg wound dressings changed last night. Call bo within reach. Pt calls
appropriately for assistance.
--- NOTE | 2025-01-19 07:31 | W.PN.HOSP.TC ---
Today's Communication/Plan
-
DC today
Assessment / Plan
Assessment / Plan
79F Chronic GIB Anemia HFpEF CKD3 pAfib HTN HLD DM neuropathy Hypothyroid Obesity here for acute on chronic HFpEF with associate respiratory failure and RLE cellulitis.
# Acute hypoxemic respiratory failure secondary to acute on chronic HFpEF exacerbation
Echocardiogram with ejection fraction of 60-65%
Improved, initially required 14 L of oxygen, now requiring 4L -wean as tolerated
Wean as tolerated, she does not wear oxygen at home
Cardiology following, status post IV Lasix, status post Zaroxolyn
Cardiology recommends discharge on torsemide 30 mg twice a day
Trend creatinine, trend daily weights
#Worsening nocturnal hypoxia
#Probable obstructive sleep apnea
Suspicious for obstructive sleep apnea
Appreciate pulmonology input, recommend trial of CPAP
Patient tried CPAP on the evening of 01/14, but did not tolerate
Needs a nocturnal oximetry testing when volume status has been optimized - pulm informed pt is now on po diuretics 01/17
Needs to follow-up with pulmonology in the office for sleep study
#Hypokalemia
Magnesium normal
Continue scheduled 20 mEQ K BID w/ holding parameters K>5
# Right lower extremity wound with surrounding cellulitis
Wound swab Group G Strep, Proteus, MSSA
Ultrasound negative for DVT
Initially treated with Ancef, then transition to Zosyn
Appreciate ID input, Zosyn changed to Rocephin, Rocephin now changed to Ancef
Ancef changed to cephalexin 1 g p.o. every 8 hours through 01/20/2025
ID signed off
#Severe constipation
Continue bowel regimen
Continue Linzess
#Bilateral knee pain, reported fall prior to admission
Bilateral x-rays show severe arthritis, no fracture or dislocation
Suspect sprain, with possible ligament injury
Continue supportive care, pain control, PT/OT recommend short-term rehab, [place] - poss dc Mon
Paroxysmal atrial fibrillation
- Continue Xarelto renal dosing
- Cardiology recommends discontinue metoprolol secondary to bradycardia
- Continue amiodarone
CKD 3B
- Renal function at baseline, monitor creatinine with diuresis
Chronic anemia
Severe Iron deficiency Anemia
-Hemoglobin dipped to 7.1, she received 1 unit packed red blood cells on 01/10/2025
-Hemoglobin improved to >8, continue to trend, transfuse as needed
-Status post IV iron this hospital admission
Essential hypertension
Hyperlipidemia
- Continue statin
Type 2 diabetes
- Hold metformin
- cont Farxiga
- Insulin sliding scale
Diabetic neuropathy
- Continue gabapentin
Hypothyroidism
- Continue levothyroxine
Obesity
GERD
- Continue Protonix
DVT prophylaxis�Xarelto
Full code
Updated daughter on phone 01/18/2025
Total time spent to see the patient on the floor, examine the patient, review data and lab results, discuss treatment plan with patient, nursing staff around 40 minutes.
Physical Exam
General: Morbidly obese, no acute distress
HEENT: Normocephalic, Atraumatic, EOMI, MMM
Respiratory: Bibasilar crackles
Cardiac: Normal S1/S2, Regular Rate and Rhythm
GI: Soft, Nontender, Nondistended, Normal Bowel Sounds
Extremities: No Clubbing, Cyanosis
Severe right lower extremity edema, erythema, and tenderness
Left lower extremity edema improving
Anticipated Discharge: Within 24 hours
Subjective/Interval History
-
Date of Service: January 19, 2025
no new complaints
breathing is better
feels ready to leave hospital today
Objective Data
-
Labs:
Laboratory Results
01/19/25
04:29
Sodium 134 L
Potassium 3.4 L
Chloride 83 L
Carbon Dioxide 49 H
BUN 48 H
Creatinine 1.6 H
Glucose 128 H
Calcium 8.0 L
Vital Signs:
Vital Signs
Temp Pulse Resp BP Pulse Ox
98.4 F 52 15 125/70 94
01/19/25 03:21 01/19/25 06:00 01/19/25 06:00 01/19/25 06:00 01/19/25 06:00
I&O
01/18/25 01/19/25 01/20/25
06:59 06:59 06:59
Intake Total 480 / 480
Output Total 2850 / 2850 1300 / 1300
Balance -2850 / -2850 -820 / -820
Review of Systems
-
History Source: Patient
All other systems: Reviewed and negative
Data Reviewed
-
Diagnostic Radiology: Report Reviewed by me
Labs: Labs Reviewed by me
--- NOTE | 2025-01-19 07:47 | W.DS.TRANS ---
DC Summary - Help Desk Agent
-
Discharge Instructions:
Sleep Apnea Risk High
Discharge Diagnosis/Procedures Acute respiratory failure, CHF exacerbation,
right lower extremity cellulitis, probable
obstructive sleep apnea, constipation
Diet Restrict fluids to 48 oz,2 Gram Sodium
Activity As tolerated
Driving Restrictions As prior to admission
Bathing Restrictions None
Blood Work BMP ON Saturday01/22/25 to monitor potassium
levels
Others Tests sleep study to be ordered as outpatient
Other Services PT,OT
Specialty Instructions Weigh Daily
Instructions: *PCP/Other Air Traffic Control Manager Heart Failure Instructions
Stand-Alone Forms:
Changes to Home Medications: Yes
Discharge Medications:
DC Medications w/original date entered in [employer]
amiodarone 200 mg tablet (Pacerone) 200 mg PO DAILY Arrhythmia 08/23/21
atorvastatin 40 mg tablet 40 mg PO QPM High cholesterol 08/23/21
cholecalciferol (vitamin D3) 25 mcg (1,000 unit) tablet 1,000 units PO DAILY Supplement 08/23/21
gabapentin 300 mg capsule 300 mg PO HS Neurological Condition 08/23/21
magnesium oxide 500 mg PO HS Electrolyte Repletion 08/23/21
metformin 500 mg tablet 500 mg PO BID@0800,1700 Diabetes 08/23/21
cyanocobalamin (vitamin B-12) 1,000 mcg tablet (Vitamin B-12) 1,000 mcg PO DAILY Supplement 10/02/23
empagliflozin 10 mg tablet (Jardiance) 10 mg PO DAILY Heart Failure/Diabetes 10/02/23
omega-3 fatty acids-fish oil 684 mg-1,200 mg capsule,delayed release 1 cap PO DAILY Supplement 10/02/23
pantoprazole 40 mg tablet,delayed release 40 mg PO DAILY 30 days #30 tabs 10/11/23
linaclotide 145 mcg capsule (Linzess) 145 mcg PO DAILY Gastrointestinal Issue 01/07/25
acetaminophen 325 mg tablet 650 mg (2 x 325 mg) PO Q4HPRN PRN mild pain/CONTE/temp>100.5 #180 tabs 01/18/25
cephalexin 500 mg capsule 1,000 mg (2 x 500 mg) PO Q8H 3 days #18 caps 01/18/25
levothyroxine 137 mcg tablet (Synthroid) 137 mcg PO DAILY@0600 Thyroid #0 tabs 01/18/25
lidocaine 4 % topical patch 2 patch topical DAILY #0 ea 01/18/25
polyethylene glycol 3350 17 gram oral powder packet (HealthyLax) 17 g PO DAILY #0 ea 01/18/25
potassium chloride 20 mEq tablet,extended release(part/cryst) 20 meq PO BID #0 tabs 01/18/25
rivaroxaban 15 mg tablet (Xarelto) 15 mg PO QPM #30 tabs 01/18/25
sennosides 8.6 mg-docusate sodium 50 mg tablet 2 tab PO BID #0 tabs 01/18/25
torsemide 20 mg tablet 30 mg (1.5 x 20 mg) PO BID Fluid Retention/Swelling #0 tabs 01/18/25
tramadol 50 mg tablet 25 mg (1/2 x 50 mg) PO Q6HPRN PRN mod severe pain #20 tabs 01/18/25
Home Medication Changes
STOP ENTRESTO AND LOSARTAN
STOP METOPROLOL
XARELTO DOSING DECREASED FROM 20MG TO 15MG
Please take cephalexin 1 g p.o. every 8 hours through 01/20/2025.
Your Torsemide was increased from 20mg to 30 mg twice a day.
Pending Results: No
[2025-01-19 08:24] LABS: Glucose - Point of Care 162 mg/dl (70-99)
[2025-01-19] MEDS: MIRALAX 17 GRAMS PO (08:37)
[2025-01-19] MEDS: LIDOCAINE 4% PATCH 2 PATCH TOPICAL (08:37)
[2025-01-19] MEDS: NOVOLOG FLEXPEN-LOW RESISTANCE 1 UNITS SC (08:37)
[2025-01-19] MEDS: VITAMIN D3 (cholecalciferol) 25 MCG PO (08:38)
[2025-01-19] MEDS: FARXIGA 10 MG PO (08:38)
[2025-01-19] MEDS: KCL 20 MEQ PO (08:38)
[2025-01-19] MEDS: SENOKOT-S 2 TABLET PO (08:38)
[2025-01-19] MEDS: MUCINEX 600 MG PO (08:38)
[2025-01-19] MEDS: DEMADEX 30 MG PO ×2 (08:38→16:50)
[2025-01-19] MEDS: PROTONIX 40 MG PO (08:38)
[2025-01-19] MEDS: DULCOLAX 10 MG RECTAL (08:39)
[2025-01-19] MEDS: VITAMIN B-12 1000 MCG PO (08:39)
[2025-01-19] MEDS: PACERONE 200 MG PO (08:39)
--- NOTE | 2025-01-19 10:56 | PTCARENOTE ---
Called into room by PCT- pt on floor - getting [place] [facility] [place] gave out pct said half on bed then slid down to floor. No obvious injury and pt reports no pain. Several staff here to get back into bed used ibis lift. aware
came to eval. Right knee was bent under slightly but denies pain. Hector bandage removed and replaced wound dressing and hector compression re applied.
[2025-01-19 12:03] LABS: Glucose - Point of Care 216 mg/dl (70-99)
[2025-01-19] MEDS: NOVOLOG FLEXPEN-LOW RESISTANCE 2 UNITS SC ×2 (12:55→16:50)
--- NOTE | 2025-01-19 14:14 | CM ---
Patient with Dx Acute hypoxemic respiratory failure, HF, Worsening nocturnal hypoxia, RLE wound with surrounding cellulitis. O2 4L. Receiving PO Abx. Seen by wound care nurse. PT/OT; requires assist of 2, recommend skilled rehab.
Clinical info resent to [facility] today via ActiveFax & Manual Fax after receiving call from insurance reviewer indicating Active Fax did not go through yesterday - seemed to be an issue with Active Fax that was sent yesterday and still
hung up in transmission.
Spoke with Ellen, [facility]; [facility] is approved, from 01/19 through 01/21, reference # [id number]. NR 01/21 to Cinthya at fax [phone].
Spoke with Shaye Chanel [facility]; auth info provided. They are able to accept the patient today. The ph [phone], fax [phone].
Met with patient and daughter Tod; both agree to d/c today to [facility] by ambulance. IMM completed.
Plan [facility] today by ambulance.
--- NOTE | 2025-01-19 14:44 | W.DCSUMMARY ---
Discharge Summary
Discharge Data
Date of Admission: 01/07/25
Date of Discharge: 01/19/25
-
Pending Results: No
Hospital Course
Discharge diagnosis:
Acute hypoxic respiratory failure
Acute heart failure with a preserved ejection fraction
Nocturnal hypoxia suspicious for obstructive sleep apnea
Hypokalemia
Right lower extremity wound and cellulitis
Severe constipation
Bilateral knee pain
Paroxysmal atrial fibrillation with bradycardia
Stage III chronic kidney disease
Chronic anemia
Essential hypertension
Hyperlipidemia
Morbid obesity due to excess calories
Type 2 diabetes
Diabetic neuropathy
Hypothyroidism
Gastroesophageal reflux disease
Consults: Cardiology, pulmonology, ID
Hospital course:
79-year-old female with a past medical history of morbid obesity, diabetes, hypothyroidism, GERD, hypertension, hyperlipidemia, CKD, atrial fibrillation, and CHF was admitted for acute hypoxic respiratory failure secondary to acute heart failure
with a preserved ejection fraction. Patient initially required 14 L of oxygen. She was seen in conjunction with cardiology, and diuresed with IV Lasix and metolazone. After a prolonged hospital course, she was weaned to 4 L of oxygen. Cardiology
transitioned her to torsemide 30 mg twice a day, which is increased from her home dose of 20 mg twice a day.
Patient also had right lower extremity cellulitis. She was seen in conjunction with ID, and treated with IV antibiotics. ID recommends that she be discharged on cephalexin through 01/20/2025. She also has wounds on her lower extremities. She
received wound care.
Patient was noted to have nocturnal hypoxemia. Her BMI is 42.9. She likely has obstructive sleep apnea. She was trialed on a CPAP in the hospital, but did not tolerate. She was seen in conjunction with pulmonology, who recommended outpatient
follow-up.
Patient has paroxysmal atrial fibrillation, her Xarelto was decreased for renal dosing. Cardiology recommended discontinuing metoprolol secondary to bradycardia.
Patient also has chronic anemia. Her hemoglobin dipped to 7.1. She was transfused 1 unit of packed red blood cells. Her hemoglobin responded appropriately, and continued to trend up during her hospitalization.
Patient's multiple medical conditions have been optimized. She is discharged to short-term rehab. She needs to follow-up with her primary care doctor 1 week after she leaves rehab, and pulmonology in the office as directed.
Disposition: Short-term rehab
Discharge planning: Required 41 minutes
Discharge Plan
-
Patient Disposition: Long Term/SNF
Discharge Diagnosis/Procedures: Acute respiratory failure, CHF exacerbation, right lower extremity cellulitis, probable obstructive sleep apnea, constipation
Condition: Fair
Diet: 2 Gram Sodium and Restrict fluids to 48 oz
Activity: As tolerated
Driving Restrictions: As prior to admission
Bathing Restrictions: None
Blood Work: BMP ON Saturday01/22/25 to monitor potassium levels
Others Tests: sleep study to be ordered as outpatient
Other Services: PT and OT
Specialty Instructions: Weigh Daily- Call MD for wt gain/loss 3 lbs overnight/5 lbs in 1 week
Activity Restrictions/Additional Instructions:
Please take cephalexin 1 g p.o. every 8 hours through 01/20/2025.
Your torsemide was increased to 30 mg twice a day.
Follow-up with your primary care doctor 1 week after you leave rehab, and your usual office support clerk in the office in 2-3 weeks.
Wound Care Instructions Right Anterior Leg Wound- Clean with Vashe moistend gauze and apply alginate and ABD. Change daily and PRN drainage
Right Posterior Leg wound- Clean with Vashe and apply Xeroform and ABD. Change daily and PRN drainage
Left lateral leg wounds- Clean with Vashe and apply silicone border foam. Change Q 48 hours and PRN drainage.
Follow up at wound care center call for an appointment.
Instructions: *PCP/Other [facility] Heart Failure Instructions
Referrals:
Vanesa Rosa MD [Family Provider, Internal Medicine] - in one week
Brent Kaur MD [Active, Pulmonary Medicine] - in two to three weeks
Referral Note: Obstructive sleep apnea-May see AGENCY LEGAL COUNSEL.
Jay Jay Cuello MD [Non-Admitting Privileges] - 01/12/25 11:00 am
Referral Note: You have an appointment with Dr. Cuello's NETWORK CONTROL OPERATOR at the [facility] office. Please call with questions.
Additional Discharge Medication Instructions: STOP ENTRESTO AND LOSARTAN
STOP METOPROLOL
XARELTO DOSING DECREASED FROM 20MG TO 15MG
Please take cephalexin 1 g p.o. every 8 hours through 01/20/2025.
Your Torsemide was increased from 20mg to 30 mg twice a day.
Prescriptions:
New
lidocaine 4 % Adhesive Patch,Medicated
2 patch topical DAILY Qty: 0 0RF
cephalexin 500 mg Capsule
1,000 mg PO Q8H 3 Days Qty: 18 0RF
sennosides-docusate sodium 8.6-50 mg Tablet
2 tab PO BID Qty: 0 0RF
acetaminophen 325 mg Tablet
650 mg PO Q4HPRN PRN (Reason: mild pain/CONTE/temp>100.5) Qty: 180 0RF
tramadol 50 mg Tablet
25 mg PO Q6HPRN PRN (Reason: mod severe pain) Qty: 20 0RF
Xarelto 15 mg Tablet
15 mg PO QPM Qty: 30 0RF
potassium chloride 20 mEq Tablet,Er Particles/Crystals
20 meq PO BID Qty: 0 0RF
Continued
atorvastatin 40 MG tablet
40 mg PO QPM
metformin 500 MG tablet
500 mg PO BID@0800,1700
amiodarone [Pacerone] 200 MG tablet
200 mg PO DAILY
magnesium oxide 500 MG tablet
500 mg PO HS
gabapentin 300 MG capsule
300 mg PO HS
cholecalciferol (vitamin D3) 1,000 UNITS tablet
1,000 units PO DAILY
cyanocobalamin (vitamin B-12) [Vitamin B-12] 1,000 mcg Tablet
1,000 mcg PO DAILY
omega-3 fatty acids-fish oil 684-1,200 mg Capsule,Delayed Release(Dr/Ec)
1 cap PO DAILY
Jardiance 10 mg tablet
10 mg PO DAILY
pantoprazole 40 mg Tablet,Delayed Release (Dr/Ec)
40 mg PO DAILY 30 Days Qty: 30 0RF
Linzess 145 mcg Capsule
145 mcg PO DAILY
Changed
levothyroxine [Synthroid] 137 mcg Tablet
137 mcg PO DAILY@0600 Qty: 0 0RF
torsemide 20 mg tablet
30 mg PO BID Qty: 0 0RF
polyethylene glycol 3350 [HealthyLax] 17 gram powder in packet
17 g PO DAILY Qty: 0 0RF
Discontinued
Entresto 24-26 mg tablet
1 tab PO BID Qty: 60 0RF
Patient Comments:
01/07/25-patient stated she still takes this-patient not filling or in her lg medicaine chart
ferrous sulfate 325 mg (65 mg iron) Tablet
325 mg PO DAILY
losartan 25 mg Tablet
25 mg PO DAILY
Patient Comments:
01/07/25-currently filling and on her my lg chart, may have replaced entresto due to cost
Xarelto 20 mg Tablet
20 mg PO QPM
metoprolol succinate 25 mg tablet extended release 24 hr
50 mg PO DAILY
Discharge Orders:
Discharge Patient (As Directed); Ordered 01/19/25
Ordered By: Andressa Giang
Discharge Date and Time
Print Language: EQUATORIAL GUINEAN
[2025-01-19 14:53] LABS: Glucose - Point of Care 230 mg/dl (70-99)
[2025-01-19 16:45] LABS: Glucose - Point of Care 236 mg/dl (70-99)
[2025-01-19] MEDS: XARELTO 15 MG PO (16:51)
[2025-01-19] MEDS: LIPITOR 40 MG PO (16:51)
== END 2025-01-19 17:58 | DRG 291 ==
LOC: IMU 21:10
PROVIDERS: Family Medicine; Internal Medicine; ADMITTING PHYSICIAN Hospitalist; ATTENDING PHYSICIAN Student in an Organized Health Care Education/Training Program; CONSULT PHYSICIAN Internal Medicine Cardiovascular Disease; CONSULT PHYSICIAN Internal Medicine Critical Care Medicine; CONSULT PHYSICIAN Internal Medicine Infectious Disease; EMERGENCY PHYSICIAN Emergency Medicine; FAMILY PHYSICIAN Internal Medicine
PROC: 30233N1 Transfusion of Nonautologous Red Blood Cells into Peripheral Vein, Percutaneous Approach (ICD-10-PCS; 2025-01-10)
DX: I13.0 Hypertensive heart and chronic kidney disease with heart failure and stage 1 through stage 4 chronic kidney disease, or unspecified chronic kidney disease (principal); I50.33 Acute on chronic diastolic (congestive) heart failure; J96.01 Acute respiratory failure with hypoxia; L03.115 Cellulitis of right lower limb; Z68.41 Body mass index [BMI] 40.0-44.9, adult; N17.9 Acute kidney failure, unspecified; I48.0 Paroxysmal atrial fibrillation; Z79.01 Long term (current) use of anticoagulants; N18.32 Chronic kidney disease, stage 3b; D64.9 Anemia, unspecified; E11.40 Type 2 diabetes mellitus with diabetic neuropathy, unspecified; E03.9 Hypothyroidism, unspecified; K21.9 Gastro-esophageal reflux disease without esophagitis; Z87.891 Personal history of nicotine dependence; E78.00 Pure hypercholesterolemia, unspecified; E87.6 Hypokalemia; E66.813 Obesity, class 3; Z11.52 Encounter for screening for COVID-19; E11.22 Type 2 diabetes mellitus with diabetic chronic kidney disease
CPT/HCPCS: 71045; 73560; 80048; 80053; 82607; 82728; 82746; 82805; 82962; 83036; 83540; 83550; 83735; 83880; 84100; 84443; 84484; 85014; 85018; 85025; 85027; 86850; 86900; 86901; 86920; 87070; 87077; 87147; 87186; 87205; 87811; 93005; 93306; 93970; 94660; 96374; 96375; 97110; 97163; 97167; 97530; 97535; 99291; J2916; P9016

== ENCOUNTER → 2025-01-22 11:24 | Outpatient (REF) | payer OTHER, SELFPAY ==
[2025-01-22 12:11] LABS: Hematocrit 27.5 % (37.0-47.0); Hemoglobin 7.8 g/dL (12.0-16.0); Mean Corp Hgb Conc. 28.4 g/dL (33.0-37.0); Mean Corpuscular Hgb 21.4 pg (27.0-31.0); Mean Corpuscular Volume 75.5 fL (81.0-99.0); Mean Platelet Volume 8.6 fL (7.4-10.4); Platelet Count 335 10^3/uL (130-400); Red Blood Cell Count 3.64 10^6/uL (4.20-5.40); Red Cell Dist. Width 23.3 % (11.5-14.5); White Blood Cell Count 13.6 10^3/uL (4.8-10.8)
[2025-01-22 13:19] LABS: Blood Urea Nitrogen 57 mg/dl (7-17); Calcium 8.2 mg/dl (8.4-10.2); Carbon Dioxide 39 mmol/L (22-30); Chloride 87 mmol/L (98-107); Glucose 126 mg/dl (70-99); Potassium 4.3 mmol/L (3.5-5.1); Sodium 133 mmol/L (135-145); eGFR 16.55
== END ==
LOC: OLABP 11:24
PROVIDERS: ATTENDING PHYSICIAN Family Medicine
DX: J96.01 Acute respiratory failure with hypoxia (principal); I13.0 Hypertensive heart and chronic kidney disease with heart failure and stage 1 through stage 4 chronic kidney disease, or unspecified chronic kidney disease; L03.115 Cellulitis of right lower limb; N18.32 Chronic kidney disease, stage 3b; E87.6 Hypokalemia; K59.00 Constipation, unspecified; I48.0 Paroxysmal atrial fibrillation; E66.01 Morbid (severe) obesity due to excess calories
CPT/HCPCS: 36415; 80048; 85027

== ENCOUNTER → 2025-01-26 11:38 | Outpatient (REF) | payer OTHER, SELFPAY ==
[2025-01-26 11:53] LABS: % Basophils 0.5 % (0-2); % Eosinophils 3.2 % (0-6); % Immature Granulocytes 1.9 % (0-0.5); % Lymphocytes 7.9 % (20.5-51.1); % Monocytes 10.8 % (1.7-9.3); % Neutrophils 75.7 % (42.2-75.2); Absolute Basophils 0.1 10^3/uL (0-0.2); Absolute Eosinophils 0.4 10^3/uL (0-0.7); Absolute Immature Granulocytes 0.2 10^3/uL (0-0.05); Absolute Lymphocytes 0.9 10^3/uL (1.2-3.4); Absolute Monocytes 1.2 10^3/uL (0.1-0.6); Absolute Neutrophils 8.2 10^3/uL (1.4-6.5); Hematocrit 27.1 % (37.0-47.0); Hemoglobin 7.6 g/dL (12.0-16.0); Mean Corpuscular Hgb 21.8 pg (27.0-31.0); Mean Corpuscular Volume 77.9 fL (81.0-99.0); Mean Platelet Volume 8.8 fL (7.4-10.4); Nucleated Red Blood Cells % 0 %; Platelet Count 324 10^3/uL (130-400); Red Blood Cell Count 3.48 10^6/uL (4.20-5.40); Red Cell Dist. Width 24.5 % (11.5-14.5); White Blood Cell Count 10.8 10^3/uL (4.8-10.8)
[2025-01-26 12:09] LABS: Blood Urea Nitrogen 35 mg/dl (7-17); Calcium 8.3 mg/dl (8.4-10.2); Carbon Dioxide 35 mmol/L (22-30); Chloride 98 mmol/L (98-107); Glucose 116 mg/dl (70-99); Potassium 4.7 mmol/L (3.5-5.1); Sodium 140 mmol/L (135-145)
[2025-01-26 13:27] LABS: Anisocytosis 2+; Hypochromasia 1+; Ovalocytes 1+
[2025-01-26 15:23] LABS: Normal RBC Morphology No
== END ==
LOC: OLABP 11:38
PROVIDERS: ATTENDING PHYSICIAN Family Medicine
DX: J96.01 Acute respiratory failure with hypoxia (principal); I13.0 Hypertensive heart and chronic kidney disease with heart failure and stage 1 through stage 4 chronic kidney disease, or unspecified chronic kidney disease; L03.115 Cellulitis of right lower limb; N18.32 Chronic kidney disease, stage 3b; E87.6 Hypokalemia; K59.00 Constipation, unspecified; I48.0 Paroxysmal atrial fibrillation; E66.01 Morbid (severe) obesity due to excess calories
CPT/HCPCS: 36415; 80048; 85025

== ENCOUNTER → 2025-01-28 11:32 | Outpatient (REF) | payer OTHER, MEDICARE, SELFPAY ==
[2025-01-28 12:43] LABS: Blood Urea Nitrogen 29 mg/dl (7-17); Calcium 7.8 mg/dl (8.4-10.2); Carbon Dioxide 35 mmol/L (22-30); Chloride 101 mmol/L (98-107); Glucose 87 mg/dl (70-99); Potassium 4.9 mmol/L (3.5-5.1); Sodium 139 mmol/L (135-145); eGFR 35.01
[2025-01-28 12:51] LABS: % Basophils 0.7 % (0-2); % Eosinophils 5.4 % (0-6); % Immature Granulocytes 2.7 % (0-0.5); % Lymphocytes 12.8 % (20.5-51.1); % Monocytes 10.2 % (1.7-9.3); % Neutrophils 68.2 % (42.2-75.2); Absolute Basophils 0.1 10^3/uL (0-0.2); Absolute Eosinophils 0.4 10^3/uL (0-0.7); Absolute Immature Granulocytes 0.2 10^3/uL (0-0.05); Absolute Lymphocytes 0.9 10^3/uL (1.2-3.4); Absolute Monocytes 0.8 10^3/uL (0.1-0.6); Hematocrit 26.4 % (37.0-47.0); Hemoglobin 7.2 g/dL (12.0-16.0); Mean Corp Hgb Conc. 27.3 g/dL (33.0-37.0); Mean Corpuscular Hgb 21.5 pg (27.0-31.0); Mean Corpuscular Volume 78.8 fL (81.0-99.0); Mean Platelet Volume 8.7 fL (7.4-10.4); Nucleated Red Blood Cells % 0 %; Platelet Count 300 10^3/uL (130-400); Red Blood Cell Count 3.35 10^6/uL (4.20-5.40); White Blood Cell Count 7.4 10^3/uL (4.8-10.8)
== END ==
LOC: OLABP 11:32
PROVIDERS: ATTENDING PHYSICIAN Family Medicine
DX: J96.01 Acute respiratory failure with hypoxia (principal); I13.0 Hypertensive heart and chronic kidney disease with heart failure and stage 1 through stage 4 chronic kidney disease, or unspecified chronic kidney disease; L03.115 Cellulitis of right lower limb; N18.32 Chronic kidney disease, stage 3b; E87.6 Hypokalemia; K59.00 Constipation, unspecified; I48.0 Paroxysmal atrial fibrillation; E66.01 Morbid (severe) obesity due to excess calories
CPT/HCPCS: 36415; 80048; 85025

== ENCOUNTER → 2025-01-29 10:46 | Outpatient (REF) | payer OTHER, SELFPAY ==
[2025-01-29 11:40] LABS: % Basophils 0.5 % (0-2); % Immature Granulocytes 2.1 % (0-0.5); % Lymphocytes 12.6 % (20.5-51.1); % Monocytes 10.2 % (1.7-9.3); % Neutrophils 69.6 % (42.2-75.2); Absolute Eosinophils 0.4 10^3/uL (0-0.7); Absolute Immature Granulocytes 0.2 10^3/uL (0-0.05); Absolute Lymphocytes 1.1 10^3/uL (1.2-3.4); Absolute Monocytes 0.9 10^3/uL (0.1-0.6); Absolute Neutrophils 6.1 10^3/uL (1.4-6.5); Hematocrit 26.2 % (37.0-47.0); Hemoglobin 7.6 g/dL (12.0-16.0); Mean Corpuscular Hgb 22.6 pg (27.0-31.0); Mean Corpuscular Volume 77.7 fL (81.0-99.0); Mean Platelet Volume 8.8 fL (7.4-10.4); Nucleated Red Blood Cells % 0 %; Platelet Count 325 10^3/uL (130-400); Red Blood Cell Count 3.37 10^6/uL (4.20-5.40); White Blood Cell Count 8.7 10^3/uL (4.8-10.8)
[2025-01-29 12:05] LABS: Normal RBC Morphology No
[2025-01-29 12:06] LABS: Anisocytosis 1+; Hypochromasia 1+; Ovalocytes 1+
== END ==
LOC: OLABP 10:46
PROVIDERS: ATTENDING PHYSICIAN Family Medicine
DX: J96.01 Acute respiratory failure with hypoxia (principal); I13.0 Hypertensive heart and chronic kidney disease with heart failure and stage 1 through stage 4 chronic kidney disease, or unspecified chronic kidney disease; L03.115 Cellulitis of right lower limb; N18.32 Chronic kidney disease, stage 3b; E87.6 Hypokalemia; K59.00 Constipation, unspecified; I48.0 Paroxysmal atrial fibrillation; E66.01 Morbid (severe) obesity due to excess calories
CPT/HCPCS: 36415; 85025

== ENCOUNTER → 2025-02-02 10:52 | Outpatient (REF) | payer OTHER, SELFPAY ==
[2025-02-02 13:31] LABS: Folate 7.3 ng/ml (2.76-20); Vitamin B12 915 pg/ml (239-931)
== END ==
LOC: OLABP 10:52
PROVIDERS: ATTENDING PHYSICIAN Family Medicine
DX: J96.01 Acute respiratory failure with hypoxia (principal); I13.0 Hypertensive heart and chronic kidney disease with heart failure and stage 1 through stage 4 chronic kidney disease, or unspecified chronic kidney disease; L03.115 Cellulitis of right lower limb; N18.32 Chronic kidney disease, stage 3b; E87.6 Hypokalemia; K59.00 Constipation, unspecified; E66.01 Morbid (severe) obesity due to excess calories; I48.0 Paroxysmal atrial fibrillation; E11.9 Type 2 diabetes mellitus without complications
CPT/HCPCS: 36415; 82607; 82746

== ENCOUNTER → 2025-02-04 09:37 | Outpatient (REF) | payer OTHER, MEDICARE, SELFPAY ==
[2025-02-04 10:22] LABS: % Basophils 0.3 % (0-2); % Eosinophils 4.7 % (0-6); % Immature Granulocytes 0.9 % (0-0.5); % Lymphocytes 8.9 % (20.5-51.1); % Monocytes 8.3 % (1.7-9.3); % Neutrophils 76.9 % (42.2-75.2); Absolute Eosinophils 0.4 10^3/uL (0-0.7); Absolute Immature Granulocytes 0.1 10^3/uL (0-0.05); Absolute Lymphocytes 0.8 10^3/uL (1.2-3.4); Absolute Monocytes 0.8 10^3/uL (0.1-0.6); Absolute Neutrophils 6.9 10^3/uL (1.4-6.5); Hemoglobin 7.8 g/dL (12.0-16.0); Mean Corp Hgb Conc. 28.9 g/dL (33.0-37.0); Mean Corpuscular Hgb 22.9 pg (27.0-31.0); Mean Corpuscular Volume 79.2 fL (81.0-99.0); Mean Platelet Volume 8.8 fL (7.4-10.4); Nucleated Red Blood Cells % 0 %; Platelet Count 199 10^3/uL (130-400); Red Blood Cell Count 3.41 10^6/uL (4.20-5.40); Red Cell Dist. Width 25.3 % (11.5-14.5)
[2025-02-04 11:16] LABS: Blood Urea Nitrogen 21 mg/dl (7-17); Calcium 8.1 mg/dl (8.4-10.2); Carbon Dioxide 32 mmol/L (22-30); Chloride 104 mmol/L (98-107); Glucose 99 mg/dl (70-99); Sodium 142 mmol/L (135-145); eGFR 41.57
[2025-02-04 11:20] LABS: Acanthocytes 1+; Anisocytosis 1+; Hypochromasia 1+; Normal RBC Morphology No; Ovalocytes 1+; Polychromasia 1+
== END ==
LOC: OLABP 09:37
PROVIDERS: ATTENDING PHYSICIAN Family Medicine
DX: J96.01 Acute respiratory failure with hypoxia (principal); I13.0 Hypertensive heart and chronic kidney disease with heart failure and stage 1 through stage 4 chronic kidney disease, or unspecified chronic kidney disease; L03.115 Cellulitis of right lower limb; N18.32 Chronic kidney disease, stage 3b; E87.6 Hypokalemia; K59.00 Constipation, unspecified; I48.0 Paroxysmal atrial fibrillation; D64.9 Anemia, unspecified; E66.01 Morbid (severe) obesity due to excess calories
CPT/HCPCS: 36415; 80048; 85025

== ENCOUNTER 2025-07-15 15:18 | Observation (INO) | payer MEDICARE, SELFPAY ==
[2025-07-15] VITALS (16 sets, daily range): BP systolic 88–134; BP diastolic 48–90; PULSE 57; O2SAT 97; BMI 40.7; BMI 39.6
[2025-07-15 03:22] LABS: Hematocrit 29.1 % (37.0-47.0); Hemoglobin 9.4 g/dL (12.0-16.0); Mean Corp Hgb Conc. 32.3 g/dL (33.0-37.0); Mean Corpuscular Volume 78.9 fL (81.0-99.0); Nucleated Red Blood Cells % 0 %; Platelet Count 253 10^3/uL (130-400); Red Cell Dist. Width 20.8 % (11.5-14.5)
[2025-07-15 03:45] LABS: ALT (SGPT) 19 U/L (0-35); AST (SGOT) 28 U/L (14-36); Albumin 4.3 g/dl (3.5-5.0); Alkaline Phosphatase 57 U/L (38-126); Blood Urea Nitrogen 89 mg/dl (7-17); Calcium 9.3 mg/dl (8.4-10.2); Carbon Dioxide 29 mmol/L (22-30); Chloride 95 mmol/L (98-107); Estimated Creatinine Clearance 30 ml/min; Glucose 122 mg/dl (70-99); Potassium 4.1 mmol/L (3.5-5.1); Sodium 133 mmol/L (135-145); Total Protein 8.1 g/dl (6.3-8.2); eGFR 27.96
--- NOTE | 2025-07-15 05:16 | ED.GENMED ---
History of Present Illness
<Myah Daniel PA-C - Last Filed: 07/15/25 08:14>
General
Chief Complaint: Weakness
Source: patient
Exam Limitations: none
Time Seen by Provider: 07/15/25 05:08
Nursing documentation reviewed up to this point in time: agreed with
History of Present Illness
History of Present Illness:
Note:
CHIEF COMPLAINT(S)
Weakness
Ambulatory dysfunction
HISTORY OF PRESENT ILLNESS
The patient is an 80-year-old female with a medical history of chronic heart failure on chronic O2, HTN, diabetes, thyroid disease, who presented with weakness and mobility issues following a recent discharge from the hospital after treatment for
fluid overload. The patient was hospitalized for two weeks. She was discharged with changes in her medications and discharged home. Apprently there was no discussion about discharge to a [facility] which patient has required in the past with prior
hospitalization. The patients family expressed concerns about her being discharged home vs longterm as she is unable to stand or walk without assistance, though she was able to walk to the bathroom with a walker before discharge. She reports
feeling weak and very fatigued but has no shortness of breath or chest pain. The patient denies dizziness but describes simply feeling fatigued and tired when attempting to walk. She reports no new or worsening symptoms since discharge, except for
the noted weakness. She denies any burning with urination, urinary frequency. She has been on oxygen continuously since December due to her heart condition and per her previous primary care providers recommendation. She has follow-up scheduled with
her beader and repeat blood work scheduled. She denies abdominal pain, vomiting, fevers at home. Patient reports that when she is laying she generally feels really well and feels better now that all the fluid is off of her, but reports
problems with walking and feels as though the fluid retention she had earlier in her lower extremities caused her to have some residual pain in her extremities which limits her walking. She denies dizziness.
PAST MEDICAL AND SURGICAL HISTORY
Chronic heart failure.
A-fib, hypertension, hyperlipidemia
CHRONIC MEDICAL CONDITIONS SIGNIFICANTLY AFFECTING CARE
- Chronic heart failure.
SOCIAL DETERMINANTS OF HEALTH
The patients family expressed concerns over her discharge and her ability to safely remain at home due to her significant weakness and reliance on assistance.
PHYSICAL EXAM
General: Patient is well appearing and in no acute distress; non-toxic
Skin: Warm and dry, no rashes or lesions
Head: Normocephalic, atraumatic
Eyes: Sclera non-icteric. EOMs intact.
Cardiac: Regular rate, no murmurs
Peripheral Vascular: No lower extremity swelling or edema, 2+ DP pulses bilaterally
Pulm: Normal respiratory effort, patient chronically on 2 L O2 via nasal cannula, no wheezes, no crackles
Abdomen: No abdominal tenderness to palpation
Neuro: CN II-XII intact, no focal neurologic deficits.
Psychiatric: Appropriate mood and affect.
EXTERNAL RECORDS REVIEWED
The patients previous hospital discharge records were reviewed, noting the recent hospitalization for fluid overload and changes in medication regimens.
CHART REVIEW
I reviewed patient's discharge summary from [facility]
Patient was discharged yesterday at 10:33 AM. She was seen for acute fluid overload secondary to heart failure.
She was treated with Bumex, she had cardiac catheterization performed
[place] much better after IV diuresis
Transition to oral Bumex
Other medications were adjusted as well
She was discharged at her goal weight
She was discharged on oxygen
I reviewed labs from yesterday at discharge. Her labs today on 07/15 her hemoglobin and creatinine is improved. Her BUN is around baseline. Her white blood cell count is increased from yesterday. Although no signs of infection today, will check
urine in light of weakness. No fever today.
She had ground glass during the evaluation suspected may be from fluid versus small airway disease the patient's history of smoking, likely also contributing to hypoxia
PLAN
- Arrange case management follow-up to establish home therapy or potential rehabilitation/nursing facility admission as per patients and familys concerns.
- Monitor and address persistent weakness and inability to ambulate independently.
- Continue evaluation and therapy for possible urinary tract infection, consider mid-stream urine sample collection for further analysis if symptoms persist or worsen.
- Evaluation by physical therapy to assess mobility limitations and assistive device needs.
Reviewed case with ED attending who is in agreement with plan
DIFFERENTIAL DIAGNOSIS
The Differential Diagnosis includes, in no particular order and is not limited to:
- Deconditioning due to hospitalization.
- Urinary tract infection.
- Exacerbation of chronic heart failure.
- Medication side effects.
- Electrolyte imbalance.
- Anemia.
- Deep vein thrombosis.
- Depression or anxiety contributing to weakness.
- Pulmonary embolism.
- Neurological disorder.
SUMMARY OF ENCOUNTER
The patient was seen in the emergency department for weakness and concerns about possible urinary tract infection following recent hospital discharge for fluid overload related to chronic heart failure. The family felt the patient was discharged too
soon as she demonstrates significant weakness and mobility challenges. During the evaluation, no acute life-threatening conditions were identified, but her weakness limits her ability to function independently at home. A plan was made to coordinate
care with physical therapy and case management to support the patients transition back to her home environment or consideration for rehabilitation placement if deemed necessary.
ASSESSMENT
Chronic heart failure with recent hospitalization and discharge, presently stable; weakness likely due to deconditioning. Suspected urinary tract infection; requires further investigation.
MEDICAL DECISION MAKING
80-year-old female presents to the ER today with concerns of weakness and ambulatory dysfunction. She is discharged from hospital of the [facility] yesterday. Patient and family wish that patient was discharged to a skilled
facility. Patient states that she generally feels well but just feels fatigue. No chest pain, no shortness of breath, no abdominal pain, no fever. No urinary symptoms. Per my standpoint, patient is medically stable for longterm facility,
will obtain physical therapy and case management eval. No further medical workup required at this time. Patient has follow-up scheduled with beader. In light of increase in white blood cell count, will check urine, if urine abnormal, will
give dose of antibiotic one-time dose.
Discussed case with Mau INTERIANO pending PT eval and urinalysis
DIAGNOSIS
- Weakness (ICD-10: R53.1)
- Deconditioning/ambulatory dysfunction
Past History
<Myah Daniel PA-C - Last Filed: 07/15/25 08:14>
Past History
ED Past Medical History: Arrthythmia (Atrial fib), CHF, HTN, Hypercholesterolemia and NIDDM
ED Past Surgical History: Gynecological (Hysterectomy) and Other (Thyroid surgery)
Social History
Tobacco: Non-smoker
Alcohol: None
Personal:
Living: with family
Phy Exam
<Myah Daniel PA-C - Last Filed: 07/15/25 08:14>
Physical Exam
Physical Exam:
see hpi
Course
<Myah Daniel PA-C - Last Filed: 07/15/25 08:14>
Orders/Labs/Results
Orders:
Orders
07/15/25 03:06
CMP [Comprehensive Metabolic Panel] Urgent
Complete Blood Count/With Diff Urgent
07/15/25 06:06
Case Management Consult ONCE
Case Management Consult: Discharge Planning
Requested By:: PT/FAMILY
Comment: Snif
Physical Therapy Consult [Pt Eval And Treat] Urgent
Activity Level: With Assistance
07/15/25 06:29
Urinalysis Reflex To Culture Urgent
Date Specimen was Collected: 07/15/25
Time Specimen was Collected: 06:20
Urine Microscopic Reflex Cult Urgent
07/15/25 11:17
PT Consult [Pt Eval And Treat] Stat
Treatment: placement
Activity Level: Out of Bed-Early Mobility
Abnormal Lab Results
07/15/25 07/15/25
03:06 06:29
WBC 14.2 H 10^3/uL
(4.8-10.8)
RBC 3.69 L 10^6/uL
(4.20-5.40)
Hgb 9.4 L g/dL
(12.0-16.0)
Hct 29.1 L %
(37.0-47.0)
MCV 78.9 L fL
(81.0-99.0)
MCH 25.5 L pg
(27.0-31.0)
MCHC 32.3 L g/dL
(33.0-37.0)
RDW 20.8 H %
(11.5-14.5)
Abs Immat Gran (auto) 0.2 H 10^3/uL
(0-0.05)
Absolute Neuts (auto) 12.1 H 10^3/uL
(1.4-6.5)
Absolute Lymphs (auto) 0.7 L 10^3/uL
(1.2-3.4)
Absolute Monos (auto) 1.1 H 10^3/uL
(0.1-0.6)
Immature Gran % 1.1 H %
(0-0.5)
Neutrophils % 84.9 H %
(42.2-75.2)
Lymphocytes % 4.9 L %
(20.5-51.1)
Sodium 133 L mmol/L
(135-145)
Chloride 95 L mmol/L
(98-107)
BUN 89 H mg/dl
(7-17)
Creatinine 1.8 H mg/dL
(0.6-1.0)
Glucose 122 H mg/dl
(70-99)
Urine Albumin (Reflex) 1+ A
(Neg - Trace)
07/15/25 03:06
07/15/25 03:06
Vital Signs
Initial and Last Documented VS:
Initial Vital Signs
Temp Pulse Resp BP Pulse Ox
98.1 F 66 20 134/62 95
07/15/25 02:45 07/15/25 02:45 07/15/25 02:45 07/15/25 02:45 07/15/25 02:45
Last Documented Vital Signs
Temp Pulse Resp BP Pulse Ox
97.6 F 52 13 116/57 97
07/15/25 11:42 07/15/25 10:45 07/15/25 10:45 07/15/25 09:16 07/15/25 09:16
<Karsten Galvez PA-C - Last Filed: 07/15/25 14:21>
Orders/Labs/Results
Orders:
Orders
07/15/25 03:06
CMP [Comprehensive Metabolic Panel] Urgent
Complete Blood Count/With Diff Urgent
07/15/25 06:06
Case Management Consult ONCE
Case Management Consult: Discharge Planning
Requested By:: PT/FAMILY
Comment: Snif
Physical Therapy Consult [Pt Eval And Treat] Urgent
Activity Level: With Assistance
07/15/25 06:29
Urinalysis Reflex To Culture Urgent
Date Specimen was Collected: 07/15/25
Time Specimen was Collected: 06:20
Urine Microscopic Reflex Cult Urgent
07/15/25 11:17
PT Consult [Pt Eval And Treat] Stat
Treatment: placement
Activity Level: Out of Bed-Early Mobility
Abnormal Lab Results
07/15/25 07/15/25
03:06 06:29
WBC 14.2 H 10^3/uL
(4.8-10.8)
RBC 3.69 L 10^6/uL
(4.20-5.40)
Hgb 9.4 L g/dL
(12.0-16.0)
Hct 29.1 L %
(37.0-47.0)
MCV 78.9 L fL
(81.0-99.0)
MCH 25.5 L pg
(27.0-31.0)
MCHC 32.3 L g/dL
(33.0-37.0)
RDW 20.8 H %
(11.5-14.5)
Abs Immat Gran (auto) 0.2 H 10^3/uL
(0-0.05)
Absolute Neuts (auto) 12.1 H 10^3/uL
(1.4-6.5)
Absolute Lymphs (auto) 0.7 L 10^3/uL
(1.2-3.4)
Absolute Monos (auto) 1.1 H 10^3/uL
(0.1-0.6)
Immature Gran % 1.1 H %
(0-0.5)
Neutrophils % 84.9 H %
(42.2-75.2)
Lymphocytes % 4.9 L %
(20.5-51.1)
Sodium 133 L mmol/L
(135-145)
Chloride 95 L mmol/L
(98-107)
BUN 89 H mg/dl
(7-17)
Creatinine 1.8 H mg/dL
(0.6-1.0)
Glucose 122 H mg/dl
(70-99)
Urine Albumin (Reflex) 1+ A
(Neg - Trace)
07/15/25 03:06
07/15/25 03:06
Vital Signs
Initial and Last Documented VS:
Initial Vital Signs
Temp Pulse Resp BP Pulse Ox
98.1 F 66 20 134/62 95
07/15/25 02:45 07/15/25 02:45 07/15/25 02:45 07/15/25 02:45 07/15/25 02:45
Last Documented Vital Signs
Temp Pulse Resp BP Pulse Ox
97.6 F 52 13 116/57 97
07/15/25 11:42 07/15/25 10:45 07/15/25 10:45 07/15/25 09:16 07/15/25 09:16
<Myah Daniel PA-C - Last Filed: 07/15/25 08:14>
*Pulse Oximetry
SaO2: 95
Nasal Cannula flow liters per minute: 4
Patient hypoxic: no
*Critical Care Note
Total Time (30-74mins, 75-104mins- exclusive of procedures): Not Applicable
<Karsten Galvez PA-C - Last Filed: 07/15/25 14:21>
Update Note
Update Note:
Assumed care of patient pending PT and case management evaluation. PT recommends SNF. Case management found a bed at [facility] however authorization will not be approved until tomorrow. Will admit to hospital for generalized weakness and need for
placement
ED Attending Note
<Myah Daniel PA-C - Last Filed: 07/15/25 08:14>
-
Portions of this chart may have been created with voice recognition software.� Occasional wrong word or��sound alike� substitutions may have occurred due to the inherent limitations of voice recognition software.
Discharge Plan
Departure
Patient Disposition: Admit
Date of Disposition: 07/15/25
Time of Disposition: 14:21
Presentation/result/management discussed w/ accepting MD/DO: Hospitalist
Patient with high blood pressure during this ER visit?: No
Condition: Good
Discharge Problem:
Ambulatory dysfunction, Weakness
Prescriptions:
No Action
atorvastatin 40 MG tablet
40 mg PO QPM
metformin 500 MG tablet
500 mg PO BID@0800,1700
amiodarone [Pacerone] 200 MG tablet
200 mg PO DAILY
magnesium oxide 500 MG tablet
500 mg PO HS
gabapentin 300 MG capsule
300 mg PO HS
cholecalciferol (vitamin D3) 1,000 UNITS tablet
1,000 units PO DAILY
cyanocobalamin (vitamin B-12) [Vitamin B-12] 1,000 mcg Tablet
1,000 mcg PO DAILY
omega-3 fatty acids-fish oil 684-1,200 mg Capsule,Delayed Release(Dr/Ec)
1 cap PO DAILY
Jardiance 10 mg tablet
10 mg PO DAILY
pantoprazole 40 mg Tablet,Delayed Release (Dr/Ec)
40 mg PO DAILY 30 Days Qty: 30 0RF
Linzess 145 mcg Capsule
145 mcg PO DAILY
lidocaine 4 % Adhesive Patch,Medicated
2 patch topical DAILY Qty: 0 0RF
cephalexin 500 mg Capsule
1,000 mg PO Q8H 3 Days Qty: 18 0RF
sennosides-docusate sodium 8.6-50 mg Tablet
2 tab PO BID Qty: 0 0RF
acetaminophen 325 mg Tablet
650 mg PO Q4HPRN PRN (Reason: mild pain/CONTE/temp>100.5) Qty: 180 0RF
tramadol 50 mg Tablet
25 mg PO Q6HPRN PRN (Reason: mod severe pain) Qty: 20 0RF
Xarelto 15 mg Tablet
15 mg PO QPM Qty: 30 0RF
potassium chloride 20 mEq Tablet,Er Particles/Crystals
20 meq PO BID Qty: 0 0RF
levothyroxine [Synthroid] 137 mcg Tablet
137 mcg PO DAILY@0600 Qty: 0 0RF
torsemide 20 mg tablet
30 mg PO BID Qty: 0 0RF
polyethylene glycol 3350 [HealthyLax] 17 gram powder in packet
17 g PO DAILY Qty: 0 0RF
Referrals:
UNKNOWN - PT NOT,INTERVIEWE [Family Provider]
Interventions
Interventions:
*Risk Screen - Suicide Last Done: 07/15/25 03:02
*General Assessment Last Done: 07/15/25 02:51
*Neglect/Abuse Screening Last Done: 07/15/25 03:02
*ED COVID-19 Vaccine History Last Done: 07/15/25 02:51
*ED Influenza Vaccine History Last Done: 07/15/25 02:51
[facility] Fall Risk Assessment Tool Last Done: 07/15/25 02:41
ED- Cardiac Assessment Last Done: 07/15/25 03:02
ED- Neurological Assessment Last Done: 07/15/25 03:02
ED- Pulmonary Assessment Last Done: 07/15/25 03:02
Discharge Date and Time
Print Language: KISWAHILI
[2025-07-15 08:14] LABS: Urine Character Clear (Clear)
[2025-07-15 08:50] LABS: Urine Red Blood Cell 0-2 /HPF (0-2)
--- NOTE | 2025-07-15 10:11 | EDCM ---
Addendum entered by Vanesa Huntley 07/15/25 14:36:
Spoke to Yanique at [facility], pt accepted. Discussed with pt and she is agreeable. Attempted to reach her daughter by phone, no answer and voicemail full. Submitted for auth through [employer]. [phone], pending auth number [id number], clinicals faxed
to [phone].
Original Note:
Received consult, pt was seen by PT who are recommending SNF. I spoke to her daughter Ana over the phone, first choice is [facility] as she has been there before. Agreeable to more referrals, sent to [facility] and also.
Pt is currently staying with her daughter in [place] after an admission at [facility], just discharged yesterday.
Pt lives alone in 1 story home, [address], ambulates with RW. Goal is for her to return to her home and continue to live independently.
--- NOTE | 2025-07-15 14:25 | HPS.HSE ---
Family Physician
-
Family Physician: INTERVIEWE UNKNOWN - PT NOT
Chief Complaint
-
weakness, pending placement
History of Present Illness
79F BiB from home c/o of weakness.
- Pt was d/c from [facility] yesterday from a 2 wk stay.
- At 2 am pt was not able to ambulate to bathroom d/t weakness.
- Noted HX morbid obesity, diabetes, hypothyroidism, GERD, hypertension, hyperlipidemia, CKD, atrial fibrillation, and chr HFpEF , Home O2, chronic hypoxic respiratory failure
Medical History
Past Medical History
Past Medical History: Reports Other (chronic GI bleeding, anemia, chronic HFpEF, CKD 3B, paroxysmal atrial fibrillation, hypertension, hyperlipidemia, type 2 diabetes, diabetic neuropathy, hypothyroidism, obesity,)
Past Surgical History: Reports Other (Gynecological (Hysterectomy) and Other (Thyroid surgery))
Social History
Tobacco: Non-smoker
Alcohol: None
Drug: None
Family History
Family History: Not pertinent
Allergies / Home Medications
Allergies reflects when Allergies were last updated in [facility].
Home Medications with original date entered in [facility]
Allergy/Medication List:
Allergies
Allergy/AdvReac Type Severity Reaction Status Date / Time
No Known Allergies Allergy Verified 10/02/23 19:53
Home Medications
amiodarone 200 mg tablet (Pacerone) 200 mg PO DAILY Arrhythmia 08/23/21
atorvastatin 40 mg tablet 40 mg PO QPM High cholesterol 08/23/21
cholecalciferol (vitamin D3) 25 mcg (1,000 unit) tablet 1,000 units PO DAILY Supplement 08/23/21
gabapentin 300 mg capsule 300 mg PO HS Neurological Condition 08/23/21
levothyroxine 137 mcg capsule 137 mcg PO DAILY AT 0700 Thyroid 08/23/21
magnesium oxide 500 mg PO HS Electrolyte Repletion 08/23/21
metformin 500 mg tablet 500 mg PO BID@0800,1700 Diabetes 08/23/21
cyanocobalamin (vitamin B-12) 1,000 mcg tablet (Vitamin B-12) 1,000 mcg PO DAILY Supplement 10/02/23
empagliflozin 10 mg tablet (Jardiance) 10 mg PO DAILY Heart Failure/Diabetes 10/02/23
omega-3 fatty acids-fish oil 684 mg-1,200 mg capsule,delayed release 1 cap PO DAILY Supplement 10/02/23
lubiprostone 24 mcg capsule 24 mcg PO BID 30 days #60 caps 10/11/23
metoprolol succinate 25 mg tablet,extended release 24 hr 25 mg PO DAILY 30 days #30 tabs 10/11/23
pantoprazole 40 mg tablet,delayed release 40 mg PO DAILY 30 days #30 tabs 10/11/23
polyethylene glycol 3350 17 gram oral powder packet (HealthyLax) 17 g PO BID #60 ea 10/11/23
rivaroxaban 15 mg tablet (Xarelto) 15 mg PO QPM #30 tabs 10/11/23
potassium chloride 20 mEq tablet,extended release(part/cryst) 20 meq PO DAILY Electrolyte Repletion 30 days #30 tabs 10/12/23
sacubitril 24 mg-valsartan 26 mg tablet (Entresto) 1 tab PO BID #60 tabs 10/12/23
torsemide 20 mg tablet 20 mg PO 0800,1600 Fluid Retention/Swelling 30 days #60 tabs 10/12/23
Review of Systems
-
History Source: Patient
A 12 point ROS was completed and negative except as noted: Yes
Constitutional: Reports No Symptoms
EENT: Reports No Symptoms
Respiratory: Reports See HPI
Cardiac: Reports See HPI
Abdomen/GI: Reports No Symptoms
: Reports No Symptoms
Musculoskeletal: Reports No Symptoms
Skin: Reports No Symptoms
Neurological: Reports No Symptoms
Endocrine: Reports No Symptoms
Hematologic/Lymphatic: Reports No Symptoms
Psych: Reports No Symptoms
Physical Exam
Vital Signs
Vital Signs
Temp Pulse Resp BP Pulse Ox
97.6 F 52 13 116/57 97
07/15/25 11:42 07/15/25 10:45 07/15/25 10:45 07/15/25 09:16 07/15/25 09:16
Physical Exam
General: Well Developed, Well Nourished and No Apparent Distress
HEENT: NormoCephalic, Moist mucous membranes and Atraumatic
Respiratory: Clear
Cardiac: S1/S2 and Regular Rhythm; No Murmur or Rub
GI: Soft, Non Tender, Non Distended and Normal Bowel Sounds; No Organomegaly
Rectal: Deferred by Provider
Musculoskeletal: No Edema
Skin: Other (right leg erythema ); No Rash
Neuro: Nonfocal/grossly intact
Laboratory Results
-
07/15/25 03:06
07/15/25 03:06
Laboratory Results
Total Bilirubin 0.6 mg/dl (0.2-1.3) 07/15/25 03:06
AST 28 U/L (14-36) 07/15/25 03:06
ALT 19 U/L (0-35) 07/15/25 03:06
Alkaline Phosphatase 57 U/L (38-126) 07/15/25 03:06
Data Reviewed
-
Lab Data: Labs Reviewed by me
Old Records: Reviewed
Impression/Plan
-
Vital Signs
Temp Pulse Resp BP Pulse Ox
97.6 F 52 13 116/57 97
07/15/25 11:42 07/15/25 10:45 07/15/25 10:45 07/15/25 09:16 07/15/25 09:16
01/19/25
04:43 07/15/25
03:00
Actual Weight 116.96 kg 110.9 kg ( loss 6 kg )
Laboratory Tests
01/29/25 02/04/25 07/15/25
06:10 06:22 03:06
WBC 14.2 H
Hgb 7.6 L 7.8 L 9.4 L
Plt Count 253
02/04/25 07/15/25
06:22 03:06
Sodium 133 L
Potassium 4.0 4.1
Chloride 95 L
Carbon Dioxide 32 H 29
BUN 21 H 89 H
Creatinine 1.3 H 1.8 H
eGFR 41.57 27.96
01/13/25 TTE
Mild concentric left ventricular hypertrophy.
Normal left ventricular chamber size.
Normal left ventricular systolic function.
Left ventricular ejection fraction is 66% by Noble's method.
Normal right ventricular size and function.
Mild mitral regurgitation.
Thickened aortic valve with normal leaflet excursion.
Mild to moderate tricuspid regurgitation.
Trace pulmonic regurgitation.
Normal pericardium without effusion.
The aortic root is of normal size.
The IVC is of normal size and demonstrates normal respiratory variation.
Last hospitalist admission:01/07/25 - 01/19/25
Discharge diagnosis:
Acute hypoxic respiratory failure
Acute heart failure with a preserved ejection fraction
Nocturnal hypoxia suspicious for obstructive sleep apnea
Hypokalemia
Right lower extremity wound and cellulitis
Severe constipation
Bilateral knee pain
ASSESSMENT & PLAN
Pending Rx reconciliation
Weakness with ambulatory dysfunction
DELILAH on CKD3
Biochemically dehydrated and contracted vol. suspect overdiuresis
Associated weakness due to dehydration
Loss 6 kg over last 6-7 months
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
- IV NS 250 cc now
- Trend BMP and daily wt
- PT/OT and CRM eval for SNF placement
Known HX
HX Chr Hypoxic RF on 2L home O2
HX Chr HFpEF - Not in acute HF: on Jardiance, Holding Torsemide due to dehydration nd vol contraction
Paroxysmal atrial fibrillation with bradycardia: on Amiodarone\\e and Xarelto
CKD3: BL Cr 1.3, eGFR 40s
Chronic anemia
Essential HTN:
Hyperlipidemia: on Atorvastatin
Morbid obesity due to excess calories
T2DM : on Jardiance and Metformin
Diabetic neuropathy: on TR[employer] SUPER[employer]OR Gabapentin
Hypothyroidism: on LT4
HX GERD
DVT Px:on TRANS[employer]ER [employer] SUPER[employer] Xarelto
Code: Full
OBS TLM
[2025-07-15] MEDS: NSS 250 IV (15:10)
[2025-07-15] MEDS: GLUCOPHAGE 500 MG PO (17:55)
[2025-07-15] MEDS: LIPITOR 40 MG PO (17:55)
[2025-07-15] MEDS: XARELTO 15 MG PO (17:56)
[2025-07-15 17:58] LABS: Glucose - Point of Care 146 mg/dl (70-99)
[2025-07-15] MEDS: NOVOLOG FLEXPEN-LOW RESISTANCE SC (17:59)
[2025-07-15 21:14] LABS: Glucose - Point of Care 125 mg/dl (70-99)
[2025-07-15] MEDS: TYLENOL 650 MG PO (21:16)
[2025-07-15] MEDS: MAGNESIUM OXIDE 400 MG PO (21:17)
[2025-07-15] MEDS: NEURONTIN 300 MG PO (21:17)
[2025-07-16] VITALS (7 sets, daily range): BP systolic 116–139; BP diastolic 52–69; PULSE 58; BMI 39.6
[2025-07-16 05:39] LABS: Hematocrit 27.6 % (37.0-47.0); Hemoglobin 8.6 g/dL (12.0-16.0); Mean Corp Hgb Conc. 31.2 g/dL (33.0-37.0); Mean Corpuscular Volume 81.2 fL (81.0-99.0); Platelet Count 242 10^3/uL (130-400); Red Cell Dist. Width 20.6 % (11.5-14.5)
[2025-07-16 06:03] LABS: Blood Urea Nitrogen 77 mg/dl (7-17); Calcium 9.3 mg/dl (8.4-10.2); Carbon Dioxide 31 mmol/L (22-30); Chloride 97 mmol/L (98-107); Estimated Creatinine Clearance 34 ml/min; Glucose 118 mg/dl (70-99); Potassium 3.7 mmol/L (3.5-5.1); Sodium 134 mmol/L (135-145); eGFR 32.20
[2025-07-16] MEDS: SYNTHROID 137 MCG PO (06:20)
--- NOTE | 2025-07-16 06:34 | PTCARENOTE ---
Patient arrived on unit @1910 via stretcher from [facility], pulled over with assist x3 to bed. Patient AAOx3, skin assessment completed, oriented to unit, call bo within reach.
[2025-07-16 07:49] LABS: Glucose - Point of Care 142 mg/dl (70-99)
[2025-07-16] MEDS: NOVOLOG FLEXPEN-LOW RESISTANCE SC (08:44)
[2025-07-16] MEDS: GLUCOPHAGE 500 MG PO (09:10)
[2025-07-16] MEDS: PACERONE 200 MG PO (09:10)
[2025-07-16] MEDS: FARXIGA 10 MG PO (09:11)
[2025-07-16] MEDS: MIRALAX PO (09:14)
[2025-07-16 10:43] LABS: Glycohemoglobin (HgbA1c) 6.0 % (4.0-5.9)
[2025-07-16] MEDS: TYLENOL 650 MG PO (11:05)
--- NOTE | 2025-07-16 11:19 | CM ---
Call placed to [employer] [employer] [phone] and spoke to Monica for update on SNF authorization. Per Monica, authorization is still pending (pending auth number [id number]). [employer] [employer] will call CM with updates when determination made.
[2025-07-16 11:36] LABS: Glucose - Point of Care 156 mg/dl (70-99)
[2025-07-16] MEDS: NOVOLOG FLEXPEN-LOW RESISTANCE 1 UNITS SC ×2 (13:16→17:24)
--- NOTE | 2025-07-16 15:12 | W.PN.HOSP.TC ---
Today's Communication/Plan
-
F/u TFTs
Holding diuretics
monitor renal function
pt/ot
Assessment / Plan
Assessment / Plan
Physical Exam
General: Well Developed, Well Nourished and No Apparent Distress
HEENT: NormoCephalic, Moist mucous membranes and Atraumatic
Respiratory: Clear
Cardiac: S1/S2 and Regular Rhythm; No Murmur or Rub
GI: Soft, Non Tender, Non Distended and Normal Bowel Sounds; No Organomegaly
Rectal: Deferred by Provider
Musculoskeletal: No Edema
Skin: no edema, erythema; No Rash
Neuro: Nonfocal/grossly intact
#Weakness
#Ambulatory dysfunction
� PT/OT
� Most likely secondary to DELILAH, aggressive diuresis
-F/u TFTs
#DELILAH on CKD 3
-improving off diuretics, s/p ivf
� Secondary to aggressive diuresis
� Was recently admitted for CHF exacerbation. Was on 20 mg daily prior to hospitalization and switched over to 60 mg p.o. twice daily torsemide
� Anticipate reducing dose of 40 mg torsemide twice daily upon discharge with close monitoring
#Hyponatremia
-monitor with resuscitation
HX Chr Hypoxic RF on 2L home O2
HX Chr HFpEF - Not in acute HF: on Jardiance, Holding Torsemide due to dehydration nd vol contraction; reduce to 40mg BID on dc
Paroxysmal atrial fibrillation with bradycardia: on Amiodarone and Xarelto
Chronic anemia
Essential HTN:
Hyperlipidemia: on Atorvastatin
Morbid obesity due to excess calories
T2DM : on Jardiance and Metformin; Hold metformin; AISS
Diabetic neuropathy: on RN CORRECTIONAL Gabapentin
Hypothyroidism: on LT4; f/u TFTs
HX GERD
#DVT ppx - xarelto
Anticipated Discharge: 24 - 48 hours
Subjective/Interval History
-
Date of Service: July 16, 2025
No acute events overnight
Objective Data
-
Labs:
Laboratory Results
07/16/25
05:06
WBC 9.6
Hgb 8.6 L
Hct 27.6 L
Plt Count 242
Sodium 134 L
Potassium 3.7
Chloride 97 L
Carbon Dioxide 31 H
BUN 77 H
Creatinine 1.6 H
Glucose 118 H
Calcium 9.3
Vital Signs:
Vital Signs
Temp Pulse Resp BP Pulse Ox
97.9 F 56 16 116/53 96
07/16/25 15:12 07/16/25 15:12 07/16/25 15:12 07/16/25 15:12 07/16/25 15:12
I&O
07/15/25 07/16/25 07/17/25
06:59 06:59 06:59
Intake Total 480 / 480
Output Total 500 / 500
Balance -20 / -20
Review of Systems
-
History Source: Patient
All other systems: Not reviewed unless documented
Data Reviewed
-
Labs: Labs Reviewed by me
--- NOTE | 2025-07-16 15:28 | CM ---
Call placed to [facility] [phone] and spoke to Nikki for update on SNF authorization. Per Nikki, SNF authorization is still pending at this time; being reviewed per Nikki (pending auth number [id number]). [facility] will call CM with updates when
determination made. Yanique [facility] updated regarding awaiting final authorization number.
[2025-07-16 17:15] LABS: Glucose - Point of Care 165 mg/dl (70-99)
[2025-07-16] MEDS: XARELTO 15 MG PO (17:25)
[2025-07-16] MEDS: LIPITOR 40 MG PO (17:25)
[2025-07-16 20:34] LABS: Glucose - Point of Care 115 mg/dl (70-99)
[2025-07-16] MEDS: NEURONTIN 300 MG PO (22:29)
[2025-07-16] MEDS: MAGNESIUM OXIDE 400 MG PO (22:29)
[2025-07-17 03:06] VITALS: BP 121/55
[2025-07-17] MEDS: SYNTHROID 137 MCG PO (06:01)
[2025-07-17 08:19] VITALS: BP 123/58
[2025-07-17 09:50] LABS: Glucose - Point of Care 245 mg/dl (70-99)
[2025-07-17] MEDS: MIRALAX 17 GRAMS PO (09:50)
[2025-07-17] MEDS: NOVOLOG FLEXPEN-LOW RESISTANCE 2 UNITS SC (09:52)
[2025-07-17] MEDS: PACERONE 200 MG PO (09:53)
[2025-07-17 09:54] LABS: Hematocrit 27.2 % (37.0-47.0); Hemoglobin 8.3 g/dL (12.0-16.0); Mean Corp Hgb Conc. 30.5 g/dL (33.0-37.0); Mean Corpuscular Volume 82.9 fL (81.0-99.0); Platelet Count 261 10^3/uL (130-400); Red Cell Dist. Width 20.4 % (11.5-14.5)
[2025-07-17] MEDS: FARXIGA 10 MG PO (09:54)
[2025-07-17 10:29] LABS: Blood Urea Nitrogen 68 mg/dl (7-17); Calcium 8.6 mg/dl (8.4-10.2); Carbon Dioxide 34 mmol/L (22-30); Chloride 97 mmol/L (98-107); Estimated Creatinine Clearance 30 ml/min; Glucose 96 mg/dl (70-99); Potassium 3.9 mmol/L (3.5-5.1); Sodium 135 mmol/L (135-145); eGFR 27.96
[2025-07-17 11:59] LABS: Glucose - Point of Care 145 mg/dl (70-99)
[2025-07-17 12:27] VITALS: BP 123/87
[2025-07-17] MEDS: NOVOLOG FLEXPEN-LOW RESISTANCE SC ×2 (12:32→17:04)
--- NOTE | 2025-07-17 12:59 | W.PN.HOSP.TC ---
Today's Communication/Plan
-
monitor renal function off diuretics
Assessment / Plan
Assessment / Plan
Physical Exam
General: Well Developed, Well Nourished and No Apparent Distress
HEENT: NormoCephalic, Moist mucous membranes and Atraumatic
Respiratory: Clear
Cardiac: S1/S2 and Regular Rhythm; No Murmur or Rub
GI: Soft, Non Tender, Non Distended and Normal Bowel Sounds; No Organomegaly
Rectal: Deferred by Provider
Musculoskeletal: No Edema
Skin: no edema, erythema; No Rash
Neuro: Nonfocal/grossly intact
#Weakness
#Ambulatory dysfunction
� PT/OT
� Most likely secondary to DELILAH, aggressive diuresis
- TFTs wnl
#DELILAH on CKD 3
-most likely 2/2 to overdiuresis
- was improving off diuretics, s/p ivf - although up today
- If Scr remains in this range despite stopping lasix, obtain records of las Scr
- Bladder scan, PVR
� Was recently admitted for CHF exacerbation. Was on 20 mg daily prior to hospitalization and switched over to 60 mg p.o. twice daily torsemide
� Anticipate reducing dose of 40 mg torsemide twice daily upon discharge with close monitoring if Scr risen du eto overdiuresis
#Hyponatremia
-monitor with resuscitation
HX Chr Hypoxic RF on 2L home O2
HX Chr HFpEF - Not in acute HF: on Jardiance, Holding Torsemide due to dehydration nd vol contraction;
Paroxysmal atrial fibrillation with bradycardia: on Amiodarone and Xarelto
Chronic anemia
Essential HTN:
Hyperlipidemia: on Atorvastatin
Morbid obesity due to excess calories
T2DM : on Jardiance and Metformin; Hold metformin; AISS
Diabetic neuropathy: on SAF[employer]Y AIDE Gabapentin
Hypothyroidism: on LT4; f/u TFTs
HX GERD
#DVT ppx - xarelto
Anticipated Discharge: 24 - 48 hours
Subjective/Interval History
-
Date of Service: July 17, 2025
Still feels weak
Objective Data
-
Labs:
Laboratory Results
07/17/25
06:35
WBC 7.5
Hgb 8.3 L
Hct 27.2 L
Plt Count 261
Sodium 135
Potassium 3.9
Chloride 97 L
Carbon Dioxide 34 H
BUN 68 H
Creatinine 1.8 H
Glucose 96
Calcium 8.6
Vital Signs:
Vital Signs
Temp Pulse Resp BP Pulse Ox
97.7 F 50 16 123/87 100
07/17/25 12:27 07/17/25 12:27 07/17/25 12:27 07/17/25 12:27 07/17/25 12:27
I&O
07/16/25 07/17/25 07/18/25
06:59 06:59 06:59
Intake Total 480 / 480 900 / 900
Output Total 500 / 500 1100 / 1100
Balance -20 / -20 -200 / -200
Review of Systems
-
History Source: Patient
All other systems: Not reviewed unless documented
Data Reviewed
-
Labs: Labs Reviewed by me
[2025-07-17] MEDS: TYLENOL 650 MG PO (14:57)
[2025-07-17 15:46] VITALS: BP 129/53
[2025-07-17 17:05] LABS: Glucose - Point of Care 139 mg/dl (70-99)
[2025-07-17] MEDS: XARELTO 15 MG PO (17:07)
[2025-07-17] MEDS: LIPITOR 40 MG PO (17:07)
[2025-07-17 19:21] VITALS: BP 130/53
[2025-07-17 20:57] LABS: Glucose - Point of Care 141 mg/dl (70-99)
[2025-07-17] MEDS: NEURONTIN 300 MG PO (22:18)
[2025-07-17] MEDS: MAGNESIUM OXIDE 400 MG PO (22:18)
[2025-07-17 23:54] VITALS: BP 127/58
[2025-07-18 03:27] VITALS: BP 136/72
[2025-07-18] MEDS: SYNTHROID 137 MCG PO (04:00)
[2025-07-18 07:02] VITALS: BMI 40.1
--- NOTE | 2025-07-18 07:46 | CM ---
[facility] 07/17/[facility]; for Fernanda More; 43, id [id number]. Appr skilled rehab jul 16 -NRD Jul 20. Auth # [id number] updates to fax [phone], pati Mendes.
[2025-07-18 08:07] LABS: Hematocrit 26.8 % (37.0-47.0); Hemoglobin 8.3 g/dL (12.0-16.0); Mean Corp Hgb Conc. 31.0 g/dL (33.0-37.0); Mean Corpuscular Volume 84.5 fL (81.0-99.0); Platelet Count 230 10^3/uL (130-400); Red Cell Dist. Width 20.3 % (11.5-14.5)
[2025-07-18 08:19] VITALS: BP 123/56
[2025-07-18 08:30] LABS: Blood Urea Nitrogen 55 mg/dl (7-17); Calcium 8.8 mg/dl (8.4-10.2); Carbon Dioxide 32 mmol/L (22-30); Chloride 99 mmol/L (98-107); Estimated Creatinine Clearance 39 ml/min; Glucose 116 mg/dl (70-99); Potassium 4.1 mmol/L (3.5-5.1); Sodium 134 mmol/L (135-145); eGFR 37.80
[2025-07-18 08:57] LABS: Glucose - Point of Care 139 mg/dl (70-99)
--- NOTE | 2025-07-18 09:15 | CM ---
Addendum entered by Damari Talley RN 07/18/25 14:01:
Ivette said she will drive pt home.
She said she will be staying and helping patient at her home.
Declined other services.
PLAN Home no needs
Addendum entered by Damari Talley RN 07/18/25 13:17:
Spoke with patient and dgt Ivette both agree pt is doing better in PT and requesting to go home.
Ivette daughter said she will drive patient home.
Mau and Yanique at [facility] notified of admission cancelled. Mau will inform Madeline of cancellation.
Pt on home oxygen. Dgt to bring home oxygen for ride home.
PLAN Home no needs .
Original Note:
Received Approval for skilled rehab from [facility] from 07/16 to 07/20 Auth # [id number] NRD Jul 20. fax [phone] ask for Cinthya.
notified .
Pt on oxygen 2liter NC Pox 98%.
[facility]
report [phone]
fax [phone]
PLAN [facility] after medically ready
[2025-07-18] MEDS: NOVOLOG FLEXPEN-LOW RESISTANCE SC ×2 (09:33→12:51)
[2025-07-18] MEDS: FARXIGA 10 MG PO (09:37)
[2025-07-18] MEDS: PACERONE 200 MG PO (09:37)
[2025-07-18] MEDS: MIRALAX 17 GRAMS PO (09:37)
--- NOTE | 2025-07-18 10:53 | W.PN.HOSP.TC ---
Addendum entered and electronically signed by Tony Claire MD 07/18/25 14:40:
[id number]
Original Note:
Today's Communication/Plan
-
Resume torsemide at reduced dose of 40 mg twice daily
Monitor daily weights outpatient; if increase in 5 pounds over 1 week or 3 pounds in 24 hours, call cardiology office. May require increasing dose of diuretics again
Assessment / Plan
Assessment / Plan
Physical Exam
General: Well Developed, Well Nourished and No Apparent Distress
HEENT: NormoCephalic, Moist mucous membranes and Atraumatic
Respiratory: Clear
Cardiac: S1/S2 and Regular Rhythm; No Murmur or Rub
GI: Soft, Non Tender, Non Distended and Normal Bowel Sounds; No Organomegaly
Rectal: Deferred by Provider
Musculoskeletal: No Edema
Skin: no edema, erythema; No Rash
Neuro: Nonfocal/grossly intact
#Weakness
#Ambulatory dysfunction
� PT/OT�SNF
� Most likely secondary to DELILAH, aggressive diuresis
- TFTs wnl
#DELILAH on CKD 3�improving
-most likely 2/2 to overdiuresis
- was improving off diuretics, s/p ivf
- Bladder scan, PVR�minimal residual
� Follow-up ultrasound renal
� Was recently admitted for CHF exacerbation. Was on 20 mg daily prior to hospitalization and switched over to 60 mg p.o. twice daily torsemide
� Reducing torsemide to 40 mg torsemide twice daily upon discharge with close monitoring of serum creatinine, weights
#Hyponatremia
-monitor with resuscitation
�Mild
Monitor outpatient
HX Chr Hypoxic RF on 2L home O2
HX Chr HFpEF - Not in acute HF: on Jardiance, Holding Torsemide due to dehydration nd vol contraction;
Paroxysmal atrial fibrillation with bradycardia: on Amiodarone and Xarelto
Chronic anemia
Essential HTN:
Hyperlipidemia: on Atorvastatin
Morbid obesity due to excess calories
T2DM : on Jardiance and Metformin; Hold metformin; AISS
Diabetic neuropathy: on OFFLINE EDITOR Gabapentin
Hypothyroidism: on LT4; f/u TFTs
HX GERD
#DVT ppx - xarelto
More than 30 minutes spent in discharge including
Final examination of the patient
Summarizing hospital stay
Instructions for continuing care to all relevant caregivers
Preparation of discharge records, prescriptions, and referral forms
Total time spent (in minutes): 36
Anticipated Discharge: Today
Subjective/Interval History
-
Date of Service: July 18, 2025
No acute events overnight
Objective Data
-
Labs:
Laboratory Results
07/18/25
07:36
WBC 7.3
Hgb 8.3 L
Hct 26.8 L
Plt Count 230
Sodium 134 L
Potassium 4.1
Chloride 99
Carbon Dioxide 32 H
BUN 55 H
Creatinine 1.4 H
Glucose 116 H
Calcium 8.8
Vital Signs:
Vital Signs
Temp Pulse Resp BP Pulse Ox
98.4 F 49 20 123/56 98
07/18/25 08:19 07/18/25 08:19 07/18/25 08:19 07/18/25 08:19 07/18/25 08:19
I&O
07/17/25 07/18/25 07/19/25
06:59 06:59 06:59
Intake Total 900 / 900 970 / 970
Output Total 1100 / 1100
Balance -200 / -200 970 / 970
Review of Systems
-
History Source: Patient
All other systems: Not reviewed unless documented
Data Reviewed
-
Labs: Labs Reviewed by me
--- NOTE | 2025-07-18 10:55 | W.DS.TRANS ---
DC Summary - [facility]
-
Discharge Instructions:
Sleep Apnea Risk Intermediate
Discharge Diagnosis/Procedures Weakness
DELILAH
Diet Low Fat,Low Cholesterol,Restrict fluids to 48 oz
Activity As tolerated
Blood Work CBC and BMP in 2 to 3 days. Monitor renal
function and weight with torsemide reduced to 40
mg twice daily rather than 60 mg twice daily.
Specialty Instructions Weigh Daily
Instructions:
Stand-Alone Forms:
Changes to Home Medications: Yes
Discharge Medications:
DC Medications w/original date entered in [email or web address]
amiodarone 200 mg tablet (Pacerone) 200 mg PO DAILY Arrhythmia 08/23/21
atorvastatin 40 mg tablet 40 mg PO QPM High cholesterol 08/23/21
gabapentin 300 mg capsule 300 mg PO HS Pain 08/23/21
magnesium oxide 500 mg PO HS Electrolyte Repletion 08/23/21
metformin 500 mg tablet 500 mg PO BID@0800,1700 Diabetes 08/23/21
levothyroxine 137 mcg tablet (Synthroid) 137 mcg PO DAILY@0600 Thyroid #0 tabs 01/18/25
rivaroxaban 15 mg tablet (Xarelto) 15 mg PO QPM #30 tabs 01/18/25
diclofenac sodium 1 % topical gel 2 g topical DAILYPRN PRN pain-bilateral knees 07/16/25
ferrous sulfate 325 mg (65 mg iron) tablet 325 mg PO MOWEFR Supplement 07/16/25
linaclotide 145 mcg capsule 145 mcg PO DAILY@0700 Constipation 07/16/25
dapagliflozin propanediol 10 mg tablet 10 mg PO DAILY #0 tabs 07/18/25
torsemide 20 mg tablet 40 mg (2 x 20 mg) PO BID@0800,1600 Fluid Retention/Swelling #0 tabs 07/18/25
Home Medication Changes
torsemide 20 mg tablet 40 mg (2 x 20 mg) PO BID@0800,1600 Fluid Retention/Swelling #0 tabs 07/18/25
Pending Results: No
[2025-07-18 11:42] VITALS: BP 142/60
[2025-07-18 12:23] LABS: Glucose - Point of Care 121 mg/dl (70-99)
[2025-07-18 15:05] VITALS: BP 128/58; PULSE 54
[2025-07-18 15:23] VITALS: BP 138/55
== END 2025-07-18 16:41 | disposition home or self-care (01) ==
LOC: 3 WEST ACU 15:18
PROVIDERS: Physician Assistant; ADMITTING PHYSICIAN Internal Medicine; ATTENDING PHYSICIAN Internal Medicine; EMERGENCY PHYSICIAN Emergency Medicine
DX: N17.9 Acute kidney failure, unspecified (principal); E11.22 Type 2 diabetes mellitus with diabetic chronic kidney disease; N18.32 Chronic kidney disease, stage 3b; C83.70 Burkitt lymphoma, unspecified site; D64.9 Anemia, unspecified; E03.9 Hypothyroidism, unspecified; E11.40 Type 2 diabetes mellitus with diabetic neuropathy, unspecified; R26.2 Difficulty in walking, not elsewhere classified; E66.01 Morbid (severe) obesity due to excess calories; Z68.41 Body mass index [BMI] 40.0-44.9, adult; E78.00 Pure hypercholesterolemia, unspecified; E86.0 Dehydration; E87.6 Hypokalemia; I13.0 Hypertensive heart and chronic kidney disease with heart failure and stage 1 through stage 4 chronic kidney disease, or unspecified chronic kidney disease; I50.32 Chronic diastolic (congestive) heart failure; I48.0 Paroxysmal atrial fibrillation; J96.21 Acute and chronic respiratory failure with hypoxia; K59.00 Constipation, unspecified; L03.115 Cellulitis of right lower limb; Z79.01 Long term (current) use of anticoagulants; Z79.84 Long term (current) use of oral hypoglycemic drugs; Z79.890 Hormone replacement therapy; Z79.899 Other long term (current) drug therapy; E87.1 Hypo-osmolality and hyponatremia
CPT/HCPCS: 76770; 80048; 80053; 81003; 81015; 82962; 83036; 84443; 85025; 85027; 97116; 97530; 99285; G0378